=== PATIENT | female | born 1955 | race Caucasian/White ===

== ENCOUNTER 2022-07-13 10:59 | Outpatient (CLI) | payer OTHER, SELFPAY | END 2022-07-13 11:00 | disposition home or self-care (01) | PROVIDERS: PCP Family Medicine; Visit Provider Family Medicine | DX: I69.993 Ataxia following unspecified cerebrovascular disease (principal); H90.3 Sensorineural hearing loss, bilateral | CPT/HCPCS: 92557; 92567; 99199 ==

== ENCOUNTER 2022-09-23 14:36 | Inpatient (IN) | payer OTHER, SELFPAY ==
--- NOTE | ~2022-09-23 | XR_ITS ---
EXAM: XR hip RT 2V w AP pelvis DATE: 09/23/2022 15:27 HISTORY: Right hip pain s/p fall today . COMPARISON: None available. FINDINGS: MANAGER FLEET shunt tubing terminates in the right lower quadrant. Decreased mineralization. Angulated right intertrochanteric fracture. No lytic or blastic lesion. Degenerative changes in the lower lumb ar spine, pubic symphysis, and hips. No erosion or periosteal change. Pelvic phleboliths. Abdominal s utures. IMPRESSION: Angulated right intertrochanteric fracture. Reviewed, dictated and finalized at location K. FILER
--- NOTE | ~2022-09-23 | US_ITS ---
EXAMINATION: US venous doppler [facility] DATE: 09/24/2022 16:04 INDICATION: Bilateral lower extremity edema. TECHNIQUE: Grayscale images without and with compression and Doppler images of the bilateral lower ex tremity veins were obtained. COMPARISON: None FINDINGS: The right common femoral vein, profunda (deep) femoral vein, femoral vein, popliteal vein, peroneal v ein, posterior tibial veins, gastrocnemius vein, and greater saphenous vein are patent. The right per coy vein was difficult to completely visualize. The left common femoral vein, profunda femoral vein, femoral vein, popliteal vein, peroneal vein, pos terior tibial veins, gastrocnemius vein, and greater saphenous vein are patent. Left posterior tibial and peroneal veins were difficult to visualize. IMPRESSION: 1. Somewhat limited evaluation of the calf veins. 2. Within that constraint, patent bilateral lower extremity veins and no definite evidence of deep ve nous thrombosis. Reviewed, dictated and finalized at location K. UNITY RELATIONS REPRESENTATIVE IMPRESSION: 1. Somewhat limited evaluation of the calf veins. 2. Within that constraint, patent bilateral lower extremity veins and no defini te evidence of deep venous thrombosis.
--- NOTE | ~2022-09-23 | XR_ITS ---
EXAMINATION: XR surgery orthopedic DATE: 09/24/2022 09:19 INDICATION: Intertrochanteric fracture of proximal right femur. TECHNIQUE: 4 intraoperative fluoroscopic views of proximal right femur were obtained. I was not prese nt. Fluoroscopy exposure time was 108 seconds. COMPARISON: Right hip radiographs 09/23/2022 FINDINGS: There is an intertrochanteric fracture of proximal right femur in near-anatomic alignment s tatus post open reduction internal fixation with antegrade intramedullary nelson, distal interlocking sc rew, and 2 femoral head/neck screws. IMPRESSION: 1. Intertrochanteric fracture of proximal right femur status post open reduction internal fixation. Reviewed, dictated and finalized at location A. EL DRAINER IMPRESSION: 1. Intertrochanteric fracture of proximal right femur status post open reductio n internal fixation.
--- NOTE | ~2022-09-23 | XR_ITS ---
EXAMINATION: XR chest 1V Exam Date/Time: 09/23/2022 15:20 SAUSAGE COOKER HISTORY: Fall. Comparison: 11/11/2014. RESULT: Lines, tubes, and devices: The patient tubing traverses the right chest. Lungs and pleura: Right basilar scar/atelectasis. Cardiomediastinal silhouette: Stable. Other: No acute osseous or upper abdominal finding. IMPRESSION: Right basilar scar/atelectasis. Reviewed, dictated and finalized at location K. AGE COOKER
[2022-09-23 14:53] VITALS: BP 134/80; PULSE 87; RESP 12; TEMP 36.8; O2SAT 99
[2022-09-23 15:05] LABS: Basophils Absolute Auto 0.1 K/mm3 (0.0-0.1); Basophils Percent Auto 0.8 % (0.2-1.2); Eosinophils Percent Auto 0.3 % (0-4.4); Hematocrit 40.1 % (37.0-47.0); Hemoglobin 12.8 g/dL (12.0-15.0); Immature Granulocyte Absolute 0.21 K/mm3 (0.00-0.031); Immature Granulocyte Percent A 2.3 % (0-0.5); Lymphocytes Absolute Auto 3.58 K/mm3 (0.9-3.2); Lymphocytes Percent Auto 38.6 % (18.3-44.2); Mean Corpuscular HGB Conc 31.9 g/dl (32-36); Mean Corpuscular Hemoglobin 29.5 pg (26-34); Mean Corpuscular Volume 92.4 fl (80-100); Mean Platelet Volume 9.9 fl (7.4-10.4); Monocytes Absolute Auto 1.1 K/mm3 (0.1-0.6); Neutrophils Absolute Auto 4.3 K/mm3 (1.3-6.7); Platelet Count Result 169 k/mm3 (150-375); Red Blood Count 4.34 M/mm3 (4.2-5.4); Red Cell Distribution Width 14.9 % (11.5-14.5); White Blood Count 9.3 K/mm3 (4.5-10.0)
[2022-09-23 15:16] LABS: Alanine Aminotransferase 24 U/L (6-35); Albumin Level 3.3 g/dL (3.5-5.1); Alkaline Phosphatase 79 U/L (38-126); Anion Gap 6 mmol/L (8-16); Aspartate Amino Transferase 39 U/L (14-36); Bilirubin,Total 0.4 mg/dL (0.2-1.3); Blood Urea Nitrogen 23 mg/dL (7-17); Calcium 8.5 mg/dL (8.4-10.2); Carbon Dioxide 28 mmol/L (22-30); Chloride 104 mmol/L (98-107); Estimated CRCL calculation 50 ml/min; Estimated Glomerular Filt Rate > 60; Glucose 194 mg/dL (65-110); Potassium 4.7 mmol/L (3.4-5.0); Sodium 138 mmol/L (137-145)
[2022-09-23 15:51] LABS: Prothrombin Time 12.5 Seconds (11.1-14.7)
[2022-09-23 15:52] LABS: Partial Thromboplastin Time 28.6 SECONDS (22.3-36.8)
--- NOTE | 2022-09-23 15:52 | ED.FALL ---
HPI - Fall General Chief Complaint: Fall Stated Complaint: Ground level fall - right hip pain, deformed Time Seen by Provider: 09/23/22 14:50 History of Present Illness HPI Narrative: Patient is a 67-year-old female who presents ER status post fall. She was at her senior living when she had a fall going into her closet resulting in pain to her right hip. She has shortening and external rotation. Patient has dementia and is oriented x2 at baseline and cannot give a history. Related Data Allergies Allergy/AdvReac Type Severity Reaction Status Date / Time No Known Allergies Allergy Verified 09/23/22 14:58 Review of Systems Review of Systems: ROS unobtainable: Yes unobtainable due to mental status PMFSH Past Medical History Medical History (Updated 09/23/22 @ 16:56 by Michael Daley MD) COPD (chronic obstructive pulmonary disease) CVA (cerebral vascular accident) Hypertension Idiopathic aplastic anemia Normal pressure hydrocephalus Unspecified convulsions Surgical History Surgical History (Updated 09/23/22 @ 16:33 by Michael Daley MD) Surgical history unknown Social History Social History (Updated 05/02/22 @ 10:20 by Lindy Landin CMA) Smoking packs per day: 1 Smoking cigarettes per day: 20.0 Years smoked: 3 Smoking pack-years: 3.00 Smoking status: Former smoker Tobacco type: cigarettes Alcohol intake: never Substance use: never Substance use type: does not use Exam Narrative: GENERAL: Well-appearing, well-nourished, and in no acute distress. HEAD: Normocephalic, atraumatic. ENT: Mucous membranes moist. CHEST: Clear to auscultation. No respiratory distress. HEART: Regular rate and rhythm. Normal peripheral pulses. ABDOMEN: Soft, nontender, nondistended. EXTREMITIES: Shortening and external rotation of the right lower extremity. Tender at the hip. Neurovascular intact. None from the left lower extremity or upper extremities. SKIN: Warm, dry, no rash. NEURO: Alert and oriented x2. PSYCH: Normal mood and affect. Course Course Emergency Course: Excepted to the hospital service for further treatment. Dr. Henao with orthopedic surgery will consult. Patient aware of treatment plan. Vital Signs Vital signs: Vital Signs Temperature 98.2 F 09/23/22 14:53 Pulse Rate 87 09/23/22 14:53 Respiratory Rate 12 09/23/22 14:53 Blood Pressure 134/80 09/23/22 14:53 Pulse Oximetry 99 09/23/22 14:53 Oxygen Delivery Room Air 09/23/22 14:53 Temperature 98.2 F 09/23/22 14:53 Pulse Rate 83 09/23/22 16:48 Respiratory Rate 18 09/23/22 16:48 Blood Pressure 150/86 H 09/23/22 16:48 Pulse Oximetry 99 09/23/22 16:48 Oxygen Delivery Room Air 09/23/22 14:53 MDM - Fall Lab Data 09/23/22 15:00 09/23/22 15:00 Labs: Lab Results 09/23/22 09/23/22 09/23/22 Range/Units 15:00 15:00 15:00 WBC 9.3 (4.5-10.0) K/mm3 RBC 4.34 (4.2-5.4) M/mm3 Hgb 12.8 (12.0-15.0) g/dL Hct 40.1 (37.0-47.0) % MCV 92.4 (80-100) fl MCH 29.5 (26-34) pg MCHC 31.9 L (32-36) g/dl RDW 14.9 H (11.5-14.5) % Plt Count 169 (150-375) k/mm3 MPV 9.9 (7.4-10.4) fl Immature Gran % (Auto) 2.3 H (0-0.5) % Neut % (Auto) 46.0 (45.5-73.1) % Lymph % (Auto) 38.6 (18.3-44.2) % [place] % (Auto) 12.0 H (2.6-8.5) % Eos % (Auto) 0.3 (0-4.4) % Baso % (Auto) 0.8 (0.2-1.2) % Lymph # (Auto) 3.58 H (0.9-3.2) K/mm3 [place] # (Auto) 1.1 H (0.1-0.6) K/mm3 Eos # (Auto) 0.0 (0-0.3) K/mm3 Baso # (Auto) 0.1 (0.0-0.1) K/mm3 Abs Immat Gran (auto) 0.21 H (0.00-0.031) K/mm3 Absolute Neuts (auto) 4.3 (1.3-6.7) K/mm3 Absolute Nucleated RBC 0.0 (0.0-0.012) K/mm3 Nucleated RBC % 0.0 (0.0-0.2) % PT 12.5 (11.1-14.7) Seconds INR 1.0 APTT 28.6 (22.3-36.8) SECONDS Sodium 138 (137-145) mmol/L Potassium 4.7 (3.4-5.0) mmol/L Chloride 104 (98-
--- NOTE | 2022-09-23 16:19 | ECG_ITS ---
Measurements Intervals [place] Rate: 80 P: 51 [place]: 144 QRS: 42 QRSD: 92 T: 49 QT: 381 QTc: 441 Interpretive Statements SINUS RHYTHM NORMAL ECG NO PREVIOUS ECG AVAILABLE FOR COMPARISON Electronically Signed On 09-23-2022 17:32:52 ENVIRONMENTAL TECHNICAL OFFICER by Mansoor Blanchard D.O.
[2022-09-23 16:48] VITALS: BP 150/86; PULSE 83; RESP 18; O2SAT 99
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
[2022-09-23 17:37] LABS: Influenza A QL RT-PCR Negative (Negative); Influenza B QL RT-PCR Negative (Negative); SARS-CoV-2 RNA PCR Negative
--- NOTE | 2022-09-23 18:05 | ADMGEN ---
This patient, Anjelica Pena, was admitted to 2 Medical Room 251-01. Patient/family oriented to hospital policies and general routines including ID bracelet, bed and alarms, visiting hours, pain management, procedures, bathroom and other care routines, personal items, smoking policy, room service/diet, and visiting hours. Information on how to activate the Rapid Response Team has been discussed. Patient/Family are encouraged to report perceived risks to care and to ask questions if they do not understand what they are told or what they should do.
[2022-09-23 18:30] VITALS: BP 143/61; PULSE 85; RESP 20; TEMP 36.4; O2SAT 99
[2022-09-23 18:36] VITALS: BMI 27.5
[2022-09-23 18:38] VITALS: RESP 18; O2SAT 99
[2022-09-23 20:00] VITALS: BP 143/71; PULSE 99; RESP 18; TEMP 37.1; O2SAT 100
[2022-09-23] MEDS: HYDROcodone/acetaminophen (*CRX) 5-325 MG TABLET 1 TAB PO (21:14)
[2022-09-23] MEDS: ONDANSETRON INJ 4 MG/2 ML VIAL IV PUSH (21:15)
[2022-09-24] VITALS (20 sets, daily range): BP systolic 107–154; BP diastolic 63–90; PULSE 83–108; RESP 11–18; TEMP 36.3–36.6; O2SAT 91–100
[2022-09-24] MEDS: oxyCODONE HCL (*CRX) 5 MG TAB IR PO ×3 (00:12→05:42)
[2022-09-24 05:49] LABS: Hematocrit 37.6 % (37.0-47.0); Hemoglobin 11.8 g/dL (12.0-15.0); Mean Corpuscular HGB Conc 31.4 g/dl (32-36); Mean Corpuscular Hemoglobin 28.4 pg (26-34); Mean Corpuscular Volume 90.6 fl (80-100); Mean Platelet Volume 9.8 fl (7.4-10.4); Platelet Count Result 183 k/mm3 (150-375); Red Blood Count 4.15 M/mm3 (4.2-5.4); Red Cell Distribution Width 14.6 % (11.5-14.5); White Blood Count 13.2 K/mm3 (4.5-10.0)
[2022-09-24 05:55] LABS: Anion Gap 5 mmol/L (8-16); Blood Urea Nitrogen 24 mg/dL (7-17); Calcium 8.6 mg/dL (8.4-10.2); Carbon Dioxide 29 mmol/L (22-30); Chloride 103 mmol/L (98-107); Estimated CRCL calculation 53 ml/min; Estimated Glomerular Filt Rate > 60; Glucose 139 mg/dL (65-110); Magnesium 2.1 mg/dL (1.6-2.3); Potassium 4.6 mmol/L (3.4-5.0); Sodium 137 mmol/L (137-145)
[2022-09-24 05:58] LABS: Hemoglobin A1C 5.5 % (<5.7)
[2022-09-24 06:15] LABS: Vitamin D 25 Hydroxy 30.7 ng/mL
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
--- NOTE | 2022-09-24 07:31 | PC.NURSE ---
Brother of patient came to floor at 0615 to sign blood/surgical consent. Brother expressed ideas of paranoid schizophrenia concerns staff at snf facility and other odd statements. Brother talked to surgeon. Brief report given to OR nurse. Pt taken to preop with o2 via bed with staff , brother accompanied pt as well.IV Antibiotics to preop per pharmacy.
--- NOTE | 2022-09-24 07:38 | WPDANESEPPF ---
Anes - Initial Pre Proc Eval Procedure: Operation Date: 09/24/22 07:30 Proposed Procedures p Intertrochanteric Nail(Right) - Eder Henao MD Date/Time: 09/24/22 07:38 Surgeon: Kyara Lawson PA-C Pre Op Diagnosis: hip fracture Patient Data Age: 67 Gender: F Height: 1.55 m Weight: 66.1 kg Last Vital Signs Temp 36.5 C 09/24/22 05:09 Pulse 101 H 09/24/22 05:09 Resp 18 09/24/22 05:09 BP 154/76 H 09/24/22 05:09 Pulse Ox 98 09/24/22 05:09 O2 Del Method Room Air 09/23/22 18:38 Allergies Allergy/AdvReac Type Severity Reaction Status Date / Time No Known Allergies Allergy Verified 09/23/22 18:24 Home Medications Medication Instructions Recorded Confirmed Type acetaminophen 325 mg tablet 325 mg PO Q4H PRN Pain 09/23/22 09/23/22 History (Tylenol) artificial tears solution eye drops 1 drp ophthalmic (eye) BID PRN Eye 09/23/22 09/23/22 History Irritation bisacodyl 5 mg tablet,delayed 5 mg PO BID PRN Constipation 09/23/22 09/23/22 History release calcium carb-vit D3-minerals 600 1 tablet PO DAILY 09/23/22 09/23/22 History mg calcium-400 unit tablet cetirizine 10 mg tablet (Allergy 10 mg PO DAILY 09/23/22 09/23/22 History Relief (cetirizine)) citalopram 10 mg tablet 10 mg PO DAILY 09/23/22 09/23/22 History divalproex 500 mg tablet,delayed 2,000 mg PO 1900 09/23/22 09/23/22 History release fluticasone 100 mcg-salmeterol 50 1 inh inhalation BID 09/23/22 09/23/22 History mcg/dose blistr powdr for inhalation (Advair Diskus) fluticasone propionate 50 1 spray intranasal BID PRN Nasal 09/23/22 09/23/22 History mcg/actuation nasal Congestion spray,suspension furosemide 20 mg tablet 20 mg PO DAILY 09/23/22 09/23/22 History guaifenesin 600 mg tablet, 600 mg PO Q12H PRN Congestion 09/23/22 09/23/22 History extended release 12 hr (Mucinex) ipratropium 20 mcg-albuterol 100 1 puff inhalation QID 09/23/22 09/23/22 History mcg/actuation mist for inhalation (Combivent Respimat) loperamide 2 mg capsule 2 mg PO TID PRN Diarrhea 09/23/22 09/23/22 History montelukast 10 mg tablet 10 mg PO DAILY 09/23/22 09/23/22 History (Singulair) omeprazole 20 mg tablet,delayed 20 mg PO DAILY 09/23/22 09/23/22 History release polysaccharide iron complex 150 mg 150 mg PO 1700 09/23/22 09/23/22 History iron capsule (iFerex 150) propylene glycol 0.6 % eye drops 1 drp EACH EYE DAILY 09/23/22 09/23/22 History (Systane Complete) Laboratory Tests 09/23/22 09/23/22 09/23/22 15:00 15:00 15:00 WBC 9.3 K/mm3 K/mm3 (4.5-10.0) RBC 4.34 M/mm3 M/mm3 (4.2-5.4) Hgb 12.8 g/dL g/dL (12.0-15.0) Hct 40.1 % % (37.0-47.0) MCV 92.4 fl fl (80-100) MCH 29.5 pg pg (26-34) MCHC 31.9 g/dl L g/dl (32-36) RDW 14.9 % H % (11.5-14.5) Plt Count 169 k/mm3 k/mm3 (150-375) MPV 9.9 fl fl (7.4-10.4) Immature Gran % (Auto) 2.3 % H % (0-0.5) Neut % (Auto) 46.0 % % (45.5-73.1) Lymph % (Auto) 38.6 % % (18.3-44.2) [place] % (Auto) 12.0 % H % (2.6-8.5) Eos % (Auto) 0.3 % % (0-4.4) Baso % (Auto) 0.8 % % (0.2-1.2) Lymph # (Auto) 3.58 K/mm3 H K/mm3 (0.9-3.2) [place] # (Auto) 1.1 K/mm3 H K/mm3 (0.1-0.6) Eos # (Auto) 0.0 K/mm3 K/mm3 (0-0.3) Baso # (Auto) 0.1 K/mm3 K/mm3 (0.0-0.1) Abs Immat Gran (auto) 0.21 K/mm3 H K/mm3 (0.00-0.031) Absolute Neuts (auto) 4.3 K/mm3 K/mm3 (1.3-6.7) Absolute Nucleated RBC 0.0 K/mm3 K/mm3 (0.0-0.012) Nucleated RBC % 0.0 % % (0.0-0.2) PT 12.5 Seconds Seconds (11.1-14.7) INR 1.0 APTT 28.6 SECONDS SECONDS (22.3-36.8) Sodium 138 mmol/L mmol/L (137-145) Potassium 4.7 mmol/L mmol/L (3.4-5.0) Chloride 104 mmol/L mmol/L (98-107)
[2022-09-24] MEDS: ceFAZolin 2 GM/D5W 50 ML 2 GM/50 ML BAG IVPB (07:42)
[2022-09-24] MEDS: TRANEXAMIC ACID 1,000MG/ISO100 1,000 MG/100 ML BAG 200 MG IVPB (08:02)
[2022-09-24] MEDS: ceFAZolin SODIUM 1 GM VIAL (08:22)
[2022-09-24] MEDS: LACTATED RINGERS 1,000 ML 30 ML IV CONT (09:39)
--- NOTE | 2022-09-24 09:45 | P.OP_ITS ---
Procedure Note - Detailed Date of Procedure 09/24/22 Pre-op Diagnosis Three part right intertrochanteric hip fracture Post-op Diagnosis Same Procedure Performed Open reduction internal fixation 3 part right intertrochanteric hip fracture with Arthrex trochanteric nail device. Surgeon Eder Henao MD [employer] Experimental Mechanic [place] Anesthesia General Description of Procedure Patient was brought to the operating room and general anesthesia was administered. She received weight based vancomycin 2 g of Ancef 1 g of tranexamic acid preoperatively. The hip and lateral right thigh were scrubbed thoroughly with a chlorhexidine cloth. She was transferred to the fracture table the right foot secured with soft roll and [place] on the foot the left hip flexed abducted out of the way. Fluoro was brought in and there was varus angulation and external rotation deformity of the distal femur which was cor rected with the internal rotation longitudinal traction. I could not completely correct the varus deformity with traction until muscle relaxation was administered which we utilized and this provided us anatomic alignment. The right hip was prepped draped usual fashion. A 2 in longitudinal incision was made proximal to greater trochanter and a 1 in incision made in the fascia after placing the guide pin in the center of the tip of the greater trochanter and confirming position with fluoro. The proximal Reamer was used and then long guide nelson inserted down the canal. The canal obtained significant chatter with the 11 mm Reamer and therefore we chose the short 9 mm by 130 degree trochanteric nail which was inserted under manual pressure to the appropriate depth. Guide pin was inserted low in the femoral head on the AP view perfect center on the lateral view. An anti rotation guide pin was then placed which fit nicely. The lag screw track was drilled to about 7 mm from subchondral bone and the 95 mm lag screw was appropriate in length and seated with a lateral collar contacting the lateral cortex. The lag screw was locked to the nail and the activation pin removed and traction released. Anatomic alignment was maintained. The anti rotation screw was then placed without difficulty. The distal interlocking screw was placed in the static hole without difficulty. Final x-rays were obtained. The wound was irrigated with antibiotic solution. The fascia in the proximal 2 incisions was closed with 1. Vicryl the skin all the incision closed with 2-0 subcutaneous Vicryl and glue. EBL was 100 cc. There were no complications she was transferred postop recovery room good condition. Implants Arthrex short nail Estimated Blood Loss 100 Urine Output 200 Condition Stable Disposition PACU
--- NOTE | 2022-09-24 10:35 | SUR.PHASEI ---
PATIENT OXYGEN DROPPING T0 88-90% ON ROOM AIR WHEN SLEEPING, PLACED ON 2L NC
[2022-09-24] MEDS: SODIUM CHLORIDE 0.9% IV 1,000 ML 125 ML IV CONT (12:05)
--- NOTE | 2022-09-24 12:26 | PCPTNOTE ---
According to my reading of Dr. Henao' communications start physical therapy tomorrow working on transfers with 50% PWB
--- NOTE | 2022-09-24 13:01 | PCOTNOTE ---
Per Dr. Henao' communications start OT therapy tomorrow working on transfers with 50% PWB
[2022-09-24] MEDS: oxyCODONE HCL (*CRX) 2.5 MG TAB IR PO ×3 (13:03→21:40)
--- NOTE | 2022-09-24 15:40 | PM.IMPN ---
Progress Note: A&P Assessment and Plan (1) Intertrochanteric fracture of right hip: Code(s): S72.141A - Displaced intertrochanteric fracture of right femur, initial encounter for closed fracture Status: Acute Assessment and Plan: Presented with right hip pain after suffering a fall from her bed. Imaging revealed acute, angulated right intertrochanteric fracture. she has been seen in consultation by Orthopedic surgery and underwent ORIF this morning. She tolerated the procedure well. Her pain is well controlled. She will need postoperative PT/OT. Continue analgesics as needed. Continue with Ken catheter, plan for voiding trial in the next day or so. (2) Hyperglycemia: Code(s): R73.9 - Hyperglycemia, unspecified Status: Acute Assessment and Plan: Random blood sugar elevated at 194 on presentation. A1c is 5.5. There is no indication for further glucose monitoring at this time. (3) Seizure disorder: Code(s): G40.909 - Epilepsy, unspecified, not intractable, without status epilepticus Status: Chronic Assessment and Plan: no acute issues. Continue home Depakote (4) Chronic obstructive pulmonary disease: Code(s): J44.9 - Chronic obstructive pulmonary disease, unspecified Status: Chronic Assessment and Plan: not in acute exacerbation. Continue home Singulair and Advair. Albuterol as needed. Subjective Date/time seen: 09/24/22 15:40 Interval history: date of service: 09/24/2022 Anjelica Pena is a 67-year-old female with a history of traumatic brain injury, NPH, seizure disorder, CVA, hypertension, GERD, COPD who is seen in follow-up for right hip fracture. She underwent ORIF today and tolerated the procedure well. She states that her pain is currently 6/10. She denies postoperative nausea or vomiting. Denies shortness of breath, cough, or chest pain. No issues with her Ken catheter. States her last bowel movement was yesterday. Review of Systems Review of Systems: All systems reviewed & are unremarkable except as noted in HPI and below Exam Narrative: General: Well-nourished, chronically ill-appearing 67-year-old female, supine in bed , comfortable, NARD Neuro: awake, alert and oriented to self only (baseline), speech clear, no focal neuro deficits noted HEENMT: normocephalic, atraumatic, EOMI, sclerae anicteric, moist oral mucosa Respiratory: clear to auscultation bilaterally, nonlabored breathing Cardio: regular rate, regular rhythm with S1-S2 Abdomen: nondistended, normoactive bowel sounds, soft, nontender to palpation : Ken catheter patent draining straw-colored urine Extremities: right hip incision covered with dressing that is clean and dry, right hip nontender to palpation, bilateral lower extremities without edema, erythema, or tenderness to palpation, DP pulses 2+ bilaterally Skin: no rashes or lesions, warm and dry Psych: appropriate mood and affect, judgment and insight fair Objective Data Vital Signs Vital Signs: Vital Signs - 24 hr 09/23/22 16:48 09/23/22 18:38 09/23/22 18:30 Temperature 97.6 F Pulse Rate 83 85 Respiratory Rate 18 18 20 Blood Pressure 150/86 H 143/61 H Pulse Oximetry 99 99 99 Oxygen Delivery Room Air Oxygen Flow Rate 09/23/22 20:00 09/24/22 00:00 09/24/22 03:15 Temperature 98.7 F 97.8 F 97.6 F Pulse Rate 99 104 H 106 H Respiratory Rate 18 17 17 Blood Pressure 143/71 H 143/78 H 136/68 Pulse Oximetry 100 100 100 Oxygen Delivery Oxygen Flow Rate 09/24/22 05:09 09/24/22 09:39 09/24/22 09:50 Temperature 97.7 F 97.6 F Pulse Rate 101 H 103 H 96 Respiratory Rate 18 11 L 11 L Blood Pressure 154/76 H 137/77 142/78 H Pulse Oximetry 98 99 100 Oxygen Delivery Simple Face Mask Simple Face Mask Oxygen Flow Rate 6 6 09/24/22 09:58 09/24/22 10:05 09/24/22 10:20 Temperature Pulse Rate 102 H 92 Respiratory Rate 12 12 Blood Pressure 129/9
[2022-09-24] MEDS: POLYSACCHARIDE IRON COMPLEX 150 MG CAPSULE PO (18:02)
[2022-09-24] MEDS: DIVALPROEX SODIUM DR 250 MG TABEC 2000 MG PO (18:49)
[2022-09-24] MEDS: FLUTICASONE/SALMETEROL 45-21 MCG INHALER 1 PUFF 2 PUFF INHALATION (20:25)
[2022-09-25] VITALS (13 sets, daily range): BP systolic 108–139; BP diastolic 55–76; PULSE 68–116; RESP 16–18; TEMP 36.2–37.1; O2SAT 92–97
[2022-09-25] MEDS: oxyCODONE HCL (*CRX) 2.5 MG TAB IR PO ×7 (00:39→21:35)
[2022-09-25 05:20] LABS: Basophils Absolute Auto 0.1 K/mm3 (0.0-0.1); Basophils Percent Auto 0.7 % (0.2-1.2); Hematocrit 32.2 % (37.0-47.0); Hemoglobin 9.9 g/dL (12.0-15.0); Immature Granulocyte Percent A 2.2 % (0-0.5); Lymphocytes Absolute Auto 4.33 K/mm3 (0.9-3.2); Lymphocytes Percent Auto 31.9 % (18.3-44.2); Mean Corpuscular HGB Conc 30.7 g/dl (32-36); Mean Corpuscular Hemoglobin 28.2 pg (26-34); Mean Corpuscular Volume 91.7 fl (80-100); Mean Platelet Volume 9.4 fl (7.4-10.4); Monocytes Absolute Auto 2.5 K/mm3 (0.1-0.6); Monocytes Percent Auto 18.1 % (2.6-8.5); Neutrophils Absolute Auto 6.4 K/mm3 (1.3-6.7); Neutrophils Percent Auto 47.1 % (45.5-73.1); Nucleated Red Blood Cells Perc 0.1 % (0.0-0.2); Platelet Count Result 152 k/mm3 (150-375); Red Blood Count 3.51 M/mm3 (4.2-5.4); Red Cell Distribution Width 14.5 % (11.5-14.5); White Blood Count 13.6 K/mm3 (4.5-10.0)
[2022-09-25 05:27] LABS: Anion Gap 2 mmol/L (8-16); Blood Urea Nitrogen 12 mg/dL (7-17); Calcium 8.1 mg/dL (8.4-10.2); Carbon Dioxide 29 mmol/L (22-30); Chloride 101 mmol/L (98-107); Estimated CRCL calculation 60 ml/min; Estimated Glomerular Filt Rate > 60; Glucose 125 mg/dL (65-110); Potassium 3.9 mmol/L (3.4-5.0); Sodium 132 mmol/L (137-145)
[2022-09-25] MEDS: FLUTICASONE/SALMETEROL 45-21 MCG INHALER 1 PUFF 2 PUFF INHALATION ×2 (09:03→20:55)
[2022-09-25] MEDS: polyethylene glycoL 3350 17 GM POWD.PACK PO (09:21)
[2022-09-25] MEDS: LORATADINE 10 MG TABLET PO (09:21)
--- NOTE | 2022-09-25 10:17 | P.PNAN_ITS ---
Anes - Prog Note Post-Op Date/Time: 09/25/22 10:17 Cardiovascular status: normal Respiratory status: normal Airway patency: baseline Mental status: baseline Post-Op hydration status: normal Vital Signs: Last Vital Signs Temp 36.7 C 09/25/22 04:55 Pulse 104 H 09/25/22 04:55 Resp 18 09/25/22 04:55 BP 108/55 L 09/25/22 04:55 Pulse Ox 96 09/25/22 09:04 O2 Del Method Room Air 09/25/22 09:04 O2 Flow Rate 2 09/24/22 10:35 Pain Score (VAS): 10/13 I/O: Intake & Output 09/24/22 09/25/22 09/25/22 23:59 07:59 15:59 Intake Total 640 800 120 Output Total 550 1650 Balance 90 -850 120 Laboratory Tests 09/25/22 05:05 09/25/22 05:05 09/25/22 09/25/22 05:05 05:05 WBC 13.6 H RBC 3.51 L Hgb 9.9 L Hct 32.2 L MCV 91.7 MCH 28.2 MCHC 30.7 L RDW 14.5 Plt Count 152 MPV 9.4 Immature Gran % (Auto) 2.2 H Neut % (Auto) 47.1 Lymph % (Auto) 31.9 [place] % (Auto) 18.1 H Eos % (Auto) 0.0 Baso % (Auto) 0.7 Lymph # (Auto) 4.33 H [place] # (Auto) 2.5 H Eos # (Auto) 0.0 Baso # (Auto) 0.1 Abs Immat Gran (auto) 0.30 H Absolute Neuts (auto) 6.4 Absolute Nucleated RBC 0.0 Nucleated RBC % 0.1 Sodium 132 L Potassium 3.9 Chloride 101 Carbon Dioxide 29 Anion Gap 2 L BUN 12 D Creatinine 0.70 Estim Creat Clear Calc 60 Estimated GFR > 60 Glucose 125 H Calcium 8.1 L Post-procedural complaints: none Patient Feedback: Patient satisfied with anesthetic care.
[2022-09-25] MEDS: ARTIFICIAL TEARS OPHTH SOLN 15 ML BOTTLE 1 DROP EACH EYE (10:47)
[2022-09-25] MEDS: PANTOPRAZOLE 40 MG TABLET PO (10:47)
[2022-09-25] MEDS: MONTELUKAST SODIUM 10 MG TABLET PO (10:47)
[2022-09-25] MEDS: APIXABAN 2.5 MG TABLET PO ×2 (10:47→21:35)
[2022-09-25] MEDS: FUROSEMIDE 20 MG TABLET PO (10:47)
[2022-09-25] MEDS: CITALOPRAM HYDROBROMIDE 10 MG TABLET PO (10:47)
--- NOTE | 2022-09-25 12:03 | PM.PNORT ---
Subjective Subjective Date/Time Seen: 09/25/22 12:03 postop day 1 patient is alert. Afebrile vital signs are stable. Hemoglobin is 9.9. Dressings are intact and dry. Patient's vitamin-D was 30.7. Physical therapy will start to work with her today. Patient will need rehab facility and care coordination is start the process on this. We will supplement patient's vitamin D with calcium plus vitamin D supplements. Objective Data Vital Signs Vital Signs: Vital Signs - 24 hr 09/24/22 12:32 09/24/22 15:09 09/24/22 16:00 Temperature 36.3 C L 36.5 C Pulse Rate 83 99 96 Respiratory Rate 14 14 Blood Pressure 118/66 107/64 Pulse Oximetry 91 96 Oxygen Delivery 09/24/22 20:28 09/24/22 20:32 09/24/22 20:33 Temperature 36.4 C 36.4 C Pulse Rate 108 H 108 H Respiratory Rate 18 18 Blood Pressure 123/63 123/63 Pulse Oximetry 95 96 96 Oxygen Delivery Room Air 09/24/22 21:50 09/25/22 00:38 09/24/22 20:00 Temperature 36.7 C Pulse Rate 112 H 105 H Respiratory Rate 18 Blood Pressure 128/59 L Pulse Oximetry 97 Oxygen Delivery Room Air 09/25/22 00:00 09/25/22 04:00 09/25/22 04:55 Temperature 36.7 C Pulse Rate 112 H 106 H 104 H Respiratory Rate 18 Blood Pressure 108/55 L Pulse Oximetry 95 Oxygen Delivery 09/25/22 08:00 09/25/22 09:04 09/25/22 11:31 Temperature 37.0 C Pulse Rate 109 H Respiratory Rate 16 Blood Pressure 135/65 Pulse Oximetry 96 92 Oxygen Delivery Room Air Room Air Intake/Output Intake/Output: Intake & Output 09/22/22 09/23/22 09/24/22 09/25/22 23:59 23:59 23:59 23:59 Intake Total 1480 920 Output Total 1250 1650 Balance 230 -730 Meds/Results Medications: Active Medications Generic Name Dose Route Start Last Admin Trade Name Freq PRN Reason Stop Dose Admin Acetaminophen 1,000 mg 09/25/22 12:00 Acetaminophen 500 Mg Tablet PO Q6HR [facility] Apixaban 2.5 mg 09/25/22 09:00 09/25/22 10:47 Apixaban 2.5 Mg Tablet PO 2.5 mg Q12HR JAYNE Administration Artificial Tears 1 drop 09/24/22 10:47 Artificial Tears Ophth Soln 15 Ml Bottle EACH EYE BID PRN Eye Irritation Artificial Tears 1 drop 09/25/22 09:00 09/25/22 10:47 Artificial Tears Ophth Soln 15 Ml Bottle EACH EYE 10/25/22 08:59 1 drop DAILY JAYNE Administration Calcium Carbonate 500 mg 09/25/22 09:00 09/25/22 10:47 Calcium/Vitamin D 500 Mg Tablet PO 10/25/22 08:59 500 mg DAILY JAYNE Administration Citalopram Hydrobromide 10 mg 09/25/22 09:00 09/25/22 10:47 Citalopram Hydrobromide 10 Mg Tablet PO 10 mg DAILY JAYNE Administration Divalproex Sodium 2,000 mg 09/24/22 19:00 09/24/22 18:[address] 250 Mg Tabec PO 2,000 mg 1900 JAYNE Administration Fluticasone Propionate 1 spray 09/24/22 10:47 Fluticasone Propionate 0.05% Na Spr 16 Gm Btl (*Bkc) NASAL BID PRN Nasal Congestion Furosemide 20 mg 09/25/22 09:00 09/25/22 10:47 Furosemide 20 Mg Tablet PO 20 mg DAILY JAYNE Administration Guaifenesin 600 mg 09/24/22 10:47 Guaifenesin 12 Hr 600 Mg Tabcr PO Q12H PRN Congestion Loperamide HCl 2 mg 09/24/22 10:47 Loperamide Hcl 2 Mg Capsule PO TID PRN Diarrhea Loratadine 10 mg 09/25/22 09:00 09/25/22 09:21 Loratadine 10 Mg Tablet PO 10/25/22 08:59 10 mg DAILY JAYNE Administration Montelukast Sodium 10 mg 09/25/22 09:00 09/25/22 10:47 Montelukast Sodium 10 Mg Tablet PO 10 mg DAILY JAYNE Administration Morphine Sulfate 2 mg 09/24/22 10:47 Morphine Sulfate (*Crx) 2 Mg/Ml Inj IV PUSH Q1H PRN Pain Rated 7-10 IF NPO Naloxone HCl 0.1 mg 09/24/22 10:47 Naloxone Hcl 0.4 Mg/Ml Vial IV PUSH Q2M PRN Opiate Reversal Oxycodone HCl 2.5 mg 09/24/22 13:00 09/25/22 09:21 Oxycodone Hcl (*Crx) 2.5 Mg Tab Ir PO 2.5 mg Q4HR JAYNE Administration Oxycodone HCl 2.5 mg 09/24/22 10:47 Oxycodone Hcl (*Crx) 2.5 Mg Tab
[2022-09-25] MEDS: ACETAMINOPHEN 500 MG TABLET 1000 MG PO ×3 (12:41→23:19)
--- NOTE | 2022-09-25 16:31 | PM.IMPN ---
Progress Note: A&P Assessment and Plan (1) Intertrochanteric fracture of right hip: Code(s): S72.141A - Displaced intertrochanteric fracture of right femur, initial encounter for closed fracture Status: Acute Assessment and Plan: Presented with right hip pain after suffering a fall from her bed. Imaging revealed acute, angulated right intertrochanteric fracture. she has been seen in consultation by Orthopedic surgery and underwent ORIF on 09/24. She tolerated the procedure well. Her pain is well controlled. Continue PT/OT. Continue low-dose Eliquis for DVT prophylaxis per Orthopedic surgery recommendations. Continue analgesics as needed. Ken catheter removed today and patient voiding independently. (2) Hyperglycemia: Code(s): R73.9 - Hyperglycemia, unspecified Status: Acute Assessment and Plan: Random blood sugar elevated at 194 on presentation. A1c is 5.5. There is no indication for further glucose monitoring at this time. (3) Seizure disorder: Code(s): G40.909 - Epilepsy, unspecified, not intractable, without status epilepticus Status: Chronic Assessment and Plan: no acute issues. Continue home Depakote (4) Chronic obstructive pulmonary disease: Code(s): J44.9 - Chronic obstructive pulmonary disease, unspecified Status: Chronic Assessment and Plan: not in acute exacerbation. Continue home Singulair and Advair. Albuterol as needed. (5) Normocytic anemia: Code(s): D64.9 - Anemia, unspecified Status: Acute Assessment and Plan: Hemoglobin and hematocrit decline from baseline down to 9.9 today. Likely secondary to hip fracture and postoperative blood loss. No evidence of active bleeding. Continue to monitor H&H. Subjective Date/time seen: 09/25/22 16:31 Interval history: Date of service: 09/25/2022 Anjelica Pena is a 67-year-old female with a history of traumatic brain injury, NPH, seizure disorder, CVA, hypertension, GERD, COPD who is seen in follow-up for right hip fracture. She is doing fairly well today. She does complain of right leg pain. She states that rest she is comfortable. When she tries to get up her pain increased to 6/10. She was able to participate in therapy today and got up to the chair. She did well with this. She is tolerating her diet. She denies nausea or vomiting. Ken catheter was removed this morning she has been able to void. She denies shortness of breath, cough, or chest pain. Review of Systems Review of Systems: All systems reviewed & are unremarkable except as noted in HPI and below Exam Narrative: General: well-nourished, chronically ill-appearing 67-year-old female, supine in bed , comfortable Neuro: awake, alert and oriented to self only (baseline), speech clear, no focal neuro deficits noted HEENMT: normocephalic, atraumatic, EOMI, sclerae anicteric, moist oral mucosa Respiratory: clear to auscultation bilaterally, nonlabored breathing Cardio: regular rate, regular rhythm with S1-S2 Abdomen: nondistended, normoactive bowel sounds, soft, nontender to palpation Extremities: right hip incision covered with dressing that is clean and dry, right hip nontender to palpation, bilateral lower extremities without edema, erythema, or tenderness to palpation, DP pulses 2+ bilaterally Skin: no rashes or lesions, warm and dry Psych: appropriate mood and affect, judgment and insight fair Objective Data Vital Signs Vital Signs: Vital Signs - 24 hr 09/24/22 20:28 09/24/22 20:32 09/24/22 20:33 Temperature 97.6 F 97.6 F Pulse Rate 108 H 108 H Respiratory Rate 18 18 Blood Pressure 123/63 123/63 Pulse Oximetry 95 96 96 Oxygen Delivery Room Air 09/24/22 21:50 09/25/22 00:38 09/24/22 20:00 Temperature 98.0 F Pulse Rate 112 H 105 H Respiratory Rate 18 Blood Pressure 128/59 L Pulse Oximetry 97 Oxygen Delivery Room Air 09/25/22 00:00 09/04
[2022-09-25] MEDS: POLYSACCHARIDE IRON COMPLEX 150 MG CAPSULE PO (17:21)
[2022-09-25] MEDS: DIVALPROEX SODIUM DR 250 MG TABEC 2000 MG PO (18:37)
[2022-09-26] VITALS (11 sets, daily range): BP systolic 114–138; BP diastolic 52–92; PULSE 98–115; RESP 16–20; TEMP 36.1–36.8; O2SAT 93–99
[2022-09-26] MEDS: oxyCODONE HCL (*CRX) 2.5 MG TAB IR PO ×7 (00:43→20:46)
[2022-09-26] MEDS: ACETAMINOPHEN 500 MG TABLET 1000 MG PO ×3 (05:33→18:46)
[2022-09-26 05:38] LABS: Hematocrit 32.4 % (37.0-47.0); Hemoglobin 9.8 g/dL (12.0-15.0); Mean Corpuscular HGB Conc 30.2 g/dl (32-36); Mean Corpuscular Hemoglobin 27.8 pg (26-34); Mean Corpuscular Volume 91.8 fl (80-100); Mean Platelet Volume 9.8 fl (7.4-10.4); Platelet Count Result 164 k/mm3 (150-375); Red Blood Count 3.53 M/mm3 (4.2-5.4); Red Cell Distribution Width 14.8 % (11.5-14.5)
[2022-09-26 05:46] LABS: Anion Gap 3 mmol/L (8-16); Blood Urea Nitrogen 15 mg/dL (7-17); Calcium 8.3 mg/dL (8.4-10.2); Carbon Dioxide 36 mmol/L (22-30); Chloride 98 mmol/L (98-107); Estimated CRCL calculation 56 ml/min; Estimated Glomerular Filt Rate > 60; Glucose 122 mg/dL (65-110); Sodium 137 mmol/L (137-145)
--- NOTE | 2022-09-26 06:02 | PM.PNORT ---
Progress Note: A&P Assessment and Plan (1) Intertrochanteric fracture of right hip: Code(s): S72.141A - Displaced intertrochanteric fracture of right femur, initial encounter for closed fracture Status: Acute Assessment and Plan: Postoperative day 2. Hemoglobin stable at 9.8. It was 9.9 yesterday. This represents mild acute blood loss anemia. Her BMP looks good creatinine stable at 0.8. Her 25 hydroxy vitamin-D was 30. Wounds are dry with no blood on dressings. She is neurologically intact the right leg. She is alert and communicates appropriately. She states she has no pain right now has a little bit of pain when she moves. She feels the pain medication regimen is well tolerated. Discharge planning is underway. Subjective Subjective Date/Time Seen: 09/26/22 06:02 Objective Data Vital Signs Vital Signs: Vital Signs - 24 hr 09/25/22 08:00 09/25/22 09:04 09/25/22 11:31 Temperature 37.0 C Pulse Rate 109 H Respiratory Rate 16 Blood Pressure 135/65 Pulse Oximetry 96 92 Oxygen Delivery Room Air Room Air Fraction of Inspired Oxygen 09/25/22 08:00 09/25/22 12:00 09/25/22 16:20 Temperature Pulse Rate 106 H 109 H 116 H Respiratory Rate Blood Pressure Pulse Oximetry Oxygen Delivery Fraction of Inspired Oxygen 09/25/22 18:28 09/25/22 20:56 09/25/22 20:56 Temperature 36.2 C L Pulse Rate 68 113 H 113 H Respiratory Rate 18 16 16 Blood Pressure 138/76 Pulse Oximetry 97 94 Oxygen Delivery Room Air Fraction of Inspired Oxygen 09/25/22 22:33 09/25/22 21:25 09/25/22 20:00 Temperature 37.1 C Pulse Rate 113 H 108 H Respiratory Rate 18 Blood Pressure 139/68 Pulse Oximetry 95 Oxygen Delivery Room Air Fraction of Inspired Oxygen 09/26/22 00:00 09/26/22 01:00 09/26/22 04:00 Temperature 36.7 C Pulse Rate 104 H 112 H 108 H Respiratory Rate 18 Blood Pressure 138/92 H Pulse Oximetry 97 Oxygen Delivery Fraction of Inspired Oxygen Intake/Output Intake/Output: Intake & Output 09/23/22 09/24/22 09/25/22 09/26/22 23:59 23:59 23:59 23:59 Intake Total 1480 1280 Output Total 1250 1650 Balance 230 -370 Meds/Results Medications: Active Medications Generic Name Dose Route Start Last Admin Trade Name Cristopher PRN Reason Stop Dose Admin Acetaminophen 1,000 mg 09/25/22 12:00 09/26/22 05:33 Acetaminophen 500 Mg Tablet PO 1,000 mg Q6HR JAYNE Administration Apixaban 2.5 mg 09/25/22 09:00 09/25/22 21:35 Apixaban 2.5 Mg Tablet PO 2.5 mg Q12HR JAYNE Administration Artificial Tears 1 drop 09/24/22 10:47 Artificial Tears Ophth Soln 15 Ml Bottle EACH EYE BID PRN Eye Irritation Artificial Tears 1 drop 09/25/22 09:00 09/25/22 10:47 Artificial Tears Ophth Soln 15 Ml Bottle EACH EYE 10/25/22 08:59 1 drop DAILY JAYNE Administration Calcium Carbonate 500 mg 09/25/22 09:00 09/25/22 10:47 Calcium/Vitamin D 500 Mg Tablet PO 10/25/22 08:59 500 mg DAILY JAYNE Administration Citalopram Hydrobromide 10 mg 09/25/22 09:00 09/25/22 10:47 Citalopram Hydrobromide 10 Mg Tablet PO 10 mg DAILY JAYNE Administration Divalproex Sodium 2,000 mg 09/24/22 19:00 09/25/22 18:[address] 250 Mg Tabec PO 2,000 mg 1900 JAYNE Administration Fluticasone Propionate 1 spray 09/24/22 10:47 Fluticasone Propionate 0.05% Na Spr 16 Gm Btl (*Bkc) NASAL BID PRN Nasal Congestion Furosemide 20 mg 09/25/22 09:00 09/25/22 10:47 Furosemide 20 Mg Tablet PO 20 mg DAILY JAYNE Administration Guaifenesin 600 mg 09/24/22 10:47 Guaifenesin 12 Hr 600 Mg Tabcr PO Q12H PRN Congestion Loperamide HCl 2 mg 09/24/22 10:47 Loperamide Hcl 2 Mg Capsule PO TID PRN Diarrhea Loratadine 10 mg 09/25/22 09:00 09/25/22 09:21 Loratadine 10 Mg Tablet PO 10/25/22 08:59 10 mg DAILY JAYNE Administration Montelukast Sodium 10 mg
[2022-09-26 08:15] LABS: Glucose Point of Care 125 mg/dl (65-105)
[2022-09-26] MEDS: FLUTICASONE/SALMETEROL 45-21 MCG INHALER 1 PUFF 2 PUFF INHALATION ×2 (09:00→20:53)
[2022-09-26] MEDS: CITALOPRAM HYDROBROMIDE 10 MG TABLET PO (09:47)
[2022-09-26] MEDS: MONTELUKAST SODIUM 10 MG TABLET PO (09:47)
[2022-09-26] MEDS: polyethylene glycoL 3350 17 GM POWD.PACK PO (09:47)
[2022-09-26] MEDS: PANTOPRAZOLE 40 MG TABLET PO (09:47)
[2022-09-26] MEDS: FUROSEMIDE 20 MG TABLET PO (09:47)
[2022-09-26] MEDS: APIXABAN 2.5 MG TABLET PO ×2 (09:47→20:46)
[2022-09-26] MEDS: ARTIFICIAL TEARS OPHTH SOLN 15 ML BOTTLE 1 DROP EACH EYE (09:47)
[2022-09-26] MEDS: LORATADINE 10 MG TABLET PO (10:07)
[2022-09-26 12:02] LABS: Glucose Point of Care 114 mg/dl (65-105)
--- NOTE | 2022-09-26 16:16 | PM.IMPN ---
Progress Note: A&P Assessment and Plan (1) Intertrochanteric fracture of right hip: Code(s): S72.141A - Displaced intertrochanteric fracture of right femur, initial encounter for closed fracture Status: Acute Assessment and Plan: Presented with right hip pain after suffering a fall from her bed. Imaging revealed acute, angulated right intertrochanteric fracture. she has been seen in consultation by Orthopedic surgery and underwent ORIF on 09/24. She tolerated the procedure well. Her pain is well controlled. Continue PT/OT. Continue low-dose Eliquis for DVT prophylaxis per Orthopedic surgery recommendations. Continue analgesics as needed. Planning for SNF on discharge (2) Hyperglycemia: Code(s): R73.9 - Hyperglycemia, unspecified Status: Acute Assessment and Plan: Random blood sugar elevated at 194 on presentation. A1c is 5.5. There is no indication for further glucose monitoring at this time. (3) Seizure disorder: Code(s): G40.909 - Epilepsy, unspecified, not intractable, without status epilepticus Status: Chronic Assessment and Plan: no acute issues. Continue home Depakote (4) Chronic obstructive pulmonary disease: Code(s): J44.9 - Chronic obstructive pulmonary disease, unspecified Status: Chronic Assessment and Plan: not in acute exacerbation. Continue home Singulair and Advair. Albuterol as needed. (5) Normocytic anemia: Code(s): D64.9 - Anemia, unspecified Status: Acute Assessment and Plan: Hemoglobin and hematocrit with slight decline postoperatively, likely secondary to hip fracture and postoperative blood loss. No evidence of active bleeding and H&H remaining stable today. (6) Sinus tachycardia: Code(s): R00.0 - Tachycardia, unspecified Status: Acute Assessment and Plan: Patient noted to be mildly tachycardic ranging 105-110. May be due to pain. PE felt to be unlikely and venous Doppler was negative for DVT. Check orthostatics. Check TSH. Continue to monitor on telemetry Subjective Date/time seen: 09/26/22 16:16 Interval history: Date of service: 09/25/2022 Anjelica Pena is a 67-year-old female with a history of traumatic brain injury, NPH, seizure disorder, CVA, hypertension, GERD, COPD who is seen in follow-up for right hip fracture. She is doing well today. She states she has no pain. She denies shortness of breath, cough, chest pain, or palpitations. States she has been able to urinate without any difficulty. She is eating well. She has no additional concerns. Review of Systems Review of Systems: All systems reviewed & are unremarkable except as noted in HPI and below Exam Narrative: General: well-nourished, chronically ill-appearing 67-year-old female, supine in bed , comfortable Neuro: awake, alert and oriented to self only (baseline), speech clear, no focal neuro deficits noted HEENMT: normocephalic, atraumatic, EOMI, sclerae anicteric, moist oral mucosa Respiratory: clear to auscultation bilaterally, nonlabored breathing Cardio: regular rate, regular rhythm with S1-S2 Abdomen: nondistended, normoactive bowel sounds, soft, nontender to palpation Extremities: right hip incision covered with dressing that is clean and dry, right hip nontender to palpation, bilateral lower extremities without edema, erythema, or tenderness to palpation, DP pulses 2+ bilaterally Skin: no rashes or lesions, warm and dry Psych: appropriate mood and affect, judgment and insight fair Objective Data Vital Signs Vital Signs: Vital Signs - 24 hr 09/25/22 16:20 09/25/22 18:28 09/25/22 20:56 Temperature 97.1 F L Pulse Rate 116 H 68 113 H Respiratory Rate 18 16 Blood Pressure 138/76 Pulse Oximetry 97 94 Oxygen Delivery Room Air Fraction of Inspired Oxygen 21 09/25/22 20:56 09/25/22 22:33 09/25/22 21:25 Temperature 98.7 F Pulse Rate 113 H 113 H
[2022-09-26] MEDS: POLYSACCHARIDE IRON COMPLEX 150 MG CAPSULE PO (17:09)
[2022-09-26] MEDS: DIVALPROEX SODIUM DR 250 MG TABEC 2000 MG PO (18:46)
[2022-09-27] VITALS (11 sets, daily range): BP systolic 111–130; BP diastolic 62–81; PULSE 92–110; RESP 17–20; TEMP 36.4–37; O2SAT 93–96
[2022-09-27] MEDS: ACETAMINOPHEN 500 MG TABLET 1000 MG PO ×4 (00:52→18:21)
[2022-09-27] MEDS: oxyCODONE HCL (*CRX) 2.5 MG TAB IR PO ×6 (00:52→21:00)
[2022-09-27 05:38] LABS: Hematocrit 28.7 % (37.0-47.0); Mean Corpuscular HGB Conc 31.4 g/dl (32-36); Mean Corpuscular Hemoglobin 28.8 pg (26-34); Mean Corpuscular Volume 91.7 fl (80-100); Mean Platelet Volume 9.6 fl (7.4-10.4); Platelet Count Result 147 k/mm3 (150-375); Red Blood Count 3.13 M/mm3 (4.2-5.4); Red Cell Distribution Width 14.8 % (11.5-14.5); White Blood Count 8.5 K/mm3 (4.5-10.0)
[2022-09-27 05:49] LABS: Anion Gap 3 mmol/L (8-16); Blood Urea Nitrogen 22 mg/dL (7-17); Calcium 8.2 mg/dL (8.4-10.2); Carbon Dioxide 35 mmol/L (22-30); Chloride 100 mmol/L (98-107); Estimated CRCL calculation 55 ml/min; Estimated Glomerular Filt Rate > 60; Glucose 97 mg/dL (65-110); Magnesium 2.5 mg/dL (1.6-2.3); Potassium 3.8 mmol/L (3.4-5.0); Sodium 138 mmol/L (137-145)
[2022-09-27] MEDS: FLUTICASONE/SALMETEROL 45-21 MCG INHALER 1 PUFF 2 PUFF INHALATION ×2 (08:33→21:26)
[2022-09-27] MEDS: polyethylene glycoL 3350 17 GM POWD.PACK PO (08:44)
[2022-09-27] MEDS: MONTELUKAST SODIUM 10 MG TABLET PO (08:44)
[2022-09-27] MEDS: PANTOPRAZOLE 40 MG TABLET PO (08:44)
[2022-09-27] MEDS: ARTIFICIAL TEARS OPHTH SOLN 15 ML BOTTLE 1 DROP EACH EYE (08:44)
[2022-09-27] MEDS: CITALOPRAM HYDROBROMIDE 10 MG TABLET PO (08:44)
[2022-09-27] MEDS: APIXABAN 2.5 MG TABLET PO ×2 (08:44→21:00)
[2022-09-27] MEDS: FUROSEMIDE 20 MG TABLET PO (08:44)
--- NOTE | 2022-09-27 08:46 | PM.PNORT ---
Subjective Subjective Date/Time Seen: 09/27/22 08:46 Postop day 3. Patient remains afebrile vital signs are stable. Pain is well controlled. Dressings are dry and intact. Patient has been working well with therapy. Discharge planning is underway. Hemoglobin remained stable, is 9.0 today. Objective Data Vital Signs Vital Signs: Vital Signs - 24 hr 09/26/22 12:00 09/26/22 16:00 09/26/22 12:00 Temperature 36.8 C 36.7 C Pulse Rate 103 H 109 H 103 H Respiratory Rate 20 20 Blood Pressure 115/54 L 117/52 L Pulse Oximetry 97 99 Oxygen Delivery Fraction of Inspired Oxygen 09/26/22 16:00 09/26/22 19:41 09/26/22 20:54 Temperature 36.3 C L Pulse Rate 98 108 H 107 H Respiratory Rate 18 16 Blood Pressure 117/60 Pulse Oximetry 93 93 Oxygen Delivery Room Air Fraction of Inspired Oxygen 21 09/26/22 20:54 09/26/22 20:40 09/26/22 23:24 Temperature 36.4 C Pulse Rate 107 H 104 H Respiratory Rate 16 18 Blood Pressure 121/68 Pulse Oximetry 95 Oxygen Delivery Room Air Fraction of Inspired Oxygen 09/26/22 20:00 09/27/22 00:00 09/27/22 03:46 Temperature 37.0 C Pulse Rate 106 H 99 92 Respiratory Rate 18 Blood Pressure 126/81 Pulse Oximetry 96 Oxygen Delivery Fraction of Inspired Oxygen 09/27/22 04:00 Temperature Pulse Rate 93 Respiratory Rate Blood Pressure Pulse Oximetry Oxygen Delivery Fraction of Inspired Oxygen Intake/Output Intake/Output: Intake & Output 09/24/22 09/25/22 09/26/22 09/27/22 23:59 23:59 23:59 23:59 Intake Total 1480 1280 1454 100 Output Total 1250 1650 Balance 230 -370 1454 100 Meds/Results Medications: Active Medications Generic Name Dose Route Start Last Admin Trade Name Freq PRN Reason Stop Dose Admin Acetaminophen 1,000 mg 09/25/22 12:00 09/27/22 05:42 Acetaminophen 500 Mg Tablet PO 1,000 mg Q6HR JAYNE Administration Apixaban 2.5 mg 09/25/22 09:00 09/26/22 20:46 Apixaban 2.5 Mg Tablet PO 2.5 mg Q12HR JAYNE Administration Artificial Tears 1 drop 09/24/22 10:47 Artificial Tears Ophth Soln 15 Ml Bottle EACH EYE BID PRN Eye Irritation Artificial Tears 1 drop 09/25/22 09:00 09/26/22 09:47 Artificial Tears Ophth Soln 15 Ml Bottle EACH EYE 10/25/22 08:59 1 drop DAILY JAYNE Administration Calcium Carbonate 500 mg 09/25/22 09:00 09/26/22 09:47 Calcium/Vitamin D 500 Mg Tablet PO 10/25/22 08:59 500 mg DAILY JAYNE Administration Citalopram Hydrobromide 10 mg 09/25/22 09:00 09/26/22 09:47 Citalopram Hydrobromide 10 Mg Tablet PO 10 mg DAILY JAYNE Administration Divalproex Sodium 2,000 mg 09/24/22 19:00 09/26/22 18:[address] 250 Mg Tabec PO 2,000 mg 1900 JAYNE Administration Fluticasone Propionate 1 spray 09/24/22 10:47 Fluticasone Propionate 0.05% Na Spr 16 Gm Btl (*Bkc) NASAL BID PRN Nasal Congestion Furosemide 20 mg 09/25/22 09:00 09/26/22 09:47 Furosemide 20 Mg Tablet PO 20 mg DAILY JAYNE Administration Guaifenesin 600 mg 09/24/22 10:47 Guaifenesin 12 Hr 600 Mg Tabcr PO Q12H PRN Congestion Loperamide HCl 2 mg 09/24/22 10:47 Loperamide Hcl 2 Mg Capsule PO TID PRN Diarrhea Loratadine 10 mg 09/25/22 09:00 09/26/22 10:07 Loratadine 10 Mg Tablet PO 10/25/22 08:59 10 mg DAILY JAYNE Administration Montelukast Sodium 10 mg 09/25/22 09:00 09/26/22 09:47 Montelukast Sodium 10 Mg Tablet PO 10 mg DAILY JAYNE Administration Morphine Sulfate 2 mg 09/24/22 10:47 Morphine Sulfate (*Crx) 2 Mg/Ml Inj IV PUSH Q1H PRN Pain Rated 7-10 IF NPO Naloxone HCl 0.1 mg 09/24/22 10:47 Naloxone Hcl 0.4 Mg/Ml Vial IV PUSH Q2M PRN Opiate Reversal Oxycodone HCl 2.5 mg 09/24/22 13:00 09/27/22 05:42 Oxycodone Hcl (*Crx) 2.5 Mg Tab Ir PO 2.5 mg Q4HR JAYNE Administration Oxycodone HCl 2.5 mg 09/24/22 10:47 09/26/22 02:19 Oxycodone Hcl (
[2022-09-27] MEDS: LORATADINE 10 MG TABLET PO (08:49)
--- NOTE | 2022-09-27 09:15 | PM.IMPN ---
Progress Note: A&P Assessment and Plan (1) Intertrochanteric fracture of right hip: Code(s): S72.141A - Displaced intertrochanteric fracture of right femur, initial encounter for closed fracture Status: Acute Assessment and Plan: Presented with right hip pain after suffering a fall from her bed. Imaging revealed acute, angulated right intertrochanteric fracture. consultation by Orthopedic surgery ORIF on 09/24. tolerated the procedure well. pain is well controlled, with medications available Continue PT/OT. Continue low-dose Eliquis for DVT prophylaxis per Orthopedic surgery recommendations. Planning for SNF on discharge (2) Hyperglycemia: Code(s): R73.9 - Hyperglycemia, unspecified Status: Acute Assessment and Plan: Random blood sugar elevated at 194 on presentation. A1c is 5.5. resolved (3) Seizure disorder: Code(s): G40.909 - Epilepsy, unspecified, not intractable, without status epilepticus Status: Chronic Assessment and Plan: no acute issues. Continue home Depakote (4) Chronic obstructive pulmonary disease: Code(s): J44.9 - Chronic obstructive pulmonary disease, unspecified Status: Chronic Assessment and Plan: not in acute exacerbation. Continue home Singulair and Advair. Albuterol as needed. (5) Normocytic anemia: Code(s): D64.9 - Anemia, unspecified Status: Acute Assessment and Plan: Hemoglobin and hematocrit with slight decline postoperatively, likely secondary to hip fracture and postoperative blood loss. No evidence of active bleeding and H&H remaining stable at 9.0/28.7 (6) Sinus tachycardia: Code(s): R00.0 - Tachycardia, unspecified Status: Acute Assessment and Plan: Patient noted to be mildly tachycardic ranging 105-110. May be due to pain. PE felt to be unlikely venous Doppler was negative for DVT. Stable, most likely related to pain Time Spent With Patient Time with patient: Greater than 35 minutes Subjective Date/time seen: 09/27/22914 Interval history: 09/27/22914 patient is lying in bed. Patient states she does have some pain in her right hip. She denies any chest pain, shortness a breath, nausea, vomiting, diarrhea or constipation. She was concerned about her dressing however we looked at it was dry and intact. Currently patient is stable. Spoke to the patient about her mobility status and just seems to be unclear at this time. 09/26/2022 Anjelica Pena is a 67-year-old female with a history of traumatic brain injury, NPH, seizure disorder, CVA, hypertension, GERD, COPD who is seen in follow-up for right hip fracture. She is doing well today. She states she has no pain. She denies shortness of breath, cough, chest pain, or palpitations. States she has been able to urinate without any difficulty. She is eating well. She has no additional concerns. Review of Systems Review of Systems: All systems reviewed & are unremarkable except as noted in HPI and below Exam Narrative: General: well-nourished, chronically ill-appearing 67-year-old female, supine in bed , comfortable Neuro: awake, alert and oriented x 2, speech clear, no focal neuro deficits noted HEENMT: normocephalic, atraumatic, EOMI, sclerae anicteric, moist oral mucosa Respiratory: clear to auscultation bilaterally, nonlabored breathing Cardio: tachycardiac, regular rhythm with S1-S2 Abdomen: nondistended, normoactive bowel sounds, soft, nontender to palpation Extremities: right hip incision covered with dressing that is clean and dry, right hip nontender to palpation, bilateral lower extremities without edema, erythema, or tenderness to palpation, DP pulses 2+ bilaterally Skin: no rashes or lesions, warm and dry Psych: appropriate mood and affect, judgment and insight fair Objective Data Vital Signs Vital Signs: Vital Signs - 24 hr 09/26/22 16:00
[2022-09-27] MEDS: POLYSACCHARIDE IRON COMPLEX 150 MG CAPSULE PO (16:56)
[2022-09-27] MEDS: DIVALPROEX SODIUM DR 250 MG TABEC 2000 MG PO (18:20)
[2022-09-28] VITALS (17 sets, daily range): BP systolic 107–122; BP diastolic 49–69; PULSE 87–112; RESP 16–18; TEMP 36.3–36.7; O2SAT 93–100
[2022-09-28] MEDS: oxyCODONE HCL (*CRX) 2.5 MG TAB IR PO ×7 (00:22→21:47)
[2022-09-28] MEDS: ACETAMINOPHEN 500 MG TABLET 1000 MG PO ×4 (00:22→17:47)
--- NOTE | 2022-09-28 07:18 | PM.PNORT ---
Subjective Subjective Date/Time Seen: 09/28/22 07:18 Postop day 4 patient is alert. Afebrile vital signs are stable. Dressing is dry. She has been accepted to rehab facility is going to be discharged later today. Objective Data Vital Signs Vital Signs: Vital Signs - 24 hr 09/27/22 08:00 09/27/22 08:53 09/27/22 08:02 Temperature 36.5 C Pulse Rate 104 H 110 H Respiratory Rate 20 Blood Pressure 124/69 Pulse Oximetry 93 Oxygen Delivery Room Air 09/27/22 12:00 09/27/22 12:00 09/27/22 16:00 Temperature 36.4 C Pulse Rate 102 H 107 H 97 Respiratory Rate 20 Blood Pressure 111/65 Pulse Oximetry 94 Oxygen Delivery 09/27/22 16:00 09/27/22 19:34 09/27/22 21:30 Temperature 36.5 C 36.4 C Pulse Rate 94 100 Respiratory Rate 20 17 Blood Pressure 123/63 130/70 Pulse Oximetry 94 95 94 Oxygen Delivery Room Air 09/27/22 23:45 09/27/22 20:00 09/28/22 00:00 Temperature 36.4 C Pulse Rate 102 H 102 H 99 Respiratory Rate 18 Blood Pressure 125/62 Pulse Oximetry 93 Oxygen Delivery 09/28/22 04:00 09/28/22 04:00 Temperature 36.4 C Pulse Rate 98 89 Respiratory Rate 17 Blood Pressure 118/49 L Pulse Oximetry 93 Oxygen Delivery Intake/Output Intake/Output: Intake & Output 09/25/22 09/26/22 09/27/22 09/28/22 23:59 23:59 23:59 23:59 Intake Total 1280 1454 1170 240 Output Total 1650 100 Balance -370 1454 1170 140 Meds/Results Medications: Active Medications Generic Name Dose Route Start Last Admin Trade Name Freq PRN Reason Stop Dose Admin Acetaminophen 1,000 mg 09/25/22 12:00 09/28/22 05:40 Acetaminophen 500 Mg Tablet PO 1,000 mg Q6HR JAYNE Administration Apixaban 2.5 mg 09/25/22 09:00 09/27/22 21:00 Apixaban 2.5 Mg Tablet PO 2.5 mg Q12HR JAYNE Administration Artificial Tears 1 drop 09/24/22 10:47 Artificial Tears Ophth Soln 15 Ml Bottle EACH EYE BID PRN Eye Irritation Artificial Tears 1 drop 09/25/22 09:00 09/27/22 08:44 Artificial Tears Ophth Soln 15 Ml Bottle EACH EYE 10/25/22 08:59 1 drop DAILY JAYNE Administration Calcium Carbonate 500 mg 09/25/22 09:00 09/27/22 08:44 Calcium/Vitamin D 500 Mg Tablet PO 10/25/22 08:59 500 mg DAILY JAYNE Administration Citalopram Hydrobromide 10 mg 09/25/22 09:00 09/27/22 08:44 Citalopram Hydrobromide 10 Mg Tablet PO 10 mg DAILY JAYNE Administration Divalproex Sodium 2,000 mg 09/24/22 19:00 09/27/22 18:[address] 250 Mg Tabec PO 2,[address] [facility] Administration Fluticasone Propionate 1 spray 09/24/22 10:47 Fluticasone Propionate 0.05% Na Spr 16 Gm Btl (*Bkc) NASAL BID PRN Nasal Congestion Furosemide 20 mg 09/25/22 09:00 09/27/22 08:44 Furosemide 20 Mg Tablet PO [address] [facility] Administration Guaifenesin 600 mg 09/24/22 10:47 Guaifenesin 12 Hr 600 Mg Tabcr PO Q12H PRN Congestion Loperamide HCl 2 mg 09/24/22 10:47 Loperamide Hcl 2 Mg Capsule PO TID PRN Diarrhea Loratadine 10 mg 09/25/22 09:00 09/27/22 08:49 Loratadine 10 Mg Tablet PO 10/25/22 08:59 10 mg DAILY JAYNE Administration Montelukast Sodium 10 mg 09/25/22 09:00 09/27/22 08:44 Montelukast Sodium 10 Mg Tablet PO [address] [facility] Administration Morphine Sulfate 2 mg 09/24/22 10:47 Morphine Sulfate (*Crx) 2 Mg/Ml Inj IV PUSH Q1H PRN Pain Rated 7-10 IF NPO Naloxone HCl 0.1 mg 09/24/22 10:47 Naloxone Hcl 0.4 Mg/Ml Vial IV PUSH Q2M PRN Opiate Reversal Oxycodone HCl 2.5 mg 09/24/22 13:00 09/28/22 05:40 Oxycodone Hcl (*Crx) 2.5 Mg Tab Ir PO 2.5 mg Q4HR JAYNE Administration Oxycodone HCl 2.5 mg 09/24/22 10:47 09/26/22 02:19 Oxycodone Hcl (*Crx) 2.5 Mg Tab Ir PO 2.5 mg Q4H PRN Administration Pain Rated 7-10 Pantoprazole Sodium 40 mg 09/25/22 09:00 09/27/22 08:44 Pantoprazole 40 Mg Tablet PO 10/25/22 08:59 40 mg DAILY JAYNE Admin
--- NOTE | 2022-09-28 08:30 | PM.IMPN ---
Progress Note: A&P Assessment and Plan (1) Intertrochanteric fracture of right hip: Code(s): S72.141A - Displaced intertrochanteric fracture of right femur, initial encounter for closed fracture Status: Acute Assessment and Plan: Presented with right hip pain after suffering a fall from her bed. Imaging revealed acute, angulated right intertrochanteric fracture. consultation by Orthopedic surgery ORIF on 09/24. tolerated the procedure well. pain is controlled, with medications available Continue PT/OT. Continue low-dose Eliquis for DVT prophylaxis per Orthopedic surgery recommendations. Planning for SNF on discharge (2) Seizure disorder: Code(s): G40.909 - Epilepsy, unspecified, not intractable, without status epilepticus Status: Chronic Assessment and Plan: no acute issues. Continue home Depakote (3) Chronic obstructive pulmonary disease: Code(s): J44.9 - Chronic obstructive pulmonary disease, unspecified Status: Chronic Assessment and Plan: not in acute exacerbation. Continue home Singulair and Advair. Albuterol as needed. (4) Normocytic anemia: Code(s): D64.9 - Anemia, unspecified Status: Acute Assessment and Plan: Hemoglobin and hematocrit with slight decline postoperatively, likely secondary to hip fracture and postoperative blood loss. No evidence of active bleeding H&H remaining stable at 9.0/28.7 09/27/22 (5) Sinus tachycardia: Code(s): R00.0 - Tachycardia, unspecified Status: Acute Assessment and Plan: Patient noted to be mildly tachycardic ranging 105-110. May be due to pain. PE felt to be unlikely venous Doppler was negative for DVT. Stable, most likely related to pain HR elevated to the 130s while working with therapy Added metoprolol 12.5mg PO BID for now Time Spent With Patient Time: 48 minutes Time with patient: Greater than 35 minutes Subjective Date/time seen: 09/28/22829 Interval history: 09/28/22829 Patient is doing about the same today. She was able to stand. She is having some pain. Pain is 8/10 right at this time. She did have some tachycardia with activity. Her heart rate went to 130s. Started her on some metoprolol. Heart rate appears more stable after addition of metoprolol. She denies any chest pain, shortness of breath, nausea, vomiting, diarrhea or constipation. 09/27/22 0915 patient is lying in bed. Patient states she does have some pain in her right hip. She denies any chest pain, shortness a breath, nausea, vomiting, diarrhea or constipation. She was concerned about her dressing however we looked at it was dry and intact. Currently patient is stable. Spoke to the patient about her mobility status and just seems to be unclear at this time. 09/26/2022 Anjelica Pena is a 67-year-old female with a history of traumatic brain injury, NPH, seizure disorder, CVA, hypertension, GERD, COPD who is seen in follow-up for right hip fracture. She is doing well today. She states she has no pain. She denies shortness of breath, cough, chest pain, or palpitations. States she has been able to urinate without any difficulty. She is eating well. She has no additional concerns. Review of Systems Review of Systems: All systems reviewed & are unremarkable except as noted in HPI and below Exam Narrative: General: well-nourished, chronically ill-appearing 67-year-old female, supine in bed , comfortable Neuro: awake, alert and oriented x 2, speech clear, no focal neuro deficits noted HEENMT: normocephalic, atraumatic, EOMI, sclerae anicteric, moist oral mucosa Respiratory: clear to auscultation bilaterally, nonlabored breathing Cardio: tachycardiac, regular rhythm with S1-S2 Abdomen: nondistended, normoactive bowel sounds, soft, nontender to palpation Extremities: right hip incision covered with dressing
--- NOTE | 2022-09-28 08:30 | P.PNIM_ITS ---
Progress Note: A&P Assessment and Plan (1) Intertrochanteric fracture of right hip: Code(s): S72.141A - Displaced intertrochanteric fracture of right femur, initial encounter for closed fracture Status: Acute Assessment and Plan: * Presented with right hip pain after suffering a fall from her bed. * Imaging revealed acute, angulated right intertrochanteric fracture. * consultation by Orthopedic surgery * ORIF on 09/24. * tolerated the procedure well. * pain is controlled, with medications available * Continue PT/OT. * Continue low-dose Eliquis for DVT prophylaxis per Orthopedic surgery recommendations. * Planning for SNF on discharge (2) Seizure disorder: Code(s): G40.909 - Epilepsy, unspecified, not intractable, without status epilepticus Status: Chronic Assessment and Plan: * no acute issues. * Continue home Depakote (3) Chronic obstructive pulmonary disease: Code(s): J44.9 - Chronic obstructive pulmonary disease, unspecified Status: Chronic Assessment and Plan: * not in acute exacerbation. * Continue home Singulair and Advair. * Albuterol as needed. (4) Normocytic anemia: Code(s): D64.9 - Anemia, unspecified Status: Acute Assessment and Plan: * Hemoglobin and hematocrit with slight decline postoperatively, likely secondary to hip fracture and postoperative blood loss. * No evidence of active bleeding * H&H remaining stable at 9.0/28.7 09/27/22 (5) Sinus tachycardia: Code(s): R00.0 - Tachycardia, unspecified Status: Acute Assessment and Plan: * Patient noted to be mildly tachycardic ranging 105-110. * May be due to pain. * PE felt to be unlikely * venous Doppler was negative for DVT. * Stable, most likely related to pain * HR elevated to the 130s while working with therapy * Added metoprolol 12.5mg PO BID for now Time Spent With Patient Time: 48 minutes Time with patient: Greater than 35 minutes Subjective Date/time seen: 09/28/22829 Interval history: 09/28/22829 Patient is doing about the same today. She was able to stand. She is having some pain. Pain is 8/10 right at this time. She did have some tachycardia with activity. Her heart rate went to 130s. Started her on some metoprolol. Heart rate appears more stable after addition of metoprolol. She denies any chest pain, shortness of breath, nausea, vomiting, diarrhea or constipation. 09/27/22 0915 patient is lying in bed. Patient states she does have some pain in her right hip. She denies any chest pain, shortness a breath, nausea, vomiting, diarrhea or constipation. She was concerned about her dressing however we looked at it was dry and intact. Currently patient is stable. Spoke to the patient about her mobility status and just seems to be unclear at this time. 09/26/2022 Anjelica Pena is a 67-year-old female with a history of traumatic brain injury, NPH, seizure disorder, CVA, hypertension, GERD, COPD who is seen in follow-up for right hip fracture. She is doing well today. She states she has no pain. She denies shortness of breath, cough, chest pain, or palpitations. States she has been able to urinate without any difficulty. She is eating well. She has no additional concerns. Review of Systems Review of Systems: All systems reviewed & are unremarkable except as noted in HPI and below Exam Narrative: General: well-nourished, chr
[2022-09-28] MEDS: polyethylene glycoL 3350 17 GM POWD.PACK PO (09:12)
[2022-09-28] MEDS: LORATADINE 10 MG TABLET PO (09:12)
[2022-09-28] MEDS: PANTOPRAZOLE 40 MG TABLET PO (09:12)
[2022-09-28] MEDS: CITALOPRAM HYDROBROMIDE 10 MG TABLET PO (09:12)
[2022-09-28] MEDS: APIXABAN 2.5 MG TABLET PO ×2 (09:13→21:42)
[2022-09-28] MEDS: FUROSEMIDE 20 MG TABLET PO (09:13)
[2022-09-28] MEDS: MONTELUKAST SODIUM 10 MG TABLET PO (09:13)
[2022-09-28] MEDS: ARTIFICIAL TEARS OPHTH SOLN 15 ML BOTTLE 1 DROP EACH EYE (09:13)
[2022-09-28] MEDS: FLUTICASONE/SALMETEROL 45-21 MCG INHALER 1 PUFF 2 PUFF INHALATION ×2 (10:13→19:57)
[2022-09-28] MEDS: METOPROLOL TARTRATE 12.5 MG TABLET PO ×2 (11:00→21:42)
[2022-09-28] MEDS: POLYSACCHARIDE IRON COMPLEX 150 MG CAPSULE PO (16:30)
[2022-09-28] MEDS: DIVALPROEX SODIUM DR 250 MG TABEC 2000 MG PO (18:25)
[2022-09-29] VITALS (8 sets, daily range): BP systolic 112–115; BP diastolic 70; PULSE 80–115; RESP 17–18; TEMP 36.7–36.8; O2SAT 95–97
[2022-09-29] MEDS: ACETAMINOPHEN 500 MG TABLET 1000 MG PO ×3 (00:19→12:50)
[2022-09-29] MEDS: oxyCODONE HCL (*CRX) 2.5 MG TAB IR PO ×4 (00:20→12:50)
[2022-09-29 06:09] LABS: Basophils Absolute Auto 0.1 K/mm3 (0.0-0.1); Basophils Percent Auto 1.1 % (0.2-1.2); Eosinophils Absolute Auto 0.1 K/mm3 (0-0.3); Eosinophils Percent Auto 0.8 % (0-4.4); Hematocrit 28.8 % (37.0-47.0); Immature Granulocyte Absolute 0.39 K/mm3 (0.00-0.031); Immature Granulocyte Percent A 6.3 % (0-0.5); Lymphocytes Absolute Auto 1.61 K/mm3 (0.9-3.2); Mean Corpuscular HGB Conc 31.3 g/dl (32-36); Mean Corpuscular Hemoglobin 28.6 pg (26-34); Mean Corpuscular Volume 91.4 fl (80-100); Mean Platelet Volume 9.1 fl (7.4-10.4); Monocytes Percent Auto 16.8 % (2.6-8.5); Nucleated Red Blood Cells Perc 0.6 % (0.0-0.2); Platelet Count Result 203 k/mm3 (150-375); Red Blood Count 3.15 M/mm3 (4.2-5.4); Red Cell Distribution Width 15.1 % (11.5-14.5); White Blood Count 6.2 K/mm3 (4.5-10.0)
[2022-09-29 06:33] LABS: Alanine Aminotransferase 19 U/L (6-35); Albumin Level 2.7 g/dL (3.5-5.1); Alkaline Phosphatase 87 U/L (38-126); Anion Gap 3 mmol/L (8-16); Aspartate Amino Transferase 42 U/L (14-36); Bilirubin,Total 0.7 mg/dL (0.2-1.3); Blood Urea Nitrogen 22 mg/dL (7-17); Calcium 8.2 mg/dL (8.4-10.2); Carbon Dioxide 36 mmol/L (22-30); Chloride 97 mmol/L (98-107); Estimated CRCL calculation 54 ml/min; Estimated Glomerular Filt Rate > 60; Glucose 94 mg/dL (65-110); Magnesium 2.4 mg/dL (1.6-2.3); Potassium 3.9 mmol/L (3.4-5.0); Sodium 136 mmol/L (137-145)
--- NOTE | 2022-09-29 07:45 | P.DS_ITS ---
DS: Admitting Diagnosis Discharge Date 09/29/22 0745 Admitting Diagnosis Acute right hip fracture DS: Discharge Diagnosis Discharge Diagnosis (1) Intertrochanteric fracture of right hip: Code(s): S72.141A - Displaced intertrochanteric fracture of right femur, initial encounter for closed fracture Status: Acute Assessment and Plan: * Presented with right hip pain after suffering a fall from her bed. * Imaging revealed acute, angulated right intertrochanteric fracture. * consultation by Orthopedic surgery * ORIF on 09/24. * tolerated the procedure well. * pain is controlled, with medications available * Continue PT/OT. * Continue low-dose Eliquis for DVT prophylaxis per Orthopedic surgery recommendations. * Planning for SNF on discharge (2) Seizure disorder: Code(s): G40.909 - Epilepsy, unspecified, not intractable, without status epilepticus Status: Chronic Assessment and Plan: * no acute issues. * Continue home Depakote (3) Chronic obstructive pulmonary disease: Code(s): J44.9 - Chronic obstructive pulmonary disease, unspecified Status: Chronic Assessment and Plan: * not in acute exacerbation. * Continue home Singulair and Advair. * Albuterol as needed. (4) Normocytic anemia: Code(s): D64.9 - Anemia, unspecified Status: Acute Assessment and Plan: * Hemoglobin and hematocrit with slight decline postoperatively, likely secondary to hip fracture and postoperative blood loss. * No evidence of active bleeding * H&H remaining stable at 9.0/28.8 (5) Sinus tachycardia: Code(s): R00.0 - Tachycardia, unspecified Status: Acute Assessment and Plan: * Patient noted to be mildly tachycardic ranging 105-110. * May be due to pain. * PE felt to be unlikely * venous Doppler was negative for DVT. * Stable, most likely related to pain * HR more stable with addition of metoprolol * Added metoprolol 12.5mg PO BID for now DS: Summary Hospital Course Hospital Course: Patient is 67-year-old female with past medical history traumatic brain injury, seizure disorder, CVA, hypertension, GERD, COPD who presented from [place] at her fall. Upon arrival patient was noted to have a right intertrochanteric fracture. Orthopedics was consulted and patient was taken for surgical intervention on 09/24. Patient has tolerated procedure well. Pain medications have been added and pain seems to be controlled. Heart rate has been elevated and did get up to the 130-140s with activity. Metoprolol has been added for further control. Control has been met and heart rate has been under 100 bpm. Currently patient has no complaints including chest pain, shortness of breath, nausea, vomiting, diarrhea, constipation, weakness, or fatigue. Patient is stable at this time for rehab. Vital sign and labs remain stable. Patient is being discharged to [place]. Status at Discharge Functional status at discharge: uses cane/walker Overall status at discharge: patient is progressing back to baseline Time Spent with Patient Time attestation: Total time spent providing and/or coordinating discharge services: 72 minutes Time spent: Greater than 30 minutes Specific discharge activities: Diagnostic testing, chart review, developing a treatment plan, education, care coordination documentation, physical exam, result review Exam Narrative: General: well-nourished, chronically ill-appearing 67-year-old female, supine
--- NOTE | 2022-09-29 07:45 | PM.DS ---
DS: Admitting Diagnosis Discharge Date 09/29/22 0745 Admitting Diagnosis Acute right hip fracture DS: Discharge Diagnosis Discharge Diagnosis (1) Intertrochanteric fracture of right hip: Code(s): S72.141A - Displaced intertrochanteric fracture of right femur, initial encounter for closed fracture Status: Acute Assessment and Plan: Presented with right hip pain after suffering a fall from her bed. Imaging revealed acute, angulated right intertrochanteric fracture. consultation by Orthopedic surgery ORIF on 09/24. tolerated the procedure well. pain is controlled, with medications available Continue PT/OT. Continue low-dose Eliquis for DVT prophylaxis per Orthopedic surgery recommendations. Planning for SNF on discharge (2) Seizure disorder: Code(s): G40.909 - Epilepsy, unspecified, not intractable, without status epilepticus Status: Chronic Assessment and Plan: no acute issues. Continue home Depakote (3) Chronic obstructive pulmonary disease: Code(s): J44.9 - Chronic obstructive pulmonary disease, unspecified Status: Chronic Assessment and Plan: not in acute exacerbation. Continue home Singulair and Advair. Albuterol as needed. (4) Normocytic anemia: Code(s): D64.9 - Anemia, unspecified Status: Acute Assessment and Plan: Hemoglobin and hematocrit with slight decline postoperatively, likely secondary to hip fracture and postoperative blood loss. No evidence of active bleeding H&H remaining stable at 9.0/28.8 (5) Sinus tachycardia: Code(s): R00.0 - Tachycardia, unspecified Status: Acute Assessment and Plan: Patient noted to be mildly tachycardic ranging 105-110. May be due to pain. PE felt to be unlikely venous Doppler was negative for DVT. Stable, most likely related to pain HR more stable with addition of metoprolol Added metoprolol 12.5mg PO BID for now DS: Summary Hospital Course Hospital Course: Patient is 67-year-old female with past medical history traumatic brain injury, seizure disorder, CVA, hypertension, GERD, COPD who presented from [place] at her fall. Upon arrival patient was noted to have a right intertrochanteric fracture. Orthopedics was consulted and patient was taken for surgical intervention on 09/24. Patient has tolerated procedure well. Pain medications have been added and pain seems to be controlled. Heart rate has been elevated and did get up to the 130-140s with activity. Metoprolol has been added for further control. Control has been met and heart rate has been under 100 bpm. Currently patient has no complaints including chest pain, shortness of breath, nausea, vomiting, diarrhea, constipation, weakness, or fatigue. Patient is stable at this time for rehab. Vital sign and labs remain stable. Patient is being discharged to [facility]. Status at Discharge Functional status at discharge: uses cane/walker Overall status at discharge: patient is progressing back to baseline Time Spent with Patient Time attestation: Total time spent providing and/or coordinating discharge services: 72 minutes Time spent: Greater than 30 minutes Specific discharge activities: Diagnostic testing, chart review, developing a treatment plan, education, care coordination documentation, physical exam, result review Exam Narrative: General: well-nourished, chronically ill-appearing 67-year-old female, supine in bed , comfortable Neuro: awake, alert and oriented x 2, speech clear, no focal neuro deficits noted HEENMT: normocephalic, atraumatic, EOMI, sclerae anicteric, moist oral mucosa Respiratory: clear to auscultation bilaterally, nonlabored breathing Cardio: tachycardiac, regular rhythm with S1-S2 Abdomen: nondistended, normoactive bowel sounds, soft, nontender to palpation Extremities: right hip incision covered with dressing that
[2022-09-29] MEDS: FLUTICASONE/SALMETEROL 45-21 MCG INHALER 1 PUFF 2 PUFF INHALATION (08:12)
[2022-09-29] MEDS: polyethylene glycoL 3350 17 GM POWD.PACK PO (10:07)
[2022-09-29] MEDS: METOPROLOL TARTRATE 12.5 MG TABLET PO (10:07)
[2022-09-29] MEDS: APIXABAN 2.5 MG TABLET PO (10:08)
[2022-09-29] MEDS: MONTELUKAST SODIUM 10 MG TABLET PO (10:08)
[2022-09-29] MEDS: CITALOPRAM HYDROBROMIDE 10 MG TABLET PO (10:08)
[2022-09-29] MEDS: LORATADINE 10 MG TABLET PO (10:08)
[2022-09-29] MEDS: FUROSEMIDE 20 MG TABLET PO (10:08)
[2022-09-29] MEDS: PANTOPRAZOLE 40 MG TABLET PO (10:09)
[2022-09-29 12:13] LABS: EDCOVIDSCREEN Negative (Negative)
[2022-09-29] MEDS: ARTIFICIAL TEARS OPHTH SOLN 15 ML BOTTLE 1 DROP EACH EYE (12:52)
== END 2022-09-29 14:13 | DRG 481 ==
LOC: ANHED 16:55 → ANH2MED 17:27
PROVIDERS: Orthopaedic Surgery; Physician Assistant; Admitting Provider Family Medicine; Emergency Provider Emergency Medicine; PCP Family Medicine; Visit Provider Nurse Practitioner
PROC: 0QS636Z Reposition Right Upper Femur with Intramedullary Internal Fixation Device, Percutaneous Approach (ICD-10-PCS; CPT 27245; principal; 2022-09-24 07:30)
DX: S72.141A Displaced intertrochanteric fracture of right femur, initial encounter for closed fracture (principal); D62 Acute posthemorrhagic anemia; W19.XXXA Unspecified fall, initial encounter; Z20.822 Contact with and (suspected) exposure to COVID-19; J44.9 Chronic obstructive pulmonary disease, unspecified; K21.9 Gastro-esophageal reflux disease without esophagitis; G40.909 Epilepsy, unspecified, not intractable, without status epilepticus; R73.9 Hyperglycemia, unspecified; I10 Essential (primary) hypertension; R00.0 Tachycardia, unspecified; F03.90 Unspecified dementia, unspecified severity, without behavioral disturbance, psychotic disturbance, mood disturbance, and anxiety; Z87.820 Personal history of traumatic brain injury; Z86.73 Personal history of transient ischemic attack (TIA), and cerebral infarction without residual deficits; Z87.891 Personal history of nicotine dependence; Z93.1 Gastrostomy status
CPT/HCPCS: 36415; 51702; 71045; 73502; 80048; 80053; 80164; 82306; 82948; 83036; 83735; 84443; 85025; 85027; 85610; 85730; 86850; 86900; 86901; 87426; 87636; 93005; 93970; 94640; 97110; 97161; 97166; 97530; 97535; 99199; 99285; A9270; C1713; C9803; J0131; J0171; J0330; J0690; J1100; J1170; J2405; J2704; J2710; J2765; J3010; J3370; J7030; J7120

== ENCOUNTER 2023-03-27 13:44 | Outpatient (CLI) | payer MEDICARE, MEDICAID, SELFPAY ==
--- NOTE | ~2023-03-27 | CT_ITS ---
EXAMINATION: CT brain wo/w con DATE: 03/27/2023 14:20 INDICATION: Normal pressure hydrocephalus TECHNIQUE: Computed tomography (CT) of the head was performed without and subsequently with 100 CC Om nipaque 350 intravenous contrast. The mA was adjusted according to patient size. Iterative reconstruc tion technique was employed. Exam dose: 1210.67 mGy-cm total exam DLP. COMPARISON: 11/11/2014 CT sinuses FINDINGS: There is a right ventricular shunt catheter terminating in the right frontal horn. There is moderate bilateral lateral ventriculomegaly which appears relatively similar to that on 11/11/2014 CT sinus examination. Left frontal lobe encephalomalacia consistent with old infarct, hematoma or trauma. There is bilatera l diminished attenuation of the cerebral white matter, likely due to chronic small vessel ischemic ch anges. There are bilateral carotid siphon internal carotid artery calcifications. Chronic right basal ganglia lacunar infarct. No intracranial mass lesion or hemorrhage, midline shift or mass effect is evident. No subdural or epidural hematoma is noted. There is diffuse dural contrast enhancement, best demonstrated in the frontal and temporal regions as well as the tentorium and falx. Diffuse dural enhancement can be associated with underlying malignan cy (meningeal carcinomatosis). Other causes include cerebrospinal fluid leak or shunting with or with out symptoms of intracranial hypotension, dural sinus thrombosis, meningitis, neurosarcoidosis, Wegen er's. There is a rounded 7 mm soft tissue opacity in the posterior left ethmoid air cell region. The parana eron sinuses and mastoid air cells are otherwise unremarkable. Bilateral hyperostosis frontalis interna, not likely of any clinical significance. No skull fracture or bone destruction. IMPRESSION: Diffuse dural enhancement; differential diagnosis given above Right frontal ventricular shunt for history of normal pressure hydrocephalus Left frontal encephalomalacia consistent with old infarct, hematoma or trauma Cerebral atherosclerosis and chronic small vessel ischemic changes of the cerebral white matter Reviewed, dictated and finalized at [facility]. Reviewed, dictated and finalized at [facility]. IMPRESSION: Diffuse dural enhancement; differential diagnosis given above Right frontal ventricular shunt for history of normal pressure hydrocephalus Left frontal encephalomalacia consistent with old infarct, hematoma or trauma Cerebral atherosclerosis and chronic small vessel ischemic changes of the cereb ral white matter
[2023-03-27 14:13] LABS: Estimated Glomerular Filt Rate 50
== END 2023-03-27 13:45 | disposition home or self-care (01) ==
PROVIDERS: PCP Family Medicine
DX: G91.2 (Idiopathic) normal pressure hydrocephalus (principal); I67.2 Cerebral atherosclerosis
CPT/HCPCS: 70470; Q9967

== ENCOUNTER 2023-11-08 17:39 | Inpatient (IN) | payer MEDICARE, MEDICAID, SELFPAY ==
--- NOTE | ~2023-11-08 | CT_ITS ---
EXAMINATION: CT brain wo con DATE: 11/10/2023 12:53 INDICATION: Altered metal status. Seizure. TECHNIQUE: Computed tomography (CT) of the head was performed without intravenous contrast. The mA wa s adjusted according to patient size. Iterative reconstruction technique was employed. The dose-lengt h product was 605.33 mGy-cm. COMPARISON: Head CT 03/27/2023 FINDINGS: There is chronic encephalomalacia in left frontal lobe. There are scattered areas of low at tenuation in the cerebral white matter. The ventricles are normal in size. There is a right frontal v entriculostomy catheter with tip in frontal horn of right lateral ventricle. There are chronic hypode nse subdural hematomas overlying the frontoparietal regions with maximum thickness of 6 mm on the rig ht. There is an old infarct in the right basal ganglia. There is no intracranial hemorrhage, acute in farction, or abnormal intracranial mass lesion. There is ex vacuo dilatation of frontal horn of left lateral ventricle.. There is mild mucosal thickening in the paranasal sinuses. The mastoid air cells are normal. The orbits are normal. IMPRESSION: 1. Chronic encephalomalacia in left frontal lobe. Old lacunar infarct in the right basal ganglia. 2. Stable mild nonspecific cerebral white matter disease, which likely represents chronic small vesse l ischemic disease. 3. Stable chronic bilateral frontoparietal subdural hematomas with maximum thickness of 6 mm on the r ight. 4. Unchanged size of the ventricles. Shunt catheter in expected position. Reviewed, dictated and finalized at location [facility]. FARM TECHNICIAN IMPRESSION: 1. Chronic encephalomalacia in left frontal lobe. Old lacunar infarct in the ri ght basal ganglia. 2. Stable mild nonspecific cerebral white matter disease, which likely represen ts chronic small vessel ischemic disease. 3. Stable chronic bilateral frontoparietal subdural hematomas with maximum thic kness of 6 mm on the right. 4. Unchanged size of the ventricles. Shunt catheter in expected position.
--- NOTE | ~2023-11-08 | XR_ITS ---
EXAMINATION: XR chest 1V portable DATE: 11/08/2023 20:05 INDICATION: Sepsis. TECHNIQUE: A single frontal view of the chest was obtained. COMPARISON: Chest single view 09/23/2022 FINDINGS: There are airspace opacities in the lower lung zones. No pleural effusion or pneumothorax. The heart size is normal. A right-sided ventriculoperitoneal shunt is noted. IMPRESSION: 1. Airspace opacities in the lower lung zones, likely atelectasis. Reviewed, dictated and finalized at location [facility]. EY PULLER
--- NOTE | ~2023-11-08 | CT_ITS ---
EXAMINATION: CTA chest PE abdomen pel DATE: 11/08/2023 22:59 INDICATION: Sepsis. TECHNIQUE: Computed tomography angiography (CTA) of the chest was performed with 100 mL Omnipaque-350 intravenous contrast timed to evaluate the pulmonary arteries. Coronal maximum intensity projection 3D-reconstructions were created by the technologist. Computed tomography (CT) of the abdomen and pelv is was performed with intravenous contrast. Automated exposure control and iterative reconstruction t echnique were employed. The dose-length product was 1165.34 mGy-cm. COMPARISON: None. FINDINGS: CTA chest: The lungs demonstrate airspace opacities in the lower lobes and right middle lobe. No pleu ral effusion. The heart size is normal. No pericardial effusion. There are coronary artery calcificat ions. There is no pulmonary embolus. There is severe cervical spondylosis and mild thoracic spondylos is. CT abdomen and pelvis: The liver, gallbladder, spleen, pancreas, adrenal glands, and right kidney are normal. There is moderate atrophy of left kidney. There is calcified atherosclerosis of the aorta an d many of the other arteries. There is moderate stenosis of distal aorta and the common iliac arterie s. There is diverticulosis of the colon without evidence of diverticulitis. There are no dilated loop s of bowel. The appendix is not visualized. There is a right-sided ventriculoperitoneal shunt. There are no pathologically enlarged lymph nodes. There is no free intraperitoneal fluid. There is internal fixation of proximal right femur. There is mild lumbar spondylosis. IMPRESSION: 1. No pulmonary embolus. 2. Airspace opacities in the lower lobes and right middle lobe, consistent with atelectasis versus pn eumonia. 3. Moderate stenosis of distal aorta and the common iliac arteries. Reviewed, dictated and finalized at location [facility]. TENANCE AND ENGINEERING MANAGER IMPRESSION: 1. No pulmonary embolus. 2. Airspace opacities in the lower lobes and right middle lobe, consistent with atelectasis versus pneumonia. 3. Moderate stenosis of distal aorta and the common iliac arteries.
[2023-11-08 17:50] VITALS: BP 172/97; PULSE 142; RESP 30; TEMP 38.5; O2SAT 100
--- NOTE | 2023-11-08 17:58 | ECG_ITS ---
Measurements Intervals [place] Rate: 148 P: 26 RI: 137 QRS: 29 QRSD: 75 T: 0 QT: 224 QTc: 351 Interpretive Statements SINUS TACHYCARDIA ST-T WAVE ABNORMALITY IN DIFFUSE LEADS- CONSIDER ISCHEMIA BASELINE ARTIFACT- III ABNORMAL ECG COMPARED TO ECG 09/23/2022 16:28:19 [address]IA NOW PRESENT ST-T WAVE ABNORMALITY NOW PRESENT Electronically Signed On 11-08-2023 18:31:05 [employer] MEDIA SPECIALIST by Mansoor Blanchard D.O.
[2023-11-08 17:59] VITALS: O2SAT 100
[2023-11-08 18:02] VITALS: PULSE 145
[2023-11-08 18:14] LABS: Basophils Absolute Auto 0.1 K/mm3 (0.0-0.1); Basophils Percent Auto 0.4 % (0.2-1.2); Eosinophils Percent Auto 0.1 % (0-4.4); Hematocrit 42.1 % (37.0-47.0); Hemoglobin 13.2 g/dL (12.0-15.0); Immature Granulocyte Absolute 0.16 K/mm3 (0.00-0.031); Lymphocytes Absolute Auto 1.65 K/mm3 (0.9-3.2); Lymphocytes Percent Auto 10.8 % (18.3-44.2); Mean Corpuscular HGB Conc 31.4 g/dl (32-36); Mean Corpuscular Hemoglobin 28.1 pg (26-34); Mean Corpuscular Volume 89.8 fl (80-100); Mean Platelet Volume 9.4 fl (7.4-10.4); Monocytes Absolute Auto 0.8 K/mm3 (0.1-0.6); Monocytes Percent Auto 5.4 % (2.6-8.5); Neutrophils Absolute Auto 12.6 K/mm3 (1.3-6.7); Neutrophils Percent Auto 82.3 % (45.5-73.1); Platelet Count Result 334 k/mm3 (150-375); Red Blood Count 4.69 M/mm3 (4.2-5.4); White Blood Count 15.3 K/mm3 (4.5-10.0)
[2023-11-08 18:32] LABS: Alanine Aminotransferase 20 U/L (6-35); Albumin Level 4.4 g/dL (3.5-5.1); Alkaline Phosphatase 163 U/L (38-126); Anion Gap 9 mmol/L (8-16); Aspartate Amino Transferase 29 U/L (14-36); Bilirubin,Total 0.4 mg/dL (0.2-1.3); Blood Urea Nitrogen 19 mg/dL (7-17); Calcium 9.6 mg/dL (8.4-10.2); Carbon Dioxide 20 mmol/L (22-30); Chloride 107 mmol/L (98-107); Estimated Glomerular Filt Rate > 60; Glucose 145 mg/dL (65-110); Potassium 3.6 mmol/L (3.4-5.0); Sodium 136 mmol/L (137-145)
[2023-11-08 18:43] LABS: INR 0.9; Partial Thromboplastin Time 25.3 SECONDS (22.3-36.8)
[2023-11-08 18:49] LABS: Influenza A QL RT-PCR Negative (Negative); Influenza B QL RT-PCR Negative (Negative); RSV RNA, RT-PCR Negative (Negative); SARS-CoV-2 RNA PCR Negative (Negative)
[2023-11-08 18:57] VITALS: BP 178/77; PULSE 139; RESP 19; O2SAT 92
--- NOTE | 2023-11-08 20:03 | ED.GENADULT ---
HPI - General Adult General Chief complaint: Seizure Stated complaint: POSSIBLE SEIZURE Time Seen by Provider: 11/08/23 19:16 History of Present Illness HPI narrative: Patient is a 68-year-old female who presents to the emergency department this evening due to of breakthrough seizure. Seizure was on, however, EMS was called due to a postictal state. Patient is normally a and O times 2-3 and she was by staff at [place] to be a and O times 1-2. Upon arrival to our emergency department, patient is A&O x3, she is answering all my questions appropriately. Patient states that she is wheelchair bound and lives in [place] with her mother. She has grown denying any symptoms including mild nausea and states that she had 1 episode of vomiting. Patient does have a history of seizure disorder and used to be on topical but recently got her seizure medication switch to a different medication which she is unsure of. Patient is currently denying any headaches, dizziness, blurry vision, focal weakness, numbness or tingling, chest pain or shortness of breath. There are no other modifying, alleviating, or precipitating factors at this time. Related Data Home Medications Medication Instructions Recorded Confirmed acetaminophen 325 mg tablet 325 mg PO Q4H PRN Pain 09/23/22 09/23/22 (Tylenol) artificial tears solution eye drops 1 drp ophthalmic (eye) BID PRN Eye 09/23/22 09/23/22 Irritation bisacodyl 5 mg tablet,delayed 5 mg PO BID PRN Constipation 09/23/22 09/23/22 release calcium carb-vit D3-minerals 600 1 tablet PO DAILY 09/23/22 09/23/22 mg calcium-400 unit tablet cetirizine 10 mg tablet (Allergy 10 mg PO DAILY 09/23/22 09/23/22 Relief (cetirizine)) citalopram 10 mg tablet 10 mg PO DAILY 09/23/22 09/23/22 divalproex 500 mg tablet,delayed 2,000 mg PO 1900 09/23/22 09/23/22 release fluticasone 100 mcg-salmeterol 50 1 inh inhalation BID 09/23/22 09/23/22 mcg/dose blistr powdr for inhalation (Advair Diskus) fluticasone propionate 50 1 spray intranasal BID PRN Nasal 09/23/22 09/23/22 mcg/actuation nasal Congestion spray,suspension furosemide 20 mg tablet 20 mg PO DAILY 09/23/22 09/23/22 guaifenesin 600 mg tablet, 600 mg PO Q12H PRN Congestion 09/23/22 09/23/22 extended release 12 hr (Mucinex) ipratropium 20 mcg-albuterol 100 1 puff inhalation QID 09/23/22 09/23/22 mcg/actuation mist for inhalation (Combivent Respimat) loperamide 2 mg capsule 2 mg PO TID PRN Diarrhea 09/23/22 09/23/22 montelukast 10 mg tablet 10 mg PO DAILY 09/23/22 09/23/22 (Singulair) omeprazole 20 mg tablet,delayed 20 mg PO DAILY 09/23/22 09/23/22 release polysaccharide iron complex 150 mg 150 mg PO 1700 09/23/22 09/23/22 iron capsule (iFerex 150) propylene glycol 0.6 % eye drops 1 drp EACH EYE DAILY 09/23/22 09/23/22 (Systane Complete) Allergies Allergy/AdvReac Type Severity Reaction Status Date / Time No Known Allergies Allergy Verified 11/08/23 18:02 Review of Systems Review of Systems: All systems are reviewed and are negative unless stated otherwise in the HPI. PMFSH Past Medical History Medical History Cerebrovascular accident Chronic obstructive pulmonary disease Gastroesophageal reflux disease Hypertension Idiopathic aplastic anemia Normal pressure hydrocephalus Seizure disorder Traumatic brain injury Age 9. Surgical History Surgical History History of exploratory laparotomy History of gastrostomy tube placement History of tracheostomy as a child Family History Family History Mother Scarring of lung COPD (chronic obstructive pulmonary disease) Hypertension Father Chronic back pain Sibling Ruptured appendix Other Unknown family medical history Social History Social History (Reviewed 11/09/23 @ 01:41 by [place]
[2023-11-08] MEDS: ACETAMINOPHEN 325 MG TABLET 650 MG PO (20:30)
[2023-11-08] MEDS: SODIUM CHLORIDE 0.9% IV 1,000 ML 150 ML IV CONT (20:30)
[2023-11-08] MEDS: SODIUM CHLORIDE 0.9% IV 1,000 ML 999 ML IV CONT (20:30)
[2023-11-08 20:49] LABS: Lactic Acid Reflex 1.6 mmol/L (0.7-2.0)
[2023-11-08 20:54] LABS: Appearance Urine Clear (Clear); Bilirubin Urine Negative (Negative); Blood Urine Negative (Negative); Color Urine Yellow (Yellow); Glucose Urine UA Negative (Negative); Ketones Urine Negative (Negative); Leukocyte Esterase Ur Negative LEU/UL (Negative); Nitrate Urine Negative (Negative); Protein Urine Negative (Negative); Specific Grav Ur 1.016 (1.001-1.035); Urobilinogen Urine 0.2 mg/dL (<2.0)
[2023-11-08 20:59] VITALS: BP 160/58; PULSE 122; RESP 15; O2SAT 100
[2023-11-08 21:09] LABS: Add Urine Microscopic? NO
[2023-11-08 23:05] VITALS: BP 176/80; PULSE 127; RESP 15; TEMP 38.2; O2SAT 95
[2023-11-09] VITALS (7 sets, daily range): BP systolic 130–145; BP diastolic 58–80; PULSE 81–116; RESP 14–18; TEMP 36.5–37.5; O2SAT 97–100; BMI 23.3
[2023-11-09] MEDS: AZITHROMYCIN 500 MG/NS 250 ML 500 MG/250 ML BAG 250 MG IVPB ×2 (00:33→23:08)
--- NOTE | 2023-11-09 00:46 | PM.IMHP ---
H&P: HPI History of Present Illness Date/Time: 11/09/23 00:46 Chief Complaint: Altered mental status Narrative: This is a 68-year-old female with past medical history significant for seizure disorder, COPD/asthma [facility]. EMS was called due to altered mental status it was believed the patient might have had a seizure due to alteration of consciousness according to EMS patient post ictal. At the time of my visit patient is unable to give any history she is oriented only to time and place. Preliminary workup was significant for CT angiogram was negative for pulmonary embolism showed pulmonary opacities. Patient is been admitted for further evaluation management and treatment. EXAMINATION: XR chest 1V portable DATE: 11/08/2023 20:05 INDICATION: Sepsis. TECHNIQUE: A single frontal view of the chest was obtained. COMPARISON: Chest single view 09/23/2022 FINDINGS: There are airspace opacities in the lower lung zones. No pleural effusion or pneumothorax. The heart size is normal. A right-sided ventriculoperitoneal shunt is noted. IMPRESSION: 1. Airspace opacities in the lower lung zones, likely atelectasis. EXAMINATION: CTA chest PE abdomen pel DATE: 11/08/2023 22:59 INDICATION: Sepsis. TECHNIQUE: Computed tomography angiography (CTA) of the chest was performed with 100 mL Omnipaque-350 intravenous contrast timed to evaluate the pulmonary arteries. Coronal maximum intensity projection 3D-reconstructions were created by the technologist. Computed tomography (CT) of the abdomen and pelvis was performed with intravenous contrast. Automated exposure control and iterative reconstruction technique were employed. The dose-length product was 1165.34 mGy-cm. COMPARISON: None. FINDINGS: CTA chest: The lungs demonstrate airspace opacities in the lower lobes and right middle lobe. No pleural effusion. The heart size is normal. No pericardial effusion. There are coronary artery calcifications. There is no pulmonary embolus. There is severe cervical spondylosis and mild thoracic spondylosis. CT abdomen and pelvis: The liver, gallbladder, spleen, pancreas, adrenal glands, and right kidney are normal. There is moderate atrophy of left kidney. There is calcified atherosclerosis of the aorta and many of the other arteries. There is moderate stenosis of distal aorta and the common iliac arteries. There is diverticulosis of the colon without evidence of diverticulitis. There are no dilated loops of bowel. The appendix is not visualized. There is a right-sided ventriculoperitoneal shunt. There are no pathologically enlarged lymph nodes. There is no free intraperitoneal fluid. There is internal fixation of proximal right femur. There is mild lumbar spondylosis. IMPRESSION: 1. No pulmonary embolus. 2. Airspace opacities in the lower lobes and right middle lobe, consistent with atelectasis versus pneumonia. 3. Moderate stenosis of distal aorta and the common iliac arteries. Review of Systems Review of Systems: ROS unobtainable: Yes unobtainable due to mental status (Obtundation/lethargy) [facility] Past Medical History Medical History Cerebrovascular accident Chronic obstructive pulmonary disease Gastroesophageal reflux disease Hypertension Idiopathic aplastic anemia Normal pressure hydrocephalus Seizure disorder Traumatic brain injury Age 9. Surgical History Surgical History History of exploratory laparotomy History of gastrostomy tube placement History of tracheostomy as a child Family History Family History Mother Scarring of lung COPD (chronic obstructive pulmonary disease) Hypertension Father Chronic back pain Sibling Ruptured appendix Other Unknown family medical history Social History Social History (Reviewed 11/09/23 @ 01
--- NOTE | 2023-11-09 01:43 | ADMGEN ---
This patient, Anjelica Pena, was admitted to 2 Medical Room 240-01. Patient/family oriented to hospital policies and general routines including ID bracelet, bed and alarms, visiting hours, pain management, procedures, bathroom and other care routines, personal items, smoking policy, room service/diet, and visiting hours. Information on how to activate the Rapid Response Team has been discussed. Patient/Family are encouraged to report perceived risks to care and to ask questions if they do not understand what they are told or what they should do.
[2023-11-09] MEDS: SODIUM CHLORIDE 0.9% IV 1,000 ML 999 ML IV CONT (01:50)
--- NOTE | 2023-11-09 06:38 | PM.IMPN ---
Progress Note: A&P Assessment and Plan (1) Pneumonia: Code(s): J18.9 - Pneumonia, unspecified organism Status: Acute Assessment and Plan: Admit to regular medical floor Patient started on Rocephin and Zithromax Await cultures 11/08 blood cultures pending admits to cough, nonproductive continue IV antibiotics (2) Seizure disorder: Code(s): G40.909 - Epilepsy, unspecified, not intractable, without status epilepticus Status: Chronic Assessment and Plan: Continue home meds 11/08 no seizure activity reported overnight continue Topamax, Mysoline (3) AMS (altered mental status): Code(s): R41.82 - Altered mental status, unspecified Status: Acute Assessment and Plan: Likely secondary to acute illness Unclear if patient had seizure 11/08 patient alert oriented x3 patient cannot expressive she had a seizure but she knows hours she has a seizure history WBC elevated 19.8 today (4) Normal pressure hydrocephalus: Code(s): G91.2 - (Idiopathic) normal pressure hydrocephalus Status: Acute Assessment and Plan: Patient states that she is wheelchair-bound (5) Gastroesophageal reflux disease: Code(s): K21.9 - Gastro-esophageal reflux disease without esophagitis Status: Acute Assessment and Plan: PPI 11/08 denies symptoms Protonix continued (6) Chronic obstructive pulmonary disease: Code(s): J44.9 - Chronic obstructive pulmonary disease, unspecified Status: Chronic Assessment and Plan: Continue Respimat Time Spent With Patient Time with patient: 15 - 25 minutes Subjective Date/time seen: 11/09/23 06:38 Interval history: patient examined at bedside in interval assessment from [place] for concerns of breakthrough seizure. At baseline is alert oriented x3 now. notes that she is wheelchair-bound, and requires assistance with ADLs. in ED patient met sepsis criteria is given 2 L IV fluid and 650 mg of Tylenol for fever 101.3 and elevated heart rate, leukocytosis at 15.3. chest x-ray ED noted potential pneumonia, CTA noted to be negative for PE, but shows bilateral opacities concerning pneumonia. patient was started on IV Rocephin and azithromycin. today she admits to having cough but states it is nonproductive. no further seizure activity noted since admission. seizure precautions in place. labs today note an increase in WBC to 19.8, hemoglobin 10.5, blood cultures pending. continue IV antibiotics Review of Systems Review of Systems: All systems reviewed & are unremarkable except as noted in HPI and below Exam Narrative: General: Alert, oriented, awake, in no acute distress. HEENT: PERRL, no rhinorrhea, no post nasal drip, oropharynx clear. Neck: Trachea midline, no JVD, no lymphadenopathy. Cardiovascular: RRR, no murmurs, rubs or gallops, no peripheral edema. Respiratory: Clear to auscultation bilaterally, no tachypnea, no wheezing, no rhonchi, no rubs, no respiratory distress. able to speak full sentences Abdomen: Soft, nontender, nondistended, no rebound, no guarding, no peritoneal signs. Musculoskeletal: No joint swelling or deformity, normal muscle tone. Skin: No rashes or petechia, no signs of infection. Psychiatric: Alert and oriented, normal behavior and judgment for situation. Neurological: Alert and oriented to person, place, and time. Follows all commands. No focal deficits, speech is clear and fluent. Objective Data Vital Signs Vital Signs: Vital Signs - 24 hr 11/08/23 17:50 11/08/23 17:59 11/08/23 18:02 Temperature 101.3 F H Pulse Rate 142 H 145 H Respiratory Rate 30 H Blood Pressure 172/97 H Pulse Oximetry 100 100 Oxygen Delivery Room Air Room Air 11/08/23 18:57 11/08/23 20:59 11/08/23 23:05 Temperature 100.8 F H Pulse Rate 139 H 122 H 127 H Respiratory Rate 19 15 15 Blood Pressure 178/77 H 160/58 H 176/80 H Pulse
[2023-11-09 07:08] LABS: Hematocrit 34.1 % (37.0-47.0); Hemoglobin 10.5 g/dL (12.0-15.0); Mean Corpuscular HGB Conc 30.8 g/dl (32-36); Mean Corpuscular Hemoglobin 28.2 pg (26-34); Mean Corpuscular Volume 91.4 fl (80-100); Mean Platelet Volume 9.7 fl (7.4-10.4); Platelet Count Result 233 k/mm3 (150-375); Red Blood Count 3.73 M/mm3 (4.2-5.4); Red Cell Distribution Width 14.3 % (11.5-14.5); White Blood Count 19.8 K/mm3 (4.5-10.0)
[2023-11-09 07:20] LABS: Lactic Acid Reflex 0.9 mmol/L (0.7-2.0)
[2023-11-09 07:31] LABS: Alanine Aminotransferase 14 U/L (6-35); Albumin Level 2.9 g/dL (3.5-5.1); Alkaline Phosphatase 115 U/L (38-126); Anion Gap 5 mmol/L (8-16); Aspartate Amino Transferase 20 U/L (14-36); Bilirubin,Total 0.4 mg/dL (0.2-1.3); Blood Urea Nitrogen 13 mg/dL (7-17); Calcium 8.3 mg/dL (8.4-10.2); Carbon Dioxide 22 mmol/L (22-30); Chloride 111 mmol/L (98-107); Estimated CRCL calculation 54 ml/min; Estimated Glomerular Filt Rate > 60; Glucose 103 mg/dL (65-110); Magnesium 1.9 mg/dL (1.6-2.3); Potassium 3.5 mmol/L (3.4-5.0); Sodium 138 mmol/L (137-145)
[2023-11-09] MEDS: POLYSACCHARIDE IRON COMPLEX 150 MG CAPSULE PO ×2 (08:47→16:53)
[2023-11-09] MEDS: ACETAMINOPHEN 325 MG TABLET 650 MG PO ×2 (08:48→16:52)
[2023-11-09] MEDS: ASCORBIC ACID 500 MG TABLET PO (08:48)
[2023-11-09] MEDS: LORATADINE 10 MG TABLET PO (08:49)
[2023-11-09] MEDS: METOPROLOL TARTRATE 12.5 MG TABLET PO ×2 (08:49→20:39)
[2023-11-09] MEDS: CITALOPRAM HYDROBROMIDE 10 MG TABLET PO (08:49)
[2023-11-09] MEDS: CALCIUM/VITAMIN D 500 MG/5 MCG (200 I.U.) TABLET PO (08:49)
[2023-11-09] MEDS: MONTELUKAST SODIUM 10 MG TABLET PO (08:50)
[2023-11-09] MEDS: TOPIRAMATE 100 MG TABLET PO ×2 (08:50→20:39)
[2023-11-09] MEDS: FLUTICASONE PROPIONATE 0.05% NA SPR 16 GM BTL (*BKC) 1 SPRAY NASAL ×2 (08:50→16:53)
[2023-11-09] MEDS: PANTOPRAZOLE 40 MG TABLET PO (08:50)
[2023-11-09] MEDS: cefTRIAXone 2 GM/NS 100 ML 2 GM/100 ML BAG IVPB (11:20)
[2023-11-09] MEDS: PRIMIDONE 50 MG TABLET PO (20:39)
[2023-11-10 04:06] VITALS: BP 164/72; PULSE 97; RESP 16; TEMP 36.6; O2SAT 97
[2023-11-10 05:26] LABS: Hematocrit 35.2 % (37.0-47.0); Mean Corpuscular HGB Conc 31.3 g/dl (32-36); Mean Corpuscular Hemoglobin 28.4 pg (26-34); Mean Corpuscular Volume 90.7 fl (80-100); Mean Platelet Volume 9.9 fl (7.4-10.4); Platelet Count Result 224 k/mm3 (150-375); Red Blood Count 3.88 M/mm3 (4.2-5.4); Red Cell Distribution Width 14.2 % (11.5-14.5); White Blood Count 12.3 K/mm3 (4.5-10.0)
[2023-11-10 05:45] LABS: Alanine Aminotransferase 14 U/L (6-35); Albumin Level 3.4 g/dL (3.5-5.1); Alkaline Phosphatase 124 U/L (38-126); Anion Gap 7 mmol/L (8-16); Aspartate Amino Transferase 21 U/L (14-36); Bilirubin,Total 0.4 mg/dL (0.2-1.3); Blood Urea Nitrogen 9 mg/dL (7-17); Calcium 9.1 mg/dL (8.4-10.2); Carbon Dioxide 22 mmol/L (22-30); Chloride 109 mmol/L (98-107); Estimated CRCL calculation 54 ml/min; Estimated Glomerular Filt Rate > 60; Glucose 110 mg/dL (65-110); Potassium 3.3 mmol/L (3.4-5.0); Sodium 138 mmol/L (137-145)
[2023-11-10 06:02] LABS: Procalcitonin 19.8 ng/mL
--- NOTE | 2023-11-10 08:47 | PM.IMPN ---
Progress Note: A&P Assessment and Plan (1) Pneumonia: Code(s): J18.9 - Pneumonia, unspecified organism Status: Acute Assessment and Plan: Admit to regular medical floor Patient started on Rocephin and Zithromax Await cultures 11/08 blood cultures pending admits to cough, nonproductive continue IV antibiotics 11/09 on room air, no respiratory distress noted- dry cough heard WBC 12.3, procalcitonin 19.8 continue IV antibiotics blood cultures pending (2) Seizure disorder: Code(s): G40.909 - Epilepsy, unspecified, not intractable, without status epilepticus Status: Chronic Assessment and Plan: Continue home meds 11/08 no seizure activity reported overnight continue Topamax, Mysoline 11/09 no noted seizure activity reported overnight neurology consulted and recommendation of care appreciated- will see today continue home seizure medications-Topamax, Mysoline of note history use of DIVALPROEX SODIUM 500 MG, prescription and has not been refilled since August of 2023- this may be the potential medication changes that patient stated in ED (3) AMS (altered mental status): Code(s): R41.82 - Altered mental status, unspecified Status: Acute Assessment and Plan: Likely secondary to acute illness Unclear if patient had seizure 11/08 patient alert oriented x3 patient cannot expressive she had a seizure but she knows hours she has a seizure history WBC elevated 19.8 today 11/09 patient alert and oriented x3, she can tell me her name, tell me that she is in the hospital, she tells me that I am a provider, and can tell me that she lives in [facility] with her mother. however unable to give history of seizure presentation, date of last seizure or other pertinent medical or medication information. (4) Normal pressure hydrocephalus: Code(s): G91.2 - (Idiopathic) normal pressure hydrocephalus Status: Acute Assessment and Plan: Patient states that she is wheelchair-bound 11/09 CT head completed and per radiologic impression notes: Chronic encephalomalacia in left frontal lobe. Old lacunar infarct in the right basal ganglia. Stable mild nonspecific cerebral white matter disease, which likely represents chronic small vessel ischemic disease. Stable chronic bilateral frontoparietal subdural hematomas with maximum thickness of 6 mm on the right. Unchanged size of the ventricles. Shunt catheter in expected position. (5) Gastroesophageal reflux disease: Code(s): K21.9 - Gastro-esophageal reflux disease without esophagitis Status: Acute Assessment and Plan: PPI 11/08 denies symptoms Protonix continued 11/09 patient denies symptoms (6) Chronic obstructive pulmonary disease: Code(s): J44.9 - Chronic obstructive pulmonary disease, unspecified Status: Chronic Assessment and Plan: Continue Respimat 11/09 patient on room air, no respiratory distress noted at time of assessment, patient denies symptoms dry cough seen on exam Time Spent With Patient Time with patient: 15 - 25 minutes Subjective Date/time seen: 11/10/23 08:47 Interval history: patient examined at bedside in interval assessment, she is on room air and in no acute distress. she is a poor historian however she is alert oriented x3. when asked about her seizure history she is unaware. CT head was ordered, and should be completed today. she continues to have dry cough but does not complain of any shortness of breath. no elevated temperatures or heart rates overnight neurology was consulted and hospitalist Service appreciate recommendations care labs today note WBC 12.3, hemoglobin 11, procalcitonin 19.8 CT head completed and per radiologic impression notes: Chronic encephalomalacia in left frontal lobe. Old lacunar infarct in the right basal ganglia. Stable mild nonspecific cerebral white matter disease, which likely r
[2023-11-10] MEDS: POLYSACCHARIDE IRON COMPLEX 150 MG CAPSULE PO ×2 (09:06→17:22)
[2023-11-10] MEDS: ASCORBIC ACID 500 MG TABLET PO (09:07)
[2023-11-10] MEDS: ACETAMINOPHEN 325 MG TABLET 650 MG PO ×2 (09:07→17:22)
[2023-11-10] MEDS: CITALOPRAM HYDROBROMIDE 10 MG TABLET PO (09:07)
[2023-11-10] MEDS: CALCIUM/VITAMIN D 500 MG/5 MCG (200 I.U.) TABLET PO (09:07)
[2023-11-10 09:08] VITALS: PULSE 96
[2023-11-10] MEDS: METOPROLOL TARTRATE 12.5 MG TABLET PO ×2 (09:08→20:59)
[2023-11-10] MEDS: TOPIRAMATE 100 MG TABLET PO ×2 (09:08→21:01)
[2023-11-10] MEDS: LORATADINE 10 MG TABLET PO (09:08)
[2023-11-10] MEDS: FLUTICASONE PROPIONATE 0.05% NA SPR 16 GM BTL (*BKC) 1 SPRAY NASAL ×2 (09:08→17:22)
[2023-11-10] MEDS: MONTELUKAST SODIUM 10 MG TABLET PO (09:08)
[2023-11-10] MEDS: PANTOPRAZOLE 40 MG TABLET PO (09:09)
--- NOTE | 2023-11-10 10:51 | WPDNEURCNPN ---
Assessment and Plan Assessment and plan (1) AMS (altered mental status): Code(s): R41.82 - Altered mental status, unspecified Status: Acute (2) Pneumonia: Code(s): J18.9 - Pneumonia, unspecified organism Status: Acute (3) Sepsis: Code(s): A41.9 - Sepsis, unspecified organism Status: Acute (4) Normal pressure hydrocephalus: Code(s): G91.2 - (Idiopathic) normal pressure hydrocephalus Status: Acute (5) Pneumonia: Code(s): J18.9 - Pneumonia, unspecified organism Status: Acute Plan Anjelica Pena is a 68 year old female with a history of prior TBI, NPH, COPD, and epilepsy presenting due to breakthrough seizure. Could be provoked by underlying pneumonia. CT head showed diffuse dural enhancement which could be related to underlying shunt, although we do not have prior neuroimaging to compare. Radiology report listed differential for these findings as 'underlying malignancy, CSF leak/shunting with or without symptoms of intracranial hypotension, dural sinus thrombosis, meningitis, neurosarcoidosis, Jaya's. ' - Recommend MRI brain with and without contrast as well as MRV brain for further evaluation of above conditions. If unable to perform due to shunt, repeat CT head and obtain CTA brain (with review of venous phase) - If persistent concerns regarding mental status -- would consult Neurosurgery to see if we can tap patient's shunt for CSF analysis, as well as assess shunt function - Continue anti-seizure medications at same dose. Please confirm patient's regimen. Consult date: 11/10/23 Reason for consult: Breakthrough seizure HPI: Anjelica Pena is a 68 year old female with a history of prior TBI, NPH, COPD, and epilepsy presenting due to breakthrough seizure. [facility] is a [facility], lives with her mother. Patient developed altered mental status so there was concern that patient may have had a seizure. EMS was called and patient appeared to be post-ictal on arrival. She was taken to [place] ED where she was febrile to 101 and did have leukocytosis of 15. CXR concerning for pneumonia. She was started on antibiotics and subsequently admitted. Her anti-seizure medications appear to be Topamax 100mg BID and primidone 50mg qhs. Depakote is in her home medications but it is not clear if she is taking it. CT head showed diffuse dural contrast enhancement, R frontal ventricular shunt, and L frontal encephalomalacia - dural enhancement -- which could be related to underlying malignancy, CSF leak/shunting with or without symptoms of intracranial hypotension, dural sinus thrombosis, meningitis, neurosarcoidosis, Jaya's. Patient reports feeling much better today. She is not able to give much history of about her seizures. She does not know when her last seizure was or who are Neurologist/Neurosurgeon are. She denies any headaches. Review of Systems Review of Systems: All systems reviewed & are unremarkable except as noted in HPI and below PMFSH Past Medical History Medical History Cerebrovascular accident Chronic obstructive pulmonary disease Gastroesophageal reflux disease Hypertension Idiopathic aplastic anemia Normal pressure hydrocephalus Seizure disorder Traumatic brain injury Age 9. Surgical History Surgical History History of exploratory laparotomy History of gastrostomy tube placement History of tracheostomy as a child Family History Family History Mother Scarring of lung COPD (chronic obstructive pulmonary disease) Hypertension Father Chronic back pain Sibling Ruptured appendix Other Unknown family medical history Social History Social History Social History: Healthcare power of trademark attorney: Jada Pena, mother. Code status
[2023-11-10] MEDS: cefTRIAXone 2 GM/NS 100 ML 2 GM/100 ML BAG IVPB (11:38)
[2023-11-10 14:00] VITALS: BP 153/61; PULSE 77; RESP 20; TEMP 36.8; O2SAT 97
[2023-11-10 19:25] VITALS: BP 166/74; PULSE 86; RESP 18; TEMP 36.9; O2SAT 98
[2023-11-10 19:33] VITALS: PULSE 86; RESP 18; O2SAT 98
[2023-11-10] MEDS: PRIMIDONE 50 MG TABLET PO (21:01)
[2023-11-10] MEDS: POTASSIUM CHLORIDE 20 MEQ ER TABLET PO (21:48)
[2023-11-10] MEDS: AZITHROMYCIN 500 MG/NS 250 ML 500 MG/250 ML BAG 250 MG IVPB (23:04)
[2023-11-11 05:27] LABS: Hematocrit 36.9 % (37.0-47.0); Hemoglobin 11.4 g/dL (12.0-15.0); Mean Corpuscular HGB Conc 30.9 g/dl (32-36); Mean Corpuscular Hemoglobin 27.7 pg (26-34); Mean Corpuscular Volume 89.6 fl (80-100); Mean Platelet Volume 9.9 fl (7.4-10.4); Platelet Count Result 229 k/mm3 (150-375); Red Blood Count 4.12 M/mm3 (4.2-5.4); Red Cell Distribution Width 13.9 % (11.5-14.5); White Blood Count 10.2 K/mm3 (4.5-10.0)
[2023-11-11 05:44] LABS: Alanine Aminotransferase 13 U/L (6-35); Albumin Level 3.6 g/dL (3.5-5.1); Alkaline Phosphatase 164 U/L (38-126); Anion Gap 9 mmol/L (8-16); Aspartate Amino Transferase 20 U/L (14-36); Bilirubin,Total 0.4 mg/dL (0.2-1.3); Blood Urea Nitrogen 7 mg/dL (7-17); Calcium 9.2 mg/dL (8.4-10.2); Carbon Dioxide 20 mmol/L (22-30); Chloride 109 mmol/L (98-107); Estimated CRCL calculation 54 ml/min; Estimated Glomerular Filt Rate > 60; Glucose 109 mg/dL (65-110); Potassium 3.4 mmol/L (3.4-5.0); Sodium 138 mmol/L (137-145)
[2023-11-11 06:00] VITALS: BP 149/74; PULSE 92; RESP 18; TEMP 37; O2SAT 99
[2023-11-11 06:03] LABS: Procalcitonin 11.1 ng/mL
--- NOTE | 2023-11-11 08:43 | P.PNIM_ITS ---
Progress Note: A&P Assessment and Plan (1) Pneumonia: Code(s): J18.9 - Pneumonia, unspecified organism Status: Acute Assessment and Plan: Admit to regular medical floor Patient started on Rocephin and Zithromax Await cultures 11/08 * blood cultures pending * admits to cough, nonproductive * continue IV antibiotics 11/09 * on room air, no respiratory distress noted- dry cough heard * WBC 12.3, procalcitonin 19.8 * continue IV antibiotics * blood cultures pending 11/10 * observed on room air, no respiratory distress noted- dry cough heard * WBC 10.2, hemoglobin 11.4, potassium 3.4, procalcitonin 11.1 * blood cultures pending * patient is doing well he will convert IV antibiotics to p.o. and ensure she tolerates (2) Seizure disorder: Code(s): G40.909 - Epilepsy, unspecified, not intractable, without status epilepticus Status: Chronic Assessment and Plan: Continue home meds 11/08 * no seizure activity reported overnight * continue Topamax, Mysoline 11/09 * no noted seizure activity reported overnight * neurology consulted and recommendation of care appreciated- will see today * continue home seizure medications-Topamax, Mysoline * of note history use of DIVALPROEX SODIUM 500 MG, prescription and has not been refilled since August of 2023- this may be the potential medication changes that patient stated in ED 11/10 * no seizure activity reported * discussed with the patient's mother and family friend Aura who takes care of both there depiction of events that brought patient to the hospital. both individuals denied that patient had a seizure. they described her incident as chilled-like, as if she was really cold. they expressed that they have taken care of this individual for many years and are aware of what her seizure activity looks like. they refused any further workup of seizure activity. they expressed that they follow Dr. Ty for Neurology. Confirmed only change patient has recently experienced is her medication of Topamax from divalproex. * discuss this conversation with Neurology, who stated if family believes that patient is at baseline and did not have a seizure there will be no further workup (3) AMS (altered mental status): Code(s): R41.82 - Altered mental status, unspecified Status: Acute Assessment and Plan: Likely secondary to acute illness Unclear if patient had seizure 11/08 * patient alert oriented x3 * patient cannot expressive she had a seizure but she knows hours she has a seizure history * WBC elevated 19.8 today 11/09 * patient alert and oriented x3, she can tell me her name, tell me that she is in the hospital, she tells me that I am a provider, and can tell me that she lives in [facility] with her mother. however unable to give history of seizure presentation, date of last seizure or other pertinent medical or medication information. 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 patient is at her baseline mentation * alert and oriented able to answer questions of self appropriately * labs today note WBC 10.2, hemoglobin 11.4, sodium 138, potassium 3.4. BP 149/74, HR 92, temp 98.6?, O2 99% on room air (4) Normal pressure hydrocephalus: Code(s): G91.2 - (Idiopathic) normal pressure hydrocephalus Status: Acute Assessment and Plan: Patient states that she is wheelchair-bound 11/09 * CT head completed and per radiologic impression notes: Chronic encephalomalacia in left frontal lobe.
--- NOTE | 2023-11-11 08:43 | PM.IMPN ---
Progress Note: A&P Assessment and Plan (1) Pneumonia: Code(s): J18.9 - Pneumonia, unspecified organism Status: Acute Assessment and Plan: Admit to regular medical floor Patient started on Rocephin and Zithromax Await cultures 11/08 blood cultures pending admits to cough, nonproductive continue IV antibiotics 11/09 on room air, no respiratory distress noted- dry cough heard WBC 12.3, procalcitonin 19.8 continue IV antibiotics blood cultures pending 11/10 observed on room air, no respiratory distress noted- dry cough heard WBC 10.2, hemoglobin 11.4, potassium 3.4, procalcitonin 11.1 blood cultures pending patient is doing well he will convert IV antibiotics to p.o. and ensure she tolerates (2) Seizure disorder: Code(s): G40.909 - Epilepsy, unspecified, not intractable, without status epilepticus Status: Chronic Assessment and Plan: Continue home meds 11/08 no seizure activity reported overnight continue Topamax, Mysoline 11/09 no noted seizure activity reported overnight neurology consulted and recommendation of care appreciated- will see today continue home seizure medications-Topamax, Mysoline of note history use of DIVALPROEX SODIUM 500 MG, prescription and has not been refilled since August of 2023- this may be the potential medication changes that patient stated in ED 11/10 no seizure activity reported discussed with the patient's mother and family friend Aura who takes care of both there depiction of events that brought patient to the hospital. both individuals denied that patient had a seizure. they described her incident as chilled-like, as if she was really cold. they expressed that they have taken care of this individual for many years and are aware of what her seizure activity looks like. they refused any further workup of seizure activity. they expressed that they follow Dr. Ty for Neurology. Confirmed only change patient has recently experienced is her medication of Topamax from divalproex. discuss this conversation with Neurology, who stated if family believes that patient is at baseline and did not have a seizure there will be no further workup (3) AMS (altered mental status): Code(s): R41.82 - Altered mental status, unspecified Status: Acute Assessment and Plan: Likely secondary to acute illness Unclear if patient had seizure 11/08 patient alert oriented x3 patient cannot expressive she had a seizure but she knows hours she has a seizure history WBC elevated 19.8 today 11/09 patient alert and oriented x3, she can tell me her name, tell me that she is in the hospital, she tells me that I am a provider, and can tell me that she lives in [facility] with her mother. however unable to give history of seizure presentation, date of last seizure or other pertinent medical or medication information. 11/10 confirm patient's orientation status with her mother and header boss. patient is at her baseline mentation alert and oriented able to answer questions of self appropriately labs today note WBC 10.2, hemoglobin 11.4, sodium 138, potassium 3.4. BP 149/74, HR 92, temp 98.6?, O2 99% on room air (4) Normal pressure hydrocephalus: Code(s): G91.2 - (Idiopathic) normal pressure hydrocephalus Status: Acute Assessment and Plan: Patient states that she is wheelchair-bound 11/09 CT head completed and per radiologic impression notes: Chronic encephalomalacia in left frontal lobe. Old lacunar infarct in the right basal ganglia. Stable mild nonspecific cerebral white matter disease, which likely represents chronic small vessel ischemic disease. Stable chronic bilateral frontoparietal subdural hematomas with maximum thickness of 6 mm on the right. Unchanged size of the ventricles. Shunt catheter in expected position. 11/10 CT performed on 11/09- compared to head CT from 03/27- no acute change
[2023-11-11] MEDS: POLYSACCHARIDE IRON COMPLEX 150 MG CAPSULE PO ×2 (08:50→17:22)
[2023-11-11] MEDS: CALCIUM/VITAMIN D 500 MG/5 MCG (200 I.U.) TABLET PO (08:51)
[2023-11-11] MEDS: ACETAMINOPHEN 325 MG TABLET 650 MG PO ×2 (08:51→17:22)
[2023-11-11] MEDS: POTASSIUM CHLORIDE 20 MEQ ER TABLET PO (08:51)
[2023-11-11] MEDS: ASCORBIC ACID 500 MG TABLET PO (08:51)
[2023-11-11 08:52] VITALS: PULSE 107
[2023-11-11] MEDS: CITALOPRAM HYDROBROMIDE 10 MG TABLET PO (08:52)
[2023-11-11] MEDS: METOPROLOL TARTRATE 12.5 MG TABLET PO ×2 (08:52→20:28)
[2023-11-11] MEDS: FLUTICASONE PROPIONATE 0.05% NA SPR 16 GM BTL (*BKC) 1 SPRAY NASAL ×2 (08:52→17:23)
[2023-11-11] MEDS: LORATADINE 10 MG TABLET PO (08:52)
[2023-11-11] MEDS: TOPIRAMATE 100 MG TABLET PO ×2 (08:53→20:27)
[2023-11-11] MEDS: MONTELUKAST SODIUM 10 MG TABLET PO (08:53)
[2023-11-11] MEDS: PANTOPRAZOLE 40 MG TABLET PO (08:53)
[2023-11-11] MEDS: cefTRIAXone 2 GM/NS 100 ML 2 GM/100 ML BAG IVPB (11:44)
[2023-11-11 14:00] VITALS: BP 165/86; PULSE 81; RESP 20; TEMP 36.7; O2SAT 98
[2023-11-11 19:56] VITALS: PULSE 81; RESP 20; O2SAT 98
[2023-11-11 20:28] VITALS: PULSE 87
[2023-11-11] MEDS: PRIMIDONE 50 MG TABLET PO (20:28)
[2023-11-11 20:41] VITALS: BP 156/83; PULSE 90; RESP 18; TEMP 36.2; O2SAT 97
[2023-11-12 05:23] LABS: Hematocrit 40.3 % (37.0-47.0); Hemoglobin 12.3 g/dL (12.0-15.0); Mean Corpuscular HGB Conc 30.5 g/dl (32-36); Mean Corpuscular Hemoglobin 27.8 pg (26-34); Platelet Count Result 277 k/mm3 (150-375); Red Blood Count 4.43 M/mm3 (4.2-5.4); Red Cell Distribution Width 13.7 % (11.5-14.5); White Blood Count 10.1 K/mm3 (4.5-10.0)
[2023-11-12 05:46] LABS: Alanine Aminotransferase 13 U/L (6-35); Albumin Level 3.7 g/dL (3.5-5.1); Alkaline Phosphatase 127 U/L (38-126); Anion Gap 7 mmol/L (8-16); Aspartate Amino Transferase 19 U/L (14-36); Bilirubin,Total 0.3 mg/dL (0.2-1.3); Blood Urea Nitrogen 9 mg/dL (7-17); Calcium 9.3 mg/dL (8.4-10.2); Carbon Dioxide 23 mmol/L (22-30); Chloride 108 mmol/L (98-107); Estimated CRCL calculation 48 ml/min; Estimated Glomerular Filt Rate > 60; Glucose 109 mg/dL (65-110); Magnesium 2.2 mg/dL (1.6-2.3); Potassium 3.4 mmol/L (3.4-5.0); Sodium 138 mmol/L (137-145)
[2023-11-12 06:00] VITALS: BP 151/64; PULSE 99; RESP 18; TEMP 37.1; O2SAT 98
[2023-11-12 08:05] LABS: Procalcitonin 5.7 ng/mL
[2023-11-12] MEDS: ACETAMINOPHEN 325 MG TABLET 650 MG PO (08:38)
[2023-11-12] MEDS: POLYSACCHARIDE IRON COMPLEX 150 MG CAPSULE PO (08:38)
[2023-11-12 08:39] VITALS: PULSE 88
[2023-11-12] MEDS: PANTOPRAZOLE 40 MG TABLET PO (08:39)
[2023-11-12] MEDS: LORATADINE 10 MG TABLET PO (08:39)
[2023-11-12] MEDS: AMOXICILLIN/CLAVULANATE K 875-125 MG TAB 1 TABLET PO (08:39)
[2023-11-12] MEDS: METOPROLOL TARTRATE 12.5 MG TABLET PO (08:39)
[2023-11-12] MEDS: TOPIRAMATE 100 MG TABLET PO (08:39)
[2023-11-12] MEDS: AZITHROMYCIN 250 MG TABLET PO (08:39)
[2023-11-12] MEDS: CITALOPRAM HYDROBROMIDE 10 MG TABLET PO (08:39)
[2023-11-12] MEDS: ASCORBIC ACID 500 MG TABLET PO (08:39)
[2023-11-12 08:40] VITALS: PULSE 88; RESP 18; O2SAT 96
[2023-11-12] MEDS: FLUTICASONE PROPIONATE 0.05% NA SPR 16 GM BTL (*BKC) 1 SPRAY NASAL (08:40)
[2023-11-12] MEDS: CALCIUM/VITAMIN D 500 MG/5 MCG (200 I.U.) TABLET PO (08:40)
[2023-11-12] MEDS: MONTELUKAST SODIUM 10 MG TABLET PO (08:40)
[2023-11-12 08:45] VITALS: O2SAT 96
--- NOTE | 2023-11-12 09:09 | P.CDI_ITS ---
CDI Query Clarification Request Documentation in the medical record indicates that this patient has been diagnosed as having the symptoms of ALTERED MENTAL STATUS. Additional findings also documented in the medical record * Pneumonia * Patient started on Rocephin 2 GM Q 24hrs. * Patient started on Azithromycin 500mg Q 24hrs. (3) AMS (altered mental status): ?Code(s): R41.82 - Altered mental status, unspecified ?Status:?Acute ?Assessment and Plan: Likely secondary to acute illness Unclear if patient had seizure Based on your medical judgement , can you further clarify in the progress notes, if known, if these findings associated with altered mental status are due to a definite or suspected underlying neurologic cause such as: * Metabolic Encephalopathy * Toxic Encephalopathy * Altered Mental Status without encephalopathy * Other condition (please specify) * None of the above/Not applicable <Lindy Clement RN - Last Filed: 11/12/23 09:16> Clarified Diagnosis Clarified Diagnosis: AMS suggested due to pneumonia infection presentation. However, family has confirmed that patient has not exhibited any AMS as she is at her baseline mentation. AMS was ruled out. <Hallie Lopez APRN - Last Filed: 11/12/23 10:36>
--- NOTE | 2023-11-12 10:45 | P.DS_ITS ---
DS: Admitting Diagnosis Discharge Date 11/12/23 Admitting Diagnosis Pneumonia DS: Discharge Diagnosis Discharge Diagnosis (1) Pneumonia: Code(s): J18.9 - Pneumonia, unspecified organism Status: Acute Assessment and Plan: Admit to regular medical floor Patient started on Rocephin and Zithromax Await cultures 11/08 * blood cultures pending * admits to cough, nonproductive * continue IV antibiotics 11/09 * on room air, no respiratory distress noted- dry cough heard * WBC 12.3, procalcitonin 19.8 * continue IV antibiotics * blood cultures pending 11/10 * observed on room air, no respiratory distress noted- dry cough heard * WBC 10.2, hemoglobin 11.4, potassium 3.4, procalcitonin 11.1 * blood cultures pending * patient is doing well he will convert IV antibiotics to p.o. and ensure she tolerates 11/11 * Observed on room air, No respiratory distress noted- small cough heard * WBC 10.1, hemoglobin 12.3, potassium 3.4, procalcitonin 5.7 * Patient tolerating Po antibiotics well. * Will discharge today (2) Seizure disorder: Code(s): G40.909 - Epilepsy, unspecified, not intractable, without status epilepticus Status: Chronic Assessment and Plan: Continue home meds 11/08 * no seizure activity reported overnight * continue Topamax, Mysoline 11/09 * no noted seizure activity reported overnight * neurology consulted and recommendation of care appreciated- will see today * continue home seizure medications-Topamax, Mysoline * of note history use of DIVALPROEX SODIUM 500 MG, prescription and has not been refilled since August of 2023- this may be the potential medication changes that patient stated in ED 11/10 * no seizure activity reported * discussed with the patient's mother and family friend Aura who takes care of both there depiction of events that brought patient to the hospital. both individuals denied that patient had a seizure. they described her incident as chilled-like, as if she was really cold. they expressed that they have taken care of this individual for many years and are aware of what her seizure activity looks like. they refused any further workup of seizure activity. they expressed that they follow Dr. Ty for Neurology. Confirmed only change patient has recently experienced is her medication of Topamax from divalproex. * discuss this conversation with Neurology, who stated if family believes that patient is at baseline and did not have a seizure there will be no further workup (3) AMS (altered mental status): Code(s): R41.82 - Altered mental status, unspecified Status: Acute Assessment and Plan: Likely secondary to acute illness Unclear if patient had seizure 11/08 * patient alert oriented x3 * patient cannot expressive she had a seizure but she knows hours she has a seizure history * WBC elevated 19.8 today 11/09 * patient alert and oriented x3, she can tell me her name, tell me that she is in the hospital, she tells me that I am a provider, and can tell me that she lives in [facility] with her mother. however unable to give history of seizure presentation, date of last seizure or other pertinent medical or medication information. 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 patient is at her baseline mentation * alert and oriented able to answer questions of self appropriately * labs today note WBC 10.2, hemoglobin 11.4, sodium 138, potassium 3.4. BP 149/74, HR 92, temp 98.6?, O2 99% on room air
--- NOTE | 2023-11-12 10:45 | PM.DS ---
DS: Admitting Diagnosis Discharge Date 11/12/23 Admitting Diagnosis Pneumonia DS: Discharge Diagnosis Discharge Diagnosis (1) Pneumonia: Code(s): J18.9 - Pneumonia, unspecified organism Status: Acute Assessment and Plan: Admit to regular medical floor Patient started on Rocephin and Zithromax Await cultures 11/08 blood cultures pending admits to cough, nonproductive continue IV antibiotics 11/09 on room air, no respiratory distress noted- dry cough heard WBC 12.3, procalcitonin 19.8 continue IV antibiotics blood cultures pending 11/10 observed on room air, no respiratory distress noted- dry cough heard WBC 10.2, hemoglobin 11.4, potassium 3.4, procalcitonin 11.1 blood cultures pending patient is doing well he will convert IV antibiotics to p.o. and ensure she tolerates 11/11 Observed on room air, No respiratory distress noted- small cough heard WBC 10.1, hemoglobin 12.3, potassium 3.4, procalcitonin 5.7 Patient tolerating Po antibiotics well. Will discharge today (2) Seizure disorder: Code(s): G40.909 - Epilepsy, unspecified, not intractable, without status epilepticus Status: Chronic Assessment and Plan: Continue home meds 11/08 no seizure activity reported overnight continue Topamax, Mysoline 11/09 no noted seizure activity reported overnight neurology consulted and recommendation of care appreciated- will see today continue home seizure medications-Topamax, Mysoline of note history use of DIVALPROEX SODIUM 500 MG, prescription and has not been refilled since August of 2023- this may be the potential medication changes that patient stated in ED 11/10 no seizure activity reported discussed with the patient's mother and family friend Aura who takes care of both there depiction of events that brought patient to the hospital. both individuals denied that patient had a seizure. they described her incident as chilled-like, as if she was really cold. they expressed that they have taken care of this individual for many years and are aware of what her seizure activity looks like. they refused any further workup of seizure activity. they expressed that they follow Dr. Ty for Neurology. Confirmed only change patient has recently experienced is her medication of Topamax from divalproex. discuss this conversation with Neurology, who stated if family believes that patient is at baseline and did not have a seizure there will be no further workup (3) AMS (altered mental status): Code(s): R41.82 - Altered mental status, unspecified Status: Acute Assessment and Plan: Likely secondary to acute illness Unclear if patient had seizure 11/08 patient alert oriented x3 patient cannot expressive she had a seizure but she knows hours she has a seizure history WBC elevated 19.8 today 11/09 patient alert and oriented x3, she can tell me her name, tell me that she is in the hospital, she tells me that I am a provider, and can tell me that she lives in [facility] with her mother. however unable to give history of seizure presentation, date of last seizure or other pertinent medical or medication information. 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 patient is at her baseline mentation alert and oriented able to answer questions of self appropriately labs today note WBC 10.2, hemoglobin 11.4, sodium 138, potassium 3.4. BP 149/74, HR 92, temp 98.6?, O2 99% on room air 11/11 Altered mental status suggestively related to pneumonia diagnosis. However, Confirmed with patient's mother and pet care assistant that patient mental status has not been altered from her baseline (4) Normal pressure hydrocephalus: Code(s): G91.2 - (Idiopathic) normal pressure hydrocephalus Status: Acute Assessment and Plan: Patient states that she is wheelchair-bound 11/09 CT head completed and per
--- NOTE | 2023-11-15 09:12 | PC.NURSE ---
Blood cx are negative.
== END 2023-11-12 13:55 | DRG 871 ==
LOC: ANHED 19:29 → ANH2MED 11-09 01:07
PROVIDERS: Nurse Practitioner Family; Physician Assistant; Admitting Provider Internal Medicine; Emergency Provider Emergency Medicine; PCP Family Medicine; Visit Provider Internal Medicine
DX: A41.9 Sepsis, unspecified organism (principal); D61.3 Idiopathic aplastic anemia; J18.9 Pneumonia, unspecified organism; G91.2 (Idiopathic) normal pressure hydrocephalus; J44.0 Chronic obstructive pulmonary disease with (acute) lower respiratory infection; G40.909 Epilepsy, unspecified, not intractable, without status epilepticus; K21.9 Gastro-esophageal reflux disease without esophagitis; I10 Essential (primary) hypertension; Z99.3 Dependence on wheelchair; Z87.820 Personal history of traumatic brain injury; Z87.891 Personal history of nicotine dependence; Z86.73 Personal history of transient ischemic attack (TIA), and cerebral infarction without residual deficits
CPT/HCPCS: 36415; 70450; 71045; 71275; 74177; 80053; 81003; 83605; 83735; 84145; 85025; 85027; 85610; 85730; 87040; 87637; 93005; 96361; 96365; 96367; 97161; 99285; A9270; J0456; J0696; J7030; Q9967

== ENCOUNTER 2024-02-19 00:10 | Day surgery (SDC) | payer MEDICARE, MEDICAID, SELFPAY ==
[2024-02-19 08:38] VITALS: BP 137/85; PULSE 83; RESP 18; TEMP 36.6; O2SAT 98; BMI 27.7
[2024-02-19] MEDS: LACTATED RINGERS 1,000 ML 150 ML IV CONT (09:00)
--- NOTE | 2024-02-19 09:23 | WPDANESEPPF ---
Anes - Initial Pre Proc Eval Procedure: Operation Date: 02/19/24 10:00 Proposed Procedures p Screening Colonoscopy - Shane Young MD Date/Time: 02/19/24 09:23 Surgeon: Shane Young MD Pre Op Diagnosis: Neoplasm screening Patient Data Age: 68 Gender: F Height: 1.52 m Weight: 64.5 kg Last Vital Signs Temp 36.6 C 02/19/24 08:38 Pulse 83 02/19/24 08:38 Resp 18 02/19/24 08:38 BP 137/85 02/19/24 08:38 Pulse Ox 98 02/19/24 08:38 O2 Del Method Room Air 02/19/24 08:38 Allergies Allergy/AdvReac Type Severity Reaction Status Date / Time No Known Allergies Allergy Verified 02/19/24 08:39 Home Medications Medication Instructions Recorded Confirmed Type bisacodyl 5 mg tablet,delayed 5 mg PO BID PRN Constipation 09/23/22 02/19/24 History release calcium carb-vit D3-minerals 600 1 tablet PO DAILY 09/23/22 02/19/24 History mg calcium-400 unit tablet cetirizine 10 mg tablet (Allergy 10 mg PO DAILY 09/23/22 02/19/24 History Relief (cetirizine)) citalopram 10 mg tablet 10 mg PO DAILY 09/23/22 02/19/24 History fluticasone propionate 50 1 spray intranasal BID PRN Nasal 09/23/22 02/19/24 History mcg/actuation nasal Congestion spray,suspension furosemide 20 mg tablet 20 mg PO DAILY 09/23/22 02/19/24 History guaifenesin 600 mg tablet, 600 mg PO Q12H PRN Congestion 09/23/22 02/19/24 History extended release 12 hr (Mucinex) ipratropium 20 mcg-albuterol 100 1 puff inhalation QID 09/23/22 02/19/24 History mcg/actuation mist for inhalation (Combivent Respimat) montelukast 10 mg tablet 10 mg PO DAILY 09/23/22 02/19/24 History (Singulair) omeprazole 20 mg tablet,delayed 20 mg PO DAILY 09/23/22 02/19/24 History release propylene glycol 0.6 % eye drops 1 drp EACH EYE DAILY 09/23/22 02/19/24 History (Systane Complete) metoprolol tartrate 25 mg tablet 12.5 mg PO BID #30 tabs 09/29/22 02/19/24 Rx Chloraseptic 1 vignesh PO Q2H PRN Sore Throat 11/09/23 02/19/24 History acetaminophen 325 mg tablet 650 mg PO BID 11/09/23 02/19/24 History ascorbic acid (vitamin C) 500 mg PO DAILY 11/09/23 02/19/24 History benzonatate 200 mg PO Q8H PRN Cough 11/09/23 02/19/24 History ergocalciferol (vitamin D2) 1,250 mcg PO WEEKLY 11/09/23 02/19/24 History oxycodone 5 mg tablet 2.5 mg PO Q4H PRN Pain (Scale 11/09/23 02/19/24 History Score 7-10) polyethylene glycol 3350 17 gram 17 g PO QAM PRN Constipation 11/09/23 02/19/24 History oral powder packet (Miralax) primidone 50 mg tablet 50 mg PO DAILY 11/09/23 02/19/24 History topiramate 100 mg tablet 100 mg PO BID 11/09/23 02/19/24 History acetaminophen 325 mg tablet 650 mg PO DAILY PRN PAIN, FEVER 02/11/24 02/19/24 History carboxymethylcellulose sodium 1 % 1 drp EACH EYE BID PRN Dry Eyes 02/11/24 02/19/24 History eye drops (Artificial Tears (carboxymethylcellulose)) fluticasone 100 mcg-salmeterol 50 1 inh inhalation BID 02/11/24 02/19/24 History mcg/dose blistr powdr for inhalation propylene glycol 0.6 % eye drops 1 drp EACH EYE DAILY PRN Dry Eyes 02/11/24 02/19/24 History (Systane Complete) Patient hx anesthesia problems: none Family hx anesthesia problems: none Results Review: All pre-operative results and documents have been reviewed as part of the pre-operative evaluation. [facility] Past Medical History Medical History Cerebrovascular accident Chronic obstructive pulmonary disease Gastroesophageal reflux disease Hypertension Idiopathic aplastic anemia Normal pressure hydrocephalus Seizure disorder Traumatic brain injury Age 9. Surgical History Surgical History History of exploratory laparotomy History of gastrostomy tube placement History of tracheostomy as a child Family History Family History Mother Scarring of lung C
--- NOTE | 2024-02-19 09:40 | PM.HPGS ---
History of Present Illness History of Present Illness Consent: Risks, benefits, and alternatives have been discussed and questions answered. Patient agrees to proceed with procedure. Chief complaint: Neoplasm screening Narrative: Anjelica Pena is a 68 year old female here for screening colonoscopy Review of Systems Review of Systems: All systems reviewed & are unremarkable except as noted in HPI and below PMFSH Past Medical History Medical History (Updated 02/19/24 @ 09:42 by Shane Young MD) Cerebrovascular accident Chronic obstructive pulmonary disease Colon cancer screening Gastroesophageal reflux disease Hypertension Idiopathic aplastic anemia Normal pressure hydrocephalus Seizure disorder Traumatic brain injury Age 9. Surgical History Surgical History History of exploratory laparotomy History of gastrostomy tube placement History of tracheostomy as a child Family History Family History Mother Scarring of lung COPD (chronic obstructive pulmonary disease) Hypertension Father Chronic back pain Sibling Ruptured appendix Other Unknown family medical history Social History Social History Social History: Healthcare power of attorney lawyer: Jada Pena, mother. Code status: Full code. Smoking packs per day: 1 Smoking cigarettes per day: 20.0 Years smoked: 3 Smoking pack-years: 3.00 Smoking status: Former smoker Tobacco type: cigarettes Alcohol intake: never Substance use: never Substance use type: does not use Do You Feel Safe in your Home?: Yes Lack of Transportation: No Lack of Food: Never True Current Housing: I Have Housing Concerned About Future Housing: No Difficulty Paying Gas/Electric Bills: No Difficulty Paying for Meds: No Currently Unemployed: No Education: High School Diploma/GED Difficulty w/ Childcare or Family Care: No Living arrangements: assisted living Spiritual care concerns: No Meds Home Medications and Allergies Home Medications Medication Instructions Recorded Confirmed Type bisacodyl 5 mg tablet,delayed 5 mg PO BID PRN Constipation 09/23/22 02/19/24 History release calcium carb-vit D3-minerals 600 1 tablet PO DAILY 09/23/22 02/19/24 History mg calcium-400 unit tablet cetirizine 10 mg tablet (Allergy 10 mg PO DAILY 09/23/22 02/19/24 History Relief (cetirizine)) citalopram 10 mg tablet 10 mg PO DAILY 09/23/22 02/19/24 History fluticasone propionate 50 1 spray intranasal BID PRN Nasal 09/23/22 02/19/24 History mcg/actuation nasal Congestion spray,suspension furosemide 20 mg tablet 20 mg PO DAILY 09/23/22 02/19/24 History guaifenesin 600 mg tablet, 600 mg PO Q12H PRN Congestion 09/23/22 02/19/24 History extended release 12 hr (Mucinex) ipratropium 20 mcg-albuterol 100 1 puff inhalation QID 09/23/22 02/19/24 History mcg/actuation mist for inhalation (Combivent Respimat) montelukast 10 mg tablet 10 mg PO DAILY 09/23/22 02/19/24 History (Singulair) omeprazole 20 mg tablet,delayed 20 mg PO DAILY 09/23/22 02/19/24 History release propylene glycol 0.6 % eye drops 1 drp EACH EYE DAILY 09/23/22 02/19/24 History (Systane Complete) metoprolol tartrate 25 mg tablet 12.5 mg PO BID #30 tabs 09/29/22 02/19/24 Rx Chloraseptic 1 vignesh PO Q2H PRN Sore Throat 11/09/23 02/19/24 History acetaminophen 325 mg tablet 650 mg PO BID 11/09/23 02/19/24 History ascorbic acid (vitamin C) 500 mg PO DAILY 11/09/23 02/19/24 History benzonatate 200 mg PO Q8H PRN Cough 11/09/23 02/19/24 History ergocalciferol (vitamin D2) 1,250 mcg PO WEEKLY 11/09/23 02/19/24 History oxycodone 5 mg tablet 2.5 mg PO Q4H PRN Pain (Scale 11/09/23 02/19/24 History Score 7-10) polyethylene glycol 3350 17 gram 17 g PO QAM PRN Constipation 11/09/23 02/19/24 Histor
[2024-02-19 10:50] VITALS: BP 150/72; PULSE 74; RESP 16; O2SAT 100
[2024-02-19 11:00] VITALS: BP 166/68; PULSE 71; RESP 18; O2SAT 99
[2024-02-19 11:10] VITALS: BP 171/74; PULSE 74; RESP 18; O2SAT 99
== END 2024-02-19 11:42 ==
PROVIDERS: PCP Family Medicine; Visit Provider Internal Medicine Gastroenterology
PROC: 0DJD8ZZ Inspection of Lower Intestinal Tract, Via Natural or Artificial Opening Endoscopic (ICD-10-PCS; CPT 45378; principal; 2024-02-19 10:00)
DX: Z12.11 Encounter for screening for malignant neoplasm of colon (principal); D12.0 Benign neoplasm of cecum; D12.2 Benign neoplasm of ascending colon; D12.3 Benign neoplasm of transverse colon; D12.4 Benign neoplasm of descending colon; D12.5 Benign neoplasm of sigmoid colon; K57.30 Diverticulosis of large intestine without perforation or abscess without bleeding; K64.8 Other hemorrhoids; K64.4 Residual hemorrhoidal skin tags; J44.9 Chronic obstructive pulmonary disease, unspecified; I10 Essential (primary) hypertension; D61.3 Idiopathic aplastic anemia; K21.9 Gastro-esophageal reflux disease without esophagitis; G40.909 Epilepsy, unspecified, not intractable, without status epilepticus; G91.2 (Idiopathic) normal pressure hydrocephalus; Z87.820 Personal history of traumatic brain injury; Z87.891 Personal history of nicotine dependence; Z79.51 Long term (current) use of inhaled steroids
CPT/HCPCS: 45385; 45381; 88305; J2704; J7120

== ENCOUNTER 2024-05-07 13:50 | Outpatient (CLI) | payer MEDICARE, MEDICAID, SELFPAY ==
--- NOTE | ~2024-05-07 | DEXA_ITS ---
Bone Density Report Name: ALENA HARDEN Age: 68 Sex: Female Ethnicity: White Date of : 1955 Indication: postmenopausal; screening for osteoporosis; height loss; seizure disorder; Referring Provider: ZENY FRANCO Study: Bone densitometry was performed. Exam Date: May 07, 2024 Accession number: [id number] Bone Density: Region BMD T-score Z-score Classification AP Spine(L1-L4) 0.977 -0.6 1.2 Normal Femoral Neck (Left) 0.682 -1.5 0.1 Osteopenia Total Hip (Left) 0.771 -1.4 -0.1 Osteopenia World Health Organization criteria for BMD impression classify patients as: Normal (T-score at or above -1.0), Osteopenia (T-score between -1.0 and -2.5), or Osteoporosis (T-score at or below -2.5). 10-year Fracture Risk(1): Major Osteoporotic Fracture 9.2% Hip Fracture 1.1% Reported Risk Factors: [place] (), Neck BMD=0.682, BMI=28.7 (1) FRAX(R) Version 3.08. Fracture probability calculated for an untreated patient. Fracture probability may be lower if the patient has received treatment. Clinical Information Provided by Patient: Has used the following medications: Calcium Has the following medical conditions: Any Seizure Disorders Patient maximum height was 62 Menopause Age: 52 Drinks caffeinated beverages Onset of menses at age 15 Number of children 0 Impression: The patient has low bone mass, based on the Left Femoral Neck T-score. The patient has an estimated ten-year risk of hip fracture of 1.1% and an estimated ten-year risk of major fracture of 9.2%, based on the WHO FRAX algorithm. Discussion: BONE DENSITY IS LOW AT ONE OR MORE SKELETAL SITES. This patient's lowest T-score is low at one or more skeletal sites. It meets the World Health Organization's (WHO) criteria for ?low bone mass? (T-score between -1.0 and -2.5). The patient's 10-year risk of fracture as calculated by FRAX is less than the threshold where pharmacological therapy is recommended by the National Osteoporosis Foundation (NOF). However, all treatment decisions require clinical judgment and consideration of individual patient factors, including patient preferences, comorbidities, previous drug use, risk factors not captured in the FRAX model (e.g., frailty, falls, vitamin D deficiency, increased bone turnover, interval significant decline in bone density) and possible under or overestimation of fracture risk by FRAX. The patient should follow a healthful lifestyle (good nutrition with adequate calcium and vitamin D, and appropriate weight-bearing exercise). Follow-Up: Consider repeating this study in 2 to 3 years to reassess this patient's status, or sooner if there is some new clinical indication. Reported by: MARK on 05/07/2024 2:34:00 PM. Reviewed, dictated and finalized at location A.
--- NOTE | ~2024-05-07 | MM_ITS ---
EXAMINATION: MM screening gabriela BI w daphney HISTORY: Screening TECHNIQUE: Craniocaudal and mediolateral oblique 3-D tomosynthesis images were obtained and synthetic 2-D images were generated. CAD analysis was submitted and interpreted. COMPARISON: Comparison to multiple prior studies sequentially, with oldest reviewed study dated 12/30. BREAST PARENCHYMAL COMPOSITION: Not dense: There are scattered areas of fibroglandular density. FINDINGS: There is no evidence of suspicious mass, calcification, or architectural distortion to sugg est malignancy in either breast. There has been no suspicious interval change. IMPRESSION: 1. No mammographic evidence of malignancy. 2. Recommend routine screening mammography in one year. BI-RADS Category 1: Negative Reviewed, dictated and finalized at location B.
== END 2024-05-07 13:51 | disposition home or self-care (01) ==
LOC: ANHIMG 13:52
PROVIDERS: PCP Family Medicine; Visit Provider Family Medicine
DX: Z12.31 Encounter for screening mammogram for malignant neoplasm of breast (principal); M85.852 Other specified disorders of bone density and structure, left thigh
CPT/HCPCS: 77063; 77067; 77080

== ENCOUNTER 2024-05-20 02:00 | Inpatient (IN) | payer MEDICARE, MEDICAID, SELFPAY ==
[2024-05-20] VITALS (31 sets, daily range): BP systolic 114–208; BP diastolic 41–111; PULSE 102–127; RESP 14–28; TEMP 36.4–36.9; O2SAT 88–100
--- NOTE | 2024-05-20 | ECHO_ITS ---
Patient Info Name: Anjelica Pena Age: 68 years : 1955 Gender: Female Ht: 50 in Wt: 143 lbs BSA: 1.56 m2 HR: 123 bpm BP: 181 / 95 mmHg Heart Rhythm: Tachycardia, Sinus Rhythm Technical Quality: Fair Exam Date: 05/20/2024 2:36 PM Exam Location: Echo Lab Patient Status: Inpatient Admit Date: 05/20/2024 Staff Ordering Physician: Sommer Mg MD [employer] Instructor: Gris German RDCS Attending Provider: Sommer Mg MD Exam Type: CA echo doppler color flow Study Info Indications - pericardial, pleural effusion, pulm edema Complete two-dimensional, color flow and Doppler transthoracic echocardiogram is performed. Summary 1. Left ventricular chamber dimension is normal. 2. Left ventricular systolic function is moderately reduced, estimated at 35-40%. 3. There is mildly increased left ventricular wall thickness. 4. Right ventricular systolic function is normal. 5. Left atrial chamber dimension is severely enlarged. 6. There is moderate mitral valve regurgitation. 7. There is mild tricuspid valve regurgitation. 8. Left pleural effusion noted. 9. There is small pericardial effusion posteriorly. The effusion is moderate in size anteriorly near the right atrium. There is right atrial free wall invagination consistent with increased intrapericardial pressure. 10. Normal inferior vena cava with >50% collapse upon inspiration consistent with normal right atrial pressure, 3 mmHg. Left Ventricle Left ventricular chamber dimension is normal. Left ventricular systolic function is moderately reduced, estimated at 35-40%. There is mildly increased left ventricular wall thickness. The left ventricular diastolic function is abnormal. Right Ventricle Right ventricular chamber dimension is normal. Right ventricular systolic function is normal. Left Atria Left atrial chamber dimension is severely enlarged. Right Atria Right atrial chamber dimension is normal. Atrial Septum Intact interatrial septum visualized by color flow imaging. Aortic Valve The aortic valve is not well visualized. There is no aortic valve stenosis. There is no aortic valve regurgitation. There is mild aortic valve calcification. Pulmonic Valve The pulmonic valve is not well visualized. Mitral Valve The mitral valve has thickened leaflets. There is moderate mitral valve regurgitation. Tricuspid Valve There is mild tricuspid valve regurgitation. Pericardium/Pleural Left pleural effusion noted. There is small pericardial effusion posteriorly. The effusion is moderate in size anteriorly near the right atrium. There is right atrial free wall invagination consistent with increased intrapericardial pressure. Inferior Vena Cava Normal inferior vena cava with >50% collapse upon inspiration consistent with normal right atrial pressure, 3 mmHg. Aorta The aortic root size at the sinus of Valsalva is normal. Left Ventricular Outflow Tract Name Value Normal LVOT 2D LVOT Diameter 2.0 cm LVOT Doppler LVOT Peak Gradient 5 mmHg LVOT Mean Gradient 2 mmHg LVOT VTI 14 cm LVOT VTI/AV VTI Ratio 0.6 LVOT Nito
--- NOTE | ~2024-05-20 | CT_ITS ---
Clinical Indication: Shortness of breath CT Scan of the Chest with Contrast: Technique: Contiguous sections were acquired throughout the chest after intravenous administration of 100 cc of Omnipaque 350. Dose reduction technique was used on this scan by utilizing automated expos ure control and iterative reconstruction technique. The dose-length product (DLP) was 208.27 mGy-cm. COMPARISON: 11/08/2023 Findings: Mildly enlarged lymph nodes are noted in the subcarinal region, precarinal region, right hilum. There is no filling defect in the pulmonary arterial tree to suggest pulmonary embolus. There is no eviden ce of aortic dissection or aneurysm. Small to moderate pericardial effusion present. Moderate bilateral pleural effusions are present. There is extensive groundglass consolidation throughout the lungs. There is mild bibasilar atelectati c change. Images through the upper abdomen reveal no abnormalities. Impression: No evidence of pulmonary embolus, aortic dissection, or aortic aneurysm. Moderate bilateral pleural effusions. Small to moderate pericardial effusion. Extensive groundglass consolidation throughout the lungs, most compatible with severe pulmonary edema versus possibly atypical infection. Correlate clinically. Reviewed, dictated and finalized at [facility]. Impression: No evidence of pulmonary embolus, aortic dissection, or aortic aneurysm. Moderate bilateral pleural effusions. Small to moderate pericardial effusion. Extensive groundglass consolidation throughout the lungs, most compatible with severe pulmonary edema versus possibly atypical infection. Correlate clinically .
--- NOTE | ~2024-05-20 | XR_ITS ---
Portable chest x-ray Comparison: 11/08/2023 Clinical History: Shortness of breath Findings: [employer] shunt present. There is extensive groundglass pulmonary disease throughout the left kiki g, and more mildly in the right lung. There is focal confluent consolidation at the left lung base. P robable minimal left pleural effusion. Cardiomediastinal silhouette is stable. Bones and soft tissue s are unremarkable. Impression: Extensive groundglass pulmonary disease, left worse than right, with more confluent focal left basila r airspace disease. Correlate for pulmonary edema versus infection. Minimal left pleural effusion. Reviewed, dictated and finalized at location . Impression: Extensive groundglass pulmonary disease, left worse than right, with more confl uent focal left basilar airspace disease. Correlate for pulmonary edema versus infection. Minimal left pleural effusion.
--- NOTE | 2024-05-20 02:07 | ECG_ITS ---
Test Date: 2024-05-20 02:26:47 Measurements Intervals [place] Rate: 126 P: 50 ND: 144 QRS: 58 QRSD: 84 T: 218 QT: 317 QTc: 459 Interpretive Statements SINUS TACHYCARDIA ST-T WAVE ABNORMALITY IN INF/LAT LEADS- CONSIDER ISCHEMIA BASELINE ARTIFACT- II, III, AVR, AVL, AVF ABNORMAL ECG No previous ECG available for comparison Electronically Signed On 05-20-2024 05:48:55 CDT by Mansoor Blanchard D.O.
[2024-05-20 02:24] LABS: Alveolar/Arterial O2 Gradient 585.2 mmHg; Device NON-REBREATHER MASK; Fractional Inspired Oxygen 100 %; HCO3 ABG 23.5 mEq/l (22.0-26.0); Modified Allen's Test Pass; Oxygen Content ABG 19.2 %vol (16.0-22.0); Oxygen Saturation ABG 96.8 % (95.0-100.0); Oxyhemoglobin 95.4 % THb (90.0-100.0); PCO2 ABG 38.8 mmHg (35.0-45.0); PO2 FiO2 Ratio Arterial Blood 0.89 %; Site Drawn LEFT RADIAL; Total Hemoglobin 14.3 g/dL (12.0-18.0)
[2024-05-20 02:28] LABS: Basophils Absolute Auto 0.1 K/mm3 (0.0-0.1); Basophils Percent Auto 0.5 % (0.2-1.2); Eosinophils Percent Auto 0.2 % (0-4.4); Hematocrit 44.9 % (37.0-47.0); Hemoglobin 14.3 g/dL (12.0-15.0); Immature Granulocyte Absolute 0.17 K/mm3 (0.00-0.031); Immature Granulocyte Percent A 1.7 % (0-0.5); Lymphocytes Absolute Auto 1.32 K/mm3 (0.9-3.2); Mean Corpuscular HGB Conc 31.8 g/dl (32-36); Mean Corpuscular Hemoglobin 27.1 pg (26-34); Mean Corpuscular Volume 85.2 fl (80-100); Mean Platelet Volume 9.6 fl (7.4-10.4); Monocytes Absolute Auto 0.5 K/mm3 (0.1-0.6); Monocytes Percent Auto 4.6 % (2.6-8.5); Neutrophils Absolute Auto 8.1 K/mm3 (1.3-6.7); Platelet Count Result 291 k/mm3 (150-375); Red Blood Count 5.27 M/mm3 (4.2-5.4); Red Cell Distribution Width 15.6 % (11.5-14.5); White Blood Count 10.1 K/mm3 (4.5-10.0)
[2024-05-20] MEDS: IPRATROPIUM 0.5 MG/ALBUTEROL SULFATE 2.5 MG AMPUL.NEB 3 ML INHALATION ×4 (02:30→19:58)
[2024-05-20 02:40] LABS: Partial Thromboplastin Time 29.9 Seconds (22.3-36.8)
[2024-05-20 02:41] LABS: Lactic Acid Reflex 2.5 mmol/L (0.7-2.0)
[2024-05-20] MEDS: hydrALAZINE HCL 20 MG/ML VIAL 10 MG IV PUSH (02:48)
[2024-05-20 02:50] LABS: Alanine Aminotransferase 18 U/L (6-35); Albumin Level 4.2 g/dL (3.5-5.1); Alkaline Phosphatase 163 U/L (38-126); Anion Gap 13 mmol/L (4-12); Aspartate Amino Transferase 26 U/L (14-36); Bilirubin,Total 0.5 mg/dL (0.2-1.3); Blood Urea Nitrogen 13 mg/dL (7-17); Calcium 8.8 mg/dL (8.4-10.2); Carbon Dioxide 24 mmol/L (22-30); Chloride 98 mmol/L (98-107); Estimated Glomerular Filt Rate > 60; Glucose 232 mg/dL (65-110); Potassium 2.6 mmol/L (3.4-5.0); Sodium 135 mmol/L (137-145)
[2024-05-20 03:04] LABS: Add Urine Microscopic? YES; Appearance Urine Clear (Clear); Bacteria Urine None Seen /hpf; Bilirubin Urine Negative (Negative); Blood Urine Negative (Negative); Color Urine Yellow (Yellow); Glucose Urine UA Negative (Negative); Ketones Urine Negative (Negative); Leukocyte Esterase Ur Negative LEU/UL (Negative); Need Manual Microscopic Reviewed; Nitrate Urine Negative (Negative); Protein Urine 3+ mg/dL (Negative); RBC Urine 0-2 /hpf (0-2); Specific Grav Ur 1.013 (1.001-1.035); Squamous Epithelial Cell Urine None Seen /hpf (Few); Urobilinogen Urine 0.2 mg/dL (<2.0); WBC Urine 0-5 /hpf (0-3)
[2024-05-20 03:05] LABS: NT Pro B Type Natriuretic Pept 4680 pg/mL (19.9-100); Troponin I 0.082 ng/mL (0.000-0.034)
[2024-05-20] MEDS: KCL 20 MEQ/SW 100 ML 100 ML 50 MEQ IVPB (03:15)
[2024-05-20 03:28] LABS: Influenza A QL RT-PCR Negative (Negative); Influenza B QL RT-PCR Negative (Negative); RSV RNA, RT-PCR Negative (Negative); SARS-CoV-2 RNA PCR Negative (Negative)
[2024-05-20 03:35] LABS: Procalcitonin 0.2 ng/mL
--- NOTE | 2024-05-20 05:08 | ECG_ITS ---
Test Date: 2024-05-20 05:03:40 Measurements Intervals [place] Rate: 119 P: 45 OR: 132 QRS: 49 QRSD: 82 T: 169 QT: 339 QTc: 478 Interpretive Statements SINUS TACHYCARDIA LEFT ATRIAL ENLARGEMENT ST-T WAVE ABNORMALITY IN INF/LAT LEADS- CONSIDER ISCHEMIA BASELINE ARTIFACT- II, III, AVF ABNORMAL ECG Compared to ECG 05/20/2024 02:26:47 NO SIGNIFICANT CHANGE Electronically Signed On 05-20-2024 05:51:44 CDT by Mansoor Blanchard D.O.
--- NOTE | 2024-05-20 05:17 | ED.GENADULT ---
HPI - General Adult General Chief complaint: Shortness of Breath/Dyspnea Stated complaint: SOB 50% RA, 61% ON 15LNRB Time Seen by Provider: 05/20/24 02:04 History of Present Illness HPI narrative: Patient is a 68-year-old female who presents emergency department with chief complaint of shortness of breath. Patient is resident of emergency in [facility] and EMS was called out for shortness of breath and low oxygen saturations patient has prior history of COPD and history of a traumatic brain injury and is normally alert orient times 1-2 the patient was requiring significant amount of oxygen including high-flow oxygen upon arrival. Related Data Home Medications Medication Instructions Recorded Confirmed bisacodyl 5 mg tablet,delayed 5 mg PO BID PRN Constipation 09/23/22 02/19/24 release calcium carb-vit D3-minerals 600 1 tablet PO DAILY 09/23/22 02/19/24 mg calcium-400 unit tablet cetirizine 10 mg tablet (Allergy 10 mg PO DAILY 09/23/22 02/19/24 Relief (cetirizine)) citalopram 10 mg tablet 10 mg PO DAILY 09/23/22 02/19/24 fluticasone propionate 50 1 spray intranasal BID PRN Nasal 09/23/22 02/19/24 mcg/actuation nasal Congestion spray,suspension furosemide 20 mg tablet 20 mg PO DAILY 09/23/22 02/19/24 guaifenesin 600 mg tablet, 600 mg PO Q12H PRN Congestion 09/23/22 02/19/24 extended release 12 hr (Mucinex) ipratropium 20 mcg-albuterol 100 1 puff inhalation QID 09/23/22 02/19/24 mcg/actuation mist for inhalation (Combivent Respimat) montelukast 10 mg tablet 10 mg PO DAILY 09/23/22 02/19/24 (Singulair) omeprazole 20 mg tablet,delayed 20 mg PO DAILY 09/23/22 02/19/24 release propylene glycol 0.6 % eye drops 1 drp EACH EYE DAILY 09/23/22 02/19/24 (Systane Complete) Chloraseptic 1 vignesh PO Q2H PRN Sore Throat 11/09/23 02/19/24 acetaminophen 325 mg tablet 650 mg PO BID 11/09/23 02/19/24 ascorbic acid (vitamin C) 500 mg PO DAILY 11/09/23 02/19/24 benzonatate 200 mg PO Q8H PRN Cough 11/09/23 02/19/24 ergocalciferol (vitamin D2) 1,250 mcg PO WEEKLY 11/09/23 02/19/24 oxycodone 5 mg tablet 2.5 mg PO Q4H PRN Pain (Scale 11/09/23 02/19/24 Score 7-10) polyethylene glycol 3350 17 gram 17 g PO QAM PRN Constipation 11/09/23 02/19/24 oral powder packet (Miralax) primidone 50 mg tablet 50 mg PO DAILY 11/09/23 02/19/24 topiramate 100 mg tablet 100 mg PO BID 11/09/23 02/19/24 acetaminophen 325 mg tablet 650 mg PO DAILY PRN PAIN, FEVER 02/11/24 02/19/24 carboxymethylcellulose sodium 1 % 1 drp EACH EYE BID PRN Dry Eyes 02/11/24 02/19/24 eye drops (Artificial Tears (carboxymethylcellulose)) fluticasone 100 mcg-salmeterol 50 1 inh inhalation BID 02/11/24 02/19/24 mcg/dose blistr powdr for inhalation propylene glycol 0.6 % eye drops 1 drp EACH EYE DAILY PRN Dry Eyes 02/11/24 02/19/24 (Systane Complete) Allergies Allergy/AdvReac Type Severity Reaction Status Date / Time No Known Allergies Allergy Verified 02/19/24 08:39 Review of Systems Review of Systems: A 10 system review of systems was completed on the patient and is negative except for what is stated in the HPI. Nursing and ancillary documentation was reviewed. [facility] Past Medical History Medical History Cerebrovascular accident Chronic obstructive pulmonary disease Colon cancer screening Gastroesophageal reflux disease Hypertension Idiopathic aplastic anemia Normal pressure hydrocephalus Seizure disorder Traumatic brain injury Age 9. Surgical History Surgical History History of exploratory laparotomy History of gastrostomy tube placement History of tracheostomy as a child Family History Family History Mother Scarring of lung COPD (chronic obstructive pulmonary disease) Hypertension Father Chronic back pain Sibling Ruptured appendix Other
[2024-05-20 05:26] LABS: Reflex Lactic Acid Yes or No Add Lactic
[2024-05-20 05:31] LABS: Troponin I 0.161 ng/mL (0.000-0.034)
[2024-05-20] MEDS: ASPIRIN 81 MG CHEWABLE TABLET 324 MG PO (06:04)
[2024-05-20] MEDS: METOPROLOL TARTRATE INJ 5 MG/5 ML VIAL IV PUSH (06:04)
[2024-05-20 06:21] LABS: Lactic Acid 1.3 mmol/L (0.7-2.0)
[2024-05-20] MEDS: methylPREDNISolone SOD SUCC 125 MG VIAL IV PUSH (07:05)
--- NOTE | 2024-05-20 07:22 | PM.IMHP ---
H&P: HPI History of Present Illness Date/Time: 05/20/24 07:22 Chief Complaint: Shortness of breath/Dyspnea Narrative: This is a 68 year old female with a significant past medical history of CVA, COPD, GERD, HTN, idiopathic aplastic anemia, seizure, traumatic brain injury, normal pressure hydrocephalus, G-tube dependent, former smoker who presents to the hospital for evaluation of shortness of breath/dyspnea. Patient reports the following history of presenting illness. Patient states that her symptoms of cough and shortness of breath started about 1 week ago. Patient is not a good historian and was not able to provide anymore details. She denies any fever, chills, diarrhea, abdominal pain, chest pain. Patient endorses shortness of breath, non-productive cough, nausea, vomiting x1. She denies any sick contacts recently. Work up in the hospital includes a chest x-ray that revealed extensive ground glass pulmonary disease, left worse than right, with more confluent focal left basilar airspace disease, minimal left pleural effusion. Chest CTA was negative for PE, aortic dissection, or aortic aneurysm, moderate bilateral pleural effusions, small to moderate pericardial effusion, extensive ground glass consolidation throughout the lungs, most compatible with severe pulmonary edema versus possibly atypical infection. Initial labs show a WBC of 10.1, Na+ 135, potassium 2.6, anion gap 13, lactic acid 2.5>1.3, alk phos 163, Troponin I 0.082>0.161, proBNP 4680. UA was obtained and shown 3+ urine protein. Respiratory panel was obtained and negative for Influenza A and B, RSV, and COVID. Blood cultures were obtained and pending. EKG shown sinus tachycardia with a rate of 126, QTc 459. Patient was given Duoneb treatment, 20 meq KCL, Metoprolol, Ceftriaxone, and Methylprednisolone 125mg IVP in the ER. Review of Systems Review of Systems: All systems reviewed & are unremarkable except as noted in HPI and below Constitutional: Constitutional: Reports as per HPI and Reports no additional constitutional complaints Eyes: Eyes: Reports as per HPI and Reports no additional eye complaints ENT: Reports system reviewed and no additional complaints, except as documented and Reports as per HPI Cardiovascular: Cardiovascular: Reports as per HPI and Reports no additional cardiovascular complaints Respiratory: Respiratory: Reports as per HPI and Reports no additional respiratory complaints Gastrointestinal: Gastrointestinal: Reports as per HPI and Reports no additional gastrointestinal complaints Genitourinary: Genitourinary: Reports no additional female genitourinary complaints and Reports as per HPI Musculoskeletal: Musculoskeletal: Reports no additional musculoskeletal complaints and Reports as per HPI Integumentary/Breasts: Skin/Breast: Reports system reviewed and no additional complaints, except as docu and Reports as per HPI Neurologic: Reports system reviewed and no additional complaints, except as documented and Reports as per HPI Psychiatric: Psychiatric: Reports no additional psychiatric complaints and Reports as per HPI [facility] Past Medical History Medical History Cerebrovascular accident Chronic obstructive pulmonary disease Colon cancer screening Gastroesophageal reflux disease Hypertension Idiopathic aplastic anemia Normal pressure hydrocephalus Seizure disorder Traumatic brain injury Age 9. Surgical History Surgical History History of exploratory laparotomy History of gastrostomy tube placement History of tracheostomy as a child Family History Family History Mother Scarring of lung COPD (chronic obstructive pulmonary disease) Hypertension Father Chronic back pain Sibling Ruptured appendix Other Unknown family medical history Social History Social History (Reviewed
[2024-05-20] MEDS: AZITHROMYCIN 500 MG/NS 250 ML 500 MG/250 ML BAG 250 MG IVPB (07:32)
--- NOTE | 2024-05-20 08:01 | ECG_ITS ---
Test Date: 2024-05-20 08:06:00 Measurements Intervals [place] Rate: 110 P: 42 DE: 143 QRS: 41 QRSD: 82 T: 136 QT: 356 QTc: 482 Interpretive Statements SINUS TACHYCARDIA LEFT ATRIAL ENLARGEMENT DELAYED PRECORDIAL R/S TRANSITION ST DEVIATION AND MODERATE T-WAVE ABNORMALITY, CONSIDER LAT/HIGH LAT ISCHEMIA ABNORMAL ECG Compared to ECG 05/20/2024 05:03:40 No significant changes Electronically Signed On 05-20-2024 09:20:03 CDT by Mansoor Blanchard D.O.
[2024-05-20] MEDS: POTASSIUM CHLORIDE INJ 40 MEQ in SODIUM CHLORIDE 0.9% IV 500 ML 130 MEQ IVPB (08:19)
[2024-05-20 08:46] LABS: Troponin I 0.184 ng/mL (0.000-0.034)
[2024-05-20] MEDS: ENOXAPARIN 40 MG/0.4 ML SYRINGE SUB-Q (10:00)
[2024-05-20] MEDS: FUROSEMIDE INJ 40 MG/4 ML VIAL IV PUSH ×2 (10:00→20:59)
[2024-05-20] MEDS: VANCOMYCIN 1,750 MG/NS 500 ML 1,750 MG/500 ML BAG 250 MG IVPB (10:00)
--- NOTE | 2024-05-20 11:38 | ADMGEN ---
This patient, Anjelica Pena, was admitted to IMU Room 206-01 at 0838. Patient/family oriented to hospital policies and general routines including ID bracelet, bed and alarms, visiting hours, pain management, procedures, bathroom and other care routines, personal items, smoking policy, room service/diet, and visiting hours. Information on how to activate the Rapid Response Team has been discussed. Patient/Family are encouraged to report perceived risks to care and to ask questions if they do not understand what they are told or what they should do.
--- NOTE | 2024-05-20 13:25 | PM.CNCAR ---
Assessment and Plan Assessment and plan (1) Acute hypoxemic respiratory failure: Code(s): J96.01 - Acute respiratory failure with hypoxia Status: Acute Assessment and Plan: Appears to be in acute CHF, possibly flash pulmonary edema from hypertensive urgency. Continue IV Lasix. On antibiotics for possible pneumonia as well. Wean off oxygen as tolerated. (2) Sepsis: Code(s): A41.9 - Sepsis, unspecified organism Status: Acute Assessment and Plan: Management as per primary team. (3) Acute CHF: Code(s): I50.9 - Heart failure, unspecified Status: Acute Assessment and Plan: Appears to be in acute CHF. Continue IV Lasix. Please monitor strict I/Os. (4) Elevated troponin: Code(s): R79.89 - Other specified abnormal findings of blood chemistry Status: Acute Assessment and Plan: Possibly demand ischemia from acute hypoxic respiratory failure, CHF, hypertensive urgency. No chest pain, although difficult, to get history from the patient. Echocardiogram ordered and pending. (5) Hypertensive urgency: Code(s): I16.0 - Hypertensive urgency Status: Acute Assessment and Plan: Blood pressure as high as 208/103mmHg on presentation. Improved, however, blood pressures still elevated. Will start Losartan 25mg once daily. Echocardiogram ordered and pending. (6) Pneumonia: Code(s): J18.9 - Pneumonia, unspecified organism Status: Acute Assessment and Plan: On antibiotics as per primary team. History of Present Illness History of Present Illness Consult date/time: 05/20/24 13:25 Requesting physician: Simran Roberto APRN Consult reason: congestive heart failure Reason For Visit: Pneumonia/CHF/Elevated Troponins Narrative: This is a 68 year old female with history of traumatic brain injury, CVA, COPD, GERD, hypertension, idiopathic aplastic anemia, seizure disorder, normal pressure hydrocephalus who presented to the hospital due to shortness of breath. Willard only provides limited history, therefore, additional history obtained from the patient's mother. Mother states Anjelica had acute onset sudden shortness of breath. Anjelica denies any chest pain. She was hypertensive on arrival with blood pressure as high as 208/103mmHg. Potassium low at 2.6. Troponins are 0.082, 0.161, 0.184. NT pro BNP of 4680. CTA Chest: No evidence of pulmonary embolus, aortic dissection, or aortic aneurysm. Moderate bilateral pleural effusions. Small to moderate pericardial effusion. Extensive groundglass consolidation throughout the lungs, most compatible with severe pulmonary edema versus possibly atypical infection. Correlate clinically. CXR: Extensive groundglass pulmonary disease, left worse than right, with more confluent focal left basilar airspace disease. Correlate for pulmonary edema versus infection. Minimal left pleural effusion. EKGs with sinus tachycardia, nonspecific STTW abnormality Review of Systems Review of Systems: All systems reviewed & are unremarkable except as noted in HPI and below (HPI) [facility] Past Medical History Medical History Cerebrovascular accident Chronic obstructive pulmonary disease Colon cancer screening Gastroesophageal reflux disease Hypertension Idiopathic aplastic anemia Normal pressure hydrocephalus Seizure disorder Traumatic brain injury Age 9. Surgical History Surgical History History of exploratory laparotomy History of gastrostomy tube placement History of tracheostomy as a child Family History Family History Mother Scarring of lung COPD (chronic obstructive pulmonary disease) Hypertension Father Chronic back pain Sibling Ruptured appendix Other Unknown family medical history Social History Social History (Reviewed 05/20/24 @ 13:30 by Coretta
[2024-05-20] MEDS: methylPREDNISolone SOD SUCC 125 MG VIAL 60 MG IV PUSH ×2 (14:04→21:00)
[2024-05-20] MEDS: LOSARTAN POTASSIUM 25 MG TABLET PO (14:05)
[2024-05-20 17:24] LABS: MRSA (PCR) NOT DETECTED (NOT DETECTE)
[2024-05-20] MEDS: SPIRONOLACTONE 25 MG TABLET PO (17:57)
[2024-05-21] VITALS (28 sets, daily range): BP systolic 127–164; BP diastolic 44–74; PULSE 91–130; RESP 18–24; TEMP 36.3–36.9; O2SAT 94–100
[2024-05-21] MEDS: IPRATROPIUM 0.5 MG/ALBUTEROL SULFATE 2.5 MG AMPUL.NEB 3 ML INHALATION ×4 (01:40→20:05)
[2024-05-21 05:35] LABS: Basophils Percent Auto 0.2 % (0.2-1.2); Hematocrit 35.6 % (37.0-47.0); Hemoglobin 11.6 g/dL (12.0-15.0); Immature Granulocyte Absolute 0.18 K/mm3 (0.00-0.031); Immature Granulocyte Percent A 1.5 % (0-0.5); Lymphocytes Absolute Auto 1.25 K/mm3 (0.9-3.2); Lymphocytes Percent Auto 10.6 % (18.3-44.2); Mean Corpuscular HGB Conc 32.6 g/dl (32-36); Mean Corpuscular Hemoglobin 27.4 pg (26-34); Mean Corpuscular Volume 84.2 fl (80-100); Mean Platelet Volume 9.8 fl (7.4-10.4); Monocytes Absolute Auto 0.5 K/mm3 (0.1-0.6); Monocytes Percent Auto 4.5 % (2.6-8.5); Neutrophils Absolute Auto 9.8 K/mm3 (1.3-6.7); Neutrophils Percent Auto 83.2 % (45.5-73.1); Platelet Count Result 316 k/mm3 (150-375); Red Blood Count 4.23 M/mm3 (4.2-5.4); Red Cell Distribution Width 15.8 % (11.5-14.5); White Blood Count 11.8 K/mm3 (4.5-10.0)
[2024-05-21 05:44] LABS: Alanine Aminotransferase 16 U/L (6-35); Albumin Level 3.8 g/dL (3.5-5.1); Alkaline Phosphatase 130 U/L (38-126); Anion Gap 11 mmol/L (4-12); Aspartate Amino Transferase 30 U/L (14-36); Bilirubin,Total 0.4 mg/dL (0.2-1.3); Blood Urea Nitrogen 15 mg/dL (7-17); Calcium 8.9 mg/dL (8.4-10.2); Carbon Dioxide 23 mmol/L (22-30); Chloride 98 mmol/L (98-107); Estimated Glomerular Filt Rate > 60; Glucose 138 mg/dL (65-110); Potassium 2.9 mmol/L (3.4-5.0); Sodium 132 mmol/L (137-145)
[2024-05-21] MEDS: methylPREDNISolone SOD SUCC 125 MG VIAL 60 MG IV PUSH ×3 (06:02→23:00)
--- NOTE | 2024-05-21 08:26 | P.PNIM_ITS ---
Progress Note: A&P Assessment and Plan (1) Sepsis: Code(s): A41.9 - Sepsis, unspecified organism Status: Acute Assessment and Plan: 05/20/24: * Meeting sepsis criteria with HR of 117, RR of 25, Lactic acid 2.5>1.3, known source of infection-pneumonia, elevated troponin, respiratory failure * Blood cultures obtained and are pending * Chest x-ray suggestive of pneumonia * Chest CTA suggestive of pneumonia versus severe pulmonary edema * Continue Rocephin, Vancomycin, and Azithromycin * WBC 10.1 05/21/24: * continue Rocephin and Azithromycin * DC'd Vancomycin due to negative MRSA * WBC11.8 * Blood cultures showing no growth to date on preliminary read (2) Acute hypoxemic respiratory failure: Code(s): J96.01 - Acute respiratory failure with hypoxia Status: Acute Assessment and Plan: 05/20/24: * Likely secondary to community acquired pneumonia * Arrived with oxygen saturation of 88% on room air, placed on 10L Non- rebreather mask and then transitioned to high flow nasal cannula at 12L in the ER. * Wean O2 to keep oxygen saturation greater than 92% * Continue Duoneb breathing treatments * Patient received 125mg loading dose of Solu-Medrol in the ER, Continue Solu- Medrol at 60 mg IVP q8h * Continue Rocephin, Vancomycin, and Azithromycin * Check MRSA, if positive will stop Vancomycin * Mycoplasma, urine strep, and urine legionella ordered * Respiratory panel was negative for Influenza A and B, RSV, COVID 05/21/24: * Currently on 3L NC * Continue to wean O2 for saturation greater than 92% * Continue diuresis * MRSA negative * Vancomycin discontinued * Mycoplasma, urine strep, urine legionella pending * Continue Rocephin and Azithromycin * Echo showing LV systolic function moderately reduced with an estimated EF of 35-40%, moderate mitral valve regurgitation, left pleural effusion, small pericardial effusion posteriorly and moderate in size anteriorly, the right atrial free wall invagination consistent with increased intrapericardial pressure. (3) Pneumonia: Code(s): J18.9 - Pneumonia, unspecified organism Status: Acute Assessment and Plan: see above plan of care (4) Acute CHF: Code(s): I50.9 - Heart failure, unspecified Status: Acute Assessment and Plan: 05/21/24: * New onset, consider flash pulmonary edema in setting of hypertensive urgency * Echo revealed LV systolic function moderately reduced with an estimated EF of 35-40%, moderate mitral valve regurgitation, left pleural effusion, small pericardial effusion posteriorly and moderate in size anteriorly, the right atrial free wall invagination consistent with increased intrapericardial pressure. * Cardiology following * Patient placed on Entresto, spironolactone, will continue with IV Lasix 40 mg IV push Q 12 hour * Will start Jardiance considering eGFR >60 and last A1C 5.5 (5) Elevated troponin: Code(s): R79.89 - Other specified abnormal findings of blood chemistry Status: Acute Assessment and Plan: 05/20/24: * Demand ischemia versus NSTEMI versus new onset CHF * Troponin 0.082>0.161 * Cardiology consulted * Echo ordered for today * continuous cardiac monitoring ordered 05/21/24: * Cardiology following * Echo results as noted above in problem #4 (6) Hypertensive urgency: Code(s): I16.0 - Hypertensive urgency Status: Acute Assessment and Plan: 05/21/24: * Blood pressures still ranging high despite restarting home medication * Patient was started on Entresto, spiron
--- NOTE | 2024-05-21 08:26 | PM.IMPN ---
Progress Note: A&P Assessment and Plan (1) Sepsis: Code(s): A41.9 - Sepsis, unspecified organism Status: Acute Assessment and Plan: 05/20/24: Meeting sepsis criteria with HR of 117, RR of 25, Lactic acid 2.5>1.3, known source of infection-pneumonia, elevated troponin, respiratory failure Blood cultures obtained and are pending Chest x-ray suggestive of pneumonia Chest CTA suggestive of pneumonia versus severe pulmonary edema Continue Rocephin, Vancomycin, and Azithromycin WBC 10.1 05/21/24: continue Rocephin and Azithromycin DC'd Vancomycin due to negative MRSA WBC11.8 Blood cultures showing no growth to date on preliminary read (2) Acute hypoxemic respiratory failure: Code(s): J96.01 - Acute respiratory failure with hypoxia Status: Acute Assessment and Plan: 05/20/24: Likely secondary to community acquired pneumonia Arrived with oxygen saturation of 88% on room air, placed on 10L Non-rebreather mask and then transitioned to high flow nasal cannula at 12L in the ER. Wean O2 to keep oxygen saturation greater than 92% Continue Duoneb breathing treatments Patient received 125mg loading dose of Solu-Medrol in the ER, Continue Solu-Medrol at 60 mg IVP q8h Continue Rocephin, Vancomycin, and Azithromycin Check MRSA, if positive will stop Vancomycin Mycoplasma, urine strep, and urine legionella ordered Respiratory panel was negative for Influenza A and B, RSV, COVID 05/21/24: Currently on 3L NC Continue to wean O2 for saturation greater than 92% Continue diuresis MRSA negative Vancomycin discontinued Mycoplasma, urine strep, urine legionella pending Continue Rocephin and Azithromycin Echo showing LV systolic function moderately reduced with an estimated EF of 35-40%, moderate mitral valve regurgitation, left pleural effusion, small pericardial effusion posteriorly and moderate in size anteriorly, the right atrial free wall invagination consistent with increased intrapericardial pressure. (3) Pneumonia: Code(s): J18.9 - Pneumonia, unspecified organism Status: Acute Assessment and Plan: see above plan of care (4) Acute CHF: Code(s): I50.9 - Heart failure, unspecified Status: Acute Assessment and Plan: 05/21/24: New onset, consider flash pulmonary edema in setting of hypertensive urgency Echo revealed LV systolic function moderately reduced with an estimated EF of 35-40%, moderate mitral valve regurgitation, left pleural effusion, small pericardial effusion posteriorly and moderate in size anteriorly, the right atrial free wall invagination consistent with increased intrapericardial pressure. Cardiology following Patient placed on Entresto, spironolactone, will continue with IV Lasix 40 mg IV push Q 12 hour Will start Jardiance considering eGFR >60 and last A1C 5.5 (5) Elevated troponin: Code(s): R79.89 - Other specified abnormal findings of blood chemistry Status: Acute Assessment and Plan: 05/20/24: Demand ischemia versus NSTEMI versus new onset CHF Troponin 0.082>0.161 Cardiology consulted Echo ordered for today continuous cardiac monitoring ordered 05/21/24: Cardiology following Echo results as noted above in problem #4 (6) Hypertensive urgency: Code(s): I16.0 - Hypertensive urgency Status: Acute Assessment and Plan: 05/21/24: Blood pressures still ranging high despite restarting home medication Patient was started on Entresto, spironolactone, Cardiology following, will wait for their recommendation (7) Hypertension: Code(s): I10 - Essential (primary) hypertension Status: Chronic Assessment and Plan: 05/20/24: blood pressure ranging 157/97-188/104 Continue Metoprolol 05/21/24: Patient started on Entresto per cardiology (8) Hypokalemia: Code(s): E87.6 - Hypokalemia Status: Acute Assessment and Plan: 05/20/24: potassium 2.6
[2024-05-21] MEDS: POTASSIUM CHLORIDE 20 MEQ ER TABLET 40 MEQ PO ×2 (08:39→11:12)
[2024-05-21] MEDS: AZITHROMYCIN 500 MG/NS 250 ML 500 MG/250 ML BAG 250 MG IVPB (08:39)
[2024-05-21] MEDS: SPIRONOLACTONE 25 MG TABLET PO (08:40)
[2024-05-21] MEDS: FUROSEMIDE INJ 40 MG/4 ML VIAL IV PUSH ×2 (08:40→20:53)
[2024-05-21] MEDS: ENOXAPARIN 40 MG/0.4 ML SYRINGE SUB-Q (08:40)
[2024-05-21] MEDS: SACUBITRIL/VALSARTAN 24-26 MG TABLET 1 TAB PO ×2 (08:41→20:55)
[2024-05-21] MEDS: TOPIRAMATE 100 MG TABLET PO ×2 (11:11→17:12)
[2024-05-21] MEDS: CITALOPRAM HYDROBROMIDE 10 MG TABLET PO (11:11)
[2024-05-21] MEDS: PRIMIDONE 50 MG TABLET PO (11:12)
[2024-05-21] MEDS: METOPROLOL TARTRATE 12.5 MG TABLET PO ×2 (11:13→20:55)
[2024-05-21] MEDS: EMPAGLIFLOZIN 10 MG TABLET PO (11:13)
--- NOTE | 2024-05-21 12:27 | PM.PNCARD ---
Progress Note: A&P Assessment and Plan (1) Acute heart failure with reduced ejection fraction (HFrEF, <= 40%): Code(s): I50.21 - Acute systolic (congestive) heart failure Status: Acute Assessment and Plan: Echocardiogram shows LVEF of 35-40%. Continue IV diuresis with Lasix 40mg BID. Spironolactone started 05/20. Continue Entresto started 05/21. Continue, will uptitrate as tolerated. Jardiance started 05/21. Will switch Metoprolol tartrate to Metoprolol succinate. (2) Acute hypoxemic respiratory failure: Code(s): J96.01 - Acute respiratory failure with hypoxia Status: Acute Assessment and Plan: Due to acute CHF, possibly flash pulmonary edema from hypertensive urgency. Continue IV Lasix. On antibiotics for possible pneumonia as well. Wean off oxygen as tolerated. (3) Sepsis: Code(s): A41.9 - Sepsis, unspecified organism Status: Acute Assessment and Plan: Management as per primary team. (4) Elevated troponin: Code(s): R79.89 - Other specified abnormal findings of blood chemistry Status: Acute Assessment and Plan: Possibly demand ischemia from acute hypoxic respiratory failure, CHF, hypertensive urgency. No chest pain, although difficult, to get history from the patient. (5) Hypertensive urgency: Code(s): I16.0 - Hypertensive urgency Status: Acute Assessment and Plan: Blood pressure as high as 208/103mmHg on presentation. Improved. Continue Entresto, Spironolactone, Metoprolol. (6) Pneumonia: Code(s): J18.9 - Pneumonia, unspecified organism Status: Acute Assessment and Plan: On antibiotics as per primary team. Subjective Date/time seen: 05/21/24 12:27 Interval history: Reason for visit: Acute heart failure, hypertensive urgency HPI: This is a 68 year old female with history of traumatic brain injury, CVA, COPD, GERD, hypertension, idiopathic aplastic anemia, seizure disorder, normal pressure hydrocephalus who presented to the hospital due to shortness of breath. Willard only provides limited history, therefore, additional history obtained from the patient's mother. Mother states Anjelica had acute onset sudden shortness of breath. Anjelica denies any chest pain. She was hypertensive on arrival with blood pressure as high as 208/103mmHg. Potassium low at 2.6. Troponins are 0.082, 0.161, 0.184. NT pro BNP of 4680. CTA Chest: No evidence of pulmonary embolus, aortic dissection, or aortic aneurysm. Moderate bilateral pleural effusions. Small to moderate pericardial effusion. Extensive groundglass consolidation throughout the lungs, most compatible with severe pulmonary edema versus possibly atypical infection. Correlate clinically. CXR: Extensive groundglass pulmonary disease, left worse than right, with more confluent focal left basilar airspace disease. Correlate for pulmonary edema versus infection. Minimal left pleural effusion. EKGs with sinus tachycardia, nonspecific STTW abnormality Date of service 05/21: Patient reports urinating quite a bit, not sure if I/Os recorded are completely accurate. Patient states she is feeling better, still requiring oxygen. Review of Systems Review of Systems: All systems reviewed & are unremarkable except as noted in HPI and below (HPI) Exam Const: General: comfortable and no acute distress HENMT: Mouth: Yes moist mucous membranes Eyes: General: appearance normal, both eyes and all related structures Sclera: sclerae normal Resp: Effort & Inspection: normal respiratory effort Other: On supplemental oxygen Cardio: Rate: regular rate Rhythm: regular rhythm Skin: General skin exam: normal color Neuro: Speech: normal speech Psych: Mental Status: mental status grossly normal Affect: normal affect Objective Data Vital Signs Vital Signs: Vital Signs - 24 hr 05/20/24 13:27 05/20/24 13:27 05/20/24 13:33 Temperature Pulse Rate 109 H 111 H Respiratory Ra
--- NOTE | 2024-05-21 16:28 | PC.NURSE ---
On 05/21/24, the student, Luisa Mccormick [facility] , provided care and completed [facility] documentation on this patient. I have reviewed the student's documentation and agree with the findings.
[2024-05-21] MEDS: FLUTICASONE/SALMETEROL 45-21 MCG INHALER 1 PUFF 2 PUFF INHALATION (20:05)
[2024-05-21] MEDS: MONTELUKAST SODIUM 10 MG TABLET PO (20:55)
[2024-05-22] VITALS (19 sets, daily range): BP systolic 119–154; BP diastolic 48–86; PULSE 68–109; RESP 16–22; TEMP 36.3–36.7; O2SAT 91–98
[2024-05-22] MEDS: IPRATROPIUM 0.5 MG/ALBUTEROL SULFATE 2.5 MG AMPUL.NEB 3 ML INHALATION ×4 (02:12→21:08)
[2024-05-22 05:28] LABS: Basophils Percent Auto 0.2 % (0.2-1.2); Hematocrit 36.4 % (37.0-47.0); Hemoglobin 11.6 g/dL (12.0-15.0); Immature Granulocyte Absolute 0.28 K/mm3 (0.00-0.031); Immature Granulocyte Percent A 2.1 % (0-0.5); Lymphocytes Absolute Auto 0.66 K/mm3 (0.9-3.2); Mean Corpuscular HGB Conc 31.9 g/dl (32-36); Mean Corpuscular Hemoglobin 27.2 pg (26-34); Mean Corpuscular Volume 85.2 fl (80-100); Mean Platelet Volume 10.1 fl (7.4-10.4); Monocytes Absolute Auto 0.4 K/mm3 (0.1-0.6); Neutrophils Absolute Auto 11.7 K/mm3 (1.3-6.7); Neutrophils Percent Auto 89.7 % (45.5-73.1); Platelet Count Result 322 k/mm3 (150-375); Red Blood Count 4.27 M/mm3 (4.2-5.4); White Blood Count 13.1 K/mm3 (4.5-10.0)
[2024-05-22 05:45] LABS: Alanine Aminotransferase 21 U/L (6-35); Albumin Level 3.8 g/dL (3.5-5.1); Alkaline Phosphatase 119 U/L (38-126); Anion Gap 11 mmol/L (4-12); Aspartate Amino Transferase 37 U/L (14-36); Bilirubin,Total 0.4 mg/dL (0.2-1.3); Blood Urea Nitrogen 22 mg/dL (7-17); Carbon Dioxide 24 mmol/L (22-30); Chloride 99 mmol/L (98-107); Estimated Glomerular Filt Rate > 60; Glucose 146 mg/dL (65-110); Magnesium 2.2 mg/dL (1.6-2.3); Potassium 3.5 mmol/L (3.4-5.0); Sodium 134 mmol/L (137-145)
[2024-05-22] MEDS: methylPREDNISolone SOD SUCC 125 MG VIAL 60 MG IV PUSH ×3 (06:36→20:57)
[2024-05-22] MEDS: FLUTICASONE/SALMETEROL 45-21 MCG INHALER 1 PUFF 2 PUFF INHALATION ×2 (07:09→21:09)
[2024-05-22] MEDS: CITALOPRAM HYDROBROMIDE 10 MG TABLET PO (09:23)
[2024-05-22] MEDS: PRIMIDONE 50 MG TABLET PO (09:23)
[2024-05-22] MEDS: EMPAGLIFLOZIN 10 MG TABLET PO (09:23)
[2024-05-22] MEDS: TOPIRAMATE 100 MG TABLET PO ×2 (09:23→17:43)
[2024-05-22] MEDS: SACUBITRIL/VALSARTAN 24-26 MG TABLET 1 TAB PO ×2 (09:23→20:57)
[2024-05-22] MEDS: SPIRONOLACTONE 25 MG TABLET PO (09:23)
--- NOTE | 2024-05-22 09:23 | P.PNIM_ITS ---
Progress Note: A&P Assessment and Plan (1) Sepsis: Code(s): A41.9 - Sepsis, unspecified organism Status: Acute Assessment and Plan: 05/20/24: * Meeting sepsis criteria with HR of 117, RR of 25, Lactic acid 2.5>1.3, known source of infection-pneumonia, elevated troponin, respiratory failure * Blood cultures obtained and are pending * Chest x-ray suggestive of pneumonia * Chest CTA suggestive of pneumonia versus severe pulmonary edema * Continue Rocephin, Vancomycin, and Azithromycin * WBC 10.1 05/21/24: * continue Rocephin and Azithromycin * DC'd Vancomycin due to negative MRSA * WBC11.8 * Blood cultures showing no growth to date on preliminary read 05/22/24: * Continue Rocephin and azithromycin * White blood cell count 13.1 * Blood culture showing no growth to date on preliminary read (2) Acute hypoxemic respiratory failure: Code(s): J96.01 - Acute respiratory failure with hypoxia Status: Acute Assessment and Plan: 05/20/24: * Likely secondary to community acquired pneumonia * Arrived with oxygen saturation of 88% on room air, placed on 10L Non- rebreather mask and then transitioned to high flow nasal cannula at 12L in the ER. * Wean O2 to keep oxygen saturation greater than 92% * Continue Duoneb breathing treatments * Patient received 125mg loading dose of Solu-Medrol in the ER, Continue Solu- Medrol at 60 mg IVP q8h * Continue Rocephin, Vancomycin, and Azithromycin * Check MRSA, if positive will stop Vancomycin * Mycoplasma, urine strep, and urine legionella ordered * Respiratory panel was negative for Influenza A and B, RSV, COVID 05/21/24: * Currently on 3L NC * Continue to wean O2 for saturation greater than 92% * Continue diuresis * MRSA negative * Vancomycin discontinued * Mycoplasma, urine strep, urine legionella pending * Continue Rocephin and Azithromycin * Echo showing LV systolic function moderately reduced with an estimated EF of 35-40%, moderate mitral valve regurgitation, left pleural effusion, small pericardial effusion posteriorly and moderate in size anteriorly, the right atrial free wall invagination consistent with increased intrapericardial pressure. 05/22/24: * Currently on room air * Continue Rocephin and azithromycin (3) Pneumonia: Code(s): J18.9 - Pneumonia, unspecified organism Status: Acute Assessment and Plan: see above plan of care (4) Acute CHF: Code(s): I50.9 - Heart failure, unspecified Status: Acute Assessment and Plan: 05/21/24: * New onset, consider flash pulmonary edema in setting of hypertensive urgency * Echo revealed LV systolic function moderately reduced with an estimated EF of 35-40%, moderate mitral valve regurgitation, left pleural effusion, small pericardial effusion posteriorly and moderate in size anteriorly, the right atrial free wall invagination consistent with increased intrapericardial pressure. * Cardiology following * Patient placed on Entresto, spironolactone, will continue with IV Lasix 40 mg IV push Q 12 hour * Will start Jardiance considering eGFR >60 and last A1C 5.5 05/22/24: * No change to current treatment plan (5) Elevated troponin: Code(s): R79.89 - Other specified abnormal findings of blood chemistry Status: Acute Assessment and Plan: 05/20/24: * Demand ischemia versus NSTEMI versus new onset CHF * Troponin 0.082>0.161 * Cardiology consulted * Echo ordered for today * continuous cardiac monitoring ordered 05/21/24: * Cardiology following * Echo result
--- NOTE | 2024-05-22 09:23 | PM.IMPN ---
Progress Note: A&P Assessment and Plan (1) Sepsis: Code(s): A41.9 - Sepsis, unspecified organism Status: Acute Assessment and Plan: 05/20/24: Meeting sepsis criteria with HR of 117, RR of 25, Lactic acid 2.5>1.3, known source of infection-pneumonia, elevated troponin, respiratory failure Blood cultures obtained and are pending Chest x-ray suggestive of pneumonia Chest CTA suggestive of pneumonia versus severe pulmonary edema Continue Rocephin, Vancomycin, and Azithromycin WBC 10.1 05/21/24: continue Rocephin and Azithromycin DC'd Vancomycin due to negative MRSA WBC11.8 Blood cultures showing no growth to date on preliminary read 05/22/24: Continue Rocephin and azithromycin White blood cell count 13.1 Blood culture showing no growth to date on preliminary read (2) Acute hypoxemic respiratory failure: Code(s): J96.01 - Acute respiratory failure with hypoxia Status: Acute Assessment and Plan: 05/20/24: Likely secondary to community acquired pneumonia Arrived with oxygen saturation of 88% on room air, placed on 10L Non-rebreather mask and then transitioned to high flow nasal cannula at 12L in the ER. Wean O2 to keep oxygen saturation greater than 92% Continue Duoneb breathing treatments Patient received 125mg loading dose of Solu-Medrol in the ER, Continue Solu-Medrol at 60 mg IVP q8h Continue Rocephin, Vancomycin, and Azithromycin Check MRSA, if positive will stop Vancomycin Mycoplasma, urine strep, and urine legionella ordered Respiratory panel was negative for Influenza A and B, RSV, COVID 05/21/24: Currently on 3L NC Continue to wean O2 for saturation greater than 92% Continue diuresis MRSA negative Vancomycin discontinued Mycoplasma, urine strep, urine legionella pending Continue Rocephin and Azithromycin Echo showing LV systolic function moderately reduced with an estimated EF of 35-40%, moderate mitral valve regurgitation, left pleural effusion, small pericardial effusion posteriorly and moderate in size anteriorly, the right atrial free wall invagination consistent with increased intrapericardial pressure. 05/22/24: Currently on room air Continue Rocephin and azithromycin (3) Pneumonia: Code(s): J18.9 - Pneumonia, unspecified organism Status: Acute Assessment and Plan: see above plan of care (4) Acute CHF: Code(s): I50.9 - Heart failure, unspecified Status: Acute Assessment and Plan: 05/21/24: New onset, consider flash pulmonary edema in setting of hypertensive urgency Echo revealed LV systolic function moderately reduced with an estimated EF of 35-40%, moderate mitral valve regurgitation, left pleural effusion, small pericardial effusion posteriorly and moderate in size anteriorly, the right atrial free wall invagination consistent with increased intrapericardial pressure. Cardiology following Patient placed on Entresto, spironolactone, will continue with IV Lasix 40 mg IV push Q 12 hour Will start Jardiance considering eGFR >60 and last A1C 5.5 05/22/24: No change to current treatment plan (5) Elevated troponin: Code(s): R79.89 - Other specified abnormal findings of blood chemistry Status: Acute Assessment and Plan: 05/20/24: Demand ischemia versus NSTEMI versus new onset CHF Troponin 0.082>0.161 Cardiology consulted Echo ordered for today continuous cardiac monitoring ordered 05/21/24: Cardiology following Echo results as noted above in problem #4 05/22/24: No change to current treatment plan (6) Hypertensive urgency: Code(s): I16.0 - Hypertensive urgency Status: Acute Assessment and Plan: 05/21/24: Blood pressures still ranging high despite restarting home medication Patient was started on Entresto, spironolactone Cardiology following, will wait for their recommendation 05/22/24: Blood pressure ranging 126/62 to 154/64 Continue with mariusz
[2024-05-22] MEDS: METOPROLOL SUCCINATE EXT REL 50 MG TABCR PO (09:24)
[2024-05-22] MEDS: FUROSEMIDE INJ 40 MG/4 ML VIAL IV PUSH (09:25)
[2024-05-22] MEDS: ENOXAPARIN 40 MG/0.4 ML SYRINGE SUB-Q (09:31)
[2024-05-22] MEDS: AZITHROMYCIN 500 MG/NS 250 ML 500 MG/250 ML BAG 250 MG IVPB (09:31)
--- NOTE | 2024-05-22 14:26 | PM.PNCARD ---
Progress Note: A&P Assessment and Plan (1) Acute heart failure with reduced ejection fraction (HFrEF, <= 40%): Code(s): I50.21 - Acute systolic (congestive) heart failure Status: Acute Assessment and Plan: Echocardiogram shows LVEF of 35-40%. Can shift to p.o. furosemide today Spironolactone started 05/20. Continue Entresto started 05/21. Continue, will uptitrate as tolerated. Jardiance started 05/21. Continue Metoprolol succinate. (2) Acute hypoxemic respiratory failure: Code(s): J96.01 - Acute respiratory failure with hypoxia Status: Acute Assessment and Plan: Due to acute CHF, possibly flash pulmonary edema from hypertensive urgency. Shift to p.o. lasix. On antibiotics for possible pneumonia as well. Oxygen has been weaned off (3) Sepsis: Code(s): A41.9 - Sepsis, unspecified organism Status: Acute Assessment and Plan: Management as per primary team. (4) Elevated troponin: Code(s): R79.89 - Other specified abnormal findings of blood chemistry Status: Acute Assessment and Plan: Possibly demand ischemia from acute hypoxic respiratory failure, CHF, hypertensive urgency. No chest pain, although difficult, to get history from the patient. (5) Hypertensive urgency: Code(s): I16.0 - Hypertensive urgency Status: Acute Assessment and Plan: Blood pressure as high as 208/103mmHg on presentation. Improved. Continue Entresto, Spironolactone, Metoprolol. (6) Pneumonia: Code(s): J18.9 - Pneumonia, unspecified organism Status: Acute Assessment and Plan: On antibiotics as per primary team. Subjective Date/time seen: 05/22/24 14:26 Interval history: Reason for visit: Acute heart failure, hypertensive urgency HPI: This is a 68 year old female with history of traumatic brain injury, CVA, COPD, GERD, hypertension, idiopathic aplastic anemia, seizure disorder, normal pressure hydrocephalus who presented to the hospital due to shortness of breath. Willard only provides limited history, therefore, additional history obtained from the patient's mother. Mother states Anjelica had acute onset sudden shortness of breath. Anjelica denies any chest pain. She was hypertensive on arrival with blood pressure as high as 208/103mmHg. Potassium low at 2.6. Troponins are 0.082, 0.161, 0.184. NT pro BNP of 4680. CTA Chest: No evidence of pulmonary embolus, aortic dissection, or aortic aneurysm. Moderate bilateral pleural effusions. Small to moderate pericardial effusion. Extensive groundglass consolidation throughout the lungs, most compatible with severe pulmonary edema versus possibly atypical infection. Correlate clinically. CXR: Extensive groundglass pulmonary disease, left worse than right, with more confluent focal left basilar airspace disease. Correlate for pulmonary edema versus infection. Minimal left pleural effusion. EKGs with sinus tachycardia, nonspecific STTW abnormality Date of service 05/21: Patient reports urinating quite a bit, not sure if I/Os recorded are completely accurate. Patient states she is feeling better, still requiring oxygen. Date of service 05/22/2024: She is feeling better today. No shortness of breath on room ait. Review of Systems Review of Systems: All systems reviewed & are unremarkable except as noted in HPI and below (HPI) Exam Const: General: comfortable and no acute distress HENMT: Mouth: Yes moist mucous membranes Eyes: General: appearance normal, both eyes and all related structures Sclera: sclerae normal Resp: Effort & Inspection: normal respiratory effort Auscultation: diminished lung sounds Cardio: Rate: regular rate and tachycardic Rhythm: regular rhythm Heart sounds: no murmurs Skin: General skin exam: normal color Neuro: Speech: normal speech Psych: Mental Status: mental status grossly normal Affect: normal affect Objective Data Vital Signs Vital Signs: Vital Signs - 24 hr
[2024-05-22] MEDS: FUROSEMIDE 40 MG TABLET PO (17:43)
[2024-05-22] MEDS: MONTELUKAST SODIUM 10 MG TABLET PO (20:57)
[2024-05-23] VITALS (10 sets, daily range): BP systolic 132–150; BP diastolic 72–81; PULSE 87–121; RESP 16–20; TEMP 36.4–36.6; O2SAT 94–97
[2024-05-23] MEDS: methylPREDNISolone SOD SUCC 125 MG VIAL 60 MG IV PUSH (05:12)
[2024-05-23 05:56] LABS: Basophils Percent Auto 0.2 % (0.2-1.2); Hemoglobin 12.2 g/dL (12.0-15.0); Immature Granulocyte Absolute 0.15 K/mm3 (0.00-0.031); Immature Granulocyte Percent A 1.5 % (0-0.5); Lymphocytes Absolute Auto 1.12 K/mm3 (0.9-3.2); Lymphocytes Percent Auto 11.3 % (18.3-44.2); Mean Corpuscular HGB Conc 32.1 g/dl (32-36); Mean Corpuscular Hemoglobin 27.5 pg (26-34); Mean Corpuscular Volume 85.6 fl (80-100); Mean Platelet Volume 9.6 fl (7.4-10.4); Monocytes Absolute Auto 0.3 K/mm3 (0.1-0.6); Monocytes Percent Auto 3.4 % (2.6-8.5); Neutrophils Absolute Auto 8.3 K/mm3 (1.3-6.7); Neutrophils Percent Auto 83.6 % (45.5-73.1); Platelet Count Result 327 k/mm3 (150-375); Red Blood Count 4.44 M/mm3 (4.2-5.4); White Blood Count 9.9 K/mm3 (4.5-10.0)
[2024-05-23 06:09] LABS: Alanine Aminotransferase 26 U/L (6-35); Albumin Level 3.7 g/dL (3.5-5.1); Alkaline Phosphatase 118 U/L (38-126); Anion Gap 8 mmol/L (4-12); Aspartate Amino Transferase 34 U/L (14-36); Bilirubin,Total 0.5 mg/dL (0.2-1.3); Blood Urea Nitrogen 21 mg/dL (7-17); Calcium 8.8 mg/dL (8.4-10.2); Carbon Dioxide 25 mmol/L (22-30); Chloride 99 mmol/L (98-107); Estimated Glomerular Filt Rate > 60; Glucose 132 mg/dL (65-110); Magnesium 2.3 mg/dL (1.6-2.3); Potassium 3.8 mmol/L (3.4-5.0); Sodium 132 mmol/L (137-145)
[2024-05-23] MEDS: IPRATROPIUM 0.5 MG/ALBUTEROL SULFATE 2.5 MG AMPUL.NEB 3 ML INHALATION (08:44)
[2024-05-23] MEDS: FLUTICASONE/SALMETEROL 45-21 MCG INHALER 1 PUFF 2 PUFF INHALATION (08:45)
[2024-05-23] MEDS: SPIRONOLACTONE 25 MG TABLET PO (09:52)
[2024-05-23] MEDS: PRIMIDONE 50 MG TABLET PO (09:52)
[2024-05-23] MEDS: CITALOPRAM HYDROBROMIDE 10 MG TABLET PO (09:52)
[2024-05-23] MEDS: METOPROLOL SUCCINATE EXT REL 50 MG TABCR PO (09:52)
[2024-05-23] MEDS: EMPAGLIFLOZIN 10 MG TABLET PO (09:52)
[2024-05-23] MEDS: FUROSEMIDE 40 MG TABLET PO ×2 (09:52→16:07)
[2024-05-23] MEDS: TOPIRAMATE 100 MG TABLET PO ×2 (09:52→16:07)
[2024-05-23] MEDS: SACUBITRIL/VALSARTAN 24-26 MG TABLET 1 TAB PO (09:52)
[2024-05-23] MEDS: ENOXAPARIN 40 MG/0.4 ML SYRINGE SUB-Q (09:56)
--- NOTE | 2024-05-23 13:05 | PM.DS ---
DS: Admitting Diagnosis Discharge Date 05/23/24 Admitting Diagnosis Sepsis Acute hypoxic respiratory failure Pneumonia Elevated troponin Hypokalemia Altered mental status Seizure disorder Hypertension DS: Discharge Diagnosis Discharge Diagnosis (1) Sepsis: Code(s): A41.9 - Sepsis, unspecified organism Status: Acute (2) Acute hypoxemic respiratory failure: Code(s): J96.01 - Acute respiratory failure with hypoxia Status: Acute (3) Pneumonia: Code(s): J18.9 - Pneumonia, unspecified organism Status: Acute (4) Acute CHF: Code(s): I50.9 - Heart failure, unspecified Status: Acute (5) Elevated troponin: Code(s): R79.89 - Other specified abnormal findings of blood chemistry Status: Acute (6) Hypertensive urgency: Code(s): I16.0 - Hypertensive urgency Status: Acute (7) Hypertension: Code(s): I10 - Essential (primary) hypertension Status: Chronic (8) Hypokalemia: Code(s): E87.6 - Hypokalemia Status: Acute (9) AMS (altered mental status): Code(s): R41.82 - Altered mental status, unspecified Status: Acute (10) Seizure disorder: Code(s): G40.909 - Epilepsy, unspecified, not intractable, without status epilepticus Status: Chronic DS: Summary Hospital Course Reason for hospitalization: Sepsis Acute hypoxic respiratory failure Pneumonia Elevated troponin Hypokalemia Altered mental status Seizure disorder Hypertension Hospital Course: This is a 68 year old female with a significant past medical history of CVA, COPD, GERD, HTN, idiopathic aplastic anemia, seizure, traumatic brain injury, normal pressure hydrocephalus, former smoker who presents to the hospital for evaluation of shortness of breath/dyspnea. Patient reports the following history of presenting illness. Patient states that her symptoms of cough and shortness of breath started about 1 week ago. Patient is not a good historian and was not able to provide anymore details. She denies any fever, chills, diarrhea, abdominal pain, chest pain. Patient endorses shortness of breath, non-productive cough, nausea, vomiting x1. She denies any sick contacts recently. Work up in the hospital includes a chest x-ray that revealed extensive ground glass pulmonary disease, left worse than right, with more confluent focal left basilar airspace disease, minimal left pleural effusion. Chest CTA was negative for PE, aortic dissection, or aortic aneurysm, moderate bilateral pleural effusions, small to moderate pericardial effusion, extensive ground glass consolidation throughout the lungs, most compatible with severe pulmonary edema versus possibly atypical infection. Initial labs show a WBC of 10.1, Na+ 135, potassium 2.6, anion gap 13, lactic acid 2.5>1.3, alk phos 163, Troponin I 0.082>0.161, proBNP 4680. UA was obtained and shown 3+ urine protein. Respiratory panel was obtained and negative for Influenza A and B, RSV, and COVID. Blood cultures were obtained and pending. EKG shown sinus tachycardia with a rate of 126, QTc 459. Patient was given Duoneb treatment, 20 meq KCL, Metoprolol, Ceftriaxone, and Methylprednisolone 125mg IVP in the ER. Patient was seen by Cardiology. Echo was obtained which shown left ventricular systolic function moderately reduced with an estimated EF of 35-40%, normal RV systolic function, moderate mitral valve regurgitation, small pericardial effusion posteriorly, moderate size pericardial effusion anteriorly. Patient was started on Jardiance, Entresto, spironolactone, Lasix 40 mg b.i.d., metoprolol 50 mg extended release daily. She is currently back on room air. She was seen and treated for pneumonia and is currently on azithromycin and Augmentin which she will need to finish her full course of and follow-up with her primary care physician in 1 week. She needs to follow up with Cardiology in 2 weeks. She is stable for discharge at this time. Marilyn
--- NOTE | 2024-05-23 15:53 | PCRCNOTE ---
Window of time for administration has passed. See next scheduled administration.
[2024-05-24 21:14] LABS: Pneumococcal Antigen Urine NOT DETECTED
[2024-05-25 01:43] LABS: Legionella pneumophila Ag Ur NOT DETECTED
== END 2024-05-23 16:29 | DRG 871 ==
LOC: ANHED 06:54 → ANHIMU 07:57 → ANH3MED 05-22 18:16
PROVIDERS: Admitting Provider General Practice; Emergency Provider Emergency Medicine; PCP Family Medicine; Visit Provider Nurse Practitioner Acute Care
DX: A41.9 Sepsis, unspecified organism (principal); J18.9 Pneumonia, unspecified organism; D61.3 Idiopathic aplastic anemia; J96.01 Acute respiratory failure with hypoxia; J44.0 Chronic obstructive pulmonary disease with (acute) lower respiratory infection; I24.89 Other forms of acute ischemic heart disease; I11.0 Hypertensive heart disease with heart failure; I50.9 Heart failure, unspecified; Z20.822 Contact with and (suspected) exposure to COVID-19; E87.6 Hypokalemia; G40.909 Epilepsy, unspecified, not intractable, without status epilepticus; I16.0 Hypertensive urgency; K21.9 Gastro-esophageal reflux disease without esophagitis; Z87.820 Personal history of traumatic brain injury; Z87.891 Personal history of nicotine dependence; Z86.73 Personal history of transient ischemic attack (TIA), and cerebral infarction without residual deficits; Z93.1 Gastrostomy status
CPT/HCPCS: 36415; 36600; 71045; 71275; 80053; 81001; 82805; 82810; 83605; 83735; 83880; 84145; 84484; 85025; 85610; 85730; 87040; 87449; 87637; 87641; 87899; 93005; 93306; 94640; 96365; 96366; 96367; 96375; 97161; 97165; 99285; A9270; G0378; J0360; J0456; J0696; J1650; J1940; J2919; J3370; J3480; J7040; Q9967

== ENCOUNTER 2024-07-18 08:23 | Outpatient (CLI) | payer MEDICARE, MEDICAID, SELFPAY ==
--- NOTE | ~2024-07-18 | NM_ITS ---
EXAMINATION: NM [place] stress w perfusion DATE: 07/18/2024 11:48 INDICATION: Heart disease. Heart failure. TECHNIQUE: Rest images were obtained following intravenous administration of 10 mCi Tc99m tetrofosmin (Myoview). The patient was infused intravenously with Lexiscan (regadenoson). Then, 30.3 mCi Tc99m t etrofosmin (Myoview) was administered intravenously, and stress images were obtained. Data was recons tructed into short axis and horizontal and vertical long axis SPECT images. Gated SPECT images were a lso obtained. COMPARISON: Chest CT 05/20/2024 FINDINGS: There is no definite reversible or fixed perfusion abnormality to suggest ischemia or infar ction. There is no segmental wall motion abnormality. Left ventricular ejection fraction measures 5 9%. IMPRESSION: 1. No definite ischemia or infarct. 2. Normal left ventricular ejection fraction measuring 59%. Reviewed, dictated and finalized at location A. [employer]IC [employer] TESTER
--- NOTE | 2024-07-18 08:34 | EST_ITS ---
Patient Info Name: Anjelica Pena Age: 69 years : 1955 Gender: Female Ht: 62 in Wt: 135 lbs BSA: 1.65 m2 HR: 67 bpm BP: 131 / 72 mmHg Exam Date: 07/18/2024 9:56 AM Exam Location: [facility] Patient Status: Outpatient Admit Date: 07/18/2024 Staff Ordering Physician: Mansoor Blanchard DO Attending Provider: Mansoor Blanchard DO Exercise Technologist: Gris German RDCS Exercise Physician: Mansoor Blanchard DO Exam Type: CA stress [place] w NM Study Info A regadenoson stress test was performed. Summary 1. 1. Abnormal lexiscan stress test for ischemic ST changes by ECG criteria. 2. 2. Stable hemodynamics throughout the test. 3. 3. Nuclear scan to follow and will be reported separately. Please correlate with it. 4. 4. Patient informed of the above results. Protocol: Lexiscan Stress ECG Details Stage: REST Duration (min): 1 min : 30 sec HR (bpm): 68 SBP (mmHg): 131 DBP (mmHg): 72 Stage: REST Duration (min): 17 min : 12 sec HR (bpm): 66 SBP (mmHg): 131 DBP (mmHg): 72 Stage: STAGE 1 Duration (min): 0 min : 59 sec HR (bpm): 82 SBP (mmHg): 132 DBP (mmHg): 69 Stage: RECOVERY Duration (min): 1 min : 0 sec HR (bpm): 96 SBP (mmHg): 132 DBP (mmHg): 69 Stage: RECOVERY Duration (min): 2 min : 0 sec HR (bpm): 94 SBP (mmHg): 132 DBP (mmHg): 69 Stage: RECOVERY Duration (min): 3 min : 0 sec HR (bpm): 93 SBP (mmHg): 116 DBP (mmHg): 68 Stage: RECOVERY Duration (min): 3 min : 5 sec HR (bpm): 93 SBP (mmHg): 116 DBP (mmHg): 68 Rest HR: 66 bpm Peak HR: 97 bpm Rest Sys BP: 131 mmHg Peak Sys BP: 132 mmHg Max Pred HR: 153 bpm % Max Pred HR: 63 % Target HR: 130 bpm Max RPP: 12,804 bpm*mmHg Termination Reason: Completed protocol Cardiac Symptoms: None Total Time: 1 min : 0 sec Rest Green BP: 72 mmHg Peak Green BP: 69 mmHg Total Dose: 0.4 mg Resting ECG Sinus rhythm, borderline ST-T wave abnormality in ant/inf leads. Stress ECG 1-[address] depression in inferior leads and V5-V6. Arrhythmias None. Report Signatures
== END 2024-07-18 08:24 | disposition home or self-care (01) ==
PROVIDERS: PCP Family Medicine; Visit Provider Internal Medicine Cardiovascular Disease
DX: I51.9 Heart disease, unspecified (principal); I50.9 Heart failure, unspecified
CPT/HCPCS: 78452; 93017; A9502; J2785

== ENCOUNTER 2024-08-21 00:41 | Day surgery (SDC) | payer MEDICARE, MEDICAID, SELFPAY ==
[2024-08-13 08:46] VITALS: BMI 25.0
[2024-08-21 06:14] VITALS: BP 131/70; PULSE 99; RESP 16; TEMP 35.8; O2SAT 100; BMI 24.3
[2024-08-21] MEDS: LACTATED RINGERS 1,000 ML 150 ML IV CONT (06:46)
--- NOTE | 2024-08-21 07:20 | WPDANESEPPF ---
Anes - Initial Pre Proc Eval Procedure: Operation Date: 08/21/24 07:30 Proposed Procedures p Colonoscopy - Elton Lazaro MD Date/Time: 08/21/24 07:20 Surgeon: Elton Lazaro MD Pre Op Diagnosis: history of colonic polyps Patient Data Age: 69 Gender: F Height: 1.57 m Weight: 60.5 kg Last Vital Signs Temp 35.8 C L 08/21/24 06:14 Pulse 99 08/21/24 06:14 Resp 16 08/21/24 06:14 BP 131/70 08/21/24 06:14 Pulse Ox 100 08/21/24 06:14 O2 Del Method Room Air 08/21/24 06:14 Allergies Allergy/AdvReac Type Severity Reaction Status Date / Time No Known Allergies Allergy Verified 08/21/24 06:26 Home Medications ?Medication ?Instructions ?Recorded ?Confirmed ?Type bisacodyl 5 mg tablet,delayed 5 mg PO BID PRN Constipation 09/23/22 08/21/24 History release calcium 600 mg (as carbonate)-vit 1 tablet PO DAILY 09/23/22 08/21/24 History D3 10 mcg (400 unit)-minerals tablet cetirizine 10 mg tablet (Allergy 10 mg PO DAILY 09/23/22 08/21/24 History Relief (cetirizine)) citalopram 10 mg tablet 10 mg PO DAILY 09/23/22 08/21/24 History fluticasone propionate 50 1 spray intranasal BID PRN Nasal 09/23/22 08/21/24 History mcg/actuation nasal Congestion spray,suspension guaifenesin 600 mg tablet, 600 mg PO Q12H PRN Congestion 09/23/22 08/21/24 History extended release 12 hr (Mucinex) ipratropium 20 mcg-albuterol 100 1 puff inhalation QID 09/23/22 08/21/24 History mcg/actuation mist for inhalation (Combivent Respimat) montelukast 10 mg tablet 10 mg PO DAILY 09/23/22 08/21/24 History (Singulair) omeprazole 20 mg tablet,delayed 20 mg PO DAILY 09/23/22 08/21/24 History release propylene glycol 0.6 % eye drops 1 drp EACH EYE DAILY 09/23/22 08/21/24 History (Systane Complete) Chloraseptic 1 vignesh PO Q2H PRN Sore Throat 11/09/23 08/21/24 History acetaminophen 325 mg tablet 650 mg PO BID 11/09/23 08/21/24 History ascorbic acid (vitamin C) 500 mg PO DAILY 11/09/23 08/21/24 History benzonatate 200 mg PO Q8H PRN Cough 11/09/23 08/21/24 History ergocalciferol (vitamin D2) 1,250 mcg PO WEEKLY 11/09/23 08/21/24 History oxycodone 5 mg tablet 2.5 mg PO Q4H PRN Pain (Scale 11/09/23 08/21/24 History Score 7-10) polyethylene glycol 3350 17 gram 17 g PO QAM PRN Constipation 11/09/23 08/21/24 History oral powder packet (Miralax) primidone 50 mg tablet 50 mg PO DAILY 11/09/23 08/21/24 History topiramate 100 mg tablet 100 mg PO BID 11/09/23 08/21/24 History carboxymethylcellulose sodium 1 % 1 drp EACH EYE BID PRN Dry Eyes 02/11/24 08/21/24 History eye drops (Artificial Tears (carboxymethylcellulose)) fluticasone 100 mcg-salmeterol 50 1 inh inhalation BID 02/11/24 08/21/24 History mcg/dose blistr powdr for inhalation empagliflozin 10 mg tablet 10 mg PO DAILY #30 tabs 05/23/24 08/21/24 Rx (Jardiance) metoprolol succinate 50 mg 50 mg PO QAM #30 tabs 05/23/24 08/21/24 Rx tablet,extended release 24 hr sacubitril 24 mg-valsartan 26 mg 1 tablet PO Q12HR #60 tabs 05/23/24 08/21/24 Rx tablet (Entresto) spironolactone 25 mg tablet 25 mg PO QAM #30 tabs 05/23/24 08/21/24 Rx furosemide 40 mg tablet 40 mg PO DAILY #30 tabs 06/13/24 08/21/24 Rx ferrous sulfate 325 mg (65 mg 325 mg PO DAILY 08/13/24 08/21/24 History iron) tablet Patient hx anesthesia problems: none Family hx anesthesia problems: none Results Review: All pre-operative results and documents have been reviewed as part of the pre-operative evaluation. [facility] Past Medical History Medical History Colon cancer screening Seizure disorder Gastroesophageal reflux disease Chronic obstructive pulmonary disease Cerebrovascular accident Traumatic brain injury Age 9. Hypertension Idiopathic aplastic anemia Normal pressure hydrocephalus Surgical History Surgical History History of gastrostomy tube placement History of exploratory laparotomy History of tracheostomy as a child Family History Family History Mother Scarring of lung COPD (chronic obstructive pulmonary disease) Hypertension Father Chronic back pain Sibling Ruptured appendix Other Unknown family medical history Social History Social History Social History: Healthcare power of dough catcher: Jada Pena, mother. Code status: Full code. Smoking packs per day: 1 Smoking cigarettes per day: 20.0 Years smoked: 3 Smoking pack-years: 3.00 Smoking status: Former smoker Tobacco type: cigarettes Alcohol intake: unknown Substance use: unknown Substance use type: does not use Do You Feel Safe in your Home?: Yes Lack of Transportation: No Lack of Food: Never True Current Housing: I Do Not Have Housing Concerned About Future Housing: No Difficulty Paying Gas/Electric Bills: No Difficulty Paying for Meds: No Currently Unemployed: No Education: Decline to Answer Difficulty w/ Childcare or Family Care: No Living arrangements: assisted living Spiritual care concerns: No Anes - Eval Final PreProcedure Day of Procedure 08/21/24 07:20 Patient weight: normal Heart: regular rate and rhythm Lungs: clear to auscultation Airway: Mallampati scale class II Neurological: alert and oriented Last oral intake: >/= 8 hours ASA classification: III Emergent: no Anesthetic plan: proceed Anesthesia type and monitoring: general GIVS and standard monitoring Results Review: All pre-operative results and documents have been reviewed as part of the pre-operative evaluation. Informed Consent: The patient's anesthetic plan and its attendant risks and benefits were discussed with the patient/family/POA. Questions were solicited and answers provided to the satisfaction of the patient/family/POA.
--- NOTE | 2024-08-21 07:32 | PM.IMHP ---
H&P: HPI History of Present Illness Date/Time: 08/21/24 07:32 Chief Complaint: history of colon polyps. Narrative: Pt with a significant past medical history of CVA, COPD, GERD, HTN, idiopathic aplastic anemia, seizure, traumatic brain injury, normal pressure hydrocephalus, former smoker discharged in May for an episode of shortness of breath, probably a combination of pneumonia and CHF. In addition, she has a history of colonic polyps and is here for surveillance colonoscopy. Review of Systems Review of Systems: All systems reviewed & are unremarkable except as noted in HPI and below PMFSH Past Medical History Medical History Colon cancer screening Seizure disorder Gastroesophageal reflux disease Chronic obstructive pulmonary disease Cerebrovascular accident Traumatic brain injury Age 9. Hypertension Idiopathic aplastic anemia Normal pressure hydrocephalus Surgical History Surgical History History of gastrostomy tube placement History of exploratory laparotomy History of tracheostomy as a child Family History Family History Mother Scarring of lung COPD (chronic obstructive pulmonary disease) Hypertension Father Chronic back pain Sibling Ruptured appendix Other Unknown family medical history Social History Social History Social History: Healthcare power of civil rights attorney: Jada Pena, mother. Code status: Full code. Smoking packs per day: 1 Smoking cigarettes per day: 20.0 Years smoked: 3 Smoking pack-years: 3.00 Smoking status: Former smoker Tobacco type: cigarettes Alcohol intake: unknown Substance use: unknown Substance use type: does not use Do You Feel Safe in your Home?: Yes Lack of Transportation: No Lack of Food: Never True Current Housing: I Do Not Have Housing Concerned About Future Housing: No Difficulty Paying Gas/Electric Bills: No Difficulty Paying for Meds: No Currently Unemployed: No Education: Decline to Answer Difficulty w/ Childcare or Family Care: No Living arrangements: assisted living Spiritual care concerns: No Meds Home Medications and Allergies Home Medications ?Medication ?Instructions ?Recorded ?Confirmed ?Type bisacodyl 5 mg tablet,delayed 5 mg PO BID PRN Constipation 09/23/22 08/21/24 History release calcium 600 mg (as carbonate)-vit 1 tablet PO DAILY 09/23/22 08/21/24 History D3 10 mcg (400 unit)-minerals tablet cetirizine 10 mg tablet (Allergy 10 mg PO DAILY 09/23/22 08/21/24 History Relief (cetirizine)) citalopram 10 mg tablet 10 mg PO DAILY 09/23/22 08/21/24 History fluticasone propionate 50 1 spray intranasal BID PRN Nasal 09/23/22 08/21/24 History mcg/actuation nasal Congestion spray,suspension guaifenesin 600 mg tablet, 600 mg PO Q12H PRN Congestion 09/23/22 08/21/24 History extended release 12 hr (Mucinex) ipratropium 20 mcg-albuterol 100 1 puff inhalation QID 09/23/22 08/21/24 History mcg/actuation mist for inhalation (Combivent Respimat) montelukast 10 mg tablet 10 mg PO DAILY 09/23/22 08/21/24 History (Singulair) omeprazole 20 mg tablet,delayed 20 mg PO DAILY 09/23/22 08/21/24 History release propylene glycol 0.6 % eye drops 1 drp EACH EYE DAILY 09/23/22 08/21/24 History (Systane Complete) Chloraseptic 1 vignesh PO Q2H PRN Sore Throat 11/09/23 08/21/24 History acetaminophen 325 mg tablet 650 mg PO BID 11/09/23 08/21/24 History ascorbic acid (vitamin C) 500 mg PO DAILY 11/09/23 08/21/24 History benzonatate 200 mg PO Q8H PRN Cough 11/09/23 08/21/24 History ergocalciferol (vitamin D2) 1,250 mcg PO WEEKLY 11/09/23 08/21/24 History oxycodone 5 mg tablet 2.5 mg PO Q4H PRN Pain (Scale 11/09/23 08/21/24 History Score 7-10) polyethylene glycol 3350 17 gram 17 g PO QAM PRN Constipation 11/09/23 08/21/24 History oral powder packet (Miralax) primidone 50 mg tablet 50 mg PO DAILY 11/09/23 08/21/24 History topiramate 100 mg tablet 100 mg PO BID 11/09/23 08/21/24 History carboxymethylcellulose sodium 1 % 1 drp EACH EYE BID PRN Dry Eyes 02/11/24 08/21/24 History eye drops (Artificial Tears (carboxymethylcellulose)) fluticasone 100 mcg-salmeterol 50 1 inh inhalation BID 02/11/24 08/21/24 History mcg/dose blistr powdr for inhalation empagliflozin 10 mg tablet 10 mg PO DAILY #30 tabs 05/23/24 08/21/24 Rx (Jardiance) metoprolol succinate 50 mg 50 mg PO QAM #30 tabs 05/23/24 08/21/24 Rx tablet,extended release 24 hr sacubitril 24 mg-valsartan 26 mg 1 tablet PO Q12HR #60 tabs 05/23/24 08/21/24 Rx tablet (Entresto) spironolactone 25 mg tablet 25 mg PO QAM #30 tabs 05/23/24 08/21/24 Rx furosemide 40 mg tablet 40 mg PO DAILY #30 tabs 06/13/24 08/21/24 Rx ferrous sulfate 325 mg (65 mg 325 mg PO DAILY 08/13/24 08/21/24 History iron) tablet Allergies Allergy/AdvReac Type Severity Reaction Status Date / Time No Known Allergies Allergy Verified 08/21/24 06:26 Vital Signs Vital Signs - 24 hr 08/21/24 06:14 Temperature 96.5 F L Pulse Rate 99 Respiratory Rate 16 Blood Pressure 131/70 Pulse Oximetry 100 Oxygen Delivery Room Air Exam Const: General: cooperative and healthy appearing Resp: Effort & Inspection: normal respiratory effort and able to speak in complete sentences Auscultation: clear to auscultation bilaterally Cardio: Rate: regular rate Rhythm: regular rhythm GI: Inspection: normal to inspection GI Palp: No No hepatosplenomegaly present Auscultation: normal bowel sounds Rectal Exam: deferred Skin: General skin exam: normal color Psych: Appearance: grossly normal Mental Status: mental status grossly normal Assessment and Plan Assessment and plan (1) Colon cancer screening: Code(s): Z12.11 - Encounter for screening for malignant neoplasm of colon Status: Acute Assessment and Plan: The patient is deemed a good candidate for the procedure. Consent signed. Will proceed.
[2024-08-21 08:00] VITALS: BP 128/62; PULSE 99; RESP 14; O2SAT 100
[2024-08-21 08:10] VITALS: BP 126/63; PULSE 68; RESP 14; O2SAT 100
[2024-08-21 08:20] VITALS: BP 138/76; PULSE 70; RESP 16; O2SAT 100
== END 2024-08-21 08:45 | disposition home or self-care (01) ==
PROVIDERS: PCP Family Medicine; Visit Provider Internal Medicine Gastroenterology
PROC: 0DJD8ZZ Inspection of Lower Intestinal Tract, Via Natural or Artificial Opening Endoscopic (ICD-10-PCS; CPT 45378; principal; 2024-08-21 07:30)
DX: Z12.11 Encounter for screening for malignant neoplasm of colon (principal); D12.3 Benign neoplasm of transverse colon; D12.4 Benign neoplasm of descending colon; D12.5 Benign neoplasm of sigmoid colon; K57.30 Diverticulosis of large intestine without perforation or abscess without bleeding; I10 Essential (primary) hypertension; J44.9 Chronic obstructive pulmonary disease, unspecified; K21.9 Gastro-esophageal reflux disease without esophagitis; G91.2 (Idiopathic) normal pressure hydrocephalus; G40.909 Epilepsy, unspecified, not intractable, without status epilepticus; Z86.73 Personal history of transient ischemic attack (TIA), and cerebral infarction without residual deficits; Z87.891 Personal history of nicotine dependence; Z79.84 Long term (current) use of oral hypoglycemic drugs
CPT/HCPCS: 45385; 88305; J2003; J2704; J7120

== ENCOUNTER 2024-08-29 10:33 | Inpatient (IN) | payer MEDICARE, MEDICAID, SELFPAY ==
[2024-08-29] VITALS (29 sets, daily range): BP systolic 63–129; BP diastolic 45–79; PULSE 65–133; RESP 14–26; TEMP 36.4–38.6; O2SAT 92–100; BMI 22.4; BMI 24.3
--- NOTE | ~2024-08-29 | CT_ITS ---
EXAMINATION: CT abdomen pelvis wo con DATE: 08/29/2024 15:05 INDICATION: Diarrhea TECHNIQUE: Computed tomography (CT) of the abdomen and pelvis was performed without intravenous contr ast. Automated exposure control and iterative reconstruction technique were employed. The dose-length product was 397.28 mGy-cm. COMPARISON: 11/08/2023 and 05/20/2024 FINDINGS: Discoid atelectasis at the lingula, right middle and right lower lobes. There is mucous plugging in s ome of the right lower lobar bronchi. 1.2 cm groundglass nodule at the anterolateral superior segment of the left lower lobe. This region was obscured on the more recent CT by pulmonary edema versus pne umonia although there appears to extend a similar groundglass nodule this location on the earlier CT from 11/08/2023. Heart size is normal. No pericardial or pleural effusion. Liver, gallbladder, spleen, pancreas, bilateral adrenal glands and right kidney are normal. Moderate left renal atrophy. There is calcified atherosclerosis of the aorta and many of the other arteries. There is potentially hemodyna mically significant stenosis at the distal aorta as well as at the origins of the superior mesenteric , bilateral renal and bilateral common iliac arteries. There is fluid throughout nondilated colon and small bowel consistent with nonspecific diarrhea. No obstruction or abnormal bowel wall thickening. Likely ventriculoperitoneal shunt extending caudally along the anterior right lower thoracic and uppe r abdominal wall and extending into the peritoneal space with distal tip in the pelvis. Normal decomp ressed bladder. 1 cm uterine fibroid. Bilateral adnexa are unremarkable. No free intraperitoneal gas or fluid. No pathologically enlarged abdominal or pelvic lymphadenopathy. Mild lumbar spondylosis. IMPRESSION: 1. Fluid throughout the nondilated large and small bowel study with nonspecific diarrhea. Correlate c linically for enteritis. 2. Moderate left renal atrophy which could be related to ischemia given the prominent atherosclerotic calcifications, aorta and its major branch vessels as detailed above. 3. Indeterminate 1.2 cm groundglass nodule at the anterolateral segment of the left lower lobe withou t significant interval change since 11/08/2023. Recommend additional one-year follow-up noncontrast [facility] CT. Reviewed, dictated and finalized at location B. ATCH CLERK IMPRESSION: 1. Fluid throughout the nondilated large and small bowel study with nonspecific diarrhea. Correlate clinically for enteritis. 2. Moderate left renal atrophy which could be related to ischemia given the pro minent atherosclerotic calcifications, aorta and its major branch vessels as de tailed above. 3. Indeterminate 1.2 cm groundglass nodule at the anterolateral segment of the left lower lobe without significant interval change since 11/08/2023. Recommend a dditional one-year follow-up noncontrast chest CT.
--- NOTE | ~2024-08-29 | CT_ITS ---
EXAMINATION: CT brain wo con DATE: 08/29/2024 10:51 INDICATION: Seizure. TECHNIQUE: Computed tomography (CT) of the head was performed without intravenous contrast. The mA wa s adjusted according to patient size. Iterative reconstruction technique was employed. The dose-lengt h product was 605.33 mGy-cm. COMPARISON: Head CT 11/10/2023 FINDINGS: There is chronic encephalomalacia in the left frontal lobe. There are old infarcts in the b ilateral basal ganglia. There are scattered areas of low attenuation in the cerebral white matter. Th ere are chronic bilateral hypodense frontoparietal subdural hematomas with maximum thickness of 5 mm. There is no acute infarction or abnormal intracranial mass lesion. There is mild ex vacuo dilatation of left lateral ventricle. There is a right-sided shunt catheter with tip in frontal horn of right l ateral ventricle. The paranasal sinuses are clear. The mastoid air cells are normal. The orbits are n ormal. IMPRESSION: 1. Chronic encephalomalacia in the left frontal lobe. Old infarcts in the bilateral basal ganglia. 2. Stable mild nonspecific cerebral white matter disease, which likely represents chronic small vesse l ischemic disease. 3. Chronic bilateral frontoparietal subdural hematomas with maximum thickness of 5 mm. 4. Unchanged size of the ventricles with shunt catheter in expected position. Reviewed, dictated and finalized at location A. SPRING REPAIRER IMPRESSION: 1. Chronic encephalomalacia in the left frontal lobe. Old infarcts in the bilat eral basal ganglia. 2. Stable mild nonspecific cerebral white matter disease, which likely represen ts chronic small vessel ischemic disease. 3. Chronic bilateral frontoparietal subdural hematomas with maximum thickness o f 5 mm. 4. Unchanged size of the ventricles with shunt catheter in expected position.
--- NOTE | 2024-08-29 10:36 | ECG_ITS ---
Test Date: 2024-08-29 11:01:57 Measurements Intervals [place] Rate: 66 P: 11 WA: 145 QRS: 19 QRSD: 89 T: 72 QT: 451 QTc: 473 Interpretive Statements SINUS RHYTHM POSSIBLE LEFT ATRIAL ENLARGEMENT [-0.1mV P-WAVE IN V1/V2] ST AND T-WAVE ABNORMALITY CONSIDER LATERAL ISCHEMIA ABNORMAL ECG Electronically Signed On 08-29-2024 17:24:18 CUTTER OPERATOR HELPER by Kavon Cook M.D.
[2024-08-29] MEDS: LORazepam INJ (*CRX) 2 MG/ML VIAL 1 MG IV PUSH (11:20)
--- NOTE | 2024-08-29 11:22 | ED_ITS ---
HPI - General Adult General Chief complaint: Seizure Stated complaint: altered/seizure activity Time Seen by Provider: 08/29/24 10:34 History of Present Illness HPI narrative: 69-year-old female with history history of prior TBI, NPH, COPD, and epilepsy presenting due to breakthrough seizure. Patient states she has had diarrhea for the last few days. Patient states when she was doing her physical therapy that she became very pale and they thought she was having a seizure. Patient was transferred to the emergency department by EMS. When patient got up to the bedside commode patient's blood pressure dropped again and she became unresponsive. When patient was laid down in the bed she became more alert. Patient does have a recent echo showing Left ventricular systolic function is moderately reduced, estimated at 35-40% Patient's neurologist is Dr Sebastian Celeste at [facility] [employer] Home Medications ?Medication ?Instructions ?Recorded ?Confirmed ?Last Taken ?Type calcium 600 mg (as carbonate)-vit 1 tablet PO DAILY 09/23/22 08/29/24 08/20/24 History D3 10 mcg (400 unit)-minerals tablet cetirizine 10 mg tablet (Allergy 10 mg PO DAILY 09/23/22 08/29/24 08/20/24 History Relief (cetirizine)) citalopram 10 mg tablet 10 mg PO DAILY 09/23/22 08/29/24 08/20/24 History ipratropium 20 mcg-albuterol 100 1 puff inhalation QID 09/23/22 08/29/24 08/20/24 History mcg/actuation mist for inhalation (Combivent Respimat) montelukast 10 mg tablet 10 mg PO DAILY 09/23/22 08/29/24 08/20/24 History (Singulair) omeprazole 20 mg tablet,delayed 20 mg PO DAILY 09/23/22 08/29/24 08/20/24 History release propylene glycol 0.6 % eye drops 1 drp EACH EYE DAILY 09/23/22 08/29/24 08/20/24 History (Systane Complete) acetaminophen 325 mg tablet 650 mg PO BID PRN pain 11/09/23 08/29/24 08/20/24 History ascorbic acid (vitamin C) 500 mg PO DAILY 11/09/23 08/29/24 08/20/24 History ergocalciferol (vitamin D2) 1,250 mcg PO WEEKLY 11/09/23 08/29/24 08/20/24 History primidone 50 mg tablet 50 mg PO DAILY 11/09/23 08/29/24 08/20/24 History topiramate 100 mg tablet 100 mg PO BID 11/09/23 08/29/24 08/20/24 History carboxymethylcellulose sodium 1 % 1 drp EACH EYE BID PRN Dry Eyes 02/11/24 08/29/24 08/20/24 History eye drops (Artificial Tears (carboxymethylcellulose)) fluticasone 100 mcg-salmeterol 50 1 inh inhalation BID 02/11/24 08/29/24 08/20/24 History mcg/dose blistr powdr for inhalation albuterol sulfate 90 mcg/actuation 2 puff inhalation Q6H PRN 08/29/24 08/29/24 Unknown History aerosol inhaler (Ventolin HFA) shortness of breath or wheezing ipratropium 20 mcg-albuterol 100 1 puff inhalation QID 08/29/24 08/29/24 Unknown History mcg/actuation mist for inhalation (Combivent Respimat) polysaccharide iron complex 150 mg 300 mg PO DAILY 08/29/24 08/29/24 Unknown History iron capsule (iFerex 150) Allergies Allergy/AdvReac Type Severity Reaction Status Date / Time No Known Allergies Allergy Verified 08/29/24 17:36 Review of Systems 2 Review of Systems: All systems reviewed & are unremarkable except as noted in HPI and below PMFSH Past Medical History Medical History (Updated 08/30/24 @ 11:02 by Lyndon Hummel MD) Combined systolic and diastolic congestive heart failure Echocardiogram May 2024 demonstrated EF of 30-5 to 40%, mildly increased left ventricular wall thickness, normal right ventricular systolic function, severe left atrial enlargement, moderate mitral valve regurgitation, mild tricuspid regurgitation, abnormal diastolic function, moderate pericardial effusion with invagination of the right atrial free wall consistent with increased intrapericardial pressure Colon cancer screening Seizure disorder Gastroesophageal reflux disease Chronic obstructive pulmonary disease Cerebrovascular accident Traumatic brain injury Age 9. Hypertension Idiopathic aplastic anemia Normal pressure hydrocephalus Surgical History Surgical History History of gastrostomy tube placement History of exploratory laparotomy History of tracheostomy as a child Family History Family History Mother Scarring of lung COPD (chronic obstructive pulmonary disease) Hypertension Father Chronic back pain Sibling Ruptured appendix Social History Social History (Updated 08/29/24 @ 19:53 by Rupal Dickerson DO) Social History: Patient reports that she used to smoke about a pack of cigarettes per day but quit many years ago. She used to occasionally drink a moderate amount of alcohol but has not done so in many years. She is residing at [facility]. Healthcare power of regulatory attorney: Jada Pena, mother. Code status: Full code. Smoking packs per day: 1 Smoking cigarettes per day: 20.0 Years smoked: 25 Smoking pack-years: 25.00 Smoking status: Former smoker Tobacco type: cigarettes Second hand tobacco smoke exposure: Yes Alcohol intake: never Substance use: never Substance use type: does not use Do You Feel Safe in your Home?: Yes Lack of Transportation: No Lack of Food: Never True Current Housing: I Have Housing Concerned About Future Housing: No Difficulty Paying Gas/Electric Bills: No Difficulty Paying for Meds: No Currently Unemployed: No Education: High School Diploma/GED Difficulty w/ Childcare or Family Care: No Living arrangements: assisted living Spiritual care concerns: No Exam 2 Narrative: APPEARANCE: Well appearing, no pain, no distress, well-nourished. HEAD: normocephalic, atraumatic. EYES: PERRLA/EOMI, conjunctivae clear. NOSE: Normal no drainage EARS:TMS clear with good light reflex. THROAT: Pharynx clear, no exudate. NECK: Supple. No adenopathy, no masses. RESPIRATORY: Airway patent, respirations nonlabored. Clear to auscultation bilaterally, no rales, rhonchi, wheezing. CARDIOVASCULAR: Regular rate and rhythm without murmurs rubs or gallops. ABDOMINAL: Soft, nontender, nondistended, normal bowel sounds MUSCULOSKELETAL: Moves all extremities. Strength/ROM intact, No edema, No calf tenderness. NEURO: Alert. With no focal deficit SKIN: Warm, dry. Normal Color Course Vital Signs Vital signs: Vital Signs Temperature 97.5 F L 08/29/24 10:34 Pulse Rate 74 08/29/24 10:34 Respiratory Rate 20 08/29/24 10:34 Blood Pressure 86/60 L 08/29/24 10:34 Pulse Oximetry 95 08/29/24 10:34 Oxygen Delivery Room Air 08/29/24 10:34 Temperature 98.9 F 08/30/24 08:00 Pulse Rate 92 08/30/24 10:00 Respiratory Rate 20 08/30/24 08:00 Blood Pressure 159/71 H 08/30/24 08:00 Pulse Oximetry 96 08/30/24 08:00 Oxygen Delivery Room Air 08/30/24 08:00 Medical Decision Making MDM Narrative Medical decision making narrative: 69-year-old female presenting to the emergency department for evaluation for seizure or seizure-like activity. Patient is afebrile but does have a leukocytosis of 14.3 with a hemoglobin of 14.8. Patient's INR is 1.0. Patient does have an ILA with a creatinine of 1.5 with a baseline closer 1.0. Patient does have a poor ejection fraction in the 30s to 40s but patient was treated with 1 L of IV fluids and this did help her blood pressure. While in the emergency department patient was transitioned to the bedside commode and had a vasovagal episode versus seizure. Patient was negative for influenza RSV and COVID. With the recent diarrhea C diff was also ordered and is pending Head CT was negative for acute intracranial abnormality. Patient prefers not to be transferred to [facility] Case discussed with hospitalist and they were comfortable with the plan to keep the patient here. Patient was stable at time of admission to the floor. Differential Diagnosis Differential Diagnosis: CVA, TIA, seizure, vasovagal, C diff, diarrhea, gastroenteritis, influenza, RSV, COVID Vital Signs Vital Signs: Vital Signs Temperature 97.5 F L 08/29/24 10:34 Pulse Rate 74 08/29/24 10:34 Respiratory Rate 20 08/29/24 10:34 Blood Pressure 86/60 L 08/29/24 10:34 Pulse Oximetry 95 08/29/24 10:34 Oxygen Delivery Room Air 08/29/24 10:34 Temperature 98.9 F 08/30/24 08:00 Pulse Rate 92 08/30/24 10:00 Respiratory Rate 20 08/30/24 08:00 Blood Pressure 159/71 H 08/30/24 08:00 Pulse Oximetry 96 08/30/24 08:00 Oxygen Delivery Room Air 08/30/24 08:00 Lab Data Lab results reviewed: Yes I reviewed the patient's lab results. 08/30/24 04:09 08/30/24 04:09 Labs: Lab Results 08/29/24 08/29/24 08/29/24 Range/Units 11:20 11:22 11:46 WBC 14.3 H (4.5-10.0) K/mm3 RBC 5.29 (4.2-5.4) M/mm3 Hgb 14.8 (12.0-15.0) g/dL Hct 47.6 H (37.0-47.0) % MCV 90.0 (80-100) fl MCH 28.0 (26-34) pg MCHC 31.1 L (32-36) g/dl RDW 15.2 H (11.5-14.5) % Plt Count 334 (150-375) k/mm3 MPV 9.5 (7.4-10.4) fl Immature Gran % (Auto) 1.5 H (0-0.5) % Neut % (Auto) 86.7 H (45.5-73.1) % Lymph % (Auto) 5.8 L (18.3-44.2) % [place] % (Auto) 5.4 (2.6-8.5) % Eos % (Auto) 0.1 (0-4.4) % Baso % (Auto) 0.5 (0.2-1.2) % Lymph # (Auto) 0.83 L (0.9-3.2) K/mm3 [place] # (Auto) 0.8 H (0.1-0.6) K/mm3 Eos # (Auto) 0.0 (0-0.3) K/mm3 Baso # (Auto) 0.1 (0.0-0.1) K/mm3 Abs Immat Gran (auto) 0.21 H (0.00-0.031) K/mm3 Absolute Neuts (auto) 12.4 H (1.3-6.7) K/mm3 Absolute Nucleated RBC 0.000 (0.0-0.012) K/mm3 Nucleated RBC % 0.0 (0.0-0.2) % PT 13.3 (11.1-14.7) Seconds INR 1.0 APTT 29.2 (22.3-36.8) Seconds Sodium 139 (137-145) mmol/L Potassium 3.9 (3.4-5.0) mmol/L Chloride 112 H (98-107) mmol/L Carbon Dioxide 14 L (22-30) mmol/L Anion Gap 13 H (4-12) mmol/L BUN 26 H (7-17) mg/dL Creatinine 1.50 H (0.7-1.0) mg/dL Estim Creat Clear Calc 30 ml/min Estimated GFR 35 L (59 - ) Glucose 130 H (65-110) mg/dL Calcium 10.1 (8.4-10.2) mg/dL Total Bilirubin 0.5 (0.2-1.3) mg/dL AST 22 (14-36) U/L ALT 19 (6-35) U/L Alkaline Phosphatase 123 (38-126) U/L Total Protein 9.0 H (6.3-8.2) g/dL Albumin 4.8 (3.5-5.1) g/dL Urine Color (Yellow) Urine Appearance (Clear) Urine pH (5.0-9.0) Ur Specific [place] (1.001-1.035) Urine Protein (Negative) mg/dL Urine Glucose (UA) (Negative) mg/dL Urine Ketones (Negative) mg/dL Ur Blood (Man) (Negative) Urine Nitrate (Negative) Urine Bilirubin (Negative) Urine Urobilinogen (<2.0) mg/dL Leukocyte Esterase Rfl (Negative) MAUREEN/UL Urine RBC (0-2) /hpf Urine WBC (0-3) /hpf Ur Transition Epith Cell (None) /hpf Ur Renal Epithelial Cell (None) /hpf Calcium Oxalate Crystal (None) /hpf Urine Bacteria (None) /hpf Hyaline Casts (None) /lpf Primidone Pending Topiramate Pending Phenobarb (Primidon Met Pending C. difficile (PCR) (NEGATIVE) Influenza A (RT-PCR) Negative (Negative) Influenza B (RT-PCR) Negative (Negative) RSV (RT-PCR) Negative (Negative) SARS-CoV-2 RNA (RT-PCR) Negative (Negative) 08/29/24 08/29/24 08/30/24 Range/Units 13:29 13:30 04:09 WBC 6.6 (4.5-10.0) K/mm3 RBC 4.63 (4.2-5.4) M/mm3 Hgb 12.8 (12.0-15.0) g/dL Hct 40.9 (37.0-47.0) % MCV 88.3 (80-100) fl MCH 27.6 (26-34) pg MCHC 31.3 L (32-36) g/dl RDW 15.4 H (11.5-14.5) % Plt Count 201 (150-375) k/mm3 MPV 9.9 (7.4-10.4) fl Immature Gran % (Auto) 1.8 H (0-0.5) % Neut % (Auto) 82.1 H (45.5-73.1) % Lymph % (Auto) 8.8 L (18.3-44.2) % [place] % (Auto) 7.0 (2.6-8.5) % Eos % (Auto) 0.0 (0-4.4) % Baso % (Auto) 0.3 (0.2-1.2) % Lymph # (Auto) 0.58 L (0.9-3.2) K/mm3 [place] # (Auto) 0.5 (0.1-0.6) K/mm3 Eos # (Auto) 0.0 (0-0.3) K/mm3 Baso # (Auto) 0.0 (0.0-0.1) K/mm3 Abs Immat Gran (auto) 0.12 H (0.00-0.031) K/mm3 Absolute Neuts (auto) 5.4 (1.3-6.7) K/mm3 Absolute Nucleated RBC 0.000 (0.0-0.012) K/mm3 Nucleated RBC % 0.0 (0.0-0.2) % PT (11.1-14.7) Seconds INR APTT (22.3-36.8) Seconds Sodium 137 (137-145) mmol/L Potassium 3.5 (3.4-5.0) mmol/L Chloride 115 H (98-107) mmol/L Carbon Dioxide 14 L (22-30) mmol/L Anion Gap 8 (4-12) mmol/L BUN 25 H (7-17) mg/dL Creatinine 1.20 H (0.7-1.0) mg/dL Estim Creat Clear Calc 37 ml/min Estimated GFR 45 L (59 - ) Glucose 106 (65-110) mg/dL Calcium 8.6 (8.4-10.2) mg/dL Total Bilirubin 0.4 (0.2-1.3) mg/dL AST 19 (14-36) U/L ALT 14 (6-35) U/L Alkaline Phosphatase 116 (38-126) U/L Total Protein 6.0 L (6.3-8.2) g/dL Albumin 3.7 (3.5-5.1) g/dL Urine Color Yellow (Yellow) Urine Appearance Sl cloudy (Clear) Urine pH 5.0 (5.0-9.0) Ur Specific [place] >= 1.030 (1.001-1.035) Urine Protein 3+ H (Negative) mg/dL Urine Glucose (UA) 1+ H (Negative) mg/dL Urine Ketones 1+ H (Negative) mg/dL Ur Blood (Man) Trace-lysed H (Negative) Urine Nitrate Negative (Negative) Urine Bilirubin 2+ H (Negative) Urine Urobilinogen 0.2 (<2.0) mg/dL Leukocyte Esterase Rfl Negative (Negative) MAUREEN/UL Urine RBC None seen (0-2) /hpf Urine WBC 0-3 (0-3) /hpf Ur Transition Epith Cell Few H (None) /hpf Ur Renal Epithelial Cell Few H (None) /hpf Calcium Oxalate Crystal Present H (None) /hpf Urine Bacteria 1+ H (None) /hpf Hyaline Casts 0-2 (None) /lpf Primidone Topiramate Phenobarb (Primidon Met C. difficile (PCR) Negative (NEGATIVE) Influenza A (RT-PCR) (Negative) Influenza B (RT-PCR) (Negative) RSV (RT-PCR) (Negative) SARS-CoV-2 RNA (RT-PCR) (Negative) Imaging Data Radiologist's impression: Impressions Head CT 08/29/24 11:00 IMPRESSION: 1. Chronic encephalomalacia in the left frontal lobe. Old infarcts in the bilateral basal ganglia. 2. Stable mild nonspecific cerebral white matter disease, which likely represents chronic small vessel ischemic disease. 3. Chronic bilateral frontoparietal subdural hematomas with maximum thickness of 5 mm. 4. Unchanged size of the ventricles with shunt catheter in expected position. Abdomen/Pelvis CT 08/29/24 15:23 IMPRESSION: 1. Fluid throughout the nondilated large and small bowel study with nonspecific diarrhea. Correlate clinically for enteritis. 2. Moderate left renal atrophy which could be related to ischemia given the prominent atherosclerotic calcifications, aorta and its major branch vessels as detailed above. 3. Indeterminate 1.2 cm groundglass nodule at the anterolateral segment of the left lower lobe without significant interval change since 11/08/2023. Recommend additional one-year follow-up noncontrast chest CT. Discharge Plan Discharge Clinical Impression: Breakthrough seizure, Orthostatic hypotension Diarrhea Qualifiers: Diarrhea type: presumed infectious Qualified Code(s): R19.7 - Diarrhea, unspecified Patient Disposition: Still a Patient Condition: Serious
[2024-08-29 11:42] LABS: Alanine Aminotransferase 19 U/L (6-35); Albumin Level 4.8 g/dL (3.5-5.1); Alkaline Phosphatase 123 U/L (38-126); Anion Gap 13 mmol/L (4-12); Aspartate Amino Transferase 22 U/L (14-36); Bilirubin,Total 0.5 mg/dL (0.2-1.3); Blood Urea Nitrogen 26 mg/dL (7-17); Calcium 10.1 mg/dL (8.4-10.2); Carbon Dioxide 14 mmol/L (22-30); Chloride 112 mmol/L (98-107); Estimated CRCL calculation 30 ml/min; Estimated Glomerular Filt Rate 35; Glucose 130 mg/dL (65-110); Potassium 3.9 mmol/L (3.4-5.0); Sodium 139 mmol/L (137-145)
[2024-08-29 11:56] LABS: Basophils Absolute Auto 0.1 K/mm3 (0.0-0.1); Basophils Percent Auto 0.5 % (0.2-1.2); Eosinophils Percent Auto 0.1 % (0-4.4); Hematocrit 47.6 % (37.0-47.0); Hemoglobin 14.8 g/dL (12.0-15.0); Immature Granulocyte Absolute 0.21 K/mm3 (0.00-0.031); Immature Granulocyte Percent A 1.5 % (0-0.5); Lymphocytes Absolute Auto 0.83 K/mm3 (0.9-3.2); Lymphocytes Percent Auto 5.8 % (18.3-44.2); Mean Corpuscular HGB Conc 31.1 g/dl (32-36); Mean Platelet Volume 9.5 fl (7.4-10.4); Monocytes Absolute Auto 0.8 K/mm3 (0.1-0.6); Monocytes Percent Auto 5.4 % (2.6-8.5); Neutrophils Absolute Auto 12.4 K/mm3 (1.3-6.7); Neutrophils Percent Auto 86.7 % (45.5-73.1); Platelet Count Result 334 k/mm3 (150-375); Red Blood Count 5.29 M/mm3 (4.2-5.4); Red Cell Distribution Width 15.2 % (11.5-14.5); White Blood Count 14.3 K/mm3 (4.5-10.0)
[2024-08-29 12:03] LABS: Influenza A QL RT-PCR Negative (Negative); Influenza B QL RT-PCR Negative (Negative); RSV RNA, RT-PCR Negative (Negative); SARS-CoV-2 RNA PCR Negative (Negative)
[2024-08-29 12:10] LABS: Prothrombin Time 13.3 Seconds (11.1-14.7)
[2024-08-29 12:11] LABS: Partial Thromboplastin Time 29.2 Seconds (22.3-36.8)
--- NOTE | 2024-08-29 12:11 | PC.NURSE ---
1120: Pt assisted up to BSC large amount of liquid stool, experienced seizure activity, x4 extremities with tremors, loss of consciousness, dusky skin color. Pt responding to sternal stimuli. Lifted to stretcher Dr. Hummel at bedside orders received.
--- NOTE | 2024-08-29 12:14 | PC.NURSE ---
While attempting to straight cath pt, pt incontinent of large amount of liquid stool. Pt hypotensive, Dr. Hummel informed
[2024-08-29] MEDS: SODIUM CHLORIDE 0.9% IV 1,000 ML 999 ML IV CONT (12:20)
--- NOTE | 2024-08-29 12:22 | PC.NURSE ---
B/P manually checked 55/40. Dr. Hummel informed & IV bolus started
--- NOTE | 2024-08-29 13:32 | PC.NURSE ---
Pt incontinent of moderate amount of liquid stool. Specimen collected for C-diff
[2024-08-29 13:49] LABS: Appearance Urine Sl Cloudy (Clear); Color Urine Yellow (Yellow)
[2024-08-29 13:51] LABS: Bilirubin Urine 2+ (Negative); Blood Urine Trace-Lysed (Negative); Glucose Urine UA 1+ mg/dL (Negative); Ketones Urine 1+ mg/dL (Negative); Nitrate Urine Negative (Negative); Protein Urine 3+ mg/dL (Negative); Specific Grav Ur >= 1.030 (1.001-1.035); Urobilinogen Urine 0.2 mg/dL (<2.0)
[2024-08-29 13:52] LABS: Add Urine Microscopic? YES; Leukocyte Esterase Ur Negative LEU/UL (Negative)
[2024-08-29 14:18] LABS: Bacteria Urine 1+ /hpf; Calcium Oxalate Crystals Urine Present /hpf
[2024-08-29 14:22] LABS: Toxigenic C. Diff NEGATIVE (NEGATIVE)
[2024-08-29 14:22] LABS: Renal Epithelial Cells Urine Few /hpf; Transitional Epi Cells Urine Few /hpf
[2024-08-29 14:23] LABS: Hyaline Casts Urine 0-2 /lpf; RBC Urine None seen /hpf (0-2); WBC Urine 0-3 /hpf (0-3)
--- NOTE | 2024-08-29 14:46 | PC.NURSE ---
Debora nurse from [facility] called for pt update. Update given RN states will call Debora when decision of dispo decided
[2024-08-29] MEDS: SODIUM CHLORIDE 0.9% IV 1,000 ML 75 ML IV CONT (15:10)
--- NOTE | 2024-08-29 15:19 | PC.NURSE ---
No seizure noted since last seizure. Pt A/O x4 family at bedside. Agreeable to POC
--- NOTE | 2024-08-29 15:42 | PC.NURSE ---
[facility] nurse called inform of pt admission to hospital. Brother aware.
--- NOTE | 2024-08-29 15:45 | ADMGEN ---
This patient, Anjelica Pena, was admitted to IMU Room 204-01. Patient/family oriented to hospital policies and general routines including ID bracelet, bed and alarms, visiting hours, pain management, procedures, bathroom and other care routines, personal items, smoking policy, room service/diet, and visiting hours. Information on how to activate the Rapid Response Team has been discussed. Patient/Family are encouraged to report perceived risks to care and to ask questions if they do not understand what they are told or what they should do.
[2024-08-29] MEDS: LOPERAMIDE HCL 2 MG CAPSULE 4 MG PO (17:41)
--- NOTE | 2024-08-29 19:26 | PM.IMHP ---
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 The patient had been participating in physical therapy when she became pale cool and diaphoretic and had some twitching. [facility] staff was concerned that she may be having a breakthrough seizure. The patient had been having multiple diarrheal stools for the last several days. On arrival to the ER patient was hypotensive with systolic blood pressures in the mid 80s. Her blood pressures improved with a fluid bolus but when she got up to the bedside commode to have a bowel movement her blood pressures dropped into the 70s and 80s again. She became diaphoretic and unresponsive. When she was laid flat her blood pressures improved and she returned to her baseline level of awareness. The patient had not had any missed doses of her primidone or topiramate. She denied having any fevers or chills. However shortly after my evaluation the patient did spike a fever up to 100.2?. She also developed acute tachycardia with heart rate in the 130s. The patient reports that she just has not felt good. She denies any chest pain, shortness breast or cough. The patient does have poor short-term memory and initially could not tell me how many days she was having diarrhea. She actually told me that she has been having diarrhea up to 2 weeks. Although custodial records and ER records state the patient had been having 3-4 days. The patient denied having any associated abdominal pain. Her C diff testing in the ER was negative. She did have some mild leukocytosis. She received 1 L fluid bolus in the ER and was placed on maintenance fluids at 75 mL an hour because patient has known systolic heart failure. She has chronic intermittent urinary incontinence. She reports that she sometimes has some dysuria but cannot give me specifics or if it is increased from baseline or if it is currently ongoing. It does not appear that she has been on any recent antibiotic therapy. Review of Systems Review of Systems: 12 systems were reviewed with pertinent positives and negatives per HPI. Except as documented in the HPI, all other systems were reviewed and are negative. However limited due to the patient's history of traumatic brain injury, memory loss and CVA. [facility] Past Medical History Medical History (Updated 08/29/24 @ 20:34 by Rupal Dickerson DO) Combined systolic and diastolic congestive heart failure Echocardiogram May 2024 demonstrated EF of 30-5 to 40%, mildly increased left ventricular wall thickness, normal right ventricular systolic function, severe left atrial enlargement, moderate mitral valve regurgitation, mild tricuspid regurgitation, abnormal diastolic function, moderate pericardial effusion with invagination of the right atrial free wall consistent with increased intrapericardial pressure Colon cancer screening Seizure disorder Gastroesophageal reflux disease Chronic obstructive pulmonary disease Cerebrovascular accident Traumatic brain injury Age 9. Hypertension Idiopathic aplastic anemia Normal pressure hydrocephalus Surgical History Surgical History History of gastrostomy tube placement History of exploratory laparotomy History of tracheostomy as a child Family History Family History Mother Scarring of lung COPD (chronic obstructive pulmonary disease) Hypertension Father Chronic back pain Sibling Ruptured appendix Social History Social History (Updated 08/29/24 @ 19:53 by Rupal Dickerson DO) Social History: Patient reports that she used to smoke about a pack of cigarettes per day but quit many years ago. She used to occasionally drink a moderate amount of alcohol but has not done so in many years. She is [place] [facility] [place]. Healthcare power of patent prosecution attorney: Jada Pena, mother. Code status: Full code. Smoking packs per day: 1 Smoking cigarettes per day: 20.0 Years smoked: 25 Smoking pack-years: 25.00 Smoking status: Former smoker Tobacco type: cigarettes Second hand tobacco smoke exposure: Yes Alcohol intake: never Substance use: never Substance use type: does not use Do You Feel Safe in your Home?: Yes Lack of Transportation: No Lack of Food: Never True Current Housing: I Have Housing Concerned About Future Housing: No Difficulty Paying Gas/Electric Bills: No Difficulty Paying for Meds: No Currently Unemployed: No Education: High School Diploma/GED Difficulty w/ Childcare or Family Care: No Living arrangements: assisted living Spiritual care concerns: No Meds Home Medications and Allergies Home Medications ?Medication ?Instructions ?Recorded ?Confirmed ?Type calcium 600 mg (as carbonate)-vit 1 tablet PO DAILY 09/23/22 08/29/24 History D3 10 mcg (400 unit)-minerals tablet cetirizine 10 mg tablet (Allergy 10 mg PO DAILY 09/23/22 08/29/24 History Relief (cetirizine)) citalopram 10 mg tablet 10 mg PO DAILY 09/23/22 08/29/24 History ipratropium 20 mcg-albuterol 100 1 puff inhalation QID 09/23/22 08/29/24 History mcg/actuation mist for inhalation (Combivent Respimat) montelukast 10 mg tablet 10 mg PO DAILY 09/23/22 08/29/24 History (Singulair) omeprazole 20 mg tablet,delayed 20 mg PO DAILY 09/23/22 08/29/24 History release propylene glycol 0.6 % eye drops 1 drp EACH EYE DAILY 09/23/22 08/29/24 History (Systane Complete) acetaminophen 325 mg tablet 650 mg PO BID PRN pain 11/09/23 08/29/24 History ascorbic acid (vitamin C) 500 mg PO DAILY 11/09/23 08/29/24 History ergocalciferol (vitamin D2) 1,250 mcg PO WEEKLY 11/09/23 08/29/24 History primidone 50 mg tablet 50 mg PO DAILY 11/09/23 08/29/24 History topiramate 100 mg tablet 100 mg PO BID 11/09/23 08/29/24 History carboxymethylcellulose sodium 1 % 1 drp EACH EYE BID PRN Dry Eyes 02/11/24 08/29/24 History eye drops (Artificial Tears (carboxymethylcellulose)) fluticasone 100 mcg-salmeterol 50 1 inh inhalation BID 02/11/24 08/29/24 History mcg/dose blistr powdr for inhalation empagliflozin 10 mg tablet 10 mg PO DAILY #30 tabs 05/23/24 08/29/24 Rx (Jardiance) metoprolol succinate 50 mg 50 mg PO QAM #30 tabs 05/23/24 08/29/24 Rx tablet,extended release 24 hr sacubitril 24 mg-valsartan 26 mg 1 tablet PO Q12HR #60 tabs 05/23/24 08/29/24 Rx tablet (Entresto) spironolactone 25 mg tablet 25 mg PO QAM #30 tabs 05/23/24 08/29/24 Rx furosemide 40 mg tablet 40 mg PO DAILY #30 tabs 06/13/24 08/29/24 Rx albuterol sulfate 90 mcg/actuation 2 puff inhalation Q6H PRN 08/29/24 08/29/24 History aerosol inhaler (Ventolin HFA) shortness of breath or wheezing ipratropium 20 mcg-albuterol 100 1 puff inhalation QID 08/29/24 08/29/24 History mcg/actuation mist for inhalation (Combivent Respimat) polysaccharide iron complex 150 mg 300 mg PO DAILY 08/29/24 08/29/24 History iron capsule (iFerex 150) Allergies Allergy/AdvReac Type Severity Reaction Status Date / Time No Known Allergies Allergy Verified 08/29/24 17:36 Vital Signs Vital Signs - 24 hr 08/29/24 10:34 08/29/24 10:36 08/29/24 10:36 Temperature 97.5 F L Pulse Rate 74 72 Respiratory Rate 20 Blood Pressure 86/60 L Pulse Oximetry 95 96 Oxygen Delivery Room Air Room Air 08/29/24 10:42 08/29/24 10:44 08/29/24 10:56 Temperature 97.8 F Pulse Rate 75 69 Respiratory Rate 18 20 Blood Pressure 84/58 L 72/52 L Pulse Oximetry 95 95 95 Oxygen Delivery Room Air 08/29/24 11:00 08/29/24 11:01 08/29/24 11:16 Temperature Pulse Rate 69 67 Respiratory Rate 20 15 Blood Pressure 66/45 L Pulse Oximetry 94 92 100 Oxygen Delivery 08/29/24 11:19 08/29/24 11:20 08/29/24 11:30 Temperature Pulse Rate 76 71 Respiratory Rate 14 19 Blood Pressure 100/55 L Pulse Oximetry 94 93 Oxygen Delivery Room Air 08/29/24 11:31 08/29/24 11:55 08/29/24 12:22 Temperature Pulse Rate 73 70 69 Respiratory Rate 21 H 19 20 Blood Pressure 68/48 L 66/49 L 63/48 L Pulse Oximetry 94 100 100 Oxygen Delivery 08/29/24 12:54 08/29/24 13:30 08/29/24 14:00 Temperature 97.8 F Pulse Rate 65 78 82 Respiratory Rate 18 16 16 Blood Pressure 84/56 L 102/71 91/60 L Pulse Oximetry 100 100 99 Oxygen Delivery 08/29/24 14:33 08/29/24 15:34 08/29/24 16:00 Temperature 97.6 F Pulse Rate 81 94 93 Respiratory Rate 16 20 Blood Pressure 99/56 L 114/75 Pulse Oximetry 100 98 Oxygen Delivery 08/29/24 16:00 08/29/24 16:15 08/29/24 18:00 Temperature 98.4 F Pulse Rate 96 130 H Respiratory Rate 18 Blood Pressure 122/61 Pulse Oximetry 100 100 Oxygen Delivery Room Air 08/29/24 18:45 Temperature 100.2 F H Pulse Rate Respiratory Rate Blood Pressure Pulse Oximetry Oxygen Delivery Exam Narrative: Weight 61 kg BMI 22.4 Const: Other: Chronically ill-appearing, no acute distress, height weight proportionate HENMT: Other: Patient has chronic facial asymmetry with drooping of the left eye and left nasal labial fold, mucous membranes are tacky, no oral pharyngeal erythema, upper and lower dentures in place Eyes: Other: Pupils are equal and reactive, patient has chronic droop of the left lower eyelid Neck: Other: Prior tracheostomy scar, otherwise trachea is midline, no obvious lymphadenopathy or tenderness to palpation Resp: Other: Clear to auscultation bilaterally, no increased work of breathing Cardio: Other: Regular rate, regular rhythm, 2+ bilateral radial pedal pulses GI: Other: Hyperactive bowel sounds, soft, nontender, nondistended : Other: Incontinent of urine Skin: Other: Warm to touch, non jaundice, mild mottling to bilateral lower extremities up to mid calf Neuro: Other: Patient is alert oriented person, place and what brought her to the hospital, her speech is clear but slow, she has chronic left facial droop, she has normal gross motor function but mild fine motor delays Extrem: Other: No clubbing, cyanosis or edema, moves all extremities equally, 5/5 linen attendant strength bilaterally Psych: Other: Pleasant and cooperative, calm H&P: Results Labs Labs: Laboratory Tests 08/29/24 11:46 08/29/24 11:20 08/29/24 08/29/24 08/29/24 11:20 11:22 11:46 WBC 14.3 H RBC 5.29 Hgb 14.8 Hct 47.6 H MCV 90.0 MCH 28.0 MCHC 31.1 L RDW 15.2 H Plt Count 334 MPV 9.5 Immature Gran % (Auto) 1.5 H Neut % (Auto) 86.7 H Lymph % (Auto) 5.8 L [place] % (Auto) 5.4 Eos % (Auto) 0.1 Baso % (Auto) 0.5 Lymph # (Auto) 0.83 L [place] # (Auto) 0.8 H Eos # (Auto) 0.0 Baso # (Auto) 0.1 Abs Immat Gran (auto) 0.21 H Absolute Neuts (auto) 12.4 H Absolute Nucleated RBC 0.000 Nucleated RBC % 0.0 PT 13.3 INR 1.0 APTT 29.2 Sodium 139 Potassium 3.9 Chloride 112 H Carbon Dioxide 14 L Anion Gap 13 H BUN 26 H Creatinine 1.50 H Estim Creat Clear Calc 30 Estimated GFR 35 L Glucose 130 H Calcium 10.1 Total Bilirubin 0.5 AST 22 ALT 19 Alkaline Phosphatase 123 Total Protein 9.0 H Albumin 4.8 Urine Color Urine Appearance Urine pH Ur Specific [place] Urine Protein Urine Glucose (UA) Urine Ketones Ur Blood (Man) Urine Nitrate Urine Bilirubin Urine Urobilinogen Leukocyte Esterase Rfl Urine RBC Urine WBC Ur Transition Epith Cell Ur Renal Epithelial Cell Calcium Oxalate Crystal Urine Bacteria Hyaline Casts Primidone Pending Topiramate Pending Phenobarb (Primidon Met Pending C. difficile (PCR) Influenza A (RT-PCR) Negative Influenza B (RT-PCR) Negative RSV (RT-PCR) Negative SARS-CoV-2 RNA (RT-PCR) Negative 08/29/24 08/29/24 13:29 13:30 WBC RBC Hgb Hct MCV MCH MCHC RDW Plt Count MPV Immature Gran % (Auto) Neut % (Auto) Lymph % (Auto) [place] % (Auto) Eos % (Auto) Baso % (Auto) Lymph # (Auto) [place] # (Auto) Eos # (Auto) Baso # (Auto) Abs Immat Gran (auto) Absolute Neuts (auto) Absolute Nucleated RBC Nucleated RBC % PT INR APTT Sodium Potassium Chloride Carbon Dioxide Anion Gap BUN Creatinine Estim Creat Clear Calc Estimated GFR Glucose Calcium Total Bilirubin AST ALT Alkaline Phosphatase Total Protein Albumin Urine Color Yellow Urine Appearance Sl cloudy Urine pH 5.0 Ur Specific [place] >= 1.030 Urine Protein 3+ H Urine Glucose (UA) 1+ H Urine Ketones 1+ H Ur Blood (Man) Trace-lysed H Urine Nitrate Negative Urine Bilirubin 2+ H Urine Urobilinogen 0.2 Leukocyte Esterase Rfl Negative Urine RBC None seen Urine WBC 0-3 Ur Transition Epith Cell Few H Ur Renal Epithelial Cell Few H Calcium Oxalate Crystal Present H Urine Bacteria 1+ H Hyaline Casts 0-2 Primidone Topiramate Phenobarb (Primidon Met C. difficile (PCR) Negative Influenza A (RT-PCR) Influenza B (RT-PCR) RSV (RT-PCR) SARS-CoV-2 RNA (RT-PCR) Impressions Head CT 08/29/24 11:00 IMPRESSION: 1. Chronic encephalomalacia in the left frontal lobe. Old infarcts in the bilateral basal ganglia. 2. Stable mild nonspecific cerebral white matter disease, which likely represents chronic small vessel ischemic disease. 3. Chronic bilateral frontoparietal subdural hematomas with maximum thickness of 5 mm. 4. Unchanged size of the ventricles with shunt catheter in expected position. Abdomen/Pelvis CT 08/29/24 15:23 IMPRESSION: 1. Fluid throughout the nondilated large and small bowel study with nonspecific diarrhea. Correlate clinically for enteritis. 2. Moderate left renal atrophy which could be related to ischemia given the prominent atherosclerotic calcifications, aorta and its major branch vessels as detailed above. 3. Indeterminate 1.2 cm groundglass nodule at the anterolateral segment of the left lower lobe without significant interval change since 11/08/2023. Recommend additional one-year follow-up noncontrast chest CT. EKG: Measurements Intervals [place] Rate: 66 P: 11 WV: 145 QRS: 19 QRSD: 89 T: 72 QT: 451 QTc: 473 Interpretive Statements SINUS RHYTHM POSSIBLE LEFT ATRIAL ENLARGEMENT [-0.1mV P-WAVE IN V1/V2] ST AND T-WAVE ABNORMALITY CONSIDER LATERAL ISCHEMIA ABNORMAL ECG Assessment and Plan Assessment and plan (1) Diarrhea: Qualifiers: Diarrhea type: presumed infectious Qualified Code(s): R19.7 - Diarrhea, unspecified Code(s): R19.7 - Diarrhea, unspecified Status: Acute (2) Sepsis: Qualifiers: Sepsis type: sepsis due to unspecified organism Sepsis acute organ dysfunction status: with acute organ dysfunction Severe sepsis acute organ dysfunction type: acute renal failure Acute renal failure type: unspecified Severe sepsis shock status: without septic shock Qualified Code(s): A41.9 - Sepsis, unspecified organism; R65.20 - Severe sepsis without septic shock; N17.9 - Acute kidney failure, unspecified Code(s): A41.9 - Sepsis, unspecified organism Status: Acute (3) Vasovagal syncope: Code(s): R55 - Syncope and collapse Status: Acute (4) Hypotension due to hypovolemia: Code(s): E86.1 - Hypovolemia Status: Acute (5) Acute kidney injury: Code(s): N17.9 - Acute kidney failure, unspecified Status: Acute (6) Chronic obstructive pulmonary disease: Qualifiers: COPD type: unspecified COPD Qualified Code(s): J44.9 - Chronic obstructive pulmonary disease, unspecified Code(s): J44.9 - Chronic obstructive pulmonary disease, unspecified Status: Chronic Plan Patient has sepsis due to presumed acute infectious diarrhea. However will still need to obtain blood cultures prior to antibiotic administration. Will start patient on Rocephin and Flagyl. The patient received 1 L fluid bolus however given her history of combined systolic and diastolic heart failure and the resolution of the patient's hypotension with only 1 L fluid bolus would like to avoid given the patient additional fluid boluses at this time. Will continue patient on maintenance IV fluids and monitor strict I&O's and daily weights. Will order stool cultures. Will repeat CBC in a.m. Patient has acute kidney injury due to combination of hypovolemia, sepsis and nephrotoxic medications. Will hold the patient's home antihypertensives, diuretics and will repeat electrolyte panel in a.m.. Patient did not have a breakthrough seizure instead she had syncope due to hypotension. Hypotension was likely due to a combination of hypovolemia and vasovagal in nature. Will hold antihypertensives and monitor. Will check orthostatic vital signs in a.m. Will place patient on p.r.n. Xopenex and Atrovent nebulizers. Will resume the patient's home primidone and Topamax. Patient has been admitted as observation status. Quality VTE Prophylaxis VTE prophylaxis: pharmacologic ordered (Heparin 5000 units subQ q.12 hours)
[2024-08-29] MEDS: ACETAMINOPHEN 325 MG TABLET 650 MG PO (19:31)
[2024-08-29] MEDS: FLUTICASONE/SALMETEROL 45-21 MCG INHALER 1 PUFF 2 PUFF INHALATION (20:50)
[2024-08-29] MEDS: TOPIRAMATE 100 MG TABLET PO (20:57)
[2024-08-29] MEDS: HEPARIN SODIUM 5,000 UNITS/ML VIAL 5000 UNITS SUB-Q (22:32)
[2024-08-29] MEDS: metroNIDAZOLE 500 MG/ISO 100ML 500 MG/100 ML BAG 100 MG IVPB (22:33)
[2024-08-30] VITALS (15 sets, daily range): BP systolic 128–164; BP diastolic 55–94; PULSE 75–117; RESP 12–24; TEMP 36.5–38.2; O2SAT 92–99
[2024-08-30 04:55] LABS: Basophils Percent Auto 0.3 % (0.2-1.2); Hematocrit 40.9 % (37.0-47.0); Hemoglobin 12.8 g/dL (12.0-15.0); Immature Granulocyte Absolute 0.12 K/mm3 (0.00-0.031); Immature Granulocyte Percent A 1.8 % (0-0.5); Lymphocytes Absolute Auto 0.58 K/mm3 (0.9-3.2); Lymphocytes Percent Auto 8.8 % (18.3-44.2); Mean Corpuscular HGB Conc 31.3 g/dl (32-36); Mean Corpuscular Hemoglobin 27.6 pg (26-34); Mean Corpuscular Volume 88.3 fl (80-100); Mean Platelet Volume 9.9 fl (7.4-10.4); Monocytes Absolute Auto 0.5 K/mm3 (0.1-0.6); Neutrophils Absolute Auto 5.4 K/mm3 (1.3-6.7); Neutrophils Percent Auto 82.1 % (45.5-73.1); Platelet Count Result 201 k/mm3 (150-375); Red Blood Count 4.63 M/mm3 (4.2-5.4); Red Cell Distribution Width 15.4 % (11.5-14.5); White Blood Count 6.6 K/mm3 (4.5-10.0)
[2024-08-30 05:06] LABS: Alanine Aminotransferase 14 U/L (6-35); Albumin Level 3.7 g/dL (3.5-5.1); Alkaline Phosphatase 116 U/L (38-126); Anion Gap 8 mmol/L (4-12); Aspartate Amino Transferase 19 U/L (14-36); Bilirubin,Total 0.4 mg/dL (0.2-1.3); Blood Urea Nitrogen 25 mg/dL (7-17); Calcium 8.6 mg/dL (8.4-10.2); Carbon Dioxide 14 mmol/L (22-30); Chloride 115 mmol/L (98-107); Estimated CRCL calculation 37 ml/min; Estimated Glomerular Filt Rate 45; Glucose 106 mg/dL (65-110); Potassium 3.5 mmol/L (3.4-5.0); Sodium 137 mmol/L (137-145)
[2024-08-30] MEDS: SODIUM CHLORIDE 0.9% IV 1,000 ML 75 ML IV CONT (05:26)
[2024-08-30] MEDS: metroNIDAZOLE 500 MG/ISO 100ML 500 MG/100 ML BAG 100 MG IVPB ×3 (05:26→21:19)
[2024-08-30] MEDS: FLUTICASONE/SALMETEROL 45-21 MCG INHALER 1 PUFF 2 PUFF INHALATION ×2 (07:53→20:03)
--- NOTE | 2024-08-30 08:40 | PM.IMPN ---
Progress Note: A&P Assessment and Plan (1) Diarrhea: Qualifiers: Diarrhea type: presumed infectious Qualified Code(s): R19.7 - Diarrhea, unspecified Code(s): R19.7 - Diarrhea, unspecified Status: Acute (2) Sepsis: Qualifiers: Acute renal failure type: unspecified Sepsis acute organ dysfunction status: with acute organ dysfunction Sepsis type: sepsis due to unspecified organism Severe sepsis acute organ dysfunction type: acute renal failure Severe sepsis shock status: without septic shock Qualified Code(s): A41.9 - Sepsis, unspecified organism; R65.20 - Severe sepsis without septic shock; N17.9 - Acute kidney failure, unspecified Code(s): A41.9 - Sepsis, unspecified organism Status: Acute (3) Vasovagal syncope: Code(s): R55 - Syncope and collapse Status: Acute (4) Hypotension due to hypovolemia: Code(s): E86.1 - Hypovolemia Status: Acute (5) Acute kidney injury: Code(s): N17.9 - Acute kidney failure, unspecified Status: Acute (6) Chronic obstructive pulmonary disease: Qualifiers: COPD type: unspecified COPD Qualified Code(s): J44.9 - Chronic obstructive pulmonary disease, unspecified Code(s): J44.9 - Chronic obstructive pulmonary disease, unspecified Status: Chronic Plan this is a 69-year-old female who presents to the ER with diarrhea for the past few days. While she was doing physical therapy in the nursing facility where she resides she became very pale and thought she was having possible seizure like activity with some twitching. She was then transferred to the ED via EMS for further evaluation. arrival to the ED blood pressure was low in mid 80s. Improved with fluid bolus however when she got up to go to the bedside commode to have a bowel movement her blood pressure dropped in 70s to 80s and became diaphoretic and unresponsive. When she was laid flat her blood pressure improved and returned to her baseline level of awareness. Patient did not have any history of fever but did spike a fever in the ER to 100.2 was tachycardic. No chest pain shortness of breath or cough. No abdominal pain. C diff test was performed in the ER and was negative. Laboratory evaluation showed mild leukocytosis. Hemoglobin normal creatinine was 1.5 electrolytes were unremarkable. Influenza are SARS COVID and RSV swab was negative. Urinalysis was negative for UTI. CT head showed chronic encephalomalacia in the left frontal lobe old infarct in the bilateral basal ganglia. Stable mild nonspecific cerebral white matter disease which likely represents chronic small vessel ischemic disease. Chronic bilateral frontoparietal subdural hematomas with maximum thickness of 5 mm. Unchanged size of the ventricles with shock catheter in expected position. Abdominal pelvis CT performed showed fluid throughout the nondilated large and small bowel study with nonspecific diarrhea. Correlate for enteritis. moderate left renal atrophy which could be related to ischemia given the prominent atherosclerotic calcifications, aorta and its branch vessels. Indeterminate 1.2 cm ground-glass nodule at the anterolateral segment of the left lower lobe without significant interval change since November 08, 2023. Recommend additional 1 year follow-up noncontrast chest CT. Patient diagnosis sepsis likely due to acute infectious diarrhea. Patient started on IV Rocephin and Flagyl. Continue IV fluids. History of combined systolic and diastolic heart failure cautious IV fluid use. EF 35-40% 05/27. Usually on metoprolol Entresto Jardiance spironolactone and Lasix. ILA mild Mild metabolic acidosis add oral bicarb. Possible breakthrough seizure on likely. Twitching likely related to syncope due to hypotension. 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 Denies any dizziness Or shortness of breath or chest pain. Review of Systems Review of Systems: All systems reviewed & are unremarkable except as noted in HPI and below Exam Narrative: GENERAL: The patient is well developed, not in acute distress HEENT: Nonicteric sclerae, PERRLA, EOMI. Oropharynx clear. Moist mucous membranes. Conjunctivae appear well perfused. CHEST: Chest wall is nontender. HEART: Regular rate and rhythm without murmur, rubs, or gallops LUNGS: Clear to auscultation bilaterally. no respiratory distress ABDOMEN: Soft, positive bowel sounds, non-tender, no organomegaly. SKIN: No rash, no excessive bruising, petechiae, or purpura. NEUROLOGIC: Cranial nerves II-XII intact, alert and oriented x 3, no gross motor deficits EXTREMITIES: no edema, cyanosis or clubbing Objective Data Vital Signs Vital Signs: Vital Signs - 24 hr 08/29/24 10:34 08/29/24 10:36 08/29/24 10:36 Temperature 97.5 F L Pulse Rate 74 72 Respiratory Rate 20 Blood Pressure 86/60 L Pulse Oximetry 95 96 Oxygen Delivery Room Air Room Air 08/29/24 10:42 08/29/24 10:44 08/29/24 10:56 Temperature 97.8 F Pulse Rate 75 69 Respiratory Rate 18 20 Blood Pressure 84/58 L 72/52 L Pulse Oximetry 95 95 95 Oxygen Delivery Room Air 08/29/24 11:00 08/29/24 11:01 08/29/24 11:16 Temperature Pulse Rate 69 67 Respiratory Rate 20 15 Blood Pressure 66/45 L Pulse Oximetry 94 92 100 Oxygen Delivery 08/29/24 11:19 08/29/24 11:20 08/29/24 11:30 Temperature Pulse Rate 76 71 Respiratory Rate 14 19 Blood Pressure 100/55 L Pulse Oximetry 94 93 Oxygen Delivery Room Air 08/29/24 11:31 08/29/24 11:55 08/29/24 12:22 Temperature Pulse Rate 73 70 69 Respiratory Rate 21 H 19 20 Blood Pressure 68/48 L 66/49 L 63/48 L Pulse Oximetry 94 100 100 Oxygen Delivery 08/29/24 12:54 08/29/24 13:30 08/29/24 14:00 Temperature 97.8 F Pulse Rate 65 78 82 Respiratory Rate 18 16 16 Blood Pressure 84/56 L 102/71 91/60 L Pulse Oximetry 100 100 99 Oxygen Delivery 08/29/24 14:33 08/29/24 15:34 08/29/24 16:00 Temperature 97.6 F Pulse Rate 81 94 93 Respiratory Rate 16 20 Blood Pressure 99/56 L 114/75 Pulse Oximetry 100 98 Oxygen Delivery 08/29/24 16:00 08/29/24 16:15 08/29/24 18:00 Temperature 98.4 F Pulse Rate 96 130 H Respiratory Rate 18 Blood Pressure 122/61 Pulse Oximetry 100 100 Oxygen Delivery Room Air 08/29/24 18:45 08/29/24 19:31 08/29/24 19:54 Temperature 100.2 F H 100.2 F H 101.5 F H Pulse Rate 126 H Respiratory Rate 26 H Blood Pressure 129/79 Pulse Oximetry 100 Oxygen Delivery 08/29/24 20:00 08/29/24 20:00 08/29/24 20:51 Temperature Pulse Rate 124 H 133 H Respiratory Rate 20 Blood Pressure Pulse Oximetry Oxygen Delivery Room Air 08/29/24 20:54 08/29/24 22:00 08/30/24 00:00 Temperature 100.5 F H 100.3 F H Pulse Rate 116 H 110 H Respiratory Rate 24 H Blood Pressure 141/65 H Pulse Oximetry 92 Oxygen Delivery 08/30/24 00:00 08/30/24 00:00 08/30/24 02:00 Temperature Pulse Rate 106 H 111 H Respiratory Rate Blood Pressure Pulse Oximetry Oxygen Delivery Room Air 08/30/24 04:00 08/30/24 04:00 08/30/24 04:00 Temperature 100.7 F H Pulse Rate 117 H 116 H Respiratory Rate 20 Blood Pressure 164/94 H Pulse Oximetry 98 Oxygen Delivery Room Air 08/30/24 05:50 08/30/24 07:53 08/30/24 08:00 Temperature 98.9 F Pulse Rate 108 H 104 H Respiratory Rate 20 Blood Pressure 159/71 H Pulse Oximetry 97 96 Oxygen Delivery Room Air Intake/Output Intake/Output: Intake & Output 08/27/24 08/28/24 08/29/24 08/30/24 23:59 23:59 23:59 23:59 Intake Total 1660 1700 Output Total 500 Balance 1660 1200 Meds/Results Medications: Active Medications Generic Name Dose Route Start Last Admin Trade Name Freq PRN Reason Stop Dose Admin Acetaminophen 650 mg 08/29/24 18:53 08/29/24 19:31 Acetaminophen 325 Mg Tablet PO 650 mg Q6H PRN Administration Mild Pain (1-3) or Fever Artificial Tears 1 drop 08/30/24 09:00 Artificial Tears Ophth Soln 15 Ml Bottle EACH EYE DAILY JAYNE Artificial Tears 1 drop 08/29/24 19:50 Artificial Tears Ophth Soln 15 Ml Bottle EACH EYE BID PRN Dry Eyes Calcium Carbonate 500 mg 08/30/24 09:00 Calcium/Vitamin D 500 Mg/5 Mcg (200 I.U.) Tablet PO QAM JAYNE Citalopram Hydrobromide 10 mg 08/30/24 09:00 Citalopram Hydrobromide 10 Mg Tablet PO DAILY JAYNE Heparin Sodium (Porcine) 5,000 units 08/29/24 21:00 08/29/24 22:32 Heparin Sodium 5,000 Units/Ml Vial SUB-Q 5,000 units Q12HR JAYNE Administration Sodium Chloride 1,000 mls @ 75 mls/hr 08/29/24 15:00 08/30/24 05:26 Normal Saline Iv IV CONT 75 mls/hr .[id number] JAYNE Administration Ceftriaxone Sodium 1 gm in 50 mls @ 100 mls/hr 08/29/24 20:00 08/29/24 20:54 Rocephin 1 Gm/Ns 50 Ml IVPB 100 mls/hr Q24H JAYNE Administration Metronidazole 500 mg in 100 mls @ 100 mls/hr 08/29/24 21:00 08/30/24 07:13 Flagyl 500 Mg/Iso Soln 100 Ml IVPB Infused Q8HR JAYNE Infusion Ipratropium [place] 0.5 mg 08/29/24 20:36 Ipratropium Br 0.02% Inh Soln 0.5 Mg/2.5 Ml Vial INHALATION Q6HRT PRN Shortness Of Breath Levalbuterol HCl 0.63 mg 08/29/24 20:36 Levalbuterol Neb 1.25 Mg/3 Ml INHALATION Q6HRT PRN Shortness of breath, wheezing Loperamide HCl 2 mg 08/29/24 16:48 Loperamide Hcl 2 Mg Capsule PO PRN PRN Diarrhea Loratadine 10 mg 08/30/24 09:00 Loratadine 10 Mg Tablet PO QAM [facility] Montelukast Sodium 10 mg 08/30/24 09:00 Montelukast Sodium 10 Mg Tablet PO DAILY [facility] Ondansetron HCl 4 mg 08/29/24 14:56 Ondansetron Inj 4 Mg/2 Ml Vial IV PUSH Q4H PRN Nausea Pantoprazole Sodium 40 mg 08/30/24 09:00 Pantoprazole 40 Mg Tablet PO QAM [facility] Polysaccharide Iron Complex 300 mg 08/30/24 09:00 Polysaccharide Iron Complex 150 Mg Capsule PO DAILY [facility] Primidone 50 mg 08/30/24 09:00 Primidone 50 Mg Tablet PO DAILY [facility] Fluticasone/Salmeterol 2 puff 08/29/24 20:00 08/30/24 07:53 Fluticasone/Salmeterol 45-21 Mcg Inhaler 1 Puff INHALATION 2 puff Q12HRT JAYNE Administration Topiramate 100 mg 08/29/24 20:00 08/29/24 20:57 Topiramate 100 Mg Tablet PO 100 mg BID JAYNE Administration Radiology Results: ITS Impressions Head CT 08/29/24 11:00 IMPRESSION: 1. Chronic encephalomalacia in the left frontal lobe. Old infarcts in the bilateral basal ganglia. 2. Stable mild nonspecific cerebral white matter disease, which likely represents chronic small vessel ischemic disease. 3. Chronic bilateral frontoparietal subdural hematomas with maximum thickness of 5 mm. 4. Unchanged size of the ventricles with shunt catheter in expected position. Abdomen/Pelvis CT 08/29/24 15:23 IMPRESSION: 1. Fluid throughout the nondilated large and small bowel study with nonspecific diarrhea. Correlate clinically for enteritis. 2. Moderate left renal atrophy which could be related to ischemia given the prominent atherosclerotic calcifications, aorta and its major branch vessels as detailed above. 3. Indeterminate 1.2 cm groundglass nodule at the anterolateral segment of the left lower lobe without significant interval change since 11/08/2023. Recommend additional one-year follow-up noncontrast chest CT. Labs Labs: Laboratory Results - last 24 hr 08/29/24 08/29/24 08/29/24 11:20 11:22 11:46 WBC 14.3 H RBC 5.29 Hgb 14.8 Hct 47.6 H MCV 90.0 MCH 28.0 MCHC 31.1 L RDW 15.2 H Plt Count 334 MPV 9.5 Immature Gran % (Auto) 1.5 H Neut % (Auto) 86.7 H Lymph % (Auto) 5.8 L [place] % (Auto) 5.4 Eos % (Auto) 0.1 Baso % (Auto) 0.5 Lymph # (Auto) 0.83 L [place] # (Auto) 0.8 H Eos # (Auto) 0.0 Baso # (Auto) 0.1 Abs Immat Gran (auto) 0.21 H Absolute Neuts (auto) 12.4 H Absolute Nucleated RBC 0.000 Nucleated RBC % 0.0 PT 13.3 INR 1.0 APTT 29.2 Sodium 139 Potassium 3.9 Chloride 112 H Carbon Dioxide 14 L Anion Gap 13 H BUN 26 H Creatinine 1.50 H Estim Creat Clear Calc 30 Estimated GFR 35 L Glucose 130 H Calcium 10.1 Total Bilirubin 0.5 AST 22 ALT 19 Alkaline Phosphatase 123 Total Protein 9.0 H Albumin 4.8 Urine Color Urine Appearance Urine pH Ur Specific [place] Urine Protein Urine Glucose (UA) Urine Ketones Ur Blood (Man) Urine Nitrate Urine Bilirubin Urine Urobilinogen Leukocyte Esterase Rfl Urine RBC Urine WBC Ur Transition Epith Cell Ur Renal Epithelial Cell Calcium Oxalate Crystal Urine Bacteria Hyaline Casts C. difficile (PCR) Influenza A (RT-PCR) Negative Influenza B (RT-PCR) Negative RSV (RT-PCR) Negative SARS-CoV-2 RNA (RT-PCR) Negative 08/29/24 08/29/24 08/30/24 13:29 13:30 04:09 WBC 6.6 RBC 4.63 Hgb 12.8 Hct 40.9 MCV 88.3 MCH 27.6 MCHC 31.3 L RDW 15.4 H Plt Count 201 MPV 9.9 Immature Gran % (Auto) 1.8 H Neut % (Auto) 82.1 H Lymph % (Auto) 8.8 L [place] % (Auto) 7.0 Eos % (Auto) 0.0 Baso % (Auto) 0.3 Lymph # (Auto) 0.58 L [place] # (Auto) 0.5 Eos # (Auto) 0.0 Baso # (Auto) 0.0 Abs Immat Gran (auto) 0.12 H Absolute Neuts (auto) 5.4 Absolute Nucleated RBC 0.000 Nucleated RBC % 0.0 PT INR APTT Sodium 137 Potassium 3.5 Chloride 115 H Carbon Dioxide 14 L Anion Gap 8 BUN 25 H Creatinine 1.20 H Estim Creat Clear Calc 37 Estimated GFR 45 L Glucose 106 Calcium 8.6 Total Bilirubin 0.4 AST 19 ALT 14 Alkaline Phosphatase 116 Total Protein 6.0 L Albumin 3.7 Urine Color Yellow Urine Appearance Sl cloudy Urine pH 5.0 Ur Specific [place] >= 1.030 Urine Protein 3+ H Urine Glucose (UA) 1+ H Urine Ketones 1+ H Ur Blood (Man) Trace-lysed H Urine Nitrate Negative Urine Bilirubin 2+ H Urine Urobilinogen 0.2 Leukocyte Esterase Rfl Negative Urine RBC None seen Urine WBC 0-3 Ur Transition Epith Cell Few H Ur Renal Epithelial Cell Few H Calcium Oxalate Crystal Present H Urine Bacteria 1+ H Hyaline Casts 0-2 C. difficile (PCR) Negative Influenza A (RT-PCR) Influenza B (RT-PCR) RSV (RT-PCR) SARS-CoV-2 RNA (RT-PCR)
[2024-08-30] MEDS: POLYSACCHARIDE IRON COMPLEX 150 MG CAPSULE 300 MG PO (08:59)
[2024-08-30] MEDS: MONTELUKAST SODIUM 10 MG TABLET PO (08:59)
[2024-08-30] MEDS: LORATADINE 10 MG TABLET PO (08:59)
[2024-08-30] MEDS: ACETAMINOPHEN 325 MG TABLET 650 MG PO ×2 (08:59→17:30)
[2024-08-30] MEDS: LOPERAMIDE HCL 2 MG CAPSULE PO (08:59)
[2024-08-30] MEDS: PRIMIDONE 50 MG TABLET PO (09:00)
[2024-08-30] MEDS: CALCIUM/VITAMIN D 500 MG/5 MCG (200 I.U.) TABLET PO (09:00)
[2024-08-30] MEDS: HEPARIN SODIUM 5,000 UNITS/ML VIAL 5000 UNITS SUB-Q ×2 (09:00→20:37)
[2024-08-30] MEDS: PANTOPRAZOLE 40 MG TABLET PO (09:00)
[2024-08-30] MEDS: TOPIRAMATE 100 MG TABLET PO ×2 (09:00→17:31)
[2024-08-30] MEDS: CITALOPRAM HYDROBROMIDE 10 MG TABLET PO (09:00)
[2024-08-30] MEDS: ARTIFICIAL TEARS OPHTH SOLN 15 ML BOTTLE 1 DROP EACH EYE (09:01)
[2024-08-30] MEDS: METOPROLOL SUCCINATE EXT REL 50 MG TABCR PO (09:02)
[2024-08-30] MEDS: SODIUM BICARBONATE TAB 650 MG TABLET PO (17:32)
[2024-08-31] VITALS (14 sets, daily range): BP systolic 125–164; BP diastolic 59–71; PULSE 70–103; RESP 16–22; TEMP 36.7–37.1; O2SAT 96–99
[2024-08-31 05:10] LABS: Basophils Percent Auto 0.5 % (0.2-1.2); Eosinophils Percent Auto 0.5 % (0-4.4); Hematocrit 36.8 % (37.0-47.0); Hemoglobin 11.6 g/dL (12.0-15.0); Immature Granulocyte Absolute 0.07 K/mm3 (0.00-0.031); Immature Granulocyte Percent A 1.8 % (0-0.5); Lymphocytes Absolute Auto 1.15 K/mm3 (0.9-3.2); Lymphocytes Percent Auto 30.1 % (18.3-44.2); Mean Corpuscular HGB Conc 31.5 g/dl (32-36); Mean Corpuscular Volume 88.7 fl (80-100); Mean Platelet Volume 9.9 fl (7.4-10.4); Monocytes Absolute Auto 0.5 K/mm3 (0.1-0.6); Monocytes Percent Auto 13.9 % (2.6-8.5); Neutrophils Percent Auto 53.2 % (45.5-73.1); Platelet Count Result 161 k/mm3 (150-375); Red Blood Count 4.15 M/mm3 (4.2-5.4); Red Cell Distribution Width 15.8 % (11.5-14.5); White Blood Count 3.8 K/mm3 (4.5-10.0)
[2024-08-31 05:16] LABS: Alanine Aminotransferase 13 U/L (6-35); Albumin Level 3.1 g/dL (3.5-5.1); Alkaline Phosphatase 93 U/L (38-126); Anion Gap 5 mmol/L (4-12); Aspartate Amino Transferase 20 U/L (14-36); Bilirubin,Total 0.3 mg/dL (0.2-1.3); Blood Urea Nitrogen 16 mg/dL (7-17); Calcium 8.6 mg/dL (8.4-10.2); Carbon Dioxide 18 mmol/L (22-30); Chloride 116 mmol/L (98-107); Estimated CRCL calculation 48 ml/min; Estimated Glomerular Filt Rate > 60; Glucose 88 mg/dL (65-110); Magnesium 2.1 mg/dL (1.6-2.3); Potassium 3.4 mmol/L (3.4-5.0); Sodium 139 mmol/L (137-145)
[2024-08-31] MEDS: metroNIDAZOLE 500 MG/ISO 100ML 500 MG/100 ML BAG 100 MG IVPB ×3 (05:22→22:40)
[2024-08-31] MEDS: FLUTICASONE/SALMETEROL 45-21 MCG INHALER 1 PUFF 2 PUFF INHALATION ×2 (07:49→21:11)
[2024-08-31] MEDS: CALCIUM/VITAMIN D 500 MG/5 MCG (200 I.U.) TABLET PO (08:45)
[2024-08-31] MEDS: MONTELUKAST SODIUM 10 MG TABLET PO (08:45)
[2024-08-31] MEDS: METOPROLOL SUCCINATE EXT REL 50 MG TABCR PO (08:45)
[2024-08-31] MEDS: CITALOPRAM HYDROBROMIDE 10 MG TABLET PO (08:45)
[2024-08-31] MEDS: LOPERAMIDE HCL 2 MG CAPSULE PO (08:45)
[2024-08-31] MEDS: PRIMIDONE 50 MG TABLET PO (08:45)
[2024-08-31] MEDS: SODIUM BICARBONATE TAB 650 MG TABLET PO ×2 (08:45→18:05)
[2024-08-31] MEDS: TOPIRAMATE 100 MG TABLET PO ×2 (08:45→18:05)
[2024-08-31] MEDS: POLYSACCHARIDE IRON COMPLEX 150 MG CAPSULE 300 MG PO (08:45)
[2024-08-31] MEDS: PANTOPRAZOLE 40 MG TABLET PO (08:45)
[2024-08-31] MEDS: ARTIFICIAL TEARS OPHTH SOLN 15 ML BOTTLE 1 DROP EACH EYE (08:46)
[2024-08-31] MEDS: HEPARIN SODIUM 5,000 UNITS/ML VIAL 5000 UNITS SUB-Q ×2 (08:46→21:57)
[2024-08-31] MEDS: LORATADINE 10 MG TABLET PO (08:46)
--- NOTE | 2024-08-31 10:43 | PM.IMPN ---
Progress Note: A&P Assessment and Plan (1) Diarrhea: Qualifiers: Diarrhea type: presumed infectious Qualified Code(s): R19.7 - Diarrhea, unspecified Code(s): R19.7 - Diarrhea, unspecified Status: Acute (2) Sepsis: Qualifiers: Sepsis type: sepsis due to unspecified organism Sepsis acute organ dysfunction status: with acute organ dysfunction Severe sepsis acute organ dysfunction type: acute renal failure Acute renal failure type: unspecified Severe sepsis shock status: without septic shock Qualified Code(s): A41.9 - Sepsis, unspecified organism; R65.20 - Severe sepsis without septic shock; N17.9 - Acute kidney failure, unspecified Code(s): A41.9 - Sepsis, unspecified organism Status: Acute (3) Vasovagal syncope: Code(s): R55 - Syncope and collapse Status: Acute (4) Hypotension due to hypovolemia: Code(s): E86.1 - Hypovolemia Status: Acute (5) Acute kidney injury: Code(s): N17.9 - Acute kidney failure, unspecified Status: Acute (6) Chronic obstructive pulmonary disease: Qualifiers: COPD type: unspecified COPD Qualified Code(s): J44.9 - Chronic obstructive pulmonary disease, unspecified Code(s): J44.9 - Chronic obstructive pulmonary disease, unspecified Status: Chronic Plan this is a 69-year-old female who presents to the ER with diarrhea for the past few days. While she was doing physical therapy in the nursing facility where she resides she became very pale and thought she was having possible seizure like activity with some twitching. She was then transferred to the ED via EMS for further evaluation. arrival to the ED blood pressure was low in mid 80s. Improved with fluid bolus however when she got up to go to the bedside commode to have a bowel movement her blood pressure dropped in 70s to 80s and became diaphoretic and unresponsive. When she was laid flat her blood pressure improved and returned to her baseline level of awareness. Patient did not have any history of fever but did spike a fever in the ER to 100.2 was tachycardic. No chest pain shortness of breath or cough. No abdominal pain. C diff test was performed in the ER and was negative. Laboratory evaluation showed mild leukocytosis. Hemoglobin normal creatinine was 1.5 electrolytes were unremarkable. Influenza are SARS COVID and RSV swab was negative. Urinalysis was negative for UTI. CT head showed chronic encephalomalacia in the left frontal lobe old infarct in the bilateral basal ganglia. Stable mild nonspecific cerebral white matter disease which likely represents chronic small vessel ischemic disease. Chronic bilateral frontoparietal subdural hematomas with maximum thickness of 5 mm. Unchanged size of the ventricles with shock catheter in expected position. Abdominal pelvis CT performed showed fluid throughout the nondilated large and small bowel study with nonspecific diarrhea. Correlate for enteritis. moderate left renal atrophy which could be related to ischemia given the prominent atherosclerotic calcifications, aorta and its branch vessels. Indeterminate 1.2 cm ground-glass nodule at the anterolateral segment of the left lower lobe without significant interval change since November 08, 2023. Recommend additional 1 year follow-up noncontrast chest CT. Patient diagnosis sepsis likely due to acute infectious diarrhea. Patient started on IV Rocephin and Flagyl. Treated with IV fluids has been discontinued now. History of combined systolic and diastolic heart failure cautious IV fluid use. EF 35-40% 05/27. Usually on metoprolol Entresto Jardiance spironolactone and Lasix. ILA mild Which has resolved. Mild metabolic acidosis add oral bicarb. Improved Possible breakthrough seizure on likely. Twitching likely related to syncope due to hypotension. 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 PT OT to see Subjective Date/time seen: 08/31/24 10:43 Interval history: No overnight events. Loose stools 3-4 times daily persist. No nausea vomiting. Tolerating diet. No shortness of breath or chest pain. Review of Systems Review of Systems: All systems reviewed & are unremarkable except as noted in HPI and below Exam Narrative: GENERAL: The patient is well developed, not in acute distress HEENT: Nonicteric sclerae, PERRLA, EOMI. Oropharynx clear. Moist mucous membranes. Conjunctivae appear well perfused. CHEST: Chest wall is nontender. HEART: Regular rate and rhythm without murmur, rubs, or gallops LUNGS: Clear to auscultation bilaterally. no respiratory distress ABDOMEN: Soft, positive bowel sounds, non-tender, no organomegaly. SKIN: No rash, no excessive bruising, petechiae, or purpura. NEUROLOGIC: Cranial nerves II-XII intact, alert and oriented x 3, no gross motor deficits EXTREMITIES: no edema, cyanosis or clubbing Objective Data Vital Signs Vital Signs: Vital Signs - 24 hr 08/30/24 11:40 08/30/24 11:54 08/30/24 12:00 Temperature 97.7 F Pulse Rate 84 79 Respiratory Rate 20 Blood Pressure 146/60 H Pulse Oximetry 98 Oxygen Delivery Room Air Fraction of Inspired Oxygen 08/30/24 14:00 08/30/24 16:00 08/30/24 16:00 Temperature 97.8 F Pulse Rate 82 82 Respiratory Rate 12 Blood Pressure 133/59 L Pulse Oximetry 99 Oxygen Delivery Room Air Fraction of Inspired Oxygen 08/30/24 16:00 08/30/24 18:00 08/30/24 20:00 Temperature 98.8 F Pulse Rate 79 91 92 Respiratory Rate 18 Blood Pressure 159/60 H Pulse Oximetry 98 Oxygen Delivery Fraction of Inspired Oxygen 08/30/24 20:00 08/30/24 20:30 08/30/24 22:00 Temperature Pulse Rate 92 85 Respiratory Rate Blood Pressure Pulse Oximetry Oxygen Delivery Room Air Fraction of Inspired Oxygen 08/30/24 23:52 08/31/24 00:00 08/31/24 00:00 Temperature 98.8 F Pulse Rate 75 70 Respiratory Rate 16 Blood Pressure 128/55 L Pulse Oximetry 99 Oxygen Delivery Room Air Fraction of Inspired Oxygen 08/31/24 02:00 08/31/24 04:00 08/31/24 04:00 Temperature 98.7 F Pulse Rate 77 88 Respiratory Rate 16 Blood Pressure 145/60 H Pulse Oximetry 99 Oxygen Delivery Room Air Fraction of Inspired Oxygen 08/31/24 04:00 08/31/24 06:00 08/31/24 07:49 Temperature Pulse Rate 84 86 103 H Respiratory Rate 20 Blood Pressure Pulse Oximetry Oxygen Delivery Fraction of Inspired Oxygen 08/31/24 07:49 08/31/24 08:00 08/31/24 08:00 Temperature 98.1 F Pulse Rate 92 Respiratory Rate 16 Blood Pressure 140/66 Pulse Oximetry 96 98 Oxygen Delivery Room Air Room Air Fraction of Inspired Oxygen 21 08/31/24 08:45 Temperature Pulse Rate 89 Respiratory Rate Blood Pressure Pulse Oximetry Oxygen Delivery Fraction of Inspired Oxygen Intake/Output Intake/Output: Intake & Output 08/28/24 08/29/24 08/30/24 08/31/24 23:59 23:59 23:59 23:59 Intake Total 1660 3511.3 550 Output Total 700 200 Balance 1660 2811.3 350 Meds/Results Medications: Active Medications Generic Name Dose Route Start Last Admin Trade Name Freq PRN Reason Stop Dose Admin Acetaminophen 650 mg 08/29/24 18:53 08/30/24 17:30 Acetaminophen 325 Mg Tablet PO 650 mg Q6H PRN Administration Mild Pain (1-3) or Fever Artificial Tears 1 drop 08/30/24 09:00 08/31/24 08:46 Artificial Tears Ophth Soln 15 Ml Bottle EACH EYE 1 drop DAILY JAYNE Administration Artificial Tears 1 drop 08/29/24 19:50 Artificial Tears Ophth Soln 15 Ml Bottle EACH EYE BID PRN Dry Eyes Calcium Carbonate 500 mg 08/30/24 09:00 08/31/24 08:45 Calcium/Vitamin D 500 Mg/5 Mcg (200 I.U.) Tablet PO 500 mg QAM JAYNE Administration Citalopram Hydrobromide 10 mg 08/30/24 09:00 08/31/24 08:45 Citalopram Hydrobromide 10 Mg Tablet PO 10 mg DAILY JAYNE Administration Heparin Sodium (Porcine) 5,000 units 08/29/24 21:00 08/31/24 08:46 Heparin Sodium 5,000 Units/Ml Vial SUB-Q 5,000 units Q12HR JAYNE Administration Ceftriaxone Sodium 1 gm in 50 mls @ 100 mls/hr 08/29/24 20:00 08/30/24 20:36 Rocephin 1 Gm/Ns 50 Ml IVPB 100 mls/hr Q24H JAYNE Administration Metronidazole 500 mg in 100 mls @ 100 mls/hr 08/29/24 21:00 08/31/24 05:22 Flagyl 500 Mg/Iso Soln 100 Ml IVPB 100 mls/hr Q8HR JAYNE Administration Ipratropium [place] 0.5 mg 08/29/24 20:36 Ipratropium Br 0.02% Inh Soln 0.5 Mg/2.5 Ml Vial INHALATION Q6HRT PRN Shortness Of Breath Levalbuterol HCl 0.63 mg 08/29/24 20:36 Levalbuterol Neb 1.25 Mg/3 Ml INHALATION Q6HRT PRN Shortness of breath, wheezing Loperamide HCl 2 mg 08/29/24 16:48 08/31/24 08:45 Loperamide Hcl 2 Mg Capsule PO 2 mg PRN PRN Administration Diarrhea Loratadine 10 mg 08/30/24 09:00 08/31/24 08:46 Loratadine 10 Mg Tablet PO 10 mg QAM JAYNE Administration Metoprolol Succinate 50 mg 08/30/24 09:00 08/31/24 08:45 Metoprolol Succinate Ext Rel 50 Mg Tabcr PO 50 mg QAM JAYNE Administration Montelukast Sodium 10 mg 08/30/24 09:00 08/31/24 08:45 Montelukast Sodium 10 Mg Tablet PO 10 mg DAILY JAYNE Administration Ondansetron HCl 4 mg 08/29/24 14:56 Ondansetron Inj 4 Mg/2 Ml Vial IV PUSH Q4H PRN Nausea Pantoprazole Sodium 40 mg 08/30/24 09:00 08/31/24 08:45 Pantoprazole 40 Mg Tablet PO 40 mg QAM JAYNE Administration Polysaccharide Iron Complex 300 mg 08/30/24 09:00 08/31/24 08:45 Polysaccharide Iron Complex 150 Mg Capsule PO 300 mg DAILY JAYNE Administration Primidone 50 mg 08/30/24 09:00 08/31/24 08:45 Primidone 50 Mg Tablet PO 50 mg DAILY JAYNE Administration Fluticasone/Salmeterol 2 puff 08/29/24 20:00 08/31/24 07:49 Fluticasone/Salmeterol 45-21 Mcg Inhaler 1 Puff INHALATION 2 puff Q12HRT JAYNE Administration Sodium Bicarbonate 650 mg 08/30/24 17:00 08/31/24 08:45 Sodium Bicarbonate Tab 650 Mg Tablet PO 650 mg BID JAYNE Administration Topiramate 100 mg 08/29/24 20:00 08/31/24 08:45 Topiramate 100 Mg Tablet PO 100 mg BID JAYNE Administration Radiology Results: ITS Impressions Head CT 08/29/24 11:00 IMPRESSION: 1. Chronic encephalomalacia in the left frontal lobe. Old infarcts in the bilateral basal ganglia. 2. Stable mild nonspecific cerebral white matter disease, which likely represents chronic small vessel ischemic disease. 3. Chronic bilateral frontoparietal subdural hematomas with maximum thickness of 5 mm. 4. Unchanged size of the ventricles with shunt catheter in expected position. Abdomen/Pelvis CT 08/29/24 15:23 IMPRESSION: 1. Fluid throughout the nondilated large and small bowel study with nonspecific diarrhea. Correlate clinically for enteritis. 2. Moderate left renal atrophy which could be related to ischemia given the prominent atherosclerotic calcifications, aorta and its major branch vessels as detailed above. 3. Indeterminate 1.2 cm groundglass nodule at the anterolateral segment of the left lower lobe without significant interval change since 11/08/2023. Recommend additional one-year follow-up noncontrast chest CT. Labs Labs: Laboratory Results - last 24 hr 08/31/24 04:18 WBC 3.8 L RBC 4.15 L Hgb 11.6 L Hct 36.8 L MCV 88.7 MCH 28.0 MCHC 31.5 L RDW 15.8 H Plt Count 161 MPV 9.9 Immature Gran % (Auto) 1.8 H Neut % (Auto) 53.2 Lymph % (Auto) 30.1 [place] % (Auto) 13.9 H Eos % (Auto) 0.5 Baso % (Auto) 0.5 Lymph # (Auto) 1.15 [place] # (Auto) 0.5 Eos # (Auto) 0.0 Baso # (Auto) 0.0 Abs Immat Gran (auto) 0.07 H Absolute Neuts (auto) 2.0 Absolute Nucleated RBC 0.000 Nucleated RBC % 0.0 Sodium 139 Potassium 3.4 Chloride 116 H Carbon Dioxide 18 L Anion Gap 5 BUN 16 Creatinine 0.90 Estim Creat Clear Calc 48 Estimated GFR > 60 Glucose 88 Calcium 8.6 Magnesium 2.1 Total Bilirubin 0.3 AST 20 ALT 13 Alkaline Phosphatase 93 Total Protein 6.0 L Albumin 3.1 L
--- NOTE | 2024-08-31 11:46 | PCOTNOTE ---
OT evaluation not completed 1146 due to Bed rest orders still in place.
[2024-08-31] MEDS: EMPAGLIFLOZIN 10 MG TABLET PO (12:44)
[2024-08-31] MEDS: ASCORBIC ACID 500 MG TABLET PO (12:44)
--- NOTE | 2024-08-31 19:54 | PC.NURSE ---
[place] [facility] [facility] @ 3521.
[2024-09-01] MEDS: metroNIDAZOLE 500 MG/ISO 100ML 500 MG/100 ML BAG 100 MG IVPB ×2 (05:47→14:06)
[2024-09-01 06:00] VITALS: BP 160/69; PULSE 80; RESP 16; TEMP 36.4; O2SAT 99
[2024-09-01 06:47] LABS: Basophils Percent Auto 0.5 % (0.2-1.2); Eosinophils Percent Auto 0.5 % (0-4.4); Hematocrit 35.2 % (37.0-47.0); Hemoglobin 11.2 g/dL (12.0-15.0); Immature Granulocyte Absolute 0.04 K/mm3 (0.00-0.031); Immature Granulocyte Percent A 0.9 % (0-0.5); Lymphocytes Absolute Auto 1.28 K/mm3 (0.9-3.2); Lymphocytes Percent Auto 30.3 % (18.3-44.2); Mean Corpuscular HGB Conc 31.8 g/dl (32-36); Mean Corpuscular Hemoglobin 27.7 pg (26-34); Mean Corpuscular Volume 86.9 fl (80-100); Mean Platelet Volume 9.7 fl (7.4-10.4); Monocytes Absolute Auto 0.5 K/mm3 (0.1-0.6); Monocytes Percent Auto 11.6 % (2.6-8.5); Neutrophils Absolute Auto 2.4 K/mm3 (1.3-6.7); Neutrophils Percent Auto 56.2 % (45.5-73.1); Platelet Count Result 167 k/mm3 (150-375); Red Blood Count 4.05 M/mm3 (4.2-5.4); Red Cell Distribution Width 15.6 % (11.5-14.5); White Blood Count 4.2 K/mm3 (4.5-10.0)
[2024-09-01 07:04] LABS: Alanine Aminotransferase 11 U/L (6-35); Albumin Level 3.1 g/dL (3.5-5.1); Alkaline Phosphatase 87 U/L (38-126); Anion Gap 5 mmol/L (4-12); Aspartate Amino Transferase 17 U/L (14-36); Bilirubin,Total 0.3 mg/dL (0.2-1.3); Blood Urea Nitrogen 13 mg/dL (7-17); Calcium 8.6 mg/dL (8.4-10.2); Carbon Dioxide 19 mmol/L (22-30); Chloride 114 mmol/L (98-107); Estimated CRCL calculation 53 ml/min; Estimated Glomerular Filt Rate > 60; Glucose 88 mg/dL (65-110); Magnesium 2.1 mg/dL (1.6-2.3); Potassium 3.3 mmol/L (3.4-5.0); Sodium 138 mmol/L (137-145)
[2024-09-01 07:32] LABS: Primidone <2.5
[2024-09-01 07:58] VITALS: PULSE 86; RESP 20; O2SAT 99
[2024-09-01] MEDS: FLUTICASONE/SALMETEROL 45-21 MCG INHALER 1 PUFF 2 PUFF INHALATION ×2 (07:58→20:19)
[2024-09-01] MEDS: SODIUM BICARBONATE TAB 650 MG TABLET PO ×2 (09:50→16:51)
[2024-09-01] MEDS: POTASSIUM CHLORIDE 20 MEQ ER TABLET 40 MEQ PO (09:50)
[2024-09-01] MEDS: CITALOPRAM HYDROBROMIDE 10 MG TABLET PO (09:50)
[2024-09-01] MEDS: ASCORBIC ACID 500 MG TABLET PO (09:50)
[2024-09-01 09:51] VITALS: PULSE 86
[2024-09-01] MEDS: PRIMIDONE 50 MG TABLET PO (09:51)
[2024-09-01] MEDS: EMPAGLIFLOZIN 10 MG TABLET PO (09:51)
[2024-09-01] MEDS: PANTOPRAZOLE 40 MG TABLET PO (09:51)
[2024-09-01] MEDS: METOPROLOL SUCCINATE EXT REL 50 MG TABCR PO (09:51)
[2024-09-01] MEDS: MONTELUKAST SODIUM 10 MG TABLET PO (09:51)
[2024-09-01] MEDS: CALCIUM/VITAMIN D 500 MG/5 MCG (200 I.U.) TABLET PO (09:51)
[2024-09-01] MEDS: LORATADINE 10 MG TABLET PO (09:51)
[2024-09-01] MEDS: HEPARIN SODIUM 5,000 UNITS/ML VIAL 5000 UNITS SUB-Q ×2 (09:52→20:37)
[2024-09-01] MEDS: POLYSACCHARIDE IRON COMPLEX 150 MG CAPSULE 300 MG PO (09:52)
[2024-09-01] MEDS: ARTIFICIAL TEARS OPHTH SOLN 15 ML BOTTLE 1 DROP EACH EYE (09:54)
[2024-09-01] MEDS: TOPIRAMATE 100 MG TABLET PO ×2 (09:55→16:51)
--- NOTE | 2024-09-01 12:59 | P.PNIM_ITS ---
Progress Note: A&P Assessment and Plan (1) Diarrhea: Qualifiers: Diarrhea type: presumed infectious Qualified Code(s): R19.7 - Diarrhea, unspecified Code(s): R19.7 - Diarrhea, unspecified Status: Acute (2) Sepsis: Qualifiers: Sepsis type: sepsis due to unspecified organism Sepsis acute organ dysfunction status: with acute organ dysfunction Severe sepsis acute organ dysfunction type: acute renal failure Acute renal failure type: unspecified Severe sepsis shock status: without septic shock Qualified Code(s): A41.9 - Sepsis, unspecified organism; R65.20 - Severe sepsis without septic shock; N17.9 - Acute kidney failure, unspecified Code(s): A41.9 - Sepsis, unspecified organism Status: Acute (3) Vasovagal syncope: Code(s): R55 - Syncope and collapse Status: Acute (4) Hypotension due to hypovolemia: Code(s): E86.1 - Hypovolemia Status: Acute (5) Acute kidney injury: Code(s): N17.9 - Acute kidney failure, unspecified Status: Acute (6) Chronic obstructive pulmonary disease: Qualifiers: COPD type: unspecified COPD Qualified Code(s): J44.9 - Chronic obstructive pulmonary disease, unspecified Code(s): J44.9 - Chronic obstructive pulmonary disease, unspecified Status: Chronic Plan this is a 69-year-old female who presents to the ER with diarrhea for the past few days. While she was doing physical therapy in the nursing facility where she resides she became very pale and thought she was having possible seizure like activity with some twitching. She was then transferred to the ED via EMS for further evaluation. arrival to the ED blood pressure was low in mid 80s. Improved with fluid bolus however when she got up to go to the bedside commode to have a bowel movement her blood pressure dropped in 70s to 80s and became diaphoretic and unresponsive. When she was laid flat her blood pressure improved and returned to her baseline level of awareness. Patient did not have any history of fever but did spike a fever in the ER to 100.2 was tachycardic. No chest pain shortness of breath or cough. No abdominal pain. C diff test was performed in the ER and was negative. Laboratory evaluation showed mild leukocytosis. Hemoglobin normal creatinine was 1.5 electrolytes were unremarkable. Influenza are SARS COVID and RSV swab was negative. Urinalysis was negative for UTI. CT head showed chronic encephalomalacia in the left frontal lobe old infarct in the bilateral basal ganglia. Stable mild nonspecific cerebral white matter disease which likely represents chronic small vessel ischemic disease. Chronic bilateral frontoparietal subdural hematomas with maximum thickness of 5 mm. Unchanged size of the ventricles with shock catheter in expected position. Abdominal pelvis CT performed showed fluid throughout the nondilated large and small bowel study with nonspecific diarrhea. Correlate for enteritis. moderate left renal atrophy which could be related to ischemia given the prominent atherosclerotic calcifications, aorta and its branch vessels. Indeterminate 1.2 cm ground-glass nodule at the anterolateral segment of the left lower lobe without significant interval change since November 08, 2023. Recommend additional 1 year follow-up noncontrast chest CT. Patient diagnosis sepsis likely due to acute infectious diarrhea. Patient started on IV Rocephin and Flagyl. Treated with IV fluids has been discontinued now. Stool studies remains negative. On Imodium p.r.n. History of combined systolic and diastolic heart failure cautious IV fluid use. EF 35-40% 05/27. Usually on metoprolol Entresto Jardiance spironolactone and Lasix. ILA mild Which has resolved. Mild metabolic acidosis add oral bicarb. Improved Possible breakthrough seizure on likely. Twitching likely related to syncope due to hypotension. 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 PT OT to see Subjective Date/time seen: 09/01/24 12:59 Interval history: Reports she still has some loose stool. No nausea vomiting tolerating diet. No chest pain or shortness of breath remains afebrile Review of Systems Review of Systems: All systems reviewed & are unremarkable except as noted in HPI and below Exam Narrative: GENERAL: The patient is well developed, not in acute distress HEENT: Nonicteric sclerae, PERRLA, EOMI. Oropharynx clear. Moist mucous membranes. Conjunctivae appear well perfused. CHEST: Chest wall is nontender. HEART: Regular rate and rhythm without murmur, rubs, or gallops LUNGS: Clear to auscultation bilaterally. no respiratory distress ABDOMEN: Soft, positive bowel sounds, non-tender, no organomegaly. SKIN: No rash, no excessive bruising, petechiae, or purpura. NEUROLOGIC: Cranial nerves II-XII intact, alert and oriented x 3, no gross motor deficits EXTREMITIES: no edema, cyanosis or clubbing Objective Data Vital Signs Vital Signs: Vital Signs - 24 hr 08/31/24 15:51 08/31/24 20:00 08/31/24 21:11 Temperature 98.3 F Pulse Rate 80 83 83 Respiratory Rate 18 20 20 Blood Pressure 151/59 H Pulse Oximetry 99 99 Oxygen Delivery Room Air Fraction of Inspired Oxygen 21 08/31/24 22:36 09/01/24 06:00 09/01/24 07:58 Temperature 98.2 F 97.5 F L Pulse Rate 84 80 Respiratory Rate 18 16 Blood Pressure 164/71 H 160/69 H Pulse Oximetry 96 99 99 Oxygen Delivery Room Air Fraction of Inspired Oxygen 21 09/01/24 07:58 09/01/24 08:31 09/01/24 09:51 Temperature Pulse Rate 86 86 Respiratory Rate 20 Blood Pressure Pulse Oximetry Oxygen Delivery Room Air Fraction of Inspired Oxygen 09/01/24 10:15 Temperature Pulse Rate Respiratory Rate Blood Pressure Pulse Oximetry Oxygen Delivery Room Air Fraction of Inspired Oxygen Intake/Output Intake/Output: Intake & Output 08/29/24 08/30/24 08/31/24 09/01/24 23:59 23:59 23:59 23:59 Intake Total 1660 3511.3 1610 968 Output Total 700 200 Balance 1660 2811.3 1410 968 Meds/Results Medications: Active Medications Generic Name Dose Route Start Last Admin Trade Name Freq PRN Reason Stop Dose Admin Acetaminophen 650 mg 08/29/24 18:53 08/30/24 17:30 Acetaminophen 325 Mg Tablet PO 650 mg Q6H PRN Administration Mild Pain (1-3) or Fever Albuterol 2 puff 08/31/24 10:47 Albuterol Sulfate (*Sp) Aerosol 1 Puff INHALATION Q6H PRN shortness of breath or wheezing Artificial Tears 1 drop 08/30/24 09:00 09/01/24 09:54 Artificial Tears Ophth Soln 15 Ml Bottle EACH EYE 1 drop DAILY JAYNE Administration Artificial Tears 1 drop 08/29/24 19:50 Artificial Tears Ophth Soln 15 Ml Bottle EACH EYE BID PRN Dry Eyes Ascorbic Acid 500 mg 08/31/24 09:00 09/01/24 09:50 Ascorbic Acid 500 Mg Tablet PO 500 mg QAM JAYNE Administration Calcium Carbonate 500 mg 08/30/24 09:00 09/01/24 09:51 Calcium/Vitamin D 500 Mg/5 Mcg (200 I.U.) Tablet PO 500 mg QAM JAYNE Administration Citalopram Hydrobromide 10 mg 08/30/24 09:00 09/01/24 09:50 Citalopram Hydrobromide 10 Mg Tablet PO 10 mg DAILY JAYNE Administration Empagliflozin 10 mg 08/31/24 09:00 09/01/24 09:51 Empagliflozin 10 Mg Tablet PO 10 mg DAILY JAYNE Administration Ergocalciferol 50,000 units 09/03/24 09:00 Ergocalciferol 50,000 Units Capsule PO We@0900 [facility] Heparin Sodium (Porcine) 5,000 units 08/29/24 21:00 09/01/24 09:52 Heparin Sodium 5,000 Units/Ml Vial SUB-Q 5,000 units Q12HR JAYNE Administration Ceftriaxone Sodium 1 gm in 50 mls @ 100 mls/hr 08/29/24 20:00 08/31/24 22:26 Rocephin 1 Gm/Ns 50 Ml IVPB Infused Q24H JAYNE Infusion Metronidazole 500 mg in 100 mls @ 100 mls/hr 08/29/24 21:00 09/01/24 06:47 Flagyl 500 Mg/Iso Soln 100 Ml IVPB Infused Q8HR JAYNE Infusion Ipratropium [place] 0.5 mg 08/29/24 20:36 Ipratropium Br 0.02% Inh Soln 0.5 Mg/2.5 Ml Vial INHALATION Q6HRT PRN Shortness Of Breath Levalbuterol HCl 0.63 mg 08/29/24 20:36 Levalbuterol Neb 1.25 Mg/3 Ml INHALATION Q6HRT PRN Shortness of breath, wheezing Loperamide HCl 2 mg 08/29/24 16:48 08/31/24 08:45 Loperamide Hcl 2 Mg Capsule PO 2 mg PRN PRN Administration Diarrhea Loratadine 10 mg 08/30/24 09:00 09/01/24 09:51 Loratadine 10 Mg Tablet PO 10 mg QAM JAYNE Administration Metoprolol Succinate 50 mg 08/30/24 09:00 09/01/24 09:51 Metoprolol Succinate Ext Rel 50 Mg Tabcr PO 50 mg QAM JAYNE Administration Montelukast Sodium 10 mg 08/30/24 09:00 09/01/24 09:51 Montelukast Sodium 10 Mg Tablet PO 10 mg DAILY JAYNE Administration Ondansetron HCl 4 mg 08/29/24 14:56 Ondansetron Inj 4 Mg/2 Ml Vial IV PUSH Q4H PRN Nausea Pantoprazole Sodium 40 mg 08/30/24 09:00 09/01/24 09:51 Pantoprazole 40 Mg Tablet PO 40 mg QAM JAYNE Administration Polysaccharide Iron Complex 300 mg 08/30/24 09:00 09/01/24 09:52 Polysaccharide Iron Complex 150 Mg Capsule PO 300 mg DAILY JAYNE Administration Primidone 50 mg 08/30/24 09:00 09/01/24 09:51 Primidone 50 Mg Tablet PO 50 mg DAILY JAYNE Administration Fluticasone/Salmeterol 2 puff 08/29/24 20:00 09/01/24 07:58 Fluticasone/Salmeterol 45-21 Mcg Inhaler 1 Puff INHALATION 2 puff Q12HRT JAYNE Administration Sodium Bicarbonate 650 mg 08/30/24 17:00 09/01/24 09:50 Sodium Bicarbonate Tab 650 Mg Tablet PO 650 mg BID JAYNE Administration Topiramate 100 mg 08/29/24 20:00 09/01/24 09:55 Topiramate 100 Mg Tablet PO 100 mg BID JAYNE Administration Radiology Results: ITS Impressions Head CT 08/29/24 11:00 IMPRESSION: 1. Chronic encephalomalacia in the left frontal lobe. Old infarcts in the bilateral basal ganglia. 2. Stable mild nonspecific cerebral white matter disease, which likely represents chronic small vessel ischemic disease. 3. Chronic bilateral frontoparietal subdural hematomas with maximum thickness of 5 mm. 4. Unchanged size of the ventricles with shunt catheter in expected position. Abdomen/Pelvis CT 08/29/24 15:23 IMPRESSION: 1. Fluid throughout the nondilated large and small bowel study with nonspecific diarrhea. Correlate clinically for enteritis. 2. Moderate left renal atrophy which could be related to ischemia given the prominent atherosclerotic calcifications, aorta and its major branch vessels as detailed above. 3. Indeterminate 1.2 cm groundglass nodule at the anterolateral segment of the left lower lobe without significant interval change since 11/08/2023. Recommend additional one-year follow-up noncontrast chest CT. Labs Labs: Laboratory Results - last 24 hr 08/29/24 09/01/24 11:46 06:25 WBC 4.2 L RBC 4.05 L Hgb 11.2 L Hct 35.2 L MCV 86.9 MCH 27.7 MCHC 31.8 L RDW 15.6 H Plt Count 167 MPV 9.7 Immature Gran % (Auto) 0.9 H Neut % (Auto) 56.2 Lymph % (Auto) 30.3 [place] % (Auto) 11.6 H Eos % (Auto) 0.5 Baso % (Auto) 0.5 Lymph # (Auto) 1.28 [place] # (Auto) 0.5 Eos # (Auto) 0.0 Baso # (Auto) 0.0 Abs Immat Gran (auto) 0.04 H Absolute Neuts (auto) 2.4 Absolute Nucleated RBC 0.000 Nucleated RBC % 0.0 Sodium 138 Potassium 3.3 L Chloride 114 H Carbon Dioxide 19 L Anion Gap 5 BUN 13 Creatinine 0.80 Estim Creat Clear Calc 53 Estimated GFR > 60 Glucose 88 Calcium 8.6 Magnesium 2.1 Total Bilirubin 0.3 AST 17 ALT 11 Alkaline Phosphatase 87 Total Protein 6.0 L Albumin 3.1 L Primidone <2.5 Phenobarb (Primidon Met <5.0
[2024-09-01 14:00] VITALS: BP 143/67; PULSE 72; RESP 18; TEMP 36.2; O2SAT 99
[2024-09-01] MEDS: LOPERAMIDE HCL 2 MG CAPSULE PO (16:55)
--- NOTE | 2024-09-01 19:19 | PC.NURSE ---
On 09/01/24, the WIRE HARNESS ASSEMBLER, [ Nini Cox LPN], provided care and completed [facility] documentation on this patient. I have reviewed the WIRE HARNESS ASSEMBLER's documentation and agree with the findings.
--- NOTE | 2024-09-01 19:50 | PC.NURSE ---
On 09/01/24, the [employer] EXCHANGE ADMINISTRATOR, [ Nini Cox], provided care and completed [facility] documentation on this patient. I have reviewed the [employer] EXCHANGE ADMINISTRATOR's documentation and agree with the findings.
[2024-09-01 20:19] VITALS: O2SAT 95
[2024-09-01 20:35] VITALS: BP 148/65; PULSE 78; RESP 18; TEMP 37.1; O2SAT 97
[2024-09-01] MEDS: CEFDINIR 300 MG CAPSULE PO (20:37)
[2024-09-01] MEDS: metroNIDAZOLE 500 MG TABLET PO (20:37)
[2024-09-02 04:43] VITALS: BP 156/74; PULSE 67; RESP 18; TEMP 36.9; O2SAT 99
[2024-09-02] MEDS: metroNIDAZOLE 500 MG TABLET PO (05:03)
[2024-09-02] MEDS: FLUTICASONE/SALMETEROL 45-21 MCG INHALER 1 PUFF 2 PUFF INHALATION (08:49)
[2024-09-02 08:52] VITALS: PULSE 82; RESP 20; O2SAT 97
[2024-09-02] MEDS: ARTIFICIAL TEARS OPHTH SOLN 15 ML BOTTLE 1 DROP EACH EYE (08:53)
[2024-09-02] MEDS: HEPARIN SODIUM 5,000 UNITS/ML VIAL 5000 UNITS SUB-Q (08:54)
[2024-09-02 08:57] VITALS: PULSE 77
[2024-09-02] MEDS: METOPROLOL SUCCINATE EXT REL 50 MG TABCR PO (08:57)
[2024-09-02] MEDS: CALCIUM/VITAMIN D 500 MG/5 MCG (200 I.U.) TABLET PO (08:57)
[2024-09-02] MEDS: CITALOPRAM HYDROBROMIDE 10 MG TABLET PO (08:57)
[2024-09-02] MEDS: PRIMIDONE 50 MG TABLET PO (08:57)
[2024-09-02] MEDS: MONTELUKAST SODIUM 10 MG TABLET PO (08:58)
[2024-09-02] MEDS: TOPIRAMATE 100 MG TABLET PO (08:58)
[2024-09-02] MEDS: LORATADINE 10 MG TABLET PO (08:58)
[2024-09-02] MEDS: PANTOPRAZOLE 40 MG TABLET PO (08:58)
[2024-09-02] MEDS: CEFDINIR 300 MG CAPSULE PO (08:58)
[2024-09-02] MEDS: ASCORBIC ACID 500 MG TABLET PO (08:58)
[2024-09-02] MEDS: EMPAGLIFLOZIN 10 MG TABLET PO (08:58)
[2024-09-02] MEDS: SODIUM BICARBONATE TAB 650 MG TABLET PO (08:58)
[2024-09-02] MEDS: POLYSACCHARIDE IRON COMPLEX 150 MG CAPSULE 300 MG PO (08:58)
[2024-09-02 09:05] LABS: Basophils Percent Auto 0.7 % (0.2-1.2); Eosinophils Percent Auto 0.5 % (0-4.4); Hematocrit 37.4 % (37.0-47.0); Hemoglobin 11.8 g/dL (12.0-15.0); Immature Granulocyte Absolute 0.06 K/mm3 (0.00-0.031); Lymphocytes Absolute Auto 1.55 K/mm3 (0.9-3.2); Lymphocytes Percent Auto 26.6 % (18.3-44.2); Mean Corpuscular HGB Conc 31.6 g/dl (32-36); Mean Corpuscular Hemoglobin 27.4 pg (26-34); Mean Corpuscular Volume 86.8 fl (80-100); Mean Platelet Volume 9.6 fl (7.4-10.4); Monocytes Absolute Auto 0.5 K/mm3 (0.1-0.6); Monocytes Percent Auto 9.1 % (2.6-8.5); Neutrophils Absolute Auto 3.6 K/mm3 (1.3-6.7); Neutrophils Percent Auto 62.1 % (45.5-73.1); Platelet Count Result 203 k/mm3 (150-375); Red Blood Count 4.31 M/mm3 (4.2-5.4); Red Cell Distribution Width 15.4 % (11.5-14.5); White Blood Count 5.8 K/mm3 (4.5-10.0)
[2024-09-02 09:19] LABS: Alanine Aminotransferase 17 U/L (6-35); Albumin Level 3.5 g/dL (3.5-5.1); Alkaline Phosphatase 99 U/L (38-126); Anion Gap 4 mmol/L (4-12); Aspartate Amino Transferase 23 U/L (14-36); Bilirubin,Total 0.4 mg/dL (0.2-1.3); Blood Urea Nitrogen 12 mg/dL (7-17); Carbon Dioxide 20 mmol/L (22-30); Chloride 112 mmol/L (98-107); Estimated CRCL calculation 53 ml/min; Estimated Glomerular Filt Rate > 60; Glucose 95 mg/dL (65-110); Magnesium 2.2 mg/dL (1.6-2.3); Sodium 136 mmol/L (137-145)
--- NOTE | 2024-09-02 12:36 | PM.DS ---
DS: Admitting Diagnosis Discharge Date 09/02/2024 Admitting Diagnosis Sepsis syncope DS: Discharge Diagnosis Discharge Diagnosis (1) Diarrhea: Qualifiers: Diarrhea type: presumed infectious Qualified Code(s): R19.7 - Diarrhea, unspecified Code(s): R19.7 - Diarrhea, unspecified Status: Acute (2) Sepsis: Qualifiers: Sepsis type: sepsis due to unspecified organism Sepsis acute organ dysfunction status: with acute organ dysfunction Severe sepsis acute organ dysfunction type: acute renal failure Acute renal failure type: unspecified Severe sepsis shock status: without septic shock Qualified Code(s): A41.9 - Sepsis, unspecified organism; R65.20 - Severe sepsis without septic shock; N17.9 - Acute kidney failure, unspecified Code(s): A41.9 - Sepsis, unspecified organism Status: Acute (3) Vasovagal syncope: Code(s): R55 - Syncope and collapse Status: Acute (4) Hypotension due to hypovolemia: Code(s): E86.1 - Hypovolemia Status: Acute (5) Acute kidney injury: Code(s): N17.9 - Acute kidney failure, unspecified Status: Acute (6) Chronic obstructive pulmonary disease: Qualifiers: COPD type: unspecified COPD Qualified Code(s): J44.9 - Chronic obstructive pulmonary disease, unspecified Code(s): J44.9 - Chronic obstructive pulmonary disease, unspecified Status: Chronic DS: Summary Hospital Course Hospital Course: This is a 69-year-old female who presents to the ER with diarrhea for the past few days. While she was doing physical therapy in the nursing facility where she resides she became very pale and thought she was having possible seizure like activity with some twitching. She was then transferred to the ED via EMS for further evaluation. arrival to the ED blood pressure was low in mid 80s. Improved with fluid bolus however when she got up to go to the bedside commode to have a bowel movement her blood pressure dropped in 70s to 80s and became diaphoretic and unresponsive. When she was laid flat her blood pressure improved and returned to her baseline level of awareness. Patient did not have any history of fever but did spike a fever in the ER to 100.2 was tachycardic. No chest pain shortness of breath or cough. No abdominal pain. C diff test was performed in the ER and was negative. Laboratory evaluation showed mild leukocytosis. Hemoglobin normal creatinine was 1.5 electrolytes were unremarkable. Influenza are SARS COVID and RSV swab was negative. Urinalysis was negative for UTI. CT head showed chronic encephalomalacia in the left frontal lobe old infarct in the bilateral basal ganglia. Stable mild nonspecific cerebral white matter disease which likely represents chronic small vessel ischemic disease. Chronic bilateral frontoparietal subdural hematomas with maximum thickness of 5 mm. Unchanged size of the ventricles with shock catheter in expected position. Abdominal pelvis CT performed showed fluid throughout the nondilated large and small bowel study with nonspecific diarrhea. Correlate for enteritis. moderate left renal atrophy which could be related to ischemia given the prominent atherosclerotic calcifications, aorta and its branch vessels. Indeterminate 1.2 cm ground-glass nodule at the anterolateral segment of the left lower lobe without significant interval change since November 08, 2023. Recommend additional 1 year follow-up noncontrast chest CT. Patient diagnosis sepsis likely due to acute infectious diarrhea. Patient started on IV Rocephin and Flagyl. Treated with IV fluids has been discontinued now. Stool studies remains negative. On Imodium p.r.n. she recently had a colonoscopy performed which showed colon polyps. She will follow-up with GI if diarrhea persist History of combined systolic and diastolic heart failure cautious IV fluid use. EF 35-40% 05/27. Usually on metoprolol Entresto Jardiance spironolactone and Lasix. ILA mild Which has resolved. Mild metabolic acidosis add oral bicarb. Improved on oral bicarb Possible breakthrough seizure on likely. Twitching likely related to syncope due to hypotension. 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 PT OT to see and did well Time Spent with Patient Time attestation: Total time spent providing and/or coordinating discharge services: 40 minutes Exam Narrative: GENERAL: The patient is well developed, not in acute distress HEENT: Nonicteric sclerae, PERRLA, EOMI. Oropharynx clear. Moist mucous membranes. Conjunctivae appear well perfused. CHEST: Chest wall is nontender. HEART: Regular rate and rhythm without murmur, rubs, or gallops LUNGS: Clear to auscultation bilaterally. no respiratory distress ABDOMEN: Soft, positive bowel sounds, non-tender, no organomegaly. SKIN: No rash, no excessive bruising, petechiae, or purpura. NEUROLOGIC: Cranial nerves II-XII intact, alert and oriented x 3, no gross motor deficits EXTREMITIES: no edema, cyanosis or clubbing DS: Data Data Completed and Pending Labs on day of discharge: Labs from last 24 hours 09/02/24 08:59 WBC 5.8 RBC 4.31 Hgb 11.8 L Hct 37.4 MCV 86.8 MCH 27.4 MCHC 31.6 L RDW 15.4 H Plt Count 203 MPV 9.6 Immature Gran % (Auto) 1.0 H Neut % (Auto) 62.1 Lymph % (Auto) 26.6 [place] % (Auto) 9.1 H Eos % (Auto) 0.5 Baso % (Auto) 0.7 Lymph # (Auto) 1.55 [place] # (Auto) 0.5 Eos # (Auto) 0.0 Baso # (Auto) 0.0 Abs Immat Gran (auto) 0.06 H Absolute Neuts (auto) 3.6 Absolute Nucleated RBC 0.000 Nucleated RBC % 0.0 Sodium 136 L Potassium 4.0 Chloride 112 H Carbon Dioxide 20 L Anion Gap 4 BUN 12 Creatinine 0.80 Estim Creat Clear Calc 53 Estimated GFR > 60 Glucose 95 Calcium 9.0 Magnesium 2.2 Total Bilirubin 0.4 AST 23 ALT 17 Alkaline Phosphatase 99 Total Protein 6.0 L Albumin 3.5 Preliminary micro results at discharge 08/29/24 20:35 Blood Culture - Preliminary Blood 08/29/24 20:43 Blood Culture - Preliminary Blood Imaging Radiologist's impression: ITS Impressions Head CT 08/29/24 11:00 IMPRESSION: 1. Chronic encephalomalacia in the left frontal lobe. Old infarcts in the bilateral basal ganglia. 2. Stable mild nonspecific cerebral white matter disease, which likely represents chronic small vessel ischemic disease. 3. Chronic bilateral frontoparietal subdural hematomas with maximum thickness of 5 mm. 4. Unchanged size of the ventricles with shunt catheter in expected position. Abdomen/Pelvis CT 08/29/24 15:23 IMPRESSION: 1. Fluid throughout the nondilated large and small bowel study with nonspecific diarrhea. Correlate clinically for enteritis. 2. Moderate left renal atrophy which could be related to ischemia given the prominent atherosclerotic calcifications, aorta and its major branch vessels as detailed above. 3. Indeterminate 1.2 cm groundglass nodule at the anterolateral segment of the left lower lobe without significant interval change since 11/08/2023. Recommend additional one-year follow-up noncontrast chest CT. Discharge Plan Discharge Attending physician on discharge: Peng Fisher Discharging Clinician: Peng Fisher Anticipated Discharge Date/Time: 09/02/24 12:39 Patient Disposition: NH Intermediate/Asst Living Activity: as tolerated Diet: heart healthy Patient Instructions: Antibiotic Form, Heart Failure (GEN) Patient Language: Wolof Stand Alone Forms: General Discharge Information Follow-up/Referrals: Yeyo Garcia MD [Primary Care Provider] - 1 Week Discharge Medications: New cefdinir 300 mg Capsule 300 mg PO Q12HR Qty: 2 0RF metronidazole 500 mg Tablet 500 mg PO Q8HR Qty: 4 0RF loperamide 2 mg Capsule 2 mg PO PRN PRN (Reason: Diarrhea) Qty: 30 0RF sodium bicarbonate 650 mg Tablet 650 mg PO BID Qty: 60 0RF Continued furosemide 40 mg tablet 40 mg PO DAILY Qty: 30 0RF primidone 50 mg Tablet 50 mg PO DAILY acetaminophen 325 mg Tablet 650 mg PO BID PRN (Reason: pain) topiramate 100 mg tablet 100 mg PO BID ascorbic acid (vitamin C) 500 mg PO DAILY ergocalciferol (vitamin D2) 1,250 mcg PO WEEKLY Rx Instructions: started 07/11/23 fluticasone propion-salmeterol 100-50 mcg/dose blister with device 1 inh INHALATION BID Artificial Tears (cmc) 1 % Drops 1 drp EACH EYE BID PRN (Reason: Dry Eyes) citalopram 10 mg tablet 10 mg PO DAILY Systane Complete 0.6 % drops 1 drp EACH EYE DAILY cetirizine [Allergy Relief (cetirizine)] 10 mg Tablet 10 mg PO DAILY montelukast [Singulair] 10 mg Tablet 10 mg PO DAILY calcium carbonate-vit D3-min 600 mg calcium- 400 unit Tablet 1 tablet PO DAILY omeprazole 20 mg Tablet,Delayed Release (Dr/Ec) 20 mg PO DAILY Combivent Respimat 20-100 mcg/actuation Mist 1 puff INHALATION QID Jardiance 10 mg Tablet 10 mg PO DAILY Qty: 30 0RF metoprolol succinate 50 mg Tablet Extended Release 24 Hr 50 mg PO QAM Qty: 30 0RF sacubitril-valsartan [Entresto] 24-26 mg Tablet 1 tablet PO Q12HR Qty: 60 0RF spironolactone 25 mg Tablet 25 mg PO QAM Qty: 30 0RF polysaccharide iron complex [iFerex 150] 150 mg iron capsule 300 mg PO DAILY albuterol sulfate [Ventolin HFA] 90 mcg/actuation HFA aerosol inhaler 2 puff INHALATION Q6H PRN (Reason: shortness of breath or wheezing) Combivent Respimat 20-100 mcg/actuation mist 1 puff inhalation QID Rx Instructions: space evenly during waking hours Date of admission: 08/30/24 09:36 Primary Care Provider: Yeyo Garcia Admitting Provider: Peng Fisher Attending physician on admission: Peng Fisher Condition: Improved
[2024-09-03 11:28] LABS: Topiramate 9.8 mcg/mL
== END 2024-09-02 15:12 | DRG 872 ==
LOC: ANHED 10:46 → ANHIMU 15:35 → ANH3MEDSUR 08-31 19:22
PROVIDERS: Internal Medicine; Admitting Provider Internal Medicine; Emergency Provider Emergency Medicine; PCP Family Medicine; Visit Provider Internal Medicine
DX: A41.9 Sepsis, unspecified organism (principal); D61.9 Aplastic anemia, unspecified; G91.2 (Idiopathic) normal pressure hydrocephalus; I50.42 Chronic combined systolic (congestive) and diastolic (congestive) heart failure; N17.9 Acute kidney failure, unspecified; R65.20 Severe sepsis without septic shock; E86.1 Hypovolemia; G40.909 Epilepsy, unspecified, not intractable, without status epilepticus; I11.0 Hypertensive heart disease with heart failure; J44.9 Chronic obstructive pulmonary disease, unspecified; K21.9 Gastro-esophageal reflux disease without esophagitis; R32 Unspecified urinary incontinence; R19.7 Diarrhea, unspecified; Z87.820 Personal history of traumatic brain injury; Z79.84 Long term (current) use of oral hypoglycemic drugs; Z87.891 Personal history of nicotine dependence
CPT/HCPCS: 36415; 70450; 74176; 80053; 80184; 80188; 80201; 81001; 83735; 85025; 85610; 85730; 87040; 87045; 87427; 87449; 87493; 87637; 93005; 94640; 96361; 96374; 97161; 97165; 99285; A9270; G0378; J0696; J1644; J1836; J2060; J7030

== ENCOUNTER 2024-09-05 16:58 | Emergency (ER) | payer MEDICARE, MEDICAID, SELFPAY ==
[2024-09-05] VITALS (31 sets, daily range): BP systolic 117–141; BP diastolic 61–76; PULSE 74–89; RESP 14–25; TEMP 36.3; O2SAT 91–100
--- NOTE | ~2024-09-05 | XR_ITS ---
XR chest 1V portable Ordering provider: Lucrecia Nogueira PA-C History: 69 years Female with . weakness, seizure this evening . Comparison: May 20, 2024 FINDINGS: MEDIASTINUM: The cardiac silhouette is slightly enlarged. Congestive asha. LUNGS: No infiltrates, effusions or pneumothorax. Bilateral interstitial changes. OTHER: No free air under the diaphragm. Shunt tube is seen extending from the neck to the abdomen. IMPRESSION: Bilateral interstitial changes which may indicate pneumonitis. Follow-up advised. Reviewed, dictated and finalized at location A. LEMAKER IMPRESSION: Bilateral interstitial changes which may indicate pneumonitis. Follow-up advise dDione
--- NOTE | ~2024-09-05 | CT_ITS ---
CT brain wo con Ordering provider: Lucrecia Nogueira PA-C History: 69 years Female with . seizure . Comparison: August 29, 2024 Technique: CT of the head without contrast. Radiation reduction technique utilized.The dose-length product was 681 mGy-cm. FINDINGS: BRAIN PARENCHYMA AND CSF SPACES: Right frontal shunt tube with the tip near to the foramen of [place]ro. Old lacunar infarct in the right basal ganglia. Minimal widening of the subdural space suggestive of CSF hygroma is unchanged. Left frontal encephalomalacia is unchanged. No midline shift, mass effect o r hemorrhage. The brain parenchyma and CSF spaces are otherwise normal. VISUALIZED PARANASAL SINUSES: Left sphenoid sinus disease. Otherwise, Well aerated. MASTOIDS: Well aerated. BONES: The bones appear intact. Right frontal craniectomy SOFT TISSUES: Visualized nasopharynx is normal. Superficial soft tissues are normal. IMPRESSION: No significantchange from previous examination. No acute hemorrhage or infarct seen. Reviewed, dictated and finalized at location A. LRY SORTER
--- NOTE | 2024-09-05 17:25 | ECG_ITS ---
Test Date: 2024-09-05 17:56:10 Measurements Intervals [place] Rate: 84 P: 25 WV: 142 QRS: 11 QRSD: 93 T: 123 QT: 387 QTc: 460 Interpretive Statements SINUS RHYTHM POSSIBLE LEFT ATRIAL ENLARGEMENT [-0.1mV P WAVE IN V1/V2] LEFT VENTRICULAR HYPERTROPHY AND ST-T CHANGE [VOLTAGE CRITERIA PLUS ST/T ABNORMALITY] Compared to ECG 08/29/2024 11:01:57 NO SIGNIFICANT CHANGES Electronically Signed On 09-09-2024 17:47:40 [employer] by Ran Fuentes M.D.
--- NOTE | 2024-09-05 17:29 | ED_ITS ---
HPI - Seizure General Chief Complaint: Seizure Stated Complaint: seizure Time Seen by Provider: 09/05/24 17:11 Source: patient and EMS Mode of arrival: EMS Limitations: other (patient does not remember incident/post-ictal) History of Present Illness HPI Narrative: Patient presents to the emergency department after a witnessed seizure today. Patient with known history of seizure disorder. Reportedly patient had a witnessed tonic clonic seizure. Patient does not remember incident. Answering questions, but slow to respond. Seizure History: Yes (prior to admission 08/29/24. Hx of seizure disorder, ATAXIA) Related Data Home Medications ?Medication ?Instructions ?Recorded ?Confirmed ?Last Taken ?Type calcium 600 mg (as carbonate)-vit 1 tablet PO DAILY 09/23/22 08/29/24 08/20/24 History D3 10 mcg (400 unit)-minerals tablet cetirizine 10 mg tablet (Allergy 10 mg PO DAILY 09/23/22 08/29/24 08/20/24 History Relief (cetirizine)) citalopram 10 mg tablet 10 mg PO DAILY 09/23/22 08/29/24 08/20/24 History ipratropium 20 mcg-albuterol 100 1 puff inhalation QID 09/23/22 08/29/24 08/20/24 History mcg/actuation mist for inhalation (Combivent Respimat) montelukast 10 mg tablet 10 mg PO DAILY 09/23/22 08/29/24 08/20/24 History (Singulair) omeprazole 20 mg tablet,delayed 20 mg PO DAILY 09/23/22 08/29/24 08/20/24 History release propylene glycol 0.6 % eye drops 1 drp EACH EYE DAILY 09/23/22 08/29/24 08/20/24 History (Systane Complete) acetaminophen 325 mg tablet 650 mg PO BID PRN pain 11/09/23 08/29/24 08/20/24 History ascorbic acid (vitamin C) 500 mg PO DAILY 11/09/23 08/29/24 08/20/24 History ergocalciferol (vitamin D2) 1,250 mcg PO WEEKLY 11/09/23 08/29/24 08/20/24 History primidone 50 mg tablet 50 mg PO DAILY 11/09/23 08/29/24 08/20/24 History topiramate 100 mg tablet 100 mg PO BID 11/09/23 08/29/24 08/20/24 History carboxymethylcellulose sodium 1 % 1 drp EACH EYE BID PRN Dry Eyes 02/11/24 08/29/24 08/20/24 History eye drops (Artificial Tears (carboxymethylcellulose)) fluticasone 100 mcg-salmeterol 50 1 inh inhalation BID 02/11/24 08/29/24 08/20/24 History mcg/dose blistr powdr for inhalation albuterol sulfate 90 mcg/actuation 2 puff inhalation Q6H PRN 08/29/24 08/29/24 Unknown History aerosol inhaler (Ventolin HFA) shortness of breath or wheezing ipratropium 20 mcg-albuterol 100 1 puff inhalation QID 08/29/24 08/29/24 Unknown History mcg/actuation mist for inhalation (Combivent Respimat) polysaccharide iron complex 150 mg 300 mg PO DAILY 08/29/24 08/29/24 Unknown History iron capsule (iFerex 150) Allergies Allergy/AdvReac Type Severity Reaction Status Date / Time No Known Allergies Allergy Verified 08/29/24 17:36 Review of Systems 2 Review of Systems: ROS unobtainable: Yes unobtainable due to mental status FOR[facility], [facility] Past Medical History Medical History (Updated 09/05/24 @ 19:19 by Lucrecia Nogueira PA-C) Combined systolic and diastolic congestive heart failure Echocardiogram May 2024 demonstrated EF of 30-5 to 40%, mildly increased left ventricular wall thickness, normal right ventricular systolic function, severe left atrial enlargement, moderate mitral valve regurgitation, mild tricuspid regurgitation, abnormal diastolic function, moderate pericardial effusion with invagination of the right atrial free wall consistent with increased intrapericardial pressure Colon cancer screening Seizure disorder Gastroesophageal reflux disease Chronic obstructive pulmonary disease Cerebrovascular accident Traumatic brain injury Age 9. Hypertension Idiopathic aplastic anemia Normal pressure hydrocephalus Surgical History Surgical History History of gastrostomy tube placement History of exploratory laparotomy History of tracheostomy as a child Family History Family History Mother Scarring of lung COPD (chronic obstructive pulmonary disease) Hypertension Father Chronic back pain Sibling Ruptured appendix Social History Social History (Updated 08/29/24 @ 19:53 by Rupal Dickerson DO) Social History: Patient reports that she used to smoke about a pack of cigarettes per day but quit many years ago. She used to occasionally drink a moderate amount of alcohol but has not done so in many years. She is residing at [facility] [place]. 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 Code status: Full code. Smoking packs per day: 1 Smoking cigarettes per day: 20.0 Years smoked: 25 Smoking pack-years: 25.00 Smoking status: Former smoker Tobacco type: cigarettes Second hand tobacco smoke exposure: Yes Alcohol intake: never Substance use: never Substance use type: does not use Do You Feel Safe in your Home?: Yes Lack of Transportation: No Lack of Food: Never True Current Housing: I Have Housing Concerned About Future Housing: No Difficulty Paying Gas/Electric Bills: No Difficulty Paying for Meds: No Currently Unemployed: No Education: High School Diploma/GED Difficulty w/ Childcare or Family Care: No Living arrangements: assisted living Spiritual care concerns: No Exam 2 Narrative: GENERAL: Well-appearing, well-nourished, and in no acute distress. HEAD: Normocephalic, atraumatic. EYES: PERRLA and EOMI. ENT: Nares clear, no rhinorrhea or epistaxis. Mucous membranes moist. Oropharynx without tonsillar hypertrophy exudate or other lesions. Bilateral TMs pearly garcía non-bulging NECK: Supple. No adenopathy or masses. CHEST: Clear to auscultation. No respiratory distress. No wheezes rales or rhonchi HEART: Regular rate and rhythm. No murmur heard. Normal peripheral pulses. ABDOMEN: Soft, nontender, nondistended, normal active bowel sounds. EXTREMITIES: Normal range of motion. No edema. Strength equal in bilateral upper and lower extremities (5/5) SKIN: Warm, dry, no rash. NEURO: No focal deficits. Alert and oriented x3. CN II-XII grossly intact PSYCH: Normal mood and affect Course Course Emergency Course: patient updated on her workup and agrees with plan of care. Much more alert, seems to be back to baseline Vital Signs Vital signs: Vital Signs Pulse Rate 88 09/05/24 17:15 Temperature 97.3 F L 09/05/24 17:16 Pulse Rate 89 09/05/24 19:45 Respiratory Rate 25 H 09/05/24 19:45 Blood Pressure 133/72 09/05/24 19:41 Pulse Oximetry 91 09/05/24 19:45 Oxygen Delivery Room Air 09/05/24 17:24 MDM - Seizure MDM Narrative Medical decision making narrative: patient presents to the emergency department after a seizure today. No history of seizure disorder. Postictal upon arrival, she did become more alert and back to her baseline. No focal deficits appreciated. She is afebrile and nontoxic appearing. Her vitals are stable. Cbc metabolic panel without concerning findings. Urine without evidence of infection. Influenza, RSV and COVID screens are negative. Chest x-ray shows possible pneumonitis. patient does not have any respiratory symptoms. CT brain without acute findings. patient updated on her workup and agrees with plan of care. She is to follow up with her neurologist. She was given warnings to return to the ER Differential Diagnosis Differential diagnosis: Likely epileptic seizure and other (dehydration, infection) Lab Data Attestation: I reviewed the patient's lab results. 09/05/24 17:34 09/05/24 17:34 Labs: Lab Results 09/05/24 09/05/24 Range/Units 17:34 18:06 WBC 7.9 (4.5-10.0) K/mm3 RBC 4.49 (4.2-5.4) M/mm3 Hgb 12.4 (12.0-15.0) g/dL Hct 39.8 (37.0-47.0) % MCV 88.6 (80-100) fl MCH 27.6 (26-34) pg MCHC 31.2 L (32-36) g/dl RDW 15.9 H (11.5-14.5) % Plt Count 331 D (150-375) k/mm3 MPV 9.5 (7.4-10.4) fl Immature Gran % (Auto) 2.4 H (0-0.5) % Neut % (Auto) 64.3 (45.5-73.1) % Lymph % (Auto) 26.4 (18.3-44.2) % [place] % (Auto) 6.0 (2.6-8.5) % Eos % (Auto) 0.4 (0-4.4) % Baso % (Auto) 0.5 (0.2-1.2) % Lymph # (Auto) 2.07 (0.9-3.2) K/mm3 [place] # (Auto) 0.5 (0.1-0.6) K/mm3 Eos # (Auto) 0.0 (0-0.3) K/mm3 Baso # (Auto) 0.0 (0.0-0.1) K/mm3 Abs Immat Gran (auto) 0.19 H (0.00-0.031) K/mm3 Absolute Neuts (auto) 5.1 (1.3-6.7) K/mm3 Absolute Nucleated RBC 0.000 (0.0-0.012) K/mm3 Nucleated RBC % 0.0 (0.0-0.2) % Sodium 136 L (137-145) mmol/L Potassium 4.1 (3.4-5.0) mmol/L Chloride 107 (98-107) mmol/L Carbon Dioxide 19 L (22-30) mmol/L Anion Gap 10 (4-12) mmol/L BUN 16 (7-17) mg/dL Creatinine 0.90 (0.7-1.0) mg/dL Estim Creat Clear Calc 48 ml/min Estimated GFR > 60 (59 - ) Glucose 101 (65-110) mg/dL Calcium 9.1 (8.4-10.2) mg/dL Total Bilirubin 0.5 (0.2-1.3) mg/dL AST 31 (14-36) U/L ALT 27 (6-35) U/L Alkaline Phosphatase 107 (38-126) U/L Total Protein 7.0 (6.3-8.2) g/dL Albumin 4.1 (3.5-5.1) g/dL Urine Color Yellow (Yellow) Urine Appearance Clear (Clear) Urine pH 5.5 (5.0-9.0) Ur Specific [place] 1.010 (1.001-1.035) Urine Protein Trace (Negative) mg/dL Urine Glucose (UA) 2+ H (Negative) mg/dL Urine Ketones Negative (Negative) mg/dL Ur Blood (Man) Negative (Negative) Urine Nitrate Negative (Negative) Urine Bilirubin Negative (Negative) Urine Urobilinogen 0.2 (<2.0) mg/dL Leukocyte Esterase Rfl Negative (Negative) MAUREEN/UL Urine RBC 0-2 (0-2) /hpf Urine WBC 0-5 (0-3) /hpf Ur Squamous Epith Cells None seen (Few) /hpf Urine Bacteria None seen /hpf Urine Casts 3-5 Influenza A (RT-PCR) Negative (Negative) Influenza B (RT-PCR) Negative (Negative) RSV (RT-PCR) Negative (Negative) SARS-CoV-2 RNA (RT-PCR) Negative (Negative) Imaging Data Radiologist's impression: ITS Impressions Chest X-Ray 09/05/24 17:54 IMPRESSION: Bilateral interstitial changes which may indicate pneumonitis. Follow-up advised. Head CT 09/05/24 18:00 IMPRESSION: No significantchange from previous examination. No acute hemorrhage or infarct seen. Critical Care Time Critical Care Time Critical Care Time: No Discharge Plan Discharge Clinical Impression: Seizure disorder Patient Disposition: Home, Self-Care Condition: Stable Instructions: Epilepsy (ED) Additional Instructions: Return to the emergency department if you experience fever, chest pain, shortness of breath, abdominal pain with nausea and vomiting, weakness, numbness, or any other symptoms that are concerning to you. Continue your seizure medication as prescribed Follow up with your neurologist Patient Language: Persian Prescriptions: No Action furosemide 40 mg tablet 40 mg PO DAILY Qty: 30 0RF primidone 50 mg Tablet 50 mg PO DAILY acetaminophen 325 mg Tablet 650 mg PO BID PRN (Reason: pain) topiramate 100 mg tablet 100 mg PO BID ascorbic acid (vitamin C) 500 mg PO DAILY ergocalciferol (vitamin D2) 1,250 mcg PO WEEKLY Rx Instructions: started 07/11/23 fluticasone propion-salmeterol 100-50 mcg/dose blister with device 1 inh INHALATION BID Artificial Tears (cmc) 1 % Drops 1 drp EACH EYE BID PRN (Reason: Dry Eyes) citalopram 10 mg tablet 10 mg PO DAILY Systane Complete 0.6 % drops 1 drp EACH EYE DAILY cetirizine [Allergy Relief (cetirizine)] 10 mg Tablet 10 mg PO DAILY montelukast [Singulair] 10 mg Tablet 10 mg PO DAILY calcium carbonate-vit D3-min 600 mg calcium- 400 unit Tablet 1 tablet PO DAILY omeprazole 20 mg Tablet,Delayed Release (Dr/Ec) 20 mg PO DAILY Combivent Respimat 20-100 mcg/actuation Mist 1 puff INHALATION QID Jardiance 10 mg Tablet 10 mg PO DAILY Qty: 30 0RF metoprolol succinate 50 mg Tablet Extended Release 24 Hr 50 mg PO QAM Qty: 30 0RF sacubitril-valsartan [Entresto] 24-26 mg Tablet 1 tablet PO Q12HR Qty: 60 0RF spironolactone 25 mg Tablet 25 mg PO QAM Qty: 30 0RF polysaccharide iron complex [iFerex 150] 150 mg iron capsule 300 mg PO DAILY albuterol sulfate [Ventolin HFA] 90 mcg/actuation HFA aerosol inhaler 2 puff INHALATION Q6H PRN (Reason: shortness of breath or wheezing) Combivent Respimat 20-100 mcg/actuation mist 1 puff inhalation QID Rx Instructions: space evenly during waking hours loperamide 2 mg Capsule 2 mg PO PRN PRN (Reason: Diarrhea) Qty: 30 0RF metronidazole 500 mg Tablet 500 mg PO Q8HR Qty: 4 0RF sodium bicarbonate 650 mg Tablet 650 mg PO BID Qty: 60 0RF cefdinir 300 mg Capsule 300 mg PO Q12HR Qty: 2 0RF Follow-up/Referrals: Yeyo Garcia MD [Primary Care Provider] -
[2024-09-05 17:56] LABS: Basophils Percent Auto 0.5 % (0.2-1.2); Eosinophils Percent Auto 0.4 % (0-4.4); Hematocrit 39.8 % (37.0-47.0); Hemoglobin 12.4 g/dL (12.0-15.0); Immature Granulocyte Absolute 0.19 K/mm3 (0.00-0.031); Immature Granulocyte Percent A 2.4 % (0-0.5); Lymphocytes Absolute Auto 2.07 K/mm3 (0.9-3.2); Lymphocytes Percent Auto 26.4 % (18.3-44.2); Mean Corpuscular HGB Conc 31.2 g/dl (32-36); Mean Corpuscular Hemoglobin 27.6 pg (26-34); Mean Corpuscular Volume 88.6 fl (80-100); Mean Platelet Volume 9.5 fl (7.4-10.4); Monocytes Absolute Auto 0.5 K/mm3 (0.1-0.6); Neutrophils Absolute Auto 5.1 K/mm3 (1.3-6.7); Neutrophils Percent Auto 64.3 % (45.5-73.1); Platelet Count Result 331 k/mm3 (150-375); Red Blood Count 4.49 M/mm3 (4.2-5.4); Red Cell Distribution Width 15.9 % (11.5-14.5); White Blood Count 7.9 K/mm3 (4.5-10.0)
[2024-09-05] MEDS: TOPIRAMATE 100 MG TABLET PO (18:09)
[2024-09-05 18:11] LABS: Alanine Aminotransferase 27 U/L (6-35); Albumin Level 4.1 g/dL (3.5-5.1); Alkaline Phosphatase 107 U/L (38-126); Anion Gap 10 mmol/L (4-12); Aspartate Amino Transferase 31 U/L (14-36); Bilirubin,Total 0.5 mg/dL (0.2-1.3); Blood Urea Nitrogen 16 mg/dL (7-17); Calcium 9.1 mg/dL (8.4-10.2); Carbon Dioxide 19 mmol/L (22-30); Chloride 107 mmol/L (98-107); Estimated CRCL calculation 48 ml/min; Estimated Glomerular Filt Rate > 60; Glucose 101 mg/dL (65-110); Potassium 4.1 mmol/L (3.4-5.0); Sodium 136 mmol/L (137-145)
[2024-09-05 18:30] LABS: Influenza A QL RT-PCR Negative (Negative); Influenza B QL RT-PCR Negative (Negative); RSV RNA, RT-PCR Negative (Negative); SARS-CoV-2 RNA PCR Negative (Negative)
[2024-09-05 18:42] LABS: Add Urine Microscopic? YES; Appearance Urine Clear (Clear); Bacteria Urine None Seen /hpf; Bilirubin Urine Negative (Negative); Blood Urine Negative (Negative); Color Urine Yellow (Yellow); Glucose Urine UA 2+ mg/dL (Negative); Ketones Urine Negative (Negative); Leukocyte Esterase Ur Negative LEU/UL (Negative); Nitrate Urine Negative (Negative); Protein Urine Trace mg/dL (Negative); RBC Urine 0-2 /hpf (0-2); Squamous Epithelial Cell Urine None Seen /hpf (Few); Urobilinogen Urine 0.2 mg/dL (<2.0); WBC Urine 0-5 /hpf (0-3); pH Urine 5.5 (5.0-9.0)
[2024-09-06] VITALS (10 sets, daily range): BP systolic 122–129; BP diastolic 69–74; PULSE 73–80; RESP 13–24; O2SAT 98
--- NOTE | 2024-09-06 01:42 | PC.NURSE ---
This RN called [place] to update Selam GONZALES about pt POC and updated ETA
== END 2024-09-06 02:51 | disposition home or self-care (01) ==
PROVIDERS: Emergency Provider Physician Assistant; PCP Family Medicine
DX: G40.909 Epilepsy, unspecified, not intractable, without status epilepticus (principal); Z20.822 Contact with and (suspected) exposure to COVID-19; I11.0 Hypertensive heart disease with heart failure; I50.9 Heart failure, unspecified; K21.9 Gastro-esophageal reflux disease without esophagitis; D64.9 Anemia, unspecified; J44.9 Chronic obstructive pulmonary disease, unspecified; Z87.820 Personal history of traumatic brain injury
CPT/HCPCS: 36415; 70450; 71045; 80053; 81001; 85025; 87637; 93005; 99284; A9270

== ENCOUNTER 2024-12-30 12:37 | Emergency (ER) | payer MEDICARE, MEDICAID, SELFPAY ==
[2024-12-30] VITALS (24 sets, daily range): BP systolic 103–133; BP diastolic 66–86; PULSE 69–81; RESP 12–19; O2SAT 94–99
--- NOTE | ~2024-12-30 | CT_ITS ---
EXAMINATION: CT brain wo con DATE: 12/30/2024 14:54 INDICATION: Seizure TECHNIQUE: Computed tomography (CT) of the head was performed without intravenous contrast. Sagittal and coronal reconstructions were performed. The mA was adjusted according to patient size. Iterative reconstruction technique was employed. The dose-length product was 681.00 mGy-cm. COMPARISON: head CT dated 09/05/2024 FINDINGS: Again seen is a right frontal ventricular drain with distal tip at the medial aspect of the anterior horn of the right lateral ventricle. Chronic encephalomalacia in the anterior left frontal lobe. Smal l old lacunar infarcts in the right lentiform nucleus and at the posterior limb of the left internal capsule. No acute intracranial hemorrhage or acute infarction. No interval change in chronic bilatera l hypodense frontoparietal subdural hematomas measuring up to 5 mm maximal thickness on both the left and right. There is mild scattered white matter hypoattenuation consistent with chronic small vessel ischemic disease. There is mild ex vacuo dilation of the anterior horn of the left lateral ventricle . Ventricles are otherwise normal and symmetric. No mass/mass effect. The orbits, paranasal sinuses a nd mastoid air cells are normal. IMPRESSION: 1. Stable appearance of chronic encephalomalacia in the left frontal lobe and small old bilateral bas al ganglia lacunar infarcts. No acute intracranial process. 2. 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 3. Unchanged mild scattered mesenteric white matter hypoattenuation consistent with chronic small ves sid ischemic disease. 4. Stable appearance of the ventricles with unchanged right frontal ventricular drainage catheter in expected position. Reviewed, dictated and finalized at location B. IMPRESSION: 1. Stable appearance of chronic encephalomalacia in the left frontal lobe and s mall old bilateral basal ganglia lacunar infarcts. No acute intracranial proces s. 2. 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 3. Unchanged mild scattered mesenteric white matter hypoattenuation consistent with chronic small vessel ischemic disease. 4. Stable appearance of the ventricles with unchanged right frontal ventricular drainage catheter in expected position.
--- NOTE | 2024-12-30 12:45 | ECG_ITS ---
Test Date: 2024-12-30 12:55:03 Measurements Intervals [place] Rate: 79 P: 30 CA: 146 QRS: 17 QRSD: 88 T: 52 QT: 396 QTc: 455 Interpretive Statements SINUS RHYTHM POSSIBLE LEFT ATRIAL ENLARGEMENT LEFT VENTRICULAR HYPERTROPHY WITH ST-T CHANGE NONSPECIFIC ST & T-WAVE ABNORMALITY- ANTEROLAT/INF LEADS BORDERLINE ECG Compared to ECG 09/05/2024 17:56:10 NO SIGNIFICANT CHANGE Electronically Signed On 12-30-2024 13:11:55 CDT by Mansoor Blanchard D.O.
[2024-12-30 13:11] LABS: Basophils Percent Auto 0.5 % (0.2-1.2); Eosinophils Percent Auto 0.1 % (0-4.4); Hematocrit 42.8 % (37.0-47.0); Hemoglobin 13.2 g/dL (12.0-15.0); Immature Granulocyte Absolute 0.05 K/mm3 (0.00-0.031); Immature Granulocyte Percent A 0.6 % (0-0.5); Lymphocytes Absolute Auto 1.82 K/mm3 (0.9-3.2); Lymphocytes Percent Auto 23.3 % (18.3-44.2); Mean Corpuscular HGB Conc 30.8 g/dl (32-36); Mean Corpuscular Hemoglobin 27.8 pg (26-34); Mean Corpuscular Volume 90.3 fl (80-100); Mean Platelet Volume 9.3 fl (7.4-10.4); Monocytes Absolute Auto 0.6 K/mm3 (0.1-0.6); Monocytes Percent Auto 7.8 % (2.6-8.5); Neutrophils Absolute Auto 5.3 K/mm3 (1.3-6.7); Neutrophils Percent Auto 67.7 % (45.5-73.1); Platelet Count Result 271 k/mm3 (150-375); Red Blood Count 4.74 M/mm3 (4.2-5.4); Red Cell Distribution Width 14.4 % (11.5-14.5); White Blood Count 7.8 K/mm3 (4.5-10.0)
[2024-12-30 13:27] LABS: Alanine Aminotransferase 20 U/L (6-35); Albumin Level 4.4 g/dL (3.5-5.1); Alkaline Phosphatase 115 U/L (38-126); Anion Gap 15 mmol/L (4-12); Aspartate Amino Transferase 21 U/L (14-36); Bilirubin,Total 0.3 mg/dL (0.2-1.3); Blood Urea Nitrogen 17 mg/dL (7-17); Calcium 9.2 mg/dL (8.4-10.2); Carbon Dioxide 18 mmol/L (22-30); Chloride 105 mmol/L (98-107); Estimated Glomerular Filt Rate > 60; Glucose 88 mg/dL (65-110); Potassium 4.4 mmol/L (3.4-5.0); Sodium 138 mmol/L (137-145)
[2024-12-30 14:36] LABS: Add Urine Microscopic? YES; Appearance Urine Clear (Clear); Bacteria Urine None Seen /hpf; Bilirubin Urine Negative (Negative); Blood Urine Negative (Negative); Color Urine Yellow (Yellow); Glucose Urine UA 3+ mg/dL (Negative); Ketones Urine Negative (Negative); Leukocyte Esterase Ur Negative LEU/UL (Negative); Need Manual Microscopic Reviewed; Nitrate Urine Negative (Negative); Protein Urine 1+ mg/dL (Negative); RBC Urine 0-2 /hpf (0-2); Specific Grav Ur 1.023 (1.001-1.035); Squamous Epithelial Cell Urine Occasional /hpf (Few); Urobilinogen Urine 0.2 mg/dL (<2.0); WBC Urine 0-5 /hpf (0-3); pH Urine 7.5 (5.0-9.0)
--- NOTE | 2024-12-30 14:36 | ED_ITS ---
HPI - General Adult General Chief complaint: Seizure Stated complaint: Seizure Time Seen by Provider: 12/30/24 13:33 History of Present Illness HPI narrative: 69-year-old female presents to the emergency department for evaluation for a 3 minute seizure. Patient states she only has seizures infrequently. Patient resides at [facility] and is compliant with her medications. Upon arrival emergency department patient is alert oriented baseline. Patient denies rib pain or complaint. Related Data Home Medications ?Medication ?Instructions ?Recorded ?Confirmed ?Last Taken ?Type calcium 600 mg (as carbonate)-vit 1 tablet PO DAILY 09/23/22 10/09/24 08/20/24 History D3 10 mcg (400 unit)-minerals tablet cetirizine 10 mg tablet (Allergy 10 mg PO DAILY 09/23/22 10/09/24 08/20/24 History Relief (cetirizine)) citalopram 10 mg tablet 10 mg PO DAILY 09/23/22 10/09/24 08/20/24 History ipratropium 20 mcg-albuterol 100 1 puff inhalation QID 09/23/22 10/09/24 08/20/24 History mcg/actuation mist for inhalation (Combivent Respimat) montelukast 10 mg tablet 10 mg PO DAILY 09/23/22 10/09/24 08/20/24 History (Singulair) omeprazole 20 mg tablet,delayed 20 mg PO DAILY 09/23/22 10/09/24 08/20/24 History release propylene glycol 0.6 % eye drops 1 drp EACH EYE DAILY 09/23/22 10/09/24 08/20/24 History (Systane Complete) acetaminophen 325 mg tablet 650 mg PO BID PRN pain 11/09/23 10/09/24 08/20/24 History ascorbic acid (vitamin C) 500 mg PO DAILY 11/09/23 10/09/24 08/20/24 History ergocalciferol (vitamin D2) 1,250 mcg PO WEEKLY 11/09/23 10/09/24 08/20/24 History primidone 50 mg tablet 50 mg PO DAILY 11/09/23 10/09/24 08/20/24 History topiramate 100 mg tablet 100 mg PO BID 11/09/23 10/09/24 08/20/24 History carboxymethylcellulose sodium 1 % 1 drp EACH EYE BID PRN Dry Eyes 02/11/24 10/09/24 08/20/24 History eye drops (Artificial Tears (carboxymethylcellulose)) fluticasone 100 mcg-salmeterol 50 1 inh inhalation BID 02/11/24 10/09/24 08/20/24 History mcg/dose blistr powdr for inhalation albuterol sulfate 90 mcg/actuation 2 puff inhalation Q6H PRN 08/29/24 10/09/24 Unknown History aerosol inhaler (Ventolin HFA) shortness of breath or wheezing ipratropium 20 mcg-albuterol 100 1 puff inhalation QID 08/29/24 10/09/24 Unknown History mcg/actuation mist for inhalation (Combivent Respimat) polysaccharide iron complex 150 mg 300 mg PO DAILY 08/29/24 10/09/24 Unknown History iron capsule (iFerex 150) Allergies Allergy/AdvReac Type Severity Reaction Status Date / Time No Known Allergies Allergy Verified 10/09/24 11:21 Review of Systems 2 Review of Systems: All systems reviewed & are unremarkable except as noted in HPI and below PMFSH Past Medical History Medical History Combined systolic and diastolic congestive heart failure Echocardiogram May 2024 demonstrated EF of 30-5 to 40%, mildly increased left ventricular wall thickness, normal right ventricular systolic function, severe left atrial enlargement, moderate mitral valve regurgitation, mild tricuspid regurgitation, abnormal diastolic function, moderate pericardial effusion with invagination of the right atrial free wall consistent with increased intrapericardial pressure Colon cancer screening Seizure disorder Gastroesophageal reflux disease Chronic obstructive pulmonary disease Cerebrovascular accident Traumatic brain injury Age 9. Hypertension Idiopathic aplastic anemia Normal pressure hydrocephalus Surgical History Surgical History History of gastrostomy tube placement History of exploratory laparotomy History of tracheostomy as a child Family History Family History Mother Scarring of lung COPD (chronic obstructive pulmonary disease) Hypertension Father Chronic back pain Sibling Ruptured appendix Social History Social History Social History: Patient reports that she used to smoke about a pack of cigarettes per day but quit many years ago. She used to occasionally drink a moderate amount of alcohol but has not done so in many years. She is residing at [facility]. Healthcare power of data communications technician: Jada Pena, mother. Code status: Full code. Smoking packs per day: 1 Smoking cigarettes per day: 20.0 Years smoked: 25 Smoking pack-years: 25.00 Smoking status: Former smoker Tobacco type: cigarettes Second hand tobacco smoke exposure: Yes Alcohol intake: never Substance use: never Substance use type: does not use Do You Feel Safe in your Home?: Yes Lack of Transportation: No Lack of Food: Never True Current Housing: I Have Housing Concerned About Future Housing: No Difficulty Paying Gas/Electric Bills: No Difficulty Paying for Meds: No Currently Unemployed: No Education: High School Diploma/GED Difficulty w/ Childcare or Family Care: No Living arrangements: assisted living Spiritual care concerns: No Exam 2 Narrative: APPEARANCE: Well appearing, no pain, no distress, well-nourished. HEAD: normocephalic, atraumatic. EYES: PERRLA/EOMI, conjunctivae clear. NOSE: Normal no drainage EARS:TMS clear with good light reflex. THROAT: Pharynx clear, no exudate. NECK: Supple. No adenopathy, no masses. RESPIRATORY: Airway patent, respirations nonlabored. Clear to auscultation bilaterally, no rales, rhonchi, wheezing. CARDIOVASCULAR: Regular rate and rhythm without murmurs rubs or gallops. ABDOMINAL: Soft, nontender, nondistended, normal bowel sounds MUSCULOSKELETAL: Moves all extremities. Strength/ROM intact, No edema, No calf tenderness. NEURO: Alert. Cranial nerves II through XII intact. Good gait. Good coordination SKIN: Warm, dry. Normal Color Course Vital Signs Vital signs: Vital Signs Pulse Rate 75 12/30/24 13:02 Respiratory Rate 13 12/30/24 13:02 Pulse Oximetry 98 12/30/24 13:02 Pulse Rate 75 12/30/24 16:41 Respiratory Rate 19 12/30/24 16:41 Blood Pressure 133/70 12/30/24 16:41 Pulse Oximetry 99 12/30/24 16:41 Medical Decision Making MDM Narrative Medical decision making narrative: 69-year-old female presents emergency department for evaluation for a proximal 3 minute seizure. Patient denies any pain or injury. Patient is back to her normal baseline. Patient is currently afebrile with no leukocytosis and hemoglobin of 13.2. Patient has no significant abnormalities on her CMP patient is negative for infection. Patient was negative for influenza RSV and for COVID. Head CT shows no acute intracranial abnormalities. Patient will be discharged to home to have close outpatient follow-up with her neurologist. Differential Diagnosis Differential Diagnosis: COVID, RSV, and folds, pneumonia, subdural hematoma, subarachnoid hemorrhage, UTI, medication noncompliance Vital Signs Vital Signs: Vital Signs Pulse Rate 75 12/30/24 13:02 Respiratory Rate 13 12/30/24 13:02 Pulse Oximetry 98 12/30/24 13:02 Pulse Rate 75 12/30/24 16:41 Respiratory Rate 19 12/30/24 16:41 Blood Pressure 133/70 12/30/24 16:41 Pulse Oximetry 99 12/30/24 16:41 Lab Data Lab results reviewed: Yes I reviewed the patient's lab results. 12/30/24 13:03 12/30/24 13:03 Labs: Lab Results 12/30/24 12/30/24 12/30/24 Range/Units 13:03 13:56 14:12 WBC 7.8 (4.5-10.0) K/mm3 RBC 4.74 (4.2-5.4) M/mm3 Hgb 13.2 (12.0-15.0) g/dL Hct 42.8 (37.0-47.0) % MCV 90.3 (80-100) fl MCH 27.8 (26-34) pg MCHC 30.8 L (32-36) g/dl RDW 14.4 (11.5-14.5) % Plt Count 271 (150-375) k/mm3 MPV 9.3 (7.4-10.4) fl Immature Gran % (Auto) 0.6 H (0-0.5) % Neut % (Auto) 67.7 (45.5-73.1) % Lymph % (Auto) 23.3 (18.3-44.2) % [place] % (Auto) 7.8 (2.6-8.5) % Eos % (Auto) 0.1 (0-4.4) % Baso % (Auto) 0.5 (0.2-1.2) % Lymph # (Auto) 1.82 (0.9-3.2) K/mm3 [place] # (Auto) 0.6 (0.1-0.6) K/mm3 Eos # (Auto) 0.0 (0-0.3) K/mm3 Baso # (Auto) 0.0 (0.0-0.1) K/mm3 Abs Immat Gran (auto) 0.05 H (0.00-0.031) K/mm3 Absolute Neuts (auto) 5.3 (1.3-6.7) K/mm3 Absolute Nucleated RBC 0.000 (0.0-0.012) K/mm3 Nucleated RBC % 0.0 (0.0-0.2) % Sodium 138 (137-145) mmol/L Potassium 4.4 (3.4-5.0) mmol/L Chloride 105 (98-107) mmol/L Carbon Dioxide 18 L (22-30) mmol/L Anion Gap 15 H (4-12) mmol/L BUN 17 (7-17) mg/dL Creatinine 0.87 (0.7-1.0) mg/dL Estim Creat Clear Calc Not Reportable Estimated GFR > 60 (59 - ) Glucose 88 (65-110) mg/dL Calcium 9.2 (8.4-10.2) mg/dL Total Bilirubin 0.3 (0.2-1.3) mg/dL AST 21 (14-36) U/L ALT 20 (6-35) U/L Alkaline Phosphatase 115 (38-126) U/L Total Protein 7.0 (6.3-8.2) g/dL Albumin 4.4 (3.5-5.1) g/dL Urine Color Yellow (Yellow) Urine Appearance Clear (Clear) Urine pH 7.5 (5.0-9.0) Ur Specific [place] 1.023 (1.001-1.035) Urine Protein 1+ H (Negative) mg/dL Urine Glucose (UA) 3+ H (Negative) mg/dL Urine Ketones Negative (Negative) mg/dL Ur Blood (Man) Negative (Negative) Urine Nitrate Negative (Negative) Urine Bilirubin Negative (Negative) Urine Urobilinogen 0.2 (<2.0) mg/dL Add Ur Microanalysis Reviewed Leukocyte Esterase Rfl Negative (Negative) MAUREEN/UL Urine RBC 0-2 (0-2) /hpf Urine WBC 0-5 (0-3) /hpf Ur Squamous Epith Cells Occasional (Few) /hpf Urine Bacteria None seen /hpf Urine Casts 6-10 Influenza A (RT-PCR) Negative (Negative) Influenza B (RT-PCR) Negative (Negative) RSV (RT-PCR) Negative (Negative) SARS-CoV-2 RNA (RT-PCR) Negative (Negative) Imaging Data Radiologist's impression: Impressions Head CT 12/30/24 14:56 IMPRESSION: 1. Stable appearance of chronic encephalomalacia in the left frontal lobe and small old bilateral basal ganglia lacunar infarcts. No acute intracranial process. 2. 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 3. Unchanged mild scattered mesenteric white matter hypoattenuation consistent with chronic small vessel ischemic disease. 4. Stable appearance of the ventricles with unchanged right frontal ventricular drainage catheter in expected position. Discharge Plan Discharge Clinical Impression: Seizure Patient Disposition: NH Snf/Asst Living Condition: Stable Instructions: Antibiotic Form, Epilepsy (ED) Additional Instructions: Have close follow-up with your neurologist. Have close follow-up with your primary care physician. If you have any worsening symptoms please call or return to the emergency department. Patient Language: Bruneian Prescriptions: No Action primidone 50 mg Tablet 50 mg PO DAILY acetaminophen 325 mg Tablet 650 mg PO BID PRN (Reason: pain) topiramate 100 mg tablet 100 mg PO BID ascorbic acid (vitamin C) 500 mg PO DAILY ergocalciferol (vitamin D2) 1,250 mcg PO WEEKLY Rx Instructions: started 07/11/23 fluticasone propion-salmeterol 100-50 mcg/dose blister with device 1 inh INHALATION BID Artificial Tears (cmc) 1 % Drops 1 drp EACH EYE BID PRN (Reason: Dry Eyes) citalopram 10 mg tablet 10 mg PO DAILY Systane Complete 0.6 % drops 1 drp EACH EYE DAILY cetirizine [Allergy Relief (cetirizine)] 10 mg Tablet 10 mg PO DAILY montelukast [Singulair] 10 mg Tablet 10 mg PO DAILY calcium carbonate-vit D3-min 600 mg calcium- 400 unit Tablet 1 tablet PO DAILY omeprazole 20 mg Tablet,Delayed Release (Dr/Ec) 20 mg PO DAILY Combivent Respimat 20-100 mcg/actuation Mist 1 puff INHALATION QID Jardiance 10 mg Tablet 10 mg PO DAILY Qty: 30 0RF metoprolol succinate 50 mg Tablet Extended Release 24 Hr 50 mg PO QAM Qty: 30 0RF sacubitril-valsartan [Entresto] 24-26 mg Tablet 1 tablet PO Q12HR Qty: 60 0RF spironolactone 25 mg Tablet 25 mg PO QAM Qty: 30 0RF polysaccharide iron complex [iFerex 150] 150 mg iron capsule 300 mg PO DAILY albuterol sulfate [Ventolin HFA] 90 mcg/actuation HFA aerosol inhaler 2 puff INHALATION Q6H PRN (Reason: shortness of breath or wheezing) Combivent Respimat 20-100 mcg/actuation mist 1 puff inhalation QID Rx Instructions: space evenly during waking hours loperamide 2 mg Capsule 2 mg PO PRN PRN (Reason: Diarrhea) Qty: 30 0RF metronidazole 500 mg Tablet 500 mg PO Q8HR Qty: 4 0RF sodium bicarbonate 650 mg Tablet 650 mg PO BID Qty: 60 0RF cefdinir 300 mg Capsule 300 mg PO Q12HR Qty: 2 0RF Follow-up/Referrals: Yeyo Garcia MD [Primary Care Provider] -
[2024-12-30 14:39] LABS: Influenza A QL RT-PCR Negative (Negative); Influenza B QL RT-PCR Negative (Negative); RSV RNA, RT-PCR Negative (Negative); SARS-CoV-2 RNA PCR Negative (Negative)
--- OUTSIDE RECORDS SUMMARY | 2024-12-30 14:49 | XMS_ITS ---
Author Name Auto Generated, Auto Generated Organization [facility] Address [address] [place] [address] Phone [phone] Care Team Providers Care Head Char Filter Tank Tender Name Role Phone EuniceYeyo galvin Joey Unavailable Functional Status No Results Mental Status No Results Allergies and Intolerances Name Onset Date Reaction Severity No Known Allergies (Allergy) SunDec 17 15:34:00 EDT 2020 Encounters Program Name Primary Diagnosis Admission Date/Time Discharge Date/Time [facility] SunJun 17 20:00:00 EDT 2022May 23 08:00:00 EDT 2023 Assisted Living Area [facility] following unspecified cerebrovascular disease SunDec 17 07:30:00 EDT 2020 [facility] SunJun 04 20:00:00 EDT 2023Aug 29 17:00:00 EST 2023 [facility]mediate Care Facility [facility] Sat May 24 08:00:00 EDT 2023Jun 04 06:45:00 EDT 2023 [facility] SunSep 10 19:00:00 EST 2024 Immunizations Name Dates Status TST-PPD intradermal Mon May 26 01:00:00 EDT 2023 Completed TST-PPD intradermal SunJun 02 01:00:00 EDT 2023 Completed TST-PPD intradermal Wed Sep 01:00:00 EDT 2023 Completed TST-PPD intradermal SunJun 04 01:00:00 EDT 2023 Completed influenza, trivalent, adjuvanted Nikki Jun 12 01:0 0:00 EDT 2023 Completed Medications Medication Directions Start Date End Date ipratropium 0.5 mg-albuteroL 3 mg (2.5 mg base)/3 mL nebulization soln 1 vial AMPUL FOR NEBULIZATION (ML) Inhalation 4 Times Daily for 14 Days Indication: cough Nurse administer [facility] Nov 13 01:00:00 EDT [address] [facility] Nov 27 00:59:00 EDT 2024 ipratropium 0.5 mg-albuteroL 3 mg (2.5 mg base)/3 mL nebulization soln 1 vial AMPUL FOR NEBULIZATION (ML) Inhalation 4 Times Daily for 14 Days Indication: coughNurse administer Nikki Oct 09 01:00:00 EST 2024 Nikki Oct 23 00:59:00 EST 2024 Mucus Relief ER 600 mg tablet, extended release 1 TABLET, EXTENDED RELEASE 12 HR Oral PRN 2 Times Daily Indication: cough/congestion SunOct 06 20:00:00 EST 2024 fluticasone 100 mcg-salmeteroL 50 mcg/dose blistr powdr for inhalation 1 PUFF BLISTER, WITH INHALATION DEVICE Inhalation 2 Times Daily Indication: ASTHMA Shake well before using, ALWAYS use the bronchodilator first then the steroid inhaler.Fluticasone-Salmeter ol 5 minutes later.Position inhaler in front of mouth. Resident to inhale deeply when spray is applied or inhale contents of the spacer.Wait 1 minute between administering inhalations.Rinse mouth and expectorate after steroid inhaler use.Rinse applicator (and spacer) after each use. Sat Oct 04 11:02:00 EST 2024 Combivent Respimat 20 mcg-100 mcg/actuation solution for inhalation 1 puff MIST INHALER (GRAM) Inhalation 4 Times Daily Indication: COPD NURSE ADMINISTER X1 X2 X3 X4 SunOct 04 12:17:00 EST 2024 sodium bicarbonate 650 mg tablet 1 tab TABLET Oral 2 Times Daily Indication: Diarrhea / AKF ANNUAL GIVING DIRECTOR Supervision x1 x4 SunSep 08 01:00:00 EST 2024 metoprolol succinate ER 50 mg tablet,extended release 24 hr 1 tablet TABLET, EXTENDED RELEASE 24 HR Oral 1 Time Daily BP and/or Pulse Hold: Systolic Blood Pressure < 110 Hold;Vitals (Diastolic Blood Pressure) < 60 Hold;Vital Signs (Pulse) < 60 Hold;. Indication: HTNCNA supervision x1 SunSep 07 17:08:00 EST 2024 cefdinir 300 mg capsule 1 tab CAPSULE Or al Every 12 Hours for 1 Day Indication: Antibiotic ANNUAL GIVING DIRECTOR X 1 x4 SunSep 03 01:00:00 EST 2024Sep 04 00:59:00 EST 2024 metroNIDAZOLE 500 mg tablet 1 tab TABLET Oral Every 12 Hours for 1 Day Indication: Antibiotic ANNUAL GIVING DIRECTOR X 1 x4 SunSep 03 01:00:00 EST 2024Sep 03 11:57:00 EST 2024 metroNIDAZOLE 500 mg tablet 1 tab TABLET Oral Every 8 Hours for 1 Day Indication: Antibiotic ANNUAL GIVING DIRECTOR X 1 x3 x4 SunSep 03 01:00:00 EST 2024Sep 04 00:59:00 EST 2024 cefdinir 300 mg capsule 2 CAPSULE Oral E very 12 Hours for 1 Day Indication: Antibiotic ANNUAL GIVING DIRECTOR X 1 SunSep 02 21:00:00 EST 2023Sep 03 11:41:00 EST 2024 metroNIDAZOLE 500 mg tablet 2 TABLET Ora l Every 12 Hours for 1 Day Indication: Antibiotic ANNUAL GIVING DIRECTOR X 1 SunSep 02 18:00:00 EST 2023Sep 03 11:41:00 EST 2024 bisacodyL 5 mg tablet,delayed release 4 TABLET, DELAYED RELEASE (ENTERIC COATED) Oral 1 Time Daily for 1 Day Indication: colonoscopy prep Take 4 tabs PO x1 SunAug 20 01:00:00 EST 2023Aug 21 00:59:00 EST 2023 magnesium citrate oral solution 10 ounces SOLUTION, ORAL Oral 1 Time Daily for 1 Day Indication: colonoscopy prep take 10oz bottle of Mag Cit followed by 8oz glass of water SunAug 20 01:00:00 2023Aug 21 00:59:00 EST 2023 polyethylene glycoL 3350 17 gram/dose oral powder 238 ounce POWDER (GRAM) Oral 8 Times Daily for 1 Day Indication: colonoscopy prep drink 8 ounces of Gatorade/MiraLAX mix Q 15 minutes until mixture is gone SunAug 20 01:00:00 2023Aug 21 00:59:00 EST 2023 Paxlovid 300 mg (150 mg x 2)-100 mg tablets in a dose pack 3 tablets TABLET, DOSE PACK Oral 2 Times Daily for 5 Days Indication: COVID ANNUAL GIVING DIRECTOR supervision x1, x4 SunJun 27 01:00:00 EDT 2023Jun 28 08:39:00 EDT 2023 Fluad Triv 2023-(65y up)(PF) 45 mcg (15 mcg x 3)/0.5 mL IM syringe 1 SYRINGE (ML) Intramuscular 1 Time Daily for 1 Day Indication: Vaccine SunJun 12 01:00:00 EDT 2023Jun 13 00:59:00 EDT 2023 furosemide 40 mg tablet 1 tablet TABLET Oral 1 Time Daily Indication: edema ANNUAL GIVING DIRECTOR supervision x1 SunJun 05 01:00:00 EDT 2023Oct 13 04:29:00 EST 2024 acetaminophen 325 mg tablet 2 tablets TA BLET Oral PRN Every 6 Hours Indication: painDo not exceed 3g/day from all APAP sources SunJun 04 15:03:00 EDT 2023Jul 29 13:19:00 EST 2023 furosemide 40 mg tablet 1 tablet TABLET Oral 2 Times Daily Indication: edema ANNUAL GIVING DIRECTOR supervision x1, x3 SunJun 04 01:00:00 EDT 2023Jun 05 16:55:00 EDT 2023 Entresto 24 mg-26 mg tablet 1 tablet TAB LET Oral 2 Times Daily Indication: CHF ANNUAL GIVING DIRECTOR supervision x1, x4 SunJun 04 15:00:00 EDT 2023 Ventolin HFA 90 mcg/actuation aerosol inhaler 2 puffs HFA AEROSOL WITH ADAPTER (GRAM) Inhalation PRN Every 6 Hours Indication: SOB Nurse to administer SunJun 04 15:00:00 EDT 2023 blood pressure monitor kit 1 KIT Other 2 Times Daily for 10 Days Indication: VSCNA to obtain SunJun 04 15:00:00 EDT 2023Jun 14 14:59:00 EDT 2023 fluticasone 100 mcg-salmeteroL 50 mcg/dose blistr powdr for inhalation 1 PUFF BLISTER, WITH INHALATION DEVICE Inhalation 2 Times Daily Indication: asthma *Rinse mouth out after use to avoid oral thrush from developing. SunJun 02 16:00:00 EDT 2023Jun 04 01:00:00 EDT 2023 Ventolin HFA 90 mcg/actuation aerosol inhaler 2 puffs HFA AEROSOL WITH ADAPTER (GRAM) Inhalation Every 6 Hours for 2 Days Indication: PN/SOB SunMay 28 12:32:00 EDT 2023May 28 19:47:00 EDT 2023 Ventolin HFA 90 mcg/actuation aerosol inhaler 2 puffs HFA AEROSOL WITH ADAPTER (GRAM) Inhalation PRN Every 6 Hours Indication: SOB SunMay 28 12:33:00 EDT 2023Jun 04 01:00:00 EDT 2023 Ventolin HFA 90 mcg/actuation aerosol inhaler 2 puffs HFA AEROSOL WITH ADAPTER (GRAM) Inhalation Every 6 Hours for 2 Days Indication: PN/SOB, after two days order will be PRN thereafter. Nikki Sep 26 07:00:00 EDT 2023 [facility] Sep 28 06:59:00 EDT 2023 Systane Complete 0.6 % eye drops 1 DROP DROPS Both Eyes 1 Time Daily Indication: dry eyes [facility] May 26 09:29:00 EDT 2023Jun 04 01:00:00 EDT 2023 fluticasone 100 mcg-salmeteroL 50 mcg/dose blistr powdr for inhalation 1 PUFF BLISTER, WITH INHALATION DEVICE Inhalation 2 Times Daily Indication: asthma [facility] 09:30:00 EDT 2023 [facility] 16:11:00 EDT 2023 Combivent Respimat 20 mcg-100 mcg/actuation solution for inhalation 1 puff MIST INHALER (GRAM) Inhalation 4 Times Daily Indication: COPD [facility] May 26 09:31:00 EDT 2023Jun 04 01:00:00 EDT 2023 oxyCODONE 5 mg tablet 1/2 TABLET TABLET Oral PRN Every 4 Hours Indication: pain SunMay 26 09:31:00 EDT 2023Jun 04 01:00:00 EDT 2023 citalopram 10 mg tablet 1 TABLET TABLET Oral 1 Time Daily Indication: depression [facility] May 26 09:32:00 EDT 2023Jun 04 01:00:00 EDT 2023 Artificial Tears (carboxymethylcellulose) 1 % eye drops 1 DROP DROPS Both Eyes PRN 2 Times Daily Indication: eye irritation SunMay 26 09:32:00 EDT 2023Jun 04 01:00:00 EDT 2023 bisacodyL 5 mg tablet,delayed release 1 TABLET TABLET, DELAYED RELEASE (ENTERIC COATED) Oral PRN 2 Times Daily Indication: constipation SunMay 26 09:33:00 EDT 2023Jun 04 01:00:00 EDT 2023 calcium carbonate 600 mg-vitamin D3 10 mcg (400 unit) tablet 1 TABLET TABLET Oral 1 Time Daily Indication: supplement Sun [facility] 09:33:00 EDT 2023Jun 04 01:00:00 EDT 2023 montelukast 10 mg tablet 1 TABLET TABLET Oral 1 Time Daily Indication: allergies [facility] 09:34:00 EDT 2023Jun 04 01:00:00 EDT 2023 cetirizine 10 mg tablet 10 mg TABLET Ora l 1 Time Daily Indication: allergies [facility] 09:34:00 EDT 2023Jun 04 01:00:00 EDT 2023 Mucus Relief ER 600 mg tablet, extended release 600 mg TABLET, EXTENDED RELEASE 12 HR Oral PRN Every 12 Hours Indication: cough [facility] 09:35:00 EDT 2023Jun 04 01:00:00 EDT 2023 omeprazole 20 mg tablet,delayed release 20 mg (1 TAB) TABLET, DELAYED RELEASE (ENTERIC COATED) Oral 1 Time Daily Indication: GERD [facility] 09:35:00 EDT 2023Jun 04 01:00:00 EDT 2023 Vitamin D2 1,250 mcg (50,000 unit) capsule 1 cap CAPSULE Oral 1 Time Weekly Indication: Vit D deficiency [facility] 09:36:00 EDT 2023Jun 04 01:00:00 EDT 2023 polyethylene glycoL 3350 17 gram oral powder packet 1 PACKET POWDER IN PACKET (EA) Oral PRN 1 Time Daily Indication: constipation [facility] 09:36:00 EDT 2023Jun 04 01:00:00 EDT 2023 Vitamin C 500 mg tablet 1 tablet TABLET Oral 1 Time Daily Indication: supplement [facility] 09:37:00 EDT 2023Jun 04 01:00:00 EDT 2023 primidone 50 mg tablet 1 tab TABLET Oral 1 Time Daily Indication: epilepsy, tremors per John Celeste MD [facility] 09:37:00 EDT 2023Jun 04 01:00:00 EDT 2023 topiramate 100 mg tablet 1 tab TABLET Or al 2 Times Daily Indication: anticonvulsant [facility] 09:37:00 EDT 2023Jun 04 01:00:00 EDT 2023 fluticasone propionate 50 mcg/actuation nasal spray,suspension 1 SPRAY SPRAY, SUSPENSION Intranasal - Both Nostrils PRN 2 Times Daily Indication: NASAL CONGESTION [facility] 09:38:00 EDT 2023Jun 04 01:00:00 EDT 2023 Chloraseptic Sore Throat 6 mg-10 mg lozenges 1 lozenge LOZENGE Oral PRN Every 2 Hours Indication: sore throat [facility] 09:38:00 EDT 2023Jun 04 01:00:00 EDT 2023 benzonatate 200 mg capsule 1 cap CAPSULE Oral PRN Every 8 Hours Indication: cough [facility] 09:39:00 EDT 2023Jun 04 01:00:00 EDT 2023 iFerex 150 150 mg iron capsule 2 CAPS CAPSULE Oral 1 Time Daily Indication: supplement [facility] 09:39:00 EDT 2023Jun 04 01:00:00 EDT 2023 metoprolol succinate ER 50 mg tablet,extended release 24 hr 1 tablet TABLET, EXTENDED RELEASE 24 HR Oral 1 Time Daily Indication: HTN [facility] 09:39:00 EDT 2023Jun 04 01:00:00 EDT 2023 spironolactone 25 mg tablet 1 tablet TAB LET Oral 1 Time Daily Indication: Heart Failure [facility] 09:40:00 EDT 2023Jun 04 01:00:00 EDT 2023 amoxicillin 875 mg-potassium clavulanate 125 mg tablet 1 tablet TABLET Oral 2 Times Daily for 1 Day Indication: pneumonia [facility] 09:40:00 EDT 2023[facility] 09:39:00 ED2023 Jardiance 10 mg tablet 1 tablet TABLET O ral 1 Time Daily Indication: diabetes mellitus [facility] 09:43:00 T 2023Jun 04 01:00:00 ED2023 furosemide 40 mg tablet 1 tablet TABLET Oral 2 Times Daily for 27 Days Indication: edema [facility] 09:43:00 EDT 2023Jun 04 01:00:00 EDT 2023 Entresto 24 mg-26 mg tablet 1 tablet TAB LET Oral 2 Times Daily for 27 Days Indication: CHF [facility] 09:44:00 EDT 2023Jun 04 01:00:00 EDT 2023 methylPREDNISolone 4 mg tablets in a dose pack Day 4 TABLET, DOSE PACK Oral 3 Times Daily for 1 Day Indication: pneumonia 4th Day: Take 1 tablet before breakfast, 1 tablet after lunch and 1 tablet at bedtime, ANNUAL GIVING DIRECTOR supervision x1, x2, x4 . [facility] 06:00:00 EDT 2023 [facility] 05:59:00 EDT 2023 TubersoL 5 tub. unit/0.1 mL intradermal injection solution 0.1 ml VIAL (ML) Intradermal 1 Time Weekly for 2 Weeks Indication: Rule out TB 1st injection on admission, then one week after. Read between 48 and 72 hours [facility] 22 19:30:00 EDT 2023Jun 04 01:00:00 EDT 2023 TubersoL 5 tub. unit/0.1 mL intradermal injection solution Read Results VIAL (ML) Other 1 Time Weekly for 2 Weeks Indication: Rule out TB Read results between 48-72 hours after 1st and 2nd (1 week apart). If positive do chest x-ray. [facility] 19:30:00 EDT 2023Jun 04 01:00:00 EDT 2023 acetaminophen 325 mg tablet 2 tablets TA BLET Oral 2 Times Daily Indication: pain *Do not exceed 3gm/day from all APAP sources. [facility] 19:30:00 EDT 2023Jun 04 01:00:00 EDT 2023 acetaminophen 325 mg tablet 2 tablets TA BLET Oral PRN Every 6 Hours Indication: pain *Do not exceed 3gm/day from all APAP sources. [facility] 19:30:00 EDT 2023Jun 04 01:00:00 EDT 2023 Systane Complete 0.6 % eye drops 1 DROP DROPS Both Eyes 1 Time Daily Indication: dry eyes Sat Sep 21 06:00:00 EDT 2023 Mon Sep 23 09:31:00 EDT 2023 fluticasone 100 mcg-salmeteroL 50 mcg/dose blistr powdr for inhalation 1 PUFF BLISTER, WITH INHALATION DEVICE Inhalation 2 Times Daily Indication: asthma Sat Sep 21 06:00:00 EDT 2023 Mon Sep 23 09:31:00 EDT 2023 Combivent Respimat 20 mcg-100 mcg/actuation solution for inhalation 1 puff MIST INHALER (GRAM) Inhalation 4 Times Daily Indication: COPD Sat Sep 21 06:00:00 EDT 2023 Mon Sep 23 09:32:00 EDT 2023 oxyCODONE 5 mg tablet 1/2 TABLET TABLET Oral PRN Every 4 Hours Indication: pain Sat Sep 21 06:00:00 EDT 2023 Mon Sep 23 09:32:00 EDT 2023 citalopram 10 mg tablet 1 TABLET TABLET Oral 1 Time Daily Indication: depression Sat Sep 21 06:00:00 EDT 2023 Mon Sep 23 09:33:00 EDT 2023 Artificial Tears (carboxymethylcellulose) 1 % eye drops 1 DROP DROPS Both Eyes PRN 2 Times Daily Indication: eye irritation Sat Sep 21 06:00:00 EDT 2023 Mon Sep 23 09:33:00 EDT 2023 bisacodyL 5 mg tablet,delayed release 1 TABLET TABLET, DELAYED RELEASE (ENTERIC COATED) Oral PRN 2 Times Daily Indication: constipation Sat [facility] 21 06:00:00 EDT 2023 Mon Sep 23 09:34:00 EDT 2023 calcium carbonate 600 mg-vitamin D3 10 mcg (400 unit) tablet 1 TABLET TABLET Oral 1 Time Daily Indication: supplement Sat Sep 21 06:00:00 EDT 2023 Mon Sep 23 09:34:00 EDT 2023 montelukast 10 mg tablet 1 TABLET TABLET Oral 1 Time Daily Indication: allergies [facility] 21 06:00:00 EDT 2023 Mon Sep 23 09:34:00 EDT 2023 cetirizine 10 mg tablet 10 mg TABLET Ora l 1 Time Daily Indication: allergies [facility] 21 06:00:00 EDT 2023 Mon Sep 23 09:35:00 EDT 2023 Mucus Relief ER 600 mg tablet, extended release 600 mg TABLET, EXTENDED RELEASE 12 HR Oral PRN Every 12 Hours Indication: cough [facility] 21 06:00:00 EDT 2023 Mon Sep 23 09:36:00 EDT 2023 omeprazole 20 mg tablet,delayed release 20 mg (1 TAB) TABLET, DELAYED RELEASE (ENTERIC COATED) Oral 1 Time Daily Indication: GERD [facility] 21 06:00:00 EDT 2023 Mon Sep 23 09:36:00 EDT 2023 Vitamin D2 1,250 mcg (50,000 unit) capsule 1 cap CAPSULE Oral 1 Time Weekly Indication: Vit D deficiency [facility] 21 06:00:00 EDT 2023 Mon Sep 23 09:36:00 EDT 2023 polyethylene glycoL 3350 17 gram oral powder packet 1 PACKET POWDER IN PACKET (EA) Oral PRN 1 Time Daily Indication: constipation Sat Sep 21 06:00:00 EDT 2023 Mon Sep 23 09:37:00 EDT 2023 Vitamin C 500 mg tablet 1 tablet TABLET Oral 1 Time Daily Indication: supplement Sat Sep 21 06:00:00 EDT 2023 Mon Sep 23 09:37:00 EDT 2023 primidone 50 mg tablet 1 tab TABLET Oral 1 Time Daily Indication: epilepsy, tremors per John Celeste MD [facility] 21 06:00:00 EDT 2023 Mon Sep 23 09:38:00 EDT 2023 acetaminophen 325 mg tablet 2 tablets TA BLET Oral 2 Times Daily Indication: pain Sat Sep 21 06:00:00 EDT 2023 Sun Sep 22 19:39:00 EDT 2023 acetaminophen 325 mg tablet 2 tablets TA BLET Oral PRN Every 6 Hours Indication: pain Sat Sep 21 06:00:00 EDT 2023 Sun Sep 22 19:41:00 EDT 2023 topiramate 100 mg tablet 1 tab TABLET Or al 2 Times Daily Indication: anticonvulsant Sat Sep 21 06:00:00 EDT 2023 Mon Sep 23 09:38:00 EDT 2023 fluticasone propionate 50 mcg/actuation nasal spray,suspension 1 SPRAY SPRAY, SUSPENSION Intranasal - Both Nostrils PRN 2 Times Daily Indication: NASAL CONGESTION Sat Sep 21 06:00:00 EDT 2023 Mon Sep 23 09:38:00 EDT 2023 Chloraseptic Sore Throat 6 mg-10 mg lozenges 1 lozenge LOZENGE Oral PRN Every 2 Hours Indication: sore throat Sat Sep 21 06:00:00 EDT 2023 Mon Sep 23 09:39:00 EDT 2023 benzonatate 200 mg capsule 1 cap CAPSULE Oral PRN Every 8 Hours Indication: cough Sat Sep 21 06:00:00 EDT 2023 Mon Sep 23 09:39:00 EDT 2023 iFerex 150 150 mg iron capsule 2 CAPS CAPSULE Oral 1 Time Daily Indication: supplement Sat Sep 21 06:00:00 EDT 2023 Mon Sep 23 09:40:00 EDT 2023 metoprolol succinate ER 50 mg tablet,extended release 24 hr 1 tablet TABLET, EXTENDED RELEASE 24 HR Oral 1 Time Daily Indication: HTN Sat Sep 21 06:00:00 EDT 2023 Mon Sep 23 09:40:00 EDT 2023 spironolactone 25 mg tablet 1 tablet TAB LET Oral 1 Time Daily Indication: Heart Failure Sat Sep 21 06:00:00 EDT 2023 Mon Sep 23 09:40:00 EDT 2023 amoxicillin 875 mg-potassium clavulanate 125 mg tablet 1 tablet TABLET Oral 2 Times Daily for 4 Days Indication: pneumonia Sat Sep 21 06:00:00 EDT 2023 Mon Sep 23 09:43:00 EDT 2023 azithromycin 250 mg tablet 2 tablets TAB LET Oral 1 Time Daily for 1 Day Indication: pneumonia Sat Sep 21 06:00:00 ED2023 [facility] 05:59:00 ED2023 Jardiance 10 mg tablet 1 tablet TABLET O ral 1 Time Daily Indication: diabetes mellitus [facility] 06:00:00 ED2023 [facility] 09:43:00 ED2023 furosemide 40 mg tablet 1 tablet TABLET Oral 2 Times Daily for 30 Days Indication: edema [facility] 06:00:00 ED2023 [facility] 09:44:00 EDT 2023 Entresto 24 mg-26 mg tablet 1 tablet TAB LET Oral 2 Times Daily for 30 Days Indication: CHF [facility] 06:00:00 EDT 2023 [facility] 09:45:00 EDT 2023 Medrol (Eugenio) 4 mg tablets in a dose pack Day 1 TABLET, DOSE PACK Oral 4 Times Daily for 1 Day Indication: pneumonia PNA 1st Day: Take 2 tablets before breakfast, 1 tablet after lunch and supper and 2 tablets at bedtime. [facility] 06:00:00 2023 [facility] 05:59:00 2023 Medrol (Eugenio) 4 mg tablets in a dose pack Day 2 TABLET, DOSE PACK Oral 4 Times Daily for 1 Day Indication: pneumonia PNA 2nd Day: Take 1 tablet before breakfast, 1 tablet after lunch and supper and 2 tablets at bedtime, ANNUAL GIVING DIRECTOR supervision x1, x2, x3, x4 [facility] 06:00:00 2023 [facility] 05:59:00 2023 Medrol (Eugenio) 4 mg tablets in a dose pack Day 3 TABLET, DOSE PACK Oral 4 Times Daily for 1 Day Indication: pneumonia 3rd Day: Take 1 tablet before breakfast, 1 tablet after lunch and 1 tablet after supper and 1 tablet at bedtime ANNUAL GIVING DIRECTOR supervision x1, x2, x3, x4 . [facility] 06:00:00 2023 [facility] 05:59:00 ED2023 Medrol (Eugenio) 4 mg tablets in a dose pack Day 4 TABLET, DOSE PACK Oral 3 Times Daily for 1 Day Indication: pneumonia 4th Day: Take 1 tablet before breakfast, 1 tablet after lunch and 1 tablet at bedtime, ANNUAL GIVING DIRECTOR supervision x1, x2, x4 . [facility] 06:00:00 ED2023 [facility] 09:50:00 EDT 2023 Medrol (Eugenio) 4 mg tablets in a dose pack Day 5 TABLET, DOSE PACK Oral 2 Times Daily for 1 Day Indication: pneumonia 5th Day: Take 1 tablet before breakfast and 1 tablet at bedtime ANNUAL GIVING DIRECTOR supervision x1, x4 . SunMay 28 06:00:00 EDT 2023u May 29 05:59:00 ED2023 Medrol (Eugenio) 4 mg tablets in a dose pack Day 6 TABLET, DOSE PACK Oral 1 Time Daily for 1 Day Indication: pneumonia 6th Day: Take 1 tablet before breakfast. ANNUAL GIVING DIRECTOR supervision x1 SunMay 28 07:00:00 ED2023 [facility] 18:32:00 ED2023 Medrol (Eugenio) 4 mg tablets in a dose pack Day 6 TABLET, DOSE PACK Oral 1 Time Daily for 1 Day Indication: pneumonia 6th Day: Take 1 tablet before breakfast. Nikki May 29 08:00:00 EDT 2023 [facility] May 30 07:59:00 ED2023 metoprolol succinate ER 50 mg tablet,extended release 24 hr 1 tablet TABLET, EXTENDED RELEASE 24 HR Oral 1 Time Daily Indication: HTNCNA supervision x1 [facility] 01:00:00 ED2023Sep 07 17:09:00 2024 spironolactone 25 mg tablet 1 tablet TAB LET Oral 1 Time Daily Indication: Heart failure ANNUAL GIVING DIRECTOR supervision x1 [facility] 01:00:00 ED2023 amoxicillin 875 mg-potassium clavulanate 125 mg tablet 1 tablet TABLET Oral 2 Times Daily for 4 Days Indication: pneumonia ANNUAL GIVING DIRECTOR supervision x1, x4 [facility] 01:00:00 ED2023 [facility] May 28 00:59:00 ED2023 azithromycin 250 mg tablet 2 tablets TAB LET Oral 1 Time Daily for 1 Day Indication: pneumonia ANNUAL GIVING DIRECTOR supervision x1 [facility] 01:00:00 ED2023 [facility] May 25 00:59:00 EDT 2023 Jardiance 10 mg tablet 1 tablet TABLET O ral 1 Time Daily Indication: DM ANNUAL GIVING DIRECTOR supervision x1 [facility] 01:00:00 ED2023 furosemide 40 mg tablet 1 tablet TABLET Oral 2 Times Daily for 30 Days Indication: edema ANNUAL GIVING DIRECTOR supervision x1, x4 [facility] 01:00:00 ED2023Jun 04 15:36:00 EDT 2023 Entresto 24 mg-26 mg tablet 1 tablet TAB LET Oral 2 Times Daily for 30 Days Indication: CHF ANNUAL GIVING DIRECTOR supervision x1, x4 [facility] 21 01:00:00 EDT 2023Jun 04 15:41:00 EDT 2023 Medrol (Eugenio) 4 mg tablets in a dose pack Day 1 TABLET, DOSE PACK Oral 4 Times Daily for 1 Day Indication: PNA 1st Day: Take 2 tablets before breakfast, 1 tablet after lunch and supper and 2 tablets at bedtime. ANNUAL GIVING DIRECTOR supervision x1, x2, x3, x4 [facility] May 25 01:00:00 2023May 26 00:59:00 EDT 2023 Medrol (Eugenio) 4 mg tablets in a dose pack Day 2 TABLET, DOSE PACK Oral 4 Times Daily for 1 Day Indication: PNA 2nd Day: Take 1 tablet before breakfast, 1 tablet after lunch and supper and 2 tablets at bedtime, ANNUAL GIVING DIRECTOR supervision x1, x2, x3, x4 [facility] May 25 01:00:00 2023May 26 00:59:00 ED2023 Medrol (Eugenio) 4 mg tablets in a dose pack Day 3 TABLET, DOSE PACK Oral 4 Times Daily for 1 Day Indication: PNA 3rd Day: Take 1 tablet before breakfast, 1 tablet after lunch and 1 tablet after supper and 1 tablet at bedtime ANNUAL GIVING DIRECTOR supervision x1, x2, x3, x4 . SunMay 25 01:00:00 T 2023May 26 00:59:00 ED2023 Medrol (Eugenio) 4 mg tablets in a dose pack Day 4 TABLET, DOSE PACK Oral 3 Times Daily for 1 Day Indication: PNA 4th Day: Take 1 tablet before breakfast, 1 tablet after lunch and 1 tablet at bedtime, ANNUAL GIVING DIRECTOR supervision x1, x2, x4 . SunMay 25 01:00:00 2023May 26 00:59:00 ED2023 Medrol (Eugenio) 4 mg tablets in a dose pack Day 5 TABLET, DOSE PACK Oral 2 Times Daily for 1 Day Indication: PNA 5th Day: Take 1 tablet before breakfast and 1 tablet at bedtime ANNUAL GIVING DIRECTOR supervision x1, x4 . SunMay 25 01:00:00 2023May 26 00:59:00 ED2023 Medrol (Eugenio) 4 mg tablets in a dose pack Day 6 TABLET, DOSE PACK Oral 1 Time Daily for 1 Day Indication: PNA 6th Day: Take 1 tablet before breakfast. ANNUAL GIVING DIRECTOR supervision x1 [facility] May 25 01:00:00 2023May 26 00:59:00 EDT 2023 cephALEXin 500 mg capsule 1 capsule CAPS ULE Oral 3 Times Daily for 10 Days Indication: affected shunt insertionCNA supervision x1 x2 x4 SunMay 01 01:00:00 EDT 2023May 11 00:59:00 EDT 2023 Blood Pressure Cuff 1 EACH Other 2 Times Daily Indication: Therapy ANNUAL GIVING DIRECTOR to walk resident w/ walker to dining room before lunch AND dinner. SunMar 07 12:10:00 EDT 2023Jun 05 18:37:00 EDT 2023 magnesium citrate oral solution 10 ounces SOLUTION, ORAL Oral 1 Time Daily for 1 Day Indication: colonoscopy prep take 10oz bottle of Mag Cit followed by 8oz glass of water SunFeb 17 01:00:00 EDT 2023Feb 18 00:59:00 EDT 2023 polyethylene glycoL 3350 17 gram/dose oral powder 238 ounce POWDER (GRAM) Oral 8 Times Daily for 1 Day Indication: colonoscopy prep drink 8 ounces of Gatorade/MiraLAX mix Q 15 minutes until mixture is gone SunFeb 17 19:00:00 EDT 2023Feb 18 18:59:00 EDT 2023 bisacodyL 5 mg tablet,delayed release 4 TABLET, DELAYED RELEASE (ENTERIC COATED) Oral 1 Time Daily for 1 Day Indication: colonoscopy prep Take 4 tabs PO x1 SunFeb 17 01:00:00 EDT 2023Feb 18 00:59:00 EDT 2023 iFerex 150 150 mg iron capsule 2 CAPS CAPSULE Oral 1 Time Daily for 24 Days Indication: supplement ANNUAL GIVING DIRECTOR supervision x4 SunJanuary 20 01:00:00 EDT 2023Feb 13 00:59:00 EDT 2023 iFerex 150 150 mg iron capsule 2 CAP CAPSULE Oral 1 Time Daily for 9 Days Indication: supplement ANNUAL GIVING DIRECTOR supervision x4 SunJanuary 11 01:00:00 EDT 2023January 20 00:59:00 EDT 2023 iFerex 150 150 mg iron capsule 2 CAPS CAPSULE Oral 1 Time Daily Indication: supplement ANNUAL GIVING DIRECTOR supervision x4 SunFeb 19 01:00:00 EDT 2023 OneLAX Magnesium Citrate oral solution 1 bottle SOLUTION, ORAL Oral 1 Time Daily for 1 Day Indication: Bowel Prep take 10oz bottle of magnesium citrate followed by 8oz of water SunFeb 17 01:00:00 EDT 2023Feb 18:59:00 EDT 2023 polyethylene glycoL 3350 17 gram/dose oral powder 8.3 oz POWDER (GRAM) Oral 1 Time Daily for 1 Day Indication: bowel prep drink 8 oz. miralax / Gatorade drink 8oz q15 min until gone. SunFeb 17 01:00:00 EDT 2023Feb 18 00:59:00 EDT 2023 bisacodyL 5 mg tablet,delayed release 4 TABLETS TABLET, DELAYED RELEASE (ENTERIC COATED) Oral 1 Time Daily for 1 Day Indication: BOWEL PREP SunFeb 17 01:00:00 EDT 2023Feb 17 10:54:00 EDT 2023 Blood Pressure Cuff 1 EACH Other 1 Time Daily Indication: Therapy ANNUAL GIVING DIRECTOR to walk resident w/ walker to dining room before lunch. SunDec 06 01:00:00 EDT 2023Mar 07 12:13:00 EDT 2023 azithromycin 250 mg tablet 1 tablet TABL ET Oral 1 Time Daily for 1 Day Indication: Pneumonia ANNUAL GIVING DIRECTOR supervision x 1 SunNov 12 01:00:00 EDT 2023Nov 13 00:59:00 EDT 2023 amoxicillin 875 mg-potassium clavulanate 125 mg tablet 1 tablet TABLET Oral 2 Times Daily for 4 Days Indication: Pneumonia ANNUAL GIVING DIRECTOR supervision x1, x4 SunNov 12 01:00:00 EDT 2023Nov 16 00:59:00 EDT 2023 Mucus Relief ER 600 mg tablet, extended release 600 mg TABLET, EXTENDED RELEASE 12 HR Oral 2 Times Daily for 14 Days Indication: coughCNA Supervision [employer]icated [employer] x1 , Early Evening x4 SunAug 18 01:00:00 EST 2022Sep 01 00:59:00 EST 2022 benzonatate 200 mg capsule 1 cap CAPSULE Oral PRN Every 8 Hours Indication: cough SunAug 17 15:52:00 EST 2022Jul 29 13:19:00 EST 2023 fluticasone propionate 50 mcg/actuation nasal spray,suspension 1 SPRAY SPRAY, SUSPENSION Intranasal - Both Nostrils PRN 2 Times Daily Indication: NASAL CONGESTIONnurse adminRINSE MOUTH WITH WATER AND SPIT AFTER USE SunJul 31 15:00:00 EST 2022Jul 29 13:19:00 EST 2023 Chloraseptic Sore Throat 6 mg-10 mg lozenges 1 lozenge LOZENGE Oral PRN Every 2 Hours Indication: Sore throat SunAug 01 01:00:00 2022 Tue Jul 29 13:19:00 2023 divalproex 500 mg tablet,delayed release 4 TABS TABLET, DELAYED RELEASE (ENTERIC COATED) Oral 1 Time Daily for 14 Days Indication: Antiseizure ANNUAL GIVING DIRECTOR supervision x4 SunJul 21 01:00:00 EST 2022Aug 04 00:59:00 2022 divalproex 500 mg tablet,delayed release 3 tabs TABLET, DELAYED RELEASE (ENTERIC COATED) Oral 1 Time Daily for 7 Days Indication: anticonvulsant 1500mg totalCNA supervision x4 SunAug 04 01:00:00 EST 2022Aug 11 00:59:00 2022 divalproex 500 mg tablet,delayed release 2 tabs TABLET, DELAYED RELEASE (ENTERIC COATED) Oral 1 Time Daily for 7 Days Indication: anticonvulsant 1000mg total ANNUAL GIVING DIRECTOR supervision x4 SunAug 11 01:00:00 2022Aug 18 00:59:00 2022 divalproex 500 mg tablet,delayed release 1 tab TABLET, DELAYED RELEASE (ENTERIC COATED) Oral 1 Time Daily for 7 Days Indication: anticonvulsant 500mg totalCNA supervision x4 SunAug 18 01:00:00 EST 2022Aug 25 00:59:00 2022 topiramate 25 mg tablet 1 tab TABLET Ora l 2 Times Daily for 7 Days Indication: anticonvulsant ANNUAL GIVING DIRECTOR supervision x1 x4 SunJul 21 01:00:00 EST 2022Jul 28 00:59:00 2022 topiramate 50 mg tablet 1 tab TABLET Ora l 2 Times Daily for 7 Days Indication: anticonvulsant ANNUAL GIVING DIRECTOR supervision x1 x4 SunJul 28 01:00:00 EST 2022Aug 04 00:59:00 EST 2022 topiramate 50 mg tablet 1.5 tabs TABLET Oral 2 Times Daily for 7 Days Indication: anticonvulsant 1.5 tabs = 75mg BIDCNA supervision x1 x4 SunAug 04 01:00:00 EST 2022Aug 11 00:59:00 EST 2022 topiramate 100 mg tablet 1 tab TABLET Or al 2 Times Daily Indication: anticonvulsant ANNUAL GIVING DIRECTOR supervision x1 x4 SunAug 11 01:00:00 EST 2022 ProFit Precision Scale misc 1 MISCELLANE OUS Other 2 Times Monthly Indication: Vital signsCNA supervision, ANNUAL GIVING DIRECTOR obtain VS SunJul 11 13:14:00 EST 2022 oxyCODONE 5 mg tablet 5 mg 1/2 TABLET TA BLET Oral PRN Every 4 Hours Indication: PAINnurse admin SunJul 11 13:15:00 EST 2022Jul 29 13:21:00 EST 2023 metoprolol tartrate 25 mg tablet 1/2 TABLET TABLET Oral 2 Times Daily Indication: HYPERTENSION ANNUAL GIVING DIRECTOR supervision x1 x4 SunJul 11 13:16:00 EST 2022May 23 18:50:00 EDT 2023 furosemide 20 mg tablet 1 TABLET TABLET Oral 1 Time Daily Indication: EDEMA ANNUAL GIVING DIRECTOR supervision x1 SunJul 11 13:16:00 EST 2022May 23 18:50:00 EDT 2023 citalopram 10 mg tablet 1 TABLET TABLET Oral 1 Time Daily Indication: DEPRESSION ANNUAL GIVING DIRECTOR supervision x1 SunJul 11 13:17:00 EST 2022 Artificial Tears (carboxymethylcellulose) 1 % eye drops 1 DROP DROPS Both Eyes PRN 2 Times Daily Indication: EYE IRRITATIONnurse admin SunJul 11 13:19:00 EST 2022Jul 29 13:19:00 EST 2023 bisacodyL 5 mg tablet,delayed release 1 TABLET TABLET, DELAYED RELEASE (ENTERIC COATED) Oral PRN 2 Times Daily Indication: CONSTIPATIONnurse admin SunJul 11 13:20:00 EST 2022Jul 29 13:19:00 EST 2023 calcium carbonate 600 mg-vitamin D3 10 mcg (400 unit) tablet 1 TABLET TABLET Oral 1 Time Daily Indication: SUPPLEMENT ANNUAL GIVING DIRECTOR supervision x1 SunJul 11 13:21:00 EST 2022 fluticasone propionate 50 mcg/actuation nasal spray,suspension 1 SPRAY SPRAY, SUSPENSION Intranasal - Both Nostrils PRN 2 Times Daily Indication: NASAL CONGESTIONnurse admin SunJul 11 13:22:00 EST 2022Jul 31 15:29:00 EST 2022 montelukast 10 mg tablet 1 TABLET TABLET Oral 1 Time Daily Indication: ALLERGIESCNA supervision x1 SunJul 11 13:23:00 EST 2022 cetirizine 10 mg tablet 10 mg TABLET Ora l 1 Time Daily Indication: ALLERGIES ANNUAL GIVING DIRECTOR supervision x1 SunJul 11 13:24:00 EST 2022 divalproex 500 mg tablet,delayed release 4 TABS TABLET, DELAYED RELEASE (ENTERIC COATED) Oral 1 Time Daily Indication: Antiseizure ANNUAL GIVING DIRECTOR supervision x4 SunJul 11 13:24:00 EST 2022Jul 21 11:46:00 EST 2022 Mucus Relief ER 600 mg tablet, extended release 600 mg TABLET, EXTENDED RELEASE 12 HR Oral PRN Every 12 Hours Indication: coughnurse admin SunJul 11 13:25:00 EST 2022Jul 29 13:19:00 EST 2023 omeprazole 20 mg tablet,delayed release 20 mg (1 TAB) TABLET, DELAYED RELEASE (ENTERIC COATED) Oral 1 Time Daily Indication: GERD ANNUAL GIVING DIRECTOR supervision x1 SunJul 11 13:26:00 EST 2022 ergocalciferol (vitamin D2) 1,250 mcg (50,000 unit) capsule 1 cap CAPSULE Oral 1 Time Weekly Indication: Vit D deficiency ANNUAL GIVING DIRECTOR supervision x1 SunJul 11 13:27:00 EST 2022 polyethylene glycoL 3350 17 gram oral powder packet 1 PACKET POWDER IN PACKET (EA) Oral PRN 1 Time Daily Indication: CONSTIPATIONnurse admin SunJul 11 13:28:00 EST 2022Jul 29 13:19:00 EST 2023 iFerex 150 150 mg iron capsule 2 CAP CAPSULE Oral 1 Time Daily Indication: supplement ANNUAL GIVING DIRECTOR supervision x4 SunJul 11 13:28:00 EST 2022January 11 16:24:00 EDT 2023 Vitamin C 500 mg tablet 1 tablet TABLET Oral 1 Time Daily Indication: supplementCNA supervision x4 SunJul 11 13:29:00 EST 2022 primidone 50 mg tablet 1 tab TABLET Oral 1 Time Daily Indication: epilepsy / tremors ANNUAL GIVING DIRECTOR supervision x4per John Celeste MD SunJul 11 13:30:00 EST 2022 acetaminophen 325 mg tablet 2 tablets TA BLET Oral 2 Times Daily Indication: painCNA supervision x1 x4 SunJul 11 13:31:00 EST 2022 acetaminophen 325 mg tablet 2 tablets TA BLET Oral PRN 1 Time Daily Indication: painnurse admin SunJul 11 13:32:00 EST 2022Jun 04 15:08:00 EDT 2023 acetaminophen 325 mg tablet 2 tablets TA BLET Oral 2 Times Daily Indication: painCNA to admin x1 x4 SunJul 02 19:00:00 EDT 2022Jul 11 13:32:00 EST 2022 acetaminophen 325 mg tablet 2 tablets TA BLET Oral PRN 1 Time Daily Indication: pain SunJul 02 15:00:00 EDT 2022Jul 11 13:33:00 EST 2022 primidone 50 mg tablet 1 tab TABLET Oral 1 Time Daily Indication: epilepsy / tremors ANNUAL GIVING DIRECTOR x4per John Celeste MD SunJun 12 14:05:00 EDT 2022Jul 11 13:31:00 EST 2022 Tobradex 0.3 %-0.1 % eye drops,suspension 1 gtt SUSPENSION, DROPS(FINAL DOSAGE FORM)(ML) Both Eyes 4 Times Daily for 7 Days Indication: eye infection nurse admin x1 x2 x3 x4 Nikki May 14 01:00:00 EDT [address] [facility] May 21 00:59:00 EDT 2022 polysaccharide iron complex 150 mg iron capsule 2 CAP CAPSULE Oral 1 Time Daily Indication: supplement ANNUAL GIVING DIRECTOR X4 SunFeb 06 15:00:00 EDT 2022Jul 11 13:30:00 EST 2022 Vitamin C 500 mg tablet 1 tablet TABLET Oral 1 Time Daily Indication: supplementcna x4 SunFeb 06 15:00:00 EDT 2022Jul 11 13:31:00 EST 2022 naproxen 500 mg tablet 1 tab TABLET Oral 2 Times Daily for 14 Days Indication: R Hip Pain ANNUAL GIVING DIRECTOR x1 x4 SunJanuary 26 01:00:00 EDT 2022Feb 09 00:59:00 EDT 2022 primidone 50 mg tablet 0.5 tab TABLET Or al 1 Time Daily Indication: epilepsy / tremors ANNUAL GIVING DIRECTOR x4 SunJanuary 23 20:46:00 EDT 2022Jun 12 14:07:00 EDT 2022 polyethylene glycoL 3350 17 gram oral powder packet 1 PACKET POWDER IN PACKET (EA) Oral PRN 1 Time Daily Indication: CONSTIPATION SunJanuary 21 10:18:00 EDT 2022Jul 11 13:29:00 EST 2022 Pneumovax-23 25 mcg/0.5 mL injection syringe 1 syringe SYRINGE (ML) Intramuscular 1 Time Daily for 1 Day Indication: Vaccine Nurse administer Sat Dec 23 01:00:00 EDT 2022 Sat Dec 23 14:33:00 EDT 2022 Pneumovax-23 25 mcg/0.5 mL injection syringe 1 syringe SYRINGE (ML) Intramuscular 1 Time Daily for 1 Day Indication: Vaccine Nurse administer Sun Dec 24 01:00:00 EDT 2022 Mon Dec 25 00:59:00 EDT 2022 ProFit Precision Scale misc 1 MISCELLANE OUS Other 2 Times Monthly Indication: Vital signs SunNov 19 01:00:00 EDT 2022Jul 11 13:16:00 EST 2022 oxyCODONE 5 mg tablet 5 mg 1/2 TABLET TA BLET Oral PRN Every 4 Hours Indication: PAIN SunNov 10 01:00:00 EST 2022Jul 11 13:16:00 EST 2022 polyethylene glycoL 3350 17 gram oral powder packet 1 PACKET POWDER IN PACKET (EA) Oral 1 Time Daily Indication: CONSTIPATION ANNUAL GIVING DIRECTOR X1 SunNov 11 01:00:00 EST 2022January 21 10:19:00 EDT 2022 metoprolol tartrate 25 mg tablet 1/2 TABLET TABLET Oral 2 Times Daily Indication: HYPERTENSION ANNUAL GIVING DIRECTOR X1 X4 SunNov 10 13:00:00 EST 2022Jul 11 13:17:00 EST 2022 furosemide 20 mg tablet 1 TABLET TABLET Oral 1 Time Daily Indication: EDEMA ANNUAL GIVING DIRECTOR X1 SunNov 11 01:00:00 EST 2022Jul 11 13:18:00 EST 2022 Systane Complete 0.6 % eye drops 1 DROP DROPS Both Eyes 1 Time Daily Indication: DRY EYES NURSE ADMINISTER SunNov 11 01:00:00 EST 2022 citalopram 10 mg tablet 1 TABLET TABLET Oral 1 Time Daily Indication: DEPRESSION ANNUAL GIVING DIRECTOR X1 SunNov 11 01:00:00 EST 2022Jul 11 13:18:00 EST 2022 fluticasone 100 mcg-salmeteroL 50 mcg/dose blistr powdr for inhalation 1 PUFF BLISTER, WITH INHALATION DEVICE Inhalation 2 Times Daily Indication: ASTHMA NURSE ADMINISTER SunNov 10 13:00:00 EST 2022Oct 04 11:06:00 EST 2024 Artificial Tears (carboxymethylcellulose) 1 % eye drops 1 DROP DROPS Both Eyes PRN 2 Times Daily Indication: EYE IRRITATION SunNov 10 01:00:00 EST 2022Jul 11 13:21:00 EST 2022 bisacodyL 5 mg tablet,delayed release 1 TABLET TABLET, DELAYED RELEASE (ENTERIC COATED) Oral PRN 2 Times Daily Indication: CONSTIPATION SunNov 10 01:00:00 EST 2022Jul 11 13:22:00 EST 2022 calcium carbonate 600 mg-vitamin D3 10 mcg (400 unit) tablet 1 TABLET TABLET Oral 1 Time Daily Indication: SUPPLEMENT ANNUAL GIVING DIRECTOR X1 SunNov 11 01:00:00 EST 2022Jul 11 13:23:00 EST 2022 fluticasone propionate 50 mcg/actuation nasal spray,suspension 1 SPRAY SPRAY, SUSPENSION Intranasal - Both Nostrils PRN 2 Times Daily Indication: NASAL CONGESTION SunNov 10 01:00:00 EST 2022Jul 11 13:24:00 EST 2022 montelukast 10 mg tablet 1 TABLET TABLET Oral 1 Time Daily Indication: ALLERGIES SunNov 11 01:00:00 EST 2022Jul 11 13:24:00 EST 2022 cetirizine 10 mg tablet 10 mg TABLET Ora l 1 Time Daily Indication: ALLERGIES ANNUAL GIVING DIRECTOR X1 SunNov 11 01:00:00 2022Jul 11 13:25:00 EST 2022 divalproex 500 mg tablet,delayed release 4 TABS TABLET, DELAYED RELEASE (ENTERIC COATED) Oral 1 Time Daily Indication: Antiseizure ANNUAL GIVING DIRECTOR X4 SunNov 10 13:00:00 EST 2022Jul 11 13:26:00 EST 2022 Mucus Relief ER 600 mg tablet, extended release 600 mg TABLET, EXTENDED RELEASE 12 HR Oral PRN Every 12 Hours Indication: cough SunNov 10 01:00:00 EST 2022Jul 11 13:27:00 EST 2022 omeprazole 20 mg tablet,delayed release 20 mg (1 TAB) TABLET, DELAYED RELEASE (ENTERIC COATED) Oral 1 Time Daily Indication: GERD ANNUAL GIVING DIRECTOR X1 SunNov 11 01:00:00 EST 2022Jul 11 13:28:00 EST 2022 polysaccharide iron complex 150 mg iron capsule 1 CAP CAPSULE Oral 1 Time Daily Indication: supplement ANNUAL GIVING DIRECTOR X4 SunNov 10 13:00:00 EST 2022Feb 05 16:07:00 EDT 2022 Combivent Respimat 20 mcg-100 mcg/actuation solution for inhalation 1 puff MIST INHALER (GRAM) Inhalation 4 Times Daily Indication: COPD NURSE ADMINISTER X1 X2 X3 X4 SunNov 10 13:00:00 EST 2022Oct 04 12:18:00 EST 2024 ergocalciferol (vitamin D2) 1,250 mcg (50,000 unit) capsule 1 cap CAPSULE Oral 1 Time Weekly Indication: Vit D deficiency ANNUAL GIVING DIRECTOR X1 SunNov 13 01:00:00 EDT 2022Jul 11 13:28:00 EST 2022 acetaminophen 500 mg tablet 2 TABLETS TA BLET Oral PRN Every 6 Hours Indication: PAIN (2 TABLETS= 1000MG)*DO NOT EXCEED 3GM APAP/DAY FROM ALL SOURCES* SunNov 10 01:00:00 2022Jul 02 14:58:00 EDT 2022 ProFit Precision Scale misc 1 MISCELLANE OUS Other 2 Times Monthly Indication: Vital signs SunOct 23 07:47:00 EST 2022Nov 10 18:21:00 EST 2022 nystatin 100,000 unit/mL oral suspension 6mL SUSPENSION, ORAL (FINAL DOSE FORM) Oral 4 Times Daily for 10 Days Indication: Thrush Sat Oct 07 07:00:00 EST 2022 Tue Oct 14 06:59:00 EST 2022 ergocalciferol (vitamin D2) 1,250 mcg (50,000 unit) capsule 1 cap CAPSULE Oral 1 Time Weekly Indication: Vit D deficiency SunOct 04 16:45:00 EST 2022Nov 10 01:00:00 EST 2022 oxyCODONE 5 mg tablet 1/2 TABLET TABLET Oral PRN Every 4 Hours Indication: PAIN SunSep 29 16:00:00 EST 2022Nov 10 01:00:00 EST 2022 acetaminophen 500 mg tablet 2 TABLETS TA BLET Oral Every 6 Hours Indication: PAIN (2 TABLETS= 1000MG)*DO NOT EXCEED 3GM APAP/DAY FROM ALL SOURCES* SunSep 29 16:00:00 EST 2022Nov 10 01:00:00 EST 2022 polyethylene glycoL 3350 17 gram oral powder packet 1 PACKET POWDER IN PACKET (EA) Oral 1 Time Daily Indication: CONSTIPATION SunSep 29 16:00:00 EST 2022Nov 10 01:00:00 EST 2022 Eliquis 2.5 mg tablet 1 TABLET TABLET Or al Every 12 Hours Indication: AFIB SunSep 29 16:00:00 EST 2022Nov 10 01:00:00 EST 2022 metoprolol tartrate 25 mg tablet 1/2 TABLET TABLET Oral 2 Times Daily Indication: HYPERTENSION SunSep 29 16:00:00 EST 2022Nov 10:00:00 EST 2022 furosemide 20 mg tablet 1 TABLET TABLET Oral 1 Time Daily Indication: EDEMA SunSep 29 16:00:00 EST 2022Nov 10 01:00:00 EST 2022 Systane Complete 0.6 % eye drops 1 DROP DROPS Both Eyes 1 Time Daily Indication: DRY EYES SunSep 29 16:00:00 EST 2022Nov 10 01:00:00 EST 2022 citalopram 10 mg tablet 1 TABLET TABLET Oral 1 Time Daily Indication: DEPRESSION SunSep 29 16:00:00 EST 2022Nov 10 01:00:00 EST 2022 fluticasone 100 mcg-salmeteroL 50 mcg/dose blistr powdr for inhalation 1 PUFF BLISTER, WITH INHALATION DEVICE Inhalation 2 Times Daily Indication: ASTHMA SunSep 29 16:00:00 EST 2022Nov 10:00:00 EST 2022 Artificial Tears (carboxymethylcellulose) 1 % eye drops 1 DROP DROPS Both Eyes PRN 2 Times Daily Indication: EYE IRRITATION SunSep 29 16:00:00 2022Nov 10:00:00 EST 2022 bisacodyL 5 mg tablet,delayed release 1 TABLET TABLET, DELAYED RELEASE (ENTERIC COATED) Oral PRN 2 Times Daily Indication: CONSTIPATION SunSep 29 16:00:00 EST 2022Nov 10:00:00 EST 2022 calcium carbonate 600 mg-vitamin D3 10 mcg (400 unit) tablet 1 TABLET TABLET Oral 1 Time Daily Indication: SUPPLEMENT SunSep 29 16:00:00 EST 2022Nov 10:00:00 EST 2022 fluticasone propionate 50 mcg/actuation nasal spray,suspension 1 SPRAY SPRAY, SUSPENSION Intranasal - Both Nostrils PRN 2 Times Daily Indication: NASAL CONGESTION SunSep 29 16:00:00 EST 2022Nov 10:00:00 EST 2022 montelukast 10 mg tablet 1 TABLET TABLET Oral 1 Time Daily Indication: ALLERGIES SunSep 29 16:00:00 2022Nov 10:00:00 EST 2022 TUBErsoL 5 tub. unit/0.1 mL intradermal injection solution 0.1 ml VIAL (ML) Intradermal 1 Time Weekly for 2 Weeks Indication: TB Test 1st injection on admission, then one week after. Read between 48 and 72 hours SunSep 29 16:00:00 2022Oct 13 15:59:00 EST 2022 TUBErsoL 5 tub. unit/0.1 mL intradermal injection solution Read Results VIAL (ML) Other 1 Time Weekly for 2 Weeks Indication: TB Test Read results between 48-72 hours after 1st and 2nd (1 week apart). If positive do chest x-ray. SunOct 02 01:00:00 EST 2022Oct 16 00:59:00 EST 2022 cetirizine 10 mg tablet 10 mg TABLET Ora l 1 Time Daily Indication: allergies SunSep 29 17:00:00 EST 2022Nov 10 01:00:00 EST 2022 divalproex 500 mg tablet,delayed release 2000 mg TABLET, DELAYED RELEASE (ENTERIC COATED) Oral 1 Time Daily Indication: Antiseizure SunSep 29 17:00:00 EST 2022Sep 29 17:23:00 EST 2022 divalproex 500 mg tablet,delayed release 2000 mg TABLET, DELAYED RELEASE (ENTERIC COATED) Oral 1 Time Daily Indication: Antiseizure SunSep 29 17:00:00 EST 2022Nov 10 01:00:00 EST 2022 Mucus Relief ER 600 mg tablet, extended release 600 mg TABLET, EXTENDED RELEASE 12 HR Oral PRN Every 12 Hours Indication: cough SunSep 29 17:00:00 EST 2022Nov 10 01:00:00 EST 2022 omeprazole 20 mg tablet,delayed release 20 mg TABLET, DELAYED RELEASE (ENTERIC COATED) Oral 1 Time Daily Indication: gerd SunSep 29 17:00:00 EST 2022Nov 10 01:00:00 EST 2022 Poly-Iron 150 mg iron capsule 150 mg CAPSULE Oral 1 Time Daily Indication: supplement SunSep 29 17:00:00 EST 2022Nov 10 01:00:00 EST 2022 Combivent Respimat 20 mcg-100 mcg/actuation solution for inhalation 1 puff MIST INHALER (GRAM) Inhalation 4 Times Daily Indication: inhaler SunSep 29 17:00:00 EST 2022Nov 10 01:00:00 EST 2022 Systane Complete 0.6 % eye drops 1 gtt DROPS Both Eyes 4 Times Daily SunDec 01 20:27:00 EDT 2021Nov 10 18:21:00 EST 2022 loteprednol etabonate 0.5 % eye drops,suspension 1 drop left eye SUSPENSION, DROPS(FINAL DOSAGE FORM)(ML) Left Eye 4 Times Daily for 7 Days 1 drop Left eye Four x daily for 1 week . SunAug 31 07:00:00 EST 2020Sep 07 06:59:00 EST 2021 Pfizer-BioNTUtan COVID-19 Vaccine (PF) 30 mcg/0.3 mL IM suspension(EUA) 0.3 ml VIAL (ML) Intramuscular 1 Time Daily for 1 Day SunJun 15 07:00:00 EDT 2020Jun 16 06:59:00 EDT 2020 Fluad Quad [id number](65yr up)(PF) 60 mcg (15 mcg x 4)/0.5mL IM syringe 1 SYRINGE (ML) Intramuscular 1 Time Daily for 1 Day SunJun 08 01:00:00 EDT 2020Jun 09 00:59:00 EDT 2020 ProFit Precision Scale misc 1 MISCELLANE OUS Other 1 Time Monthly Sun 30 14:00:00 EDT 2020Oct 20 07:50:00 EST 2022 metroNIDAZOLE 0.75 % topical cream 1 applic CREAM (GRAM) Topical 2 Times Daily for 14 Days SunMay 04 01:00:00 EDT 2020May 18 00:59:00 EDT 2020 metroNIDAZOLE 0.75 % topical cream 1 applic CREAM (GRAM) Topical 2 Times Daily for 14 Days SunMar 23 01:00:00 EDT 2020Apr 06 00:59:00 EDT 2020 Systane Complete 0.6 % eye drops 1 gtt DROPS Both Eyes 2 Times Daily SunFeb 09 19:37:00 EDT 2020Dec 01 20:29:00 EDT 2021 Stool Softener 100 mg capsule 1 Oral 2 Times Daily SunJanuary 18 13:00:00 EDT 2020Nov 10 18:21:00 EST 2022 Stool Softener 100 mg capsule 1 Oral 2 Times Daily SunJanuary 15 12:00:00 EDT 2020January 18 13:11:00 EDT 2020 Artificial Tears (carboxymethylcellulose) 1 % eye drops 1 gtt DROPS Both Eyes PRN 2 Times Daily nurse adminDx: keraconjunctivitis SunDec 27 07:00:00 EDT 2020Nov 10 18:21:00 EST 2022 Advair Diskus 100 mcg-50 mcg/dose powder for inhalation 1 puff BLISTER, WITH INHALATION DEVICE Inhalation 2 Times Daily Rinse mouth with water after administration Nurse AdminDx:COPD SunDec 27 07:00:00 EDT 2020Nov 10 18:21:00 EST 2022 citalopram 10 mg tablet 1 tab TABLET Ora l 1 Time Daily ANNUAL GIVING DIRECTOR supervision x1Dx: Major depressive disorder SunDec 27 06:00:00 EDT 2020Nov 10 18:21:00 EST 2022 furosemide 20 mg tablet 1 tablet TABLET Oral 1 Time Daily ANNUAL GIVING DIRECTOR supervision x1Dx: Hypotension SunDec 27 06:00:00 EDT 2020Nov 10 18:21:00 EST 2022 montelukast 10 mg tablet 1 tablet TABLET Oral 1 Time Daily ANNUAL GIVING DIRECTOR supervision x1Dx: Seasonal allergic rhinitis SunDec 27 06:00:00 EDT 2020Nov 10 18:: EST 2022 cetirizine 10 mg tablet 1 tablet TABLET Oral 1 Time Daily ANNUAL GIVING DIRECTOR Supervision x1Dx: Seasonal Allergic Rhinitis SunDec 27 06:00:00 EDT 2020Nov 10: EST 2022 calcium carbonate 600 mg (1,500 mg)-vitamin D3 400 unit tablet 1 tablet TABLET Oral 1 Time Daily ANNUAL GIVING DIRECTOR supervision x1Dx: Cerebrovascular disease SunDec 27 06:00:00 EDT 2020Nov 10:: EST 2022 docusate sodium 100 mg tablet 1 tablet TABLET Oral 2 Times Daily ANNUAL GIVING DIRECTOR Supervision x1,x4Dx:constipation SunDec 27 06:00:00 EDT 2020January 15 12:04:00 EDT 2020 omeprazole 20 mg capsule,delayed release 1 capsule CAPSULE,DELAYED RELEASE (ENTERIC COATED) Oral 1 Time Daily ANNUAL GIVING DIRECTOR Supervision x1Dx: GERD SunDec 27 06:00:00 EDT 2020Nov 10:: EST 2022 iFerex 150 150 mg iron capsule 1 capsule CAPSULE Oral 1 Time Daily ANNUAL GIVING DIRECTOR Supervision x4Dx: Anemia SunDec 27 06:00:00 EDT 2020Nov 10:: EST 2022 Combivent Respimat 20 mcg-100 mcg/actuation solution for inhalation 1 puff MIST INHALER (GRAM) Inhalation 4 Times Daily Nurse AdminDx:COPD SunDec 27 06:00:00 EDT 2020Nov 10 18:: EST 2022 acetaminophen 325 mg tablet 325 mg TABLE T Oral PRN Every 4 Hours As needed for pain. SunDec 27 06:00:00 EDT 2020Nov 10::00 EST 2022 bisacodyL 5 mg tablet,delayed release 1 tablet TABLET, DELAYED RELEASE (ENTERIC COATED) Oral PRN 2 Times Daily Nurse AdminDx: constipation SunDec 27 06:00:00 EDT 2020Nov 10:: EST 2022 loperamide 2 mg capsule 2 tablet CAPSULE Oral PRN (Max 3 Doses) take 2 tabs after 1st loose stool and 1 tab after each loose stool following the first dose. SunDec 27 06:00:00 EDT 2020Nov 10:00 EST 2022 Mucus Relief ER 600 mg tablet, extended release 1 tablet TABLET, EXTENDED RELEASE 12 HR Oral PRN Every 12 Hours Dx: nasal congestion SunDec 27 06:00:00 EDT 2020Nov 10 18:21:00 EST 2022 divalproex 500 mg tablet,delayed release 4 tabs TABLET, DELAYED RELEASE (ENTERIC COATED) Oral 1 Time Daily ANNUAL GIVING DIRECTOR Supervision x4 Dx: Unspecified Convulsions SunDec 27 06:00:00 EDT 2020Nov 10 18:21:00 EST 2022 Flonase 50 mcg/actuation nasal spray,suspension 1 spray SPRAY, SUSPENSION Intranasal PRN (Max 2 Doses) 1 spray both nostrils QD BID PRN SunDec 27 06:00:00 EDT 2020Nov 10 18:21:00 EST 2022 Artificial Tears (carboxymethylcellulose) 1 % eye drops 1 gtt DROPS Both Eyes 2 Times Daily Nurse to adm 1 drop both eyes dx dry eyes SunDec 26 01:00:00 EDT 2020Feb 09 23:50:00 EDT 2020 [place] Twice Daily Relief 0.1 % eye drops 1 drop DROPS Both Eyes 2 Times Daily Nurse to adm 1 drop both eyes dx dry eyes SunDec 22 21:00:00 EDT 2020Dec 26 07:54:00 EDT 2020 Flonase 50 mcg/actuation nasal spray,suspension 1 spray SPRAY, SUSPENSION Intranasal PRN (Max 2 Doses) 1 spray both nostrils QD BID PRN SunDec 21 21:00:00 EDT 2020Dec 27 12:57:00 EDT 2020 TUBErsoL 5 tub. unit/0.1 mL intradermal injection solution 0.1 ml VIAL (ML) Intradermal 1 Time Weekly for 2 Weeks (PPD) 1st injection upon admission. Read between 48 and 72 hours and give 2nd injection 1 week after the 1st if result is negative. If positive result, proceed with chest x-ray to rule out active disease. SunDec 18 01:00:00 EDT 2020January 01 00:59:00 EDT 2020 TUBErsoL 5 tub. unit/0.1 mL intradermal injection solution Read Results VIAL (ML) Other 1 Time Weekly for 2 Weeks Read results between 48-72 hours after 1st and 2nd 1 week apart. If positive do chest x-ray to rule out active disease. SunJanuary 01 01:00:00 EDT 2020January 15 00:59:00 EDT 2020 divalproex 500 mg tablet,delayed release 4 tabs TABLET, DELAYED RELEASE (ENTERIC COATED) Oral 1 Time Daily ANNUAL GIVING DIRECTOR Supervision x4 Dx: Unspecified Convulsions SunDec 18 20:00:00 EDT 2020Dec 27 12:56:00 EDT 2020 Artificial Tears (carboxymethylcellulose) 1 % eye drops 1 gtt DROPS Both Eyes PRN 2 Times Daily nurse adminDx: keraconjunctivitis SunDec 17 04:00:00 EDT 2020Dec 27 12:40:00 EDT 2020 Advair Diskus 100 mcg-50 mcg/dose powder for inhalation 1 puff BLISTER, WITH INHALATION DEVICE Inhalation 2 Times Daily Rinse mouth with water after administration Nurse AdminDx:COPD SunDec 17 04:00:00 EDT 2020Dec 27 12:42:00 EDT 2020 citalopram 10 mg tablet 1 tab TABLET Ora l 1 Time Daily ANNUAL GIVING DIRECTOR supervision x1Dx: Major depressive disorder SunDec 17 04:30:00 EDT 2020Dec 27 12:46:00 EDT 2020 furosemide 20 mg tablet 1 tablet TABLET Oral 1 Time Daily ANNUAL GIVING DIRECTOR supervision x1Dx: Hypotension SunDec 17 04:30:00 EDT 2020Dec 27 12:46:00 EDT 2020 montelukast 10 mg tablet 1 tablet TABLET Oral 1 Time Daily ANNUAL GIVING DIRECTOR supervision x1Dx: Seasonal allergic rhinitis SunDec 17 04:00:00 EDT 2020Dec 27 12:47:00 EDT 2020 ZyrTEC 10 mg tablet 1 tablet TABLET Oral 1 Time Daily ANNUAL GIVING DIRECTOR Supervision x1Dx: Seasonal Allergic Rhinitis SunDec 17 04:30:00 EDT 2020Dec 27 12:48:00 EDT 2020 Calcium 600 + D(3) 600 mg (1,500 mg)-400 unit tablet 1 tablet TABLET Oral 1 Time Daily ANNUAL GIVING DIRECTOR supervision x1Dx: Cerebrovascular disease SunDec 17 04:30:00 EDT 2020Dec 27 12:49:00 EDT 2020 docusate sodium 100 mg tablet 1 tablet TABLET Oral 2 Times Daily ANNUAL GIVING DIRECTOR Supervision x1,x4Dx:constipation SunDec 17 04:30:00 EDT 2020Dec 27 12:50:00 EDT 2020 divalproex 500 mg tablet,delayed release 4 tablets TABLET, DELAYED RELEASE (ENTERIC COATED) Oral 1 Time Daily ANNUAL GIVING DIRECTOR Supervision x4Dx:Convulsions SunDec 17 04:30:00 EDT 2020Dec 18 03:28:00 EDT 2020 omeprazole 20 mg capsule,delayed release 1 capsule CAPSULE,DELAYED RELEASE (ENTERIC COATED) Oral 1 Time Daily ANNUAL GIVING DIRECTOR Supervision x1Dx: GERD SunDec 17 04:30:00 EDT 2020Dec 27 12:50:00 EDT 2020 polysaccharide iron complex 150 mg iron capsule 1 capsule CAPSULE Oral 1 Time Daily ANNUAL GIVING DIRECTOR Supervision x4Dx: Anemia SunDec 17 04:30:00 EDT 2020Dec 27 12:51:00 EDT 2020 Combivent Respimat 20 mcg-100 mcg/actuation solution for inhalation 1 puff MIST INHALER (GRAM) Inhalation 4 Times Daily Nurse AdminDx:COPD SunDec 17 04:00:00 EDT 2020Dec 27 12:52:00 EDT 2020 acetaminophen 325 mg tablet 325 mg TABLE T Oral PRN Every 4 Hours As needed for pain. SunDec 17 01:00:00 EDT 2020Dec 27 12:54:00 EDT 2020 bisacodyL 5 mg tablet,delayed release 1 tablet TABLET, DELAYED RELEASE (ENTERIC COATED) Oral PRN 2 Times Daily Nurse AdminDx: constipation SunDec 17 01:00:00 EDT 2020Dec 27 12:54:00 EDT 2020 loperamide 2 mg capsule 2 tablet CAPSULE Oral PRN take 2 tabs after 1st loose stool and 1 tab after each loose stool following the first dose. SunDec 17 01:00:00 EDT 2020Dec 27 12:55:00 EDT 2020 Mucinex 600 mg tablet, extended release 1 tablet TABLET, EXTENDED RELEASE 12 HR Oral PRN Every 12 Hours Dx: nasal congestion SunDec 17 01:00:00 EDT 2020Dec 27 12:55:00 EDT 2020 Problems Active Concerns * Major depressive disorder, single episode, unspecified* Code: * Start Date: SunDec 17 00:00:00 EDT 2020 * End Date: * Text: * (Idiopathic) normal pressure hydrocephalus* Code: * Start Date: SunDec 17 00:00:00 EDT 2020 * End Date: * Text: * Personal history of traumatic brain injury* Code: * Start Date: SunDec 17 00:00:00 EDT 2020 * End Date: * Text: * Essential (primary) hypertension* Code: * Start Date: SunDec 17 00:00:00 EDT 2020 * End Date: * Text: * Chronic obstructive pulmonary disease, unspecified* Code: * Start Date: SunDec 17 00:00:00 EDT 2020 * End Date: * Text: * Gastro-esophageal reflux disease without esophagitis* Code: * Start Date: SunDec 17 00:00:00 EDT 2020 * End Date: * Text: * Other seasonal allergic rhinitis* Code: * Start Date: SunDec 17 00:00:00 EDT 2020 * End Date: * Text: * Ataxia following unspecified cerebrovascular disease* Code: * Start Date: SunDec 17 00:00:00 EDT 2020 * End Date: * Text: * Idiopathic aplastic anemia* Code: * Start Date: SunDec 17 00:00:00 EDT 2020 * End Date: * Text: * Personal history of nicotine dependence* Code: * Start Date: SunDec 17 00:00:00 EDT 2020 * End Date: * Text: * Slow transit constipation* Code: * Start Date: SunDec 17 00:00:00 EDT 2020 * End Date: * Text: * Other disorders of plasma-protein metabolism, not elsewhere classified* Code: * Start Date: SunDec 17 00:00:00 EDT 2020 * End Date: * Text: * Unspecified urinary incontinence* Code: * Start Date: SunDec 17 00:00:00 EDT 2020 * End Date: * Text: * Unspecified hearing loss, unspecified ear* Code: * Start Date: SunDec 17 00:00:00 EDT 2020 * End Date: * Text: * Other specified forms of tremor* Code: * Start Date: SunDec 17 00:00:00 EDT 2020 * End Date: * Text: * Hyperosmolality and hypernatremia* Code: * Start Date: SunDec 17 00:00:00 EDT 2020 * End Date: * Text: * Presence of other bone and tendon implants* Code: * Start Date: SunSep 29 00:00:00 EST 2022 * End Date: * Text: * Essential tremor* Code: * Start Date: SunSep 29 00:00:00 EST 2022 * End Date: * Text: * Vitamin D deficiency, unspecified* Code: * Start Date: SunOct 04 00:00:00 EST 2022 * End Date: * Text: * Personal history of (healed) traumatic fracture* Code: * Start Date: SunNov 10 00:00:00 EST 2022 * End Date: * Text: * Other specified disorders of brain* Code: * Start Date: SunNov 11 00:00:00 EDT 2023 * End Date: * Text: * equipment [employer] (current) use of opiate analgesic* Code: * Start Date: SunDec 17 00:00:00 EDT 2020 * End Date: * Text: * Hypertensive heart disease with heart failure* Code: * Start Date: SunMay 24 00:00:00 EDT 2023 * End Date: * Text: * prison (current) use of oral hypoglycemic drugs* Code: * Start Date: SunMay 24 00:00:00 EDT 2023 * End Date: * Text: * Localization-related (focal) (partial) symptomatic epilepsy and epileptic syndromes with complex partial seizures, not intractable, without status epilepticus* Code: * Start Date: SunMay 24 00:00:00 EDT 2023 * End Date: * Text: * Diverticulosis of intestine, part unspecified, without perforation or abscess without bleeding* Code: * Start Date: SunMay 24 00:00:00 EDT 2023 * End Date: * Text: * Other hemorrhoids* Code: * Start Date: SunMay 24 00:00:00 EDT 2023 * End Date: * Text: * Benign neoplasm of colon, unspecified* Code: * Start Date: SunMay 24 00:00:00 EDT 2023 * End Date: * Text: * Type 2 diabetes mellitus without complications* Code: * Start Date: SunJun 04 00:00:00 EDT 2023 * End Date: * Text: * Weakness* Code: * Start Date: SunSep 11 00:00:00 EST 2024 * End Date: * Text: * Chronic diastolic (congestive) heart failure* Code: * Start Date: SunJun 04 00:00:00 EDT 2023 * End Date: * Text: * Other specified anxiety disorders* Code: * Start Date: SunOct 08 00:00:00 EST 2024 * End Date: * Text: * Migraine, unspecified, not intractable, without status migrainosus* Code: * Start Date: SunOct 08 00:00:00 EST 2024 * End Date: * Text: * Cognitive communication deficit* Code: * Start Date: SunOct 08 00:00:00 EST 2024 * End Date: * Text: * Presence of cerebrospinal fluid drainage device* Code: * Start Date: SunJun 04 00:00:00 EDT 2023 * End Date: * Text: * Other rosacea* Code: * Start Date: SunJun 04 00:00:00 EDT 2023 * End Date: * Text: Resolved Concerns * Problem Muscle weakness (generalized)* Code: * Start Date: SunFeb 01 00:00:00 EDT 2020 * End Date: SunMay 27 00:00:00 EDT 2023 * Problem Unspecified conjunctivitis* Code: * Start Date: SunDec 17 00:00:00 EDT 2020 * End Date: SunMay 27 00:00:00 EDT 2023 * Problem Unspecified fall, subsequent encounter* Code: * Start Date: SunSep 29 00:00:00 EST 2022 * End Date: SunOct 09 00:00:00 EST 2024 * Problem Other rosacea* Code: * Start Date: SunSep 29 00:00:00 EST 2022 * End Date: SunMay 27 00:00:00 EDT 2023 * Problem Epilepsy, unspecified, not intractable, without status epilepticus* Code: * Start Date: SunSep 29 00:00:00 EST 2022 * End Date: SunMay 27 00:00:00 EDT 2023 * Problem Anemia, unspecified* Code: * Start Date: SunSep 29 00:00:00 EST 2022 * End Date: SunMay 27 00:00:00 EDT 2023 * Problem Weakness* Code: * Start Date: SunSep 29 00:00:00 EST 2022 * End Date: SunMay 27 00:00:00 EDT 2023 * Problem Presence of cerebrospinal fluid drainage device* Code: * Start Date: SunNov 11 00:00:00 EDT 2023 * End Date: SunMay 27 00:00:00 EDT 2023 * Problem Communicating hydrocephalus* Code: * Start Date: SunNov 11 00:00:00 EDT 2023 * End Date: SunMay 27 00:00:00 EDT 2023 * Problem Epilepsy, unspecified, intractable, without status epilepticus* Code: * Start Date: SunNov 11 00:00:00 EDT 2023 * End Date: SunMay 27 00:00:00 EDT 2023 * Problem Pneumonia, unspecified organism* Code: * Start Date: SunNov 11 00:00:00 EDT 2023 * End Date: SunMar 11 00:00:00 EDT 2023 * Problem Sepsis, unspecified organism* Code: * Start Date: SunNov 11 00:00:00 EDT 2023 * End Date: SunMar 11 00:00:00 EDT 2023 * Problem Chronic obstructive pulmonary disease with (acute) lower respiratory infection* Code: * Start Date: SunNov 11 00:00:00 EDT 2023 * End Date: SunMar 11 00:00:00 EDT 2023 * Problem Sepsis, unspecified organism* Code: * Start Date: SunMay 24 00:00:00 EDT 2023 * End Date: SunOct 09 00:00:00 EST 2024 * Problem Acute respiratory failure with hypoxia* Code: * Start Date: SunMay 24 00:00:00 EDT 2023 * End Date: SunOct 09 00:00:00 EST 2024 * Problem Pneumonia, unspecified organism* Code: * Start Date: SunMay 24 00:00:00 EDT 2023 * End Date: SunOct 09 00:00:00 EST 2024 * Problem Heart failure, unspecified* Code: * Start Date: SunMay 24 00:00:00 EDT 2023 * End Date: SunOct 09 00:00:00 EST 2024 * Problem Hypertensive urgency* Code: * Start Date: SunMay 24 00:00:00 EDT 2023 * End Date: SunOct 09 00:00:00 EST 2024 * Problem Hypokalemia* Code: * Start Date: SunMay 24 00:00:00 EDT 2023 * End Date: SunOct 09 00:00:00 EST 2024 * Problem Chronic obstructive pulmonary disease with (acute) lower respiratory infection* Code: * Start Date: SunMay 24 00:00:00 EDT 2023 * End Date: SunOct 09 00:00:00 EST 2024 * Problem Personal history of transient ischemic attack (TIA), and cerebral infarction without residual deficits* Code: * Start Date: SunMay 24 00:00:00 EDT 2023 * End Date: SunMay 27 00:00:00 EDT 2023 * Problem Pleural effusion, not elsewhere classified* Code: * Start Date: SunMay 24 00:00:00 EDT 2023 * End Date: SunOct 09 00:00:00 EST 2024 * Problem Other pericardial effusion (noninflammatory)* Code: * Start Date: SunMay 24 00:00:00 EDT 2023 * End Date: SunOct 09 00:00:00 EST 2024 * Problem Muscle weakness (generalized)* Code: * Start Date: SunJun 05 00:00:00 EDT 2023 * End Date: SunOct 09 00:00:00 EST 2024 * Problem Other fatigue* Code: * Start Date: SunJun 05 00:00:00 EDT 2023 * End Date: SunOct 09 00:00:00 EST 2024 * Problem Unsteadiness on feet* Code: * Start Date: SunJun 05 00:00:00 EDT 2023 * End Date: SunOct 09 00:00:00 EST 2024 Vital Signs Vital Sign Measurement Date Systolic Blood Pressure 147.00 mm[Hg] SunDec 30 08:19:46 EDT 2024 Diastolic Blood Pressure 70.00 mm[Hg] SunDec 30 08:19:46 EDT 2024 Heart Rate 68.00 /min SunDec 30 08:19 :46 EDT 2024 Systolic Blood Pressure 136.00 mm[Hg] SunDec 29 09:19:12 EDT 2024 Diastolic Blood Pressure 66.00 mm[Hg] SunDec 29 09:19:12 EDT 2024 Heart Rate 66.00 /min SunDec 29 09:19 :12 EDT 2024 Systolic Blood Pressure 120.00 mm[Hg] SunDec 28 10:35:41 EDT 2024 Diastolic Blood Pressure 62.00 mm[Hg] SunDec 28 10:35:41 EDT 2024 Heart Rate 72.00 /min SunDec 28 10:35 :41 EDT 2024 Systolic Blood Pressure 141.00 mm[Hg] [facility] Dec 27 09:33:46 EDT 2024 Diastolic Blood Pressure 65.00 mm[Hg] [facility] Dec 27 09:33:46 EDT 2024 Heart Rate 66.00 /min Sat Dec 27 09:33 :46 EDT 2024 Systolic Blood Pressure 130.00 mm[Hg] SunDec 26 12:41:05 EDT 2024 Diastolic Blood Pressure 67.00 mm[Hg] SunDec 26 12:41:05 EDT 2024 Heart Rate 68.00 /min SunDec 26 12:41 :05 EDT 2024 Systolic Blood Pressure 129.00 mm[Hg] [facility] Dec 25 09:43:25 EDT 2024 Diastolic Blood Pressure 68.00 mm[Hg] SunDec 25 09:43:25 EDT 2024 Heart Rate 69.00 /min SunDec 25 09:43 :25 EDT 2024 Systolic Blood Pressure 126.00 mm[Hg] SunDec 24 08:52:34 EDT 2024 Diastolic Blood Pressure 63.00 mm[Hg] SunDec 24 08:52:34 EDT 2024 Heart Rate 67.00 /min SunDec 24 08:52 :34 EDT 2024 Systolic Blood Pressure 131.00 mm[Hg] SunDec 23 08:38:45 EDT 2024 Diastolic Blood Pressure 66.00 mm[Hg] SunDec 23 08:38:45 EDT 2024 Heart Rate 68.00 /min SunDec 23 08:38 :45 EDT 2024 Systolic Blood Pressure 111.00 mm[Hg] SunDec 22 12:25:22 EDT 2024 Diastolic Blood Pressure 70.00 mm[Hg] SunDec 22 12:25:22 EDT 2024 Heart Rate 68.00 /min SunDec 22 12:25 :22 EDT 2024 Systolic Blood Pressure 109.00 mm[Hg] [facility] Dec 21 09:56:22 EDT 2024 Diastolic Blood Pressure 69.00 mm[Hg] [facility] Dec 21 09:56:22 EDT 2024 Heart Rate 69.00 /min [facility] Dec 21 09:56 :22 EDT 2024 Systolic Blood Pressure 121.00 mm[Hg] Sat Dec 20 13:27:30 EDT 2024 Diastolic Blood Pressure 58.00 mm[Hg] Sat Dec 20 13:27:30 EDT 2024 Body weight 138.20 [lb_av] Sat Dec 20 13:27 :30 EDT 2024 Heart Rate 64.00 /min Sat Dec 20 13:27 :30 EDT 2024 Body temperature 97.40 [degF] Sat Apr 19 13:2 7:30 EDT 2024 Respiratory rate 18.00 /min Sat Apr 19 13:2 7:30 EDT 2024 Pulse Oximetry 97.00 % Sat Dec 19 13:27 :30 EDT 2024 Systolic Blood Pressure 131.00 mm[Hg] Sat Apr 19 08:36:08 EDT 2024 Diastolic Blood Pressure 65.00 mm[Hg] Sat Apr 19 08:36:08 EDT 2024 Heart Rate 65.00 /min Sat Dec 19 08:36 :08 EDT 5 Systolic Blood Pressure 133.00 mm[Hg] Sun 18 09:09:48 EDT 2024 Diastolic Blood Pressure 65.00 mm[Hg] Sun 18 09:09:48 EDT 2024 Heart Rate 72.00 /min Sun 18 09:09 :48 EDT 2024 Systolic Blood Pressure 105.00 mm[Hg] [facility] Dec 17 09:03:54 EDT 2024 Diastolic Blood Pressure 75.00 mm[Hg] [facility] Dec 17 09:03:54 EDT 2024 Heart Rate 75.00 /min [facility] Dec 17 09:03 :54 EDT 2024 Systolic Blood Pressure 113.00 mm[Hg] Sun 16 09:04:36 EDT 2024 Diastolic Blood Pressure 58.00 mm[Hg] Sun 16 09:04:36 EDT 2024 Heart Rate 65.00 /min Sun 16 09:04 :36 EDT 2024 Systolic Blood Pressure 135.00 mm[Hg] Sun 15 09:13:31 EDT 2024 Diastolic Blood Pressure 65.00 mm[Hg] Sun 15 09:13:31 EDT 2024 Heart Rate 72.00 /min Sun 15 09:13 :31 EDT 5 Systolic Blood Pressure 158.00 mm[Hg] Sun 14 10:14:58 EDT 2024 Diastolic Blood Pressure 74.00 mm[Hg] SunDec 15 10:14:58 EDT 2024 Heart Rate 74.00 /min SunDec 15 10:14 :58 EDT 2024 Systolic Blood Pressure 128.00 mm[Hg] Sun Apr 09:57:48 EDT 2024 Diastolic Blood Pressure 66.00 mm[Hg] Sun Dec 14 09:57:48 EDT 2024 Heart Rate 71.00 /min Sun Dec 14 09:57 :48 EDT 2024 Systolic Blood Pressure 138.00 mm[Hg] Sat Dec 12 11:14:58 EDT 2024 Diastolic Blood Pressure 68.00 mm[Hg] Sat Dec 13 11:14:58 EDT 2024 Heart Rate 72.00 /min SunDec 13 11:14 :58 EDT 2024 Systolic Blood Pressure 105.00 mm[Hg] SunDec 12 10:03:25 EDT 2024 Diastolic Blood Pressure 55.00 mm[Hg] SunDec 12 10:03:25 EDT 2024 Heart Rate 69.00 /min SunDec 12 10:03 :25 EDT 2024 Systolic Blood Pressure 141.00 mm[Hg] [facility] Dec 11 08:50:38 EDT 2024 Diastolic Blood Pressure 65.00 mm[Hg] [facility] Dec 11 08:50:38 EDT 2024 Heart Rate 65.00 /min SunDec 11 08:50 :38 EDT 2024 Systolic Blood Pressure 139.00 mm[Hg] SunDec 10 08:50:38 EDT 2024 Diastolic Blood Pressure 66.00 mm[Hg] SunDec 10 08:50:38 EDT 2024 Heart Rate 72.00 /min SunDec 10 08:50 :38 EDT 2024 Systolic Blood Pressure 137.00 mm[Hg] SunDec 09 08:44:20 EDT 2024 Diastolic Blood Pressure 66.00 mm[Hg] SunDec 09 08:44:20 EDT 2024 Heart Rate 65.00 /min SunDec 09 08:44 :20 EDT 2024 Systolic Blood Pressure 141.00 mm[Hg] SunDec 08 11:22:42 EDT 2024 Diastolic Blood Pressure 63.00 mm[Hg] SunDec 08 11:22:42 EDT 2024 Heart Rate 74.00 /min SunDec 08 11:22 :42 EDT 2024 Systolic Blood Pressure 136.00 mm[Hg] Sun Dec 07 09:04:37 EDT 2024 Diastolic Blood Pressure 54.00 mm[Hg] Sun Dec 07 09:04:37 EDT 2024 Heart Rate 67.00 /min Sun Dec 07 09:04 :37 EDT 2024 Systolic Blood Pressure 97.00 mm[Hg] Sat Dec 06 12:42:57 EDT 2024 Diastolic Blood Pressure 50.00 mm[Hg] Sat Dec 06 12:42:57 EDT 2024 Body weight 138.40 [lb_av] Sat Dec 06 12:42 :57 EDT 2024 Heart Rate 71.00 /min Sat Dec 06 12:42 :57 EDT 2024 Body temperature 97.70 [degF] [facility] Dec 06 12:4 2:57 EDT 2024 Respiratory rate 18.00 /min Sat Dec 06 12:4 2:57 EDT 2024 Pulse Oximetry 96.00 % [facility] Dec 06 12:42 :57 EDT 2024 Systolic Blood Pressure 145.00 mm[Hg] [facility] Dec 06 08:53:12 EDT 2024 Diastolic Blood Pressure 77.00 mm[Hg] [facility] Dec 06 08:53:12 EDT 2024 Heart Rate 74.00 /min [facility] Dec 06 08:53 :12 EDT 2024 Systolic Blood Pressure 137.00 mm[Hg] SunDec 05 10:43:32 EDT 2024 Diastolic Blood Pressure 66.00 mm[Hg] SunDec 05 10:43:32 EDT 2024 Heart Rate 73.00 /min SunDec 05 10:43 :32 EDT 2024 Systolic Blood Pressure 111.00 mm[Hg] SunDec 04 10:09:46 EDT 2024 Diastolic Blood Pressure 61.00 mm[Hg] SunDec 04 10:09:46 EDT 2024 Heart Rate 70.00 /min SunDec 04 10:09 :46 EDT 2024 Systolic Blood Pressure 125.00 mm[Hg] SunDec 03 10:35:46 EDT 2024 Diastolic Blood Pressure 61.00 mm[Hg] SunDec 03 10:35:46 EDT 2024 Heart Rate 76.00 /min SunDec 03 10:35 :46 EDT 2024 Systolic Blood Pressure 150.00 mm[Hg] SunDec 02 08:30:33 EDT 2024 Diastolic Blood Pressure 69.00 mm[Hg] SunDec 02 08:30:33 EDT 2024 Heart Rate 75.00 /min SunDec 02 08:30 :33 EDT 2024 Systolic Blood Pressure 144.00 mm[Hg] SunDec 01 09:04:42 EDT 2024 Diastolic Blood Pressure 63.00 mm[Hg] SunDec 01 09:04:42 EDT 2024 Heart Rate 74.00 /min SunDec 01 09:04 :42 EDT 2024 Systolic Blood Pressure 134.00 mm[Hg] SunNov 30 08:59:43 EDT 2024 Diastolic Blood Pressure 56.00 mm[Hg] Sun Mar 30 08:59:43 EDT 5 Heart Rate 72.00 /min Sun Mar 30 08:59 :43 EDT 2024 Systolic Blood Pressure 131.00 mm[Hg] Sat Mar 29 09:13:34 EDT 2024 Diastolic Blood Pressure 66.00 mm[Hg] Sat Mar 29 09:13:34 EDT 2024 Heart Rate 69.00 /min Sat Mar 29 09:13 :34 EDT 2024 Systolic Blood Pressure 124.00 mm[Hg] Fri Mar 28 10:46:40 EDT 2024 Diastolic Blood Pressure 60.00 mm[Hg] Fri Mar 28 10:46:40 EDT 2024 Heart Rate 70.00 /min Sun 28 10:46 :40 EDT 2024 Systolic Blood Pressure 128.00 mm[Hg] [facility] Mar 27 08:40:12 EDT 2024 Diastolic Blood Pressure 61.00 mm[Hg] [facility] Nov 27 08:40:12 EDT 5 Heart Rate 71.00 /min SunNov 27 08:40 :12 EDT 2024 Systolic Blood Pressure 120.00 mm[Hg] Sun 26 08:45:24 EDT 2024 Diastolic Blood Pressure 66.00 mm[Hg] SunNov 26 08:45:24 EDT 2024 Heart Rate 73.00 /min SunNov 26 08:45 :24 EDT 2024 Systolic Blood Pressure 121.00 mm[Hg] Sun 25 08:42:56 EDT 2024 Diastolic Blood Pressure 64.00 mm[Hg] SunNov 25 08:42:56 EDT 2024 Heart Rate 81.00 /min SunNov 25 08:42 :56 EDT 2024 Systolic Blood Pressure 125.00 mm[Hg] Sun 24 10:26:27 EDT 2024 Diastolic Blood Pressure 67.00 mm[Hg] Sun 24 10:26:27 EDT 2024 Heart Rate 69.00 /min Sun 24 10:26 :27 EDT 2024 Systolic Blood Pressure 112.00 mm[Hg] Sun Mar 23 12:36:21 EDT 2024 Diastolic Blood Pressure 61.00 mm[Hg] Sun Mar 23 12:36:21 EDT 2024 Heart Rate 73.00 /min Sun Mar 23 12:36 :21 EDT 2024 Systolic Blood Pressure 149.00 mm[Hg] Sat Mar 22 08:29:22 EDT 2025 Diastolic Blood Pressure 73.00 mm[Hg] Sun 22 08:29:22 EDT 5 Heart Rate 79.00 /min Sun 22 08:29 :22 EDT 5 Systolic Blood Pressure 135.00 mm[Hg] Sun 21 11:16:18 EDT 5 Diastolic Blood Pressure 63.00 mm[Hg] Sun 21 11:16:18 EDT 2024 Heart Rate 78.00 /min SunNov 21 11:16 :18 EDT 2024 Systolic Blood Pressure 124.00 mm[Hg] [facility] 20 09:47:23 EDT 2024 Diastolic Blood Pressure 62.00 mm[Hg] Sun 20 09:47:23 EDT 2024 Heart Rate 82.00 /min Sun 20 09:47 :23 EDT 2024 Systolic Blood Pressure 127.00 mm[Hg] Sun 19 09:34:09 EDT 2024 Diastolic Blood Pressure 69.00 mm[Hg] Sun 19 09:34:09 EDT 2024 Systolic Blood Pressure 127.00 mm[Hg] Sun 19 09:34:09 EDT 2024 Diastolic Blood Pressure 69.00 mm[Hg] Sun 19 09:34:09 EDT 2024 Body weight 140.50 [lb_av] Sun 19 09:34 :09 EDT 2024 Heart Rate 65.00 /min Sun 19 09:34 :09 EDT 2024 Heart Rate 65.00 /min Sun 19 09:34 :09 EDT 2024 Body temperature 98.60 [degF] Sun 19 09:3 4:09 EDT 2024 Respiratory rate 16.00 /min Sun 19 09:3 4:09 EDT 2024 Pulse Oximetry 95.00 % Sun 19 09:34 :09 EDT 2024 Systolic Blood Pressure 127.00 mm[Hg] Sun 18 08:29:42 EDT 2024 Diastolic Blood Pressure 70.00 mm[Hg] Sun 18 08:29:42 EDT 2024 Heart Rate 83.00 /min Sun 18 08:29 :42 EDT 2024 Systolic Blood Pressure 139.00 mm[Hg] Sun 17 08:48:08 EDT 2024 Diastolic Blood Pressure 61.00 mm[Hg] Sun 17 08:48:08 EDT 2024 Heart Rate 86.00 /min Mon Mar 17 08:48 :08 EDT 5 Systolic Blood Pressure 112.00 mm[Hg] Sun Mar 16 09:11:03 EDT 2024 Diastolic Blood Pressure 68.00 mm[Hg] Sun Mar 16 09:11:03 EDT 2024 Heart Rate 62.00 /min Sun Mar 16 09:11 :03 EDT 2024 Systolic Blood Pressure 158.00 mm[Hg] Sat Mar 15 09:08:48 EDT 2024 Diastolic Blood Pressure 73.00 mm[Hg] Sat Mar 15 09:08:48 EDT 2024 Heart Rate 88.00 /min Sat Mar 15 09:08 :48 EDT 2024 Systolic Blood Pressure 109.00 mm[Hg] Fri Mar 14 12:02:09 EDT 2024 Diastolic Blood Pressure 53.00 mm[Hg] Sun Mar 14 12:02:09 EDT 2024 Heart Rate 66.00 /min Sun 14 12:02 :09 EDT 2024 Systolic Blood Pressure 120.00 mm[Hg] [facility] Nov 13 08:22:31 EDT 2024 Diastolic Blood Pressure 55.00 mm[Hg] [facility] Nov 13 08:22:31 EDT 5 Heart Rate 65.00 /min Sun 13 08:22 :31 EDT 2024 Systolic Blood Pressure 138.00 mm[Hg] Sun 12 08:22:43 EDT 2024 Diastolic Blood Pressure 66.00 mm[Hg] Sun 12 08:22:43 EDT 2024 Heart Rate 68.00 /min Sun 12 08:22 :43 EDT 2024 Systolic Blood Pressure 127.00 mm[Hg] Sun 11 10:15:56 EDT 2024 Diastolic Blood Pressure 68.00 mm[Hg] Sun 11 10:15:56 EDT 2024 Heart Rate 68.00 /min Sun 11 10:15 :56 EDT 2024 Systolic Blood Pressure 109.00 mm[Hg] Sun 10 12:22:13 EDT 2024 Diastolic Blood Pressure 53.00 mm[Hg] Sun 10 12:22:13 EDT 2024 Heart Rate 74.00 /min Sun 10 12:22 :13 EDT 2024 Systolic Blood Pressure 130.00 mm[Hg] Sun Mar 09 08:54:31 EDT 2024 Diastolic Blood Pressure 61.00 mm[Hg] Sun Mar 08:54:31 EDT 2024 Heart Rate 72.00 /min Sun 09 08:54 :31 EDT 2024 Systolic Blood Pressure 113.00 mm[Hg] Sun 08 11:24:21 EST 2024 Diastolic Blood Pressure 56.00 mm[Hg] Sun 08 11:24:21 EST 2024 Heart Rate 66.00 /min Sun 08 11:24 :21 EST 2024 Systolic Blood Pressure 145.00 mm[Hg] SunNov 07 08:33:39 EST 2024 Diastolic Blood Pressure 72.00 mm[Hg] SunNov 07 08:33:39 EST 2024 Heart Rate 73.00 /min SunNov 07 08:33 :39 EST 2024 Systolic Blood Pressure 118.00 mm[Hg] SunNov 06 09:28:48 EST 2024 Diastolic Blood Pressure 58.00 mm[Hg] SunNov 06 09:28:48 EST 2024 Heart Rate 66.00 /min SunNov 06 09:28 :48 EST 2024 Systolic Blood Pressure 112.00 mm[Hg] SunNov 05 10:11:56 EST 2024 Diastolic Blood Pressure 56.00 mm[Hg] SunNov 05 10:11:56 EST 2024 Systolic Blood Pressure 112.00 mm[Hg] SunNov 05 10:11:56 EST 2024 Diastolic Blood Pressure 56.00 mm[Hg] SunNov 05 10:11:56 EST 2024 Body weight 140.20 [lb_av] SunNov 05 10:11 :56 EST 2024 Heart Rate 76.00 /min SunNov 05 10:11 :56 EST 2024 Heart Rate 76.00 /min SunNov 05 10:11 :56 EST 2024 Body temperature 97.60 [degF] SunNov 05 10:1 1:56 EST 2024 Respiratory rate 20.00 /min SunNov 05 10:1 1:56 EST 2024 Pulse Oximetry 96.00 % SunNov 05 10:11 :56 EST 2024 Systolic Blood Pressure 123.00 mm[Hg] SunNov 04 08:32:52 EST 2024 Diastolic Blood Pressure 61.00 mm[Hg] SunNov 04 08:32:52 EST 2024 Heart Rate 82.00 /min SunNov 04 08:32 :52 EST 2024 Systolic Blood Pressure 135.00 mm[Hg] SunNov 03 08:22:59 EST 2024 Diastolic Blood Pressure 65.00 mm[Hg] SunNov 03 08:22:59 EST 2024 Heart Rate 75.00 /min Mon Nov 03 08:22 :59 EST 2024 Systolic Blood Pressure 127.00 mm[Hg] Sun Mar 08:46:15 EST 2024 Diastolic Blood Pressure 67.00 mm[Hg] Sun Mar 08:46:15 EST 2024 Heart Rate 71.00 /min Sun Mar 08:46 :15 EST 2024 Systolic Blood Pressure 103.00 mm[Hg] Sat Mar 08:52:38 EST 2024 Diastolic Blood Pressure 57.00 mm[Hg] Sat Mar 08:52:38 EST 2024 Heart Rate 57.00 /min Sat Mar 08:52 :38 EST 2024 Systolic Blood Pressure 107.00 mm[Hg] Sunb 11:09:09 EST 2024 Diastolic Blood Pressure 68.00 mm[Hg] Sunb 11:09:09 EST 2024 Heart Rate 83.00 /min Sunb 11:09 :09 EST 2024 Systolic Blood Pressure 159.00 mm[Hg] Sun Feb 08:47:41 EST 2024 Diastolic Blood Pressure 83.00 mm[Hg] Sunb 08:47:41 EST 2024 Heart Rate 85.00 /min Sunb 08:47 :41 EST 2024 Systolic Blood Pressure 124.00 mm[Hg] Sunb 08:34:58 EST 2024 Diastolic Blood Pressure 54.00 mm[Hg] Sunb 08:34:58 EST 2024 Heart Rate 70.00 /min Sunb 08:34 :58 EST 2024 Systolic Blood Pressure 123.00 mm[Hg] Sunb 10:04:45 EST 2024 Diastolic Blood Pressure 54.00 mm[Hg] Sunb 10:04:45 EST 2024 Heart Rate 62.00 /min Sunb 10:04 :45 EST 2024 Systolic Blood Pressure 101.00 mm[Hg] Sunb 09:45:02 EST 2024 Diastolic Blood Pressure 64.00 mm[Hg] Sunb 09:45:02 EST 2024 Heart Rate 68.00 /min Sun Feb 09:45 :02 EST 2024 Systolic Blood Pressure 127.00 mm[Hg] Sun Feb 08:58:04 EST 5 Diastolic Blood Pressure 65.00 mm[Hg] Sun Feb 23 08:58:04 EST 5 Heart Rate 70.00 /min Sun Feb 23 08:58 :04 EST 5 Systolic Blood Pressure 134.00 mm[Hg] Sat Feb 22 10:04:16 EST 5 Diastolic Blood Pressure 67.00 mm[Hg] Sat Feb 22 10:04:16 EST 2025 Heart Rate 64.00 /min Sat Feb 22 10:04 :16 EST 2025 Systolic Blood Pressure 109.00 mm[Hg] Fri Feb 21 12:35:55 EST 2025 Diastolic Blood Pressure 51.00 mm[Hg] Fri Feb 21 12:35:55 EST 2025 Heart Rate 56.00 /min Fri Feb 21 12:35 :55 EST 2025 Systolic Blood Pressure 137.00 mm[Hg] [facility] Feb 20 12:00:18 EST 5 Diastolic Blood Pressure 67.00 mm[Hg] Nikki Feb 20 12:00:18 EST 2025 Heart Rate 72.00 /min Nikki Feb 20 12:00 :18 EST 2025 Systolic Blood Pressure 101.00 mm[Hg] Wed Feb 19 12:31:41 EST 2025 Diastolic Blood Pressure 67.00 mm[Hg] Wed Feb 19 12:31:41 EST 2025 Systolic Blood Pressure 101.00 mm[Hg] Wed Feb 19 12:31:41 EST 2025 Diastolic Blood Pressure 67.00 mm[Hg] Wed Feb 19 12:31:41 EST 2025 Body weight 158.30 [lb_av] Wed Feb 19 12:31 :41 EST 2025 Heart Rate 66.00 /min Wed Feb 19 12:31 :41 EST 2025 Heart Rate 66.00 /min Wed Feb 19 12:31 :41 EST 2025 Body temperature 97.60 [degF] Wed Feb 19 12:3 1:41 EST 5 Respiratory rate 18.00 /min Wed Feb 19 12:3 1:41 EST 5 Pulse Oximetry 93.00 % Wed Feb 19 12:31 :41 EST 5 Systolic Blood Pressure 130.00 mm[Hg] Tue Feb 18 08:40:45 EST 5 Diastolic Blood Pressure 71.00 mm[Hg] Tue Feb 18 08:40:45 EST 5 Heart Rate 83.00 /min Tue Feb 18 08:40 :45 EST 2025 Systolic Blood Pressure 147.00 mm[Hg] Mon Feb 17 09:17:48 EST 2025 Diastolic Blood Pressure 59.00 mm[Hg] Mon Feb 17 09:17:48 EST 5 Heart Rate 56.00 /min Mon Feb 17 09:17 :48 EST 2025 Systolic Blood Pressure 107.00 mm[Hg] Sun Feb 16 11:57:53 EST 2025 Diastolic Blood Pressure 59.00 mm[Hg] Sun Feb 16 11:57:53 EST 2025 Heart Rate 82.00 /min Sun Feb 16 11:57 :53 EST 2025 Systolic Blood Pressure 116.00 mm[Hg] Sat Feb 15 09:27:21 EST 5 Diastolic Blood Pressure 61.00 mm[Hg] Sat Feb 15 09:27:21 EST 2025 Heart Rate 83.00 /min Sat Feb 15 09:27 :21 EST 5 Systolic Blood Pressure 118.00 mm[Hg] Fri Feb 14 11:07:36 EST 5 Diastolic Blood Pressure 61.00 mm[Hg] Fri Feb 14 11:07:36 EST 2025 Heart Rate 86.00 /min Fri Feb 14 11:07 :36 EST 2025 Systolic Blood Pressure 132.00 mm[Hg] [facility] Feb 13 08:26:23 EST 5 Diastolic Blood Pressure 60.00 mm[Hg] [facility] Feb 13 08:26:23 EST 2025 Heart Rate 78.00 /min Nikki Feb 13 08:26 :23 EST 2025 Systolic Blood Pressure 127.00 mm[Hg] Wed Feb 12 08:52:58 EST 2025 Diastolic Blood Pressure 61.00 mm[Hg] Wed Feb 12 08:52:58 EST 2025 Heart Rate 81.00 /min Wed Feb 12 08:52 :58 EST 2025 Systolic Blood Pressure 146.00 mm[Hg] e Feb 11 11:30:48 EST 2025 Diastolic Blood Pressure 68.00 mm[Hg] e Feb 11 11:30:48 EST 2025 Systolic Blood Pressure 146.00 mm[Hg] e Feb 11 11:17:49 EST 2025 Diastolic Blood Pressure 68.00 mm[Hg] e Feb 11 11:17:49 EST 2025 Heart Rate 66.00 /min e Feb 11 11:17 :49 EST 2025 Systolic Blood Pressure 119.00 mm[Hg] Mon Feb 10 13:06:04 EST 2024 Diastolic Blood Pressure 62.00 mm[Hg] Mon Feb 10 13:06:04 EST 2024 Systolic Blood Pressure 119.00 mm[Hg] Mon Feb 10 12:00:06 EST 2024 Diastolic Blood Pressure 62.00 mm[Hg] Mon Feb 10 12:00:06 EST 2024 Heart Rate 89.00 /min Mon Feb 10 12:00 :06 EST 2024 Systolic Blood Pressure 127.00 mm[Hg] Sun Feb 09 12:46:19 EST 2024 Diastolic Blood Pressure 67.00 mm[Hg] Sun Feb 09 12:46:19 EST 2024 Heart Rate 76.00 /min Sun Feb 09 12:46 :19 EST 2024 Systolic Blood Pressure 127.00 mm[Hg] Sun Feb 09 11:22:20 EST 2024 Diastolic Blood Pressure 65.00 mm[Hg] Sun Feb 09 11:22:20 EST 2024 Systolic Blood Pressure 146.00 mm[Hg] Sat Feb 08 08:46:07 EST 2024 Diastolic Blood Pressure 66.00 mm[Hg] Sat Feb 08 08:46:07 EST 2024 Systolic Blood Pressure 146.00 mm[Hg] Sat Feb 08 08:32:26 EST 2024 Diastolic Blood Pressure 66.00 mm[Hg] Sat Feb 08 08:32:26 EST 2024 Heart Rate 81.00 /min Sat Feb 08 08:32 :26 EST 2024 Systolic Blood Pressure 101.00 mm[Hg] Fri Feb 07 12:34:47 EST 2024 Diastolic Blood Pressure 65.00 mm[Hg] Fri Feb 07 12:34:47 EST 2024 Systolic Blood Pressure 101.00 mm[Hg] Sun Feb 07 11:49:01 EST 2024 Diastolic Blood Pressure 65.00 mm[Hg] Sun Feb 07 11:49:01 EST 2024 Heart Rate 60.00 /min Sun Feb 07 11:49 :01 EST 2024 Systolic Blood Pressure 96.00 mm[Hg] [facility] Feb 06 11:46:44 EST 2024 Diastolic Blood Pressure 58.00 mm[Hg] [facility] Feb 06 11:46:44 EST 2024 Systolic Blood Pressure 96.00 mm[Hg] [facility] Feb 06 11:35:36 EST 2024 Diastolic Blood Pressure 58.00 mm[Hg] [facility] Feb 06 11:35:36 EST 2024 Heart Rate 81.00 /min Nikki Feb 06 11:35 :36 EST 2024 Systolic Blood Pressure 107.00 mm[Hg] Sun Feb 05 12:38:30 EST 2024 Diastolic Blood Pressure 58.00 mm[Hg] Sun Feb 05 12:38:30 EST 2024 Body weight 132.00 [lb_av] Sun Feb 05 12:38 :30 EST 2024 Heart Rate 73.00 /min Sun Feb 05 12:38 :30 EST 2024 Body temperature 98.00 [degF] Sun Feb 05 12:3 8:30 EST 2024 Respiratory rate 18.00 /min Sun Feb 05 12:3 8:30 EST 2024 Pulse Oximetry 73.00 % Sun Feb 05 12:38 :30 EST 2024 Systolic Blood Pressure 138.00 mm[Hg] Sun Feb 05 07:58:00 EST 2024 Diastolic Blood Pressure 61.00 mm[Hg] Sun Feb 05 07:58:00 EST 2024 Systolic Blood Pressure 138.00 mm[Hg] Sun Feb 05 07:58:00 EST 2024 Diastolic Blood Pressure 61.00 mm[Hg] Sun Feb 05 07:58:00 EST 2024 Heart Rate 73.00 /min Sun Feb 05 07:58 :00 EST 2024 Systolic Blood Pressure 130.00 mm[Hg] e Feb 04 10:15:52 EST 2024 Diastolic Blood Pressure 63.00 mm[Hg] e Feb 04 10:15:52 EST 2024 Systolic Blood Pressure 130.00 mm[Hg] Sun Feb 04 08:33:02 EST 2024 Diastolic Blood Pressure 63.00 mm[Hg] Sun Feb 04 08:33:02 EST 2024 Heart Rate 80.00 /min Sun Feb 04 08:33 :02 EST 2024 Systolic Blood Pressure 124.00 mm[Hg] Sun Feb 14:31:31 EST 2024 Diastolic Blood Pressure 65.00 mm[Hg] Sun Feb 14:31:31 EST 2024 Systolic Blood Pressure 124.00 mm[Hg] Sun Feb 08:44:32 EST 2024 Diastolic Blood Pressure 65.00 mm[Hg] Sun Feb 08:44:32 EST 2024 Heart Rate 65.00 /min Sunb 08:44 :32 EST 2024 Systolic Blood Pressure 93.00 mm[Hg] [place] b 10:01:48 EST 2024 Diastolic Blood Pressure 59.00 mm[Hg] [place] [facility] b 10:01:48 EST 2024 Systolic Blood Pressure 93.00 mm[Hg] [facility] b 09:23:09 EST 2024 Diastolic Blood Pressure 59.00 mm[Hg] [place] [facility] b 09:23:09 EST 2024 Heart Rate 80.00 /min [facility] b 09:23 :09 EST 2024 Systolic Blood Pressure 128.00 mm[Hg] [facility] b 12:22:36 EST 2024 Diastolic Blood Pressure 67.00 mm[Hg] [facility] b 12:22:36 EST 2024 Systolic Blood Pressure 128.00 mm[Hg] [facility] b 11:25:52 EST 2024 Diastolic Blood Pressure 67.00 mm[Hg] [facility] Oct 04 11:25:52 EST 2024 Heart Rate 88.00 /min [facility] 11:25 :52 EST 2024 Systolic Blood Pressure 127.00 mm[Hg] SunOct 03 12:45:20 EST 2024 Diastolic Blood Pressure 65.00 mm[Hg] SunOct 03 12:45:20 EST 2024 Systolic Blood Pressure 127.00 mm[Hg] SunOct 03 12:06:08 EST 2024 Diastolic Blood Pressure 65.00 mm[Hg] SunOct 03 12:06:08 EST 2024 Heart Rate 98.00 /min SunOct 03 12:06 :08 EST 2024 Systolic Blood Pressure 102.00 mm[Hg] SunOct 02 11:16:26 EST 2024 Diastolic Blood Pressure 64.00 mm[Hg] SunOct 02 11:16:26 EST 2024 Systolic Blood Pressure 102.00 mm[Hg] SunOct 02 09:02:14 EST 2024 Diastolic Blood Pressure 64.00 mm[Hg] SunOct 02 09:02:14 EST 2024 Heart Rate 84.00 /min SunOct 02 09:02 :14 EST 2024 Systolic Blood Pressure 128.00 mm[Hg] SunOct 01 08:44:38 EST 2024 Diastolic Blood Pressure 75.00 mm[Hg] SunOct 01 08:44:38 EST 2024 Heart Rate 88.00 /min SunOct 01 08:44 :38 EST 2024 Systolic Blood Pressure 128.00 mm[Hg] SunOct 01 08:42:40 EST 2024 Diastolic Blood Pressure 75.00 mm[Hg] SunOct 01 08:42:40 EST 2024 Systolic Blood Pressure 109.00 mm[Hg] SunSep 30 13:45:04 EST 2024 Diastolic Blood Pressure 53.00 mm[Hg] SunSep 30 13:45:04 EST 2024 Systolic Blood Pressure 109.00 mm[Hg] SunSep 30 11:26:54 EST 2024 Diastolic Blood Pressure 53.00 mm[Hg] SunSep 30 11:26:54 EST 2024 Heart Rate 85.00 /min SunSep 30 11:26 :54 EST 2024 Systolic Blood Pressure 127.00 mm[Hg] SunSep 29 18:24:42 EST 2024 Diastolic Blood Pressure 60.00 mm[Hg] SunSep 29 18:24:42 EST 2024 Systolic Blood Pressure 127.00 mm[Hg] SunSep 29 12:42:23 EST 2024 Diastolic Blood Pressure 60.00 mm[Hg] SunSep 29 12:42:23 EST 2024 Heart Rate 67.00 /min SunSep 29 12:42 :23 EST 2024 Systolic Blood Pressure 122.00 mm[Hg] SunSep 28 09:10:56 EST 2024 Diastolic Blood Pressure 65.00 mm[Hg] SunSep 28 09:10:56 EST 2024 Heart Rate 79.00 /min SunSep 28 09:10 :56 EST 2024 Systolic Blood Pressure 122.00 mm[Hg] SunSep 28 08:50:17 EST 2024 Diastolic Blood Pressure 64.00 mm[Hg] SunSep 28 08:50:17 EST 2024 Systolic Blood Pressure 125.00 mm[Hg] SunSep 27 11:41:15 EST 2024 Diastolic Blood Pressure 63.00 mm[Hg] SunSep 27 11:41:15 EST 2024 Systolic Blood Pressure 125.00 mm[Hg] SunSep 27 08:47:59 EST 2024 Diastolic Blood Pressure 63.00 mm[Hg] SunSep 27 08:47:59 EST 2024 Heart Rate 70.00 /min SunSep 27 08:47 :59 EST 2024 Systolic Blood Pressure 102.00 mm[Hg] SunSep 26 14:44:50 EST 2024 Diastolic Blood Pressure 59.00 mm[Hg] SunSep 26 14:44:50 EST 2024 Systolic Blood Pressure 102.00 mm[Hg] SunSep 26 14:29:21 EST 2024 Diastolic Blood Pressure 59.00 mm[Hg] SunSep 26 14:29:21 EST 2024 Heart Rate 74.00 /min SunSep 26 14:29 :21 EST 2024 Systolic Blood Pressure 127.00 mm[Hg] SunSep 25 11:13:16 EST 2024 Diastolic Blood Pressure 64.00 mm[Hg] SunSep 25 11:13:16 EST 2024 Systolic Blood Pressure 127.00 mm[Hg] SunSep 25 08:55:28 EST 2024 Diastolic Blood Pressure 64.00 mm[Hg] SunSep 25 08:55:28 EST 2024 Heart Rate 80.00 /min SunSep 25 08:55 :28 EST 2024 Systolic Blood Pressure 114.00 mm[Hg] SunSep 24 10:50:08 EST 2024 Diastolic Blood Pressure 80.00 mm[Hg] SunSep 24 10:50:08 EST 2024 Systolic Blood Pressure 114.00 mm[Hg] SunSep 24 09:59:07 EST 2024 Diastolic Blood Pressure 80.00 mm[Hg] SunSep 24 09:59:07 EST 2024 Heart Rate 87.00 /min SunSep 24 09:59 :07 EST 2024 Systolic Blood Pressure 116.00 mm[Hg] SunSep 23 09:45:30 EST 2024 Diastolic Blood Pressure 53.00 mm[Hg] SunSep 23 09:45:30 EST 2024 Systolic Blood Pressure 116.00 mm[Hg] SunSep 23 08:34:42 EST 2024 Diastolic Blood Pressure 53.00 mm[Hg] SunSep 23 08:34:42 EST 2024 Heart Rate 63.00 /min SunSep 23 08:34 :42 EST 2024 Systolic Blood Pressure 158.00 mm[Hg] SunSep 22 15:02:44 EST 2024 Diastolic Blood Pressure 73.00 mm[Hg] SunSep 22 15:02:44 EST 2024 Systolic Blood Pressure 158.00 mm[Hg] SunSep 22 08:32:22 EST 2024 Diastolic Blood Pressure 73.00 mm[Hg] SunSep 22 08:32:22 EST 2024 Heart Rate 76.00 /min SunSep 22 08:32 :22 EST 2024 Systolic Blood Pressure 115.00 mm[Hg] SunSep 22 04:01:40 EST 2024 Diastolic Blood Pressure 57.00 mm[Hg] SunSep 22 04:01:40 EST 2024 Systolic Blood Pressure 115.00 mm[Hg] SunSep 21 14:07:25 EST 2024 Diastolic Blood Pressure 57.00 mm[Hg] SunSep 21 14:07:25 EST 2024 Body weight 139.50 [lb_av] SunSep 21 14:07 :25 EST 2024 Heart Rate 54.00 /min SunSep 21 14:07 :25 EST 2024 Body temperature 97.60 [degF] SunSep 21 14:0 7:25 EST 2024 Respiratory rate 16.00 /min SunSep 21 14:0 7:25 EST 2024 Pulse Oximetry 55.00 % SunSep 21 14:07 :25 EST 2024 Systolic Blood Pressure 115.00 mm[Hg] SunSep 21 11:08:36 EST 2024 Diastolic Blood Pressure 57.00 mm[Hg] SunSep 21 11:08:36 EST 2024 Heart Rate 59.00 /min SunSep 21 11:08 :36 EST 2024 Systolic Blood Pressure 131.00 mm[Hg] SunSep 20 13:25:38 EST 2024 Diastolic Blood Pressure 63.00 mm[Hg] SunSep 20 13:25:38 EST 2024 Systolic Blood Pressure 131.00 mm[Hg] SunSep 20 11:27:17 EST 2024 Diastolic Blood Pressure 63.00 mm[Hg] SunSep 20 11:27:17 EST 2024 Heart Rate 85.00 /min SunSep 20 11:27 :17 EST 2024 Systolic Blood Pressure 141.00 mm[Hg] SunSep 19 10:13:32 EST 2024 Diastolic Blood Pressure 66.00 mm[Hg] SunSep 19 10:13:32 EST 2024 Systolic Blood Pressure 141.00 mm[Hg] SunSep 19 08:15:04 EST 2024 Diastolic Blood Pressure 66.00 mm[Hg] SunSep 19 08:15:04 EST 2024 Heart Rate 79.00 /min SunSep 19 08:15 :04 EST 2024 Systolic Blood Pressure 134.00 mm[Hg] SunSep 18 08:38:07 EST 2024 Diastolic Blood Pressure 60.00 mm[Hg] SunSep 18 08:38:07 EST 2024 Heart Rate 72.00 /min SunSep 18 08:38 :07 EST 2024 Systolic Blood Pressure 130.00 mm[Hg] SunSep 17 08:21:43 EST 2024 Diastolic Blood Pressure 72.00 mm[Hg] SunSep 17 08:21:43 EST 2024 Heart Rate 88.00 /min SunSep 17 08:21 :43 EST 2024 Systolic Blood Pressure 131.00 mm[Hg] SunSep 16 15:07:35 EST 2024 Diastolic Blood Pressure 72.00 mm[Hg] SunSep 16 15:07:35 EST 2024 Systolic Blood Pressure 126.00 mm[Hg] SunSep 16 09:59:03 EST 2024 Diastolic Blood Pressure 64.00 mm[Hg] SunSep 16 09:59:03 EST 2024 Heart Rate 87.00 /min SunSep 16 09:59 :03 EST 2024 Systolic Blood Pressure 92.00 mm[Hg] SunSep 15 09:28:24 EST 2024 Diastolic Blood Pressure 59.00 mm[Hg] SunSep 15 09:28:24 EST 2024 Systolic Blood Pressure 92.00 mm[Hg] SunSep 15 09:26:38 EST 2024 Diastolic Blood Pressure 59.00 mm[Hg] SunSep 15 09:26:38 EST 2024 Heart Rate 78.00 /min SunSep 15 09:26 :38 EST 2024 Systolic Blood Pressure 122.00 mm[Hg] [facility] Sep 14 09:20:37 EST 2024 Diastolic Blood Pressure 72.00 mm[Hg] [facility] Sep 14 09:20:37 EST 2024 Heart Rate 87.00 /min [facility] Sep 14 09:20 :37 EST 2024 Systolic Blood Pressure 128.00 mm[Hg] SunSep 13 10:37:04 EST 2024 Diastolic Blood Pressure 64.00 mm[Hg] SunSep 13 10:37:04 EST 2024 Systolic Blood Pressure 128.00 mm[Hg] SunSep 13 08:26:05 EST 2024 Diastolic Blood Pressure 64.00 mm[Hg] SunSep 13 08:26:05 EST 2024 Heart Rate 74.00 /min SunSep 13 08:26 :05 EST 2024 Systolic Blood Pressure 131.00 mm[Hg] SunSep 12 14:25:18 EST 2024 Diastolic Blood Pressure 73.00 mm[Hg] SunSep 12 14:25:18 EST 2024 Systolic Blood Pressure 131.00 mm[Hg] SunSep 12 09:36:22 EST 2024 Diastolic Blood Pressure 73.00 mm[Hg] SunSep 12 09:36:22 EST 2024 Heart Rate 79.00 /min SunSep 12 09:36 :22 EST 2024 Systolic Blood Pressure 125.00 mm[Hg] SunSep 11 10:07:33 EST 2024 Diastolic Blood Pressure 66.00 mm[Hg] SunSep 11 10:07:33 EST 2024 Systolic Blood Pressure 125.00 mm[Hg] SunSep 11 09:35:53 EST 2024 Diastolic Blood Pressure 66.00 mm[Hg] SunSep 11 09:35:53 EST 2024 Heart Rate 78.00 /min SunSep 11 09:35 :53 EST 2024 Systolic Blood Pressure 113.00 mm[Hg] SunSep 10 10:01:28 EST 2024 Diastolic Blood Pressure 69.00 mm[Hg] SunSep 10 10:01:28 EST 2024 Systolic Blood Pressure 113.00 mm[Hg] SunSep 10 09:11:43 EST 2024 Diastolic Blood Pressure 69.00 mm[Hg] SunSep 10 09:11:43 EST 2024 Heart Rate 89.00 /min SunSep 10 09:11 :43 EST 2024 Systolic Blood Pressure 122.00 mm[Hg] SunSep 09 08:58:03 EST 2024 Diastolic Blood Pressure 64.00 mm[Hg] SunSep 09 08:58:03 EST 2024 Systolic Blood Pressure 122.00 mm[Hg] SunSep 09 08:46:19 EST 2024 Diastolic Blood Pressure 64.00 mm[Hg] SunSep 09 08:46:19 EST 2024 Heart Rate 78.00 /min SunSep 09 08:46 :19 2024 Systolic Blood Pressure 139.00 mm[Hg] SunSep 08 09:41:25 EST 2024 Diastolic Blood Pressure 71.00 mm[Hg] SunSep 08 09:41:25 EST 2024 Systolic Blood Pressure 139.00 mm[Hg] SunSep 08 08:29:24 EST 2024 Diastolic Blood Pressure 71.00 mm[Hg] SunSep 08 08:29:24 EST 2024 Heart Rate 98.00 /min SunSep 08 08:29 :24 EST 2024 Systolic Blood Pressure 120.00 mm[Hg] SunSep 07 15:35:14 EST 2024 Diastolic Blood Pressure 65.00 mm[Hg] SunSep 07 15:35:14 EST 2024 Body weight 138.40 [lb_av] SunSep 07 15:35 :14 EST 2024 Heart Rate 77.00 /min SunSep 07 15:35 :14 EST 2024 Body temperature 97.90 [degF] [facility] Sep 07 15:3 5:14 2024 Respiratory rate 18.00 /min SunSep 07 15:3 5:14 2024 Pulse Oximetry 97.00 % SunSep 07 15:35 :14 2024 Systolic Blood Pressure 112.00 mm[Hg] [facility] Sep 07 13:47:29 2024 Diastolic Blood Pressure 65.00 mm[Hg] [facility] Sep 07 13:47:29 2024 Systolic Blood Pressure 99.00 mm[Hg] [facility] Sep 06 11:11:38 EST 2024 Diastolic Blood Pressure 56.00 mm[Hg] [facility] Sep 06 11:11:38 EST 2024 Systolic Blood Pressure 88.00 mm[Hg] SunSep 05 14:06:43 2024 Diastolic Blood Pressure 54.00 mm[Hg] SunSep 05 14:06:43 2024 Systolic Blood Pressure 114.00 mm[Hg] [facility] Sep 04 18:30:53 2024 Diastolic Blood Pressure 60.00 mm[Hg] [facility] Sep 04 18:30:53 2024 Systolic Blood Pressure 119.00 mm[Hg] SunAug 21 12:35:50 2023 Diastolic Blood Pressure 60.00 mm[Hg] [facility] Aug 21 12:35:50 2023 Body weight 138.20 [lb_av] SunAug 21 12:35 :50 2023 Heart Rate 67.00 /min SunAug 21 12:35 :50 2023 Body temperature 98.30 [degF] SunAug 21 12:3 5:50 2023 Respiratory rate 18.00 /min SunAug 21 12:3 5:50 2023 Pulse Oximetry 96.00 % SunAug 21 12:35 :50 2023 Body Height 62.00 [in_i] SunAug 13 09:46 :21 2023 Systolic Blood Pressure 124.00 mm[Hg] SunAug 07 10:28:31 2023 Diastolic Blood Pressure 61.00 mm[Hg] SunAug 07 10:28:31 EST 2023 Body weight 137.80 [lb_av] SunAug 07 10:28 :31 2023 Heart Rate 77.00 /min SunAug 07 10:28 :31 2023 Body temperature 97.20 [degF] SunAug 07 10:2 8:31 EST 2023 Respiratory rate 18.00 /min SunAug 07 10:2 8:31 EST 2023 Pulse Oximetry 95.00 % SunAug 07 10:28 :31 EST 2023 Systolic Blood Pressure 134.00 mm[Hg] SunJul 22 11:12:48 EST 2023 Diastolic Blood Pressure 64.00 mm[Hg] SunJul 22 11:12:48 EST 2023 Body weight 133.80 [lb_av] SunJul 22 11:12 :48 EST 2023 Heart Rate 85.00 /min SunJul 22 11:12 :48 EST 2023 Body temperature 98.00 [degF] SunJul 22 11:1 2:48 EST 2023 Respiratory rate 18.00 /min SunJul 22 11:1 2:48 2023 Pulse Oximetry 96.00 % SunJul 22 11:12 :48 2023 Systolic Blood Pressure 119.00 mm[Hg] SunJul 08 11:38:42 EST 2023 Diastolic Blood Pressure 58.00 mm[Hg] SunJul 08 11:38:42 EST 2023 Body weight 133.20 [lb_av] SunJul 08 11:38 :42 EST 2023 Heart Rate 76.00 /min SunJul 08 11:38 :42 EST 2023 Body temperature 97.60 [degF] SunJul 08 11:3 8:42 EST 2023 Respiratory rate 18.00 /min SunJul 08 11:3 8:42 2023 Pulse Oximetry 97.00 % SunJul 08 11:38 :42 EST 2023 Systolic Blood Pressure 115.00 mm[Hg] SunJun 30 20:59:38 EDT 2023 Diastolic Blood Pressure 70.00 mm[Hg] SunJun 30 20:59:38 EDT 2023 Heart Rate 80.00 /min SunJun 30 20:59 :38 EDT 2023 Body temperature 97.80 [degF] SunJun 30 20:5 9:38 EDT 2023 Respiratory rate 18.00 /min SunJun 30 20:5 9:38 ED2023 Pulse Oximetry 95.00 % SunJun 30 20:59 :38 ED2023 Systolic Blood Pressure 116.00 mm[Hg] SunJun 29 18:25:08 ED2023 Diastolic Blood Pressure 69.00 mm[Hg] SunJun 29 18:25:08 EDT 2024 Heart Rate 86.00 /min [facility] Oct 27 18:25 :08 EDT 4 Body temperature 97.50 [degF] [facility] Oct 27 18:2 5:08 EDT 4 Respiratory rate 18.00 /min [facility] 27 18:2 5:08 EDT 2023 Pulse Oximetry 94.00 % [facility] 27 18:25 :08 EDT 4 Systolic Blood Pressure 98.00 mm[Hg] [facility] Oct 27 11:35:36 EDT 4 Diastolic Blood Pressure 48.00 mm[Hg] [facility] 27 11:35:36 EDT 2023 Heart Rate 83.00 /min [facility] 27 11:35 :36 EDT 2023 Body temperature 97.60 [degF] [facility] 27 11:3 5:36 EDT 2023 Respiratory rate 20.00 /min [facility] 27 11:3 5:36 EDT 2023 Pulse Oximetry 93.00 % [facility] 27 11:35 :36 EDT 2023 Systolic Blood Pressure 121.00 mm[Hg] [facility] Oct 26 22:52:12 EDT 2023 Diastolic Blood Pressure 62.00 mm[Hg] [facility] 26 22:52:12 EDT 2023 Heart Rate 83.00 /min [facility] Oct 26 22:52 :12 EDT 2023 Body temperature 97.30 [degF] [facility] Oct 26 22:5 2:12 EDT 2023 Respiratory rate 14.00 /min [facility] Oct 26 22:5 2:12 EDT 2023 Pulse Oximetry 96.00 % [facility] Oct 26 22:52 :12 EDT 4 Systolic Blood Pressure 134.00 mm[Hg] [facility] Oct 26 11:25:02 EDT 2023 Diastolic Blood Pressure 73.00 mm[Hg] [facility] Oct 26 11:25:02 EDT 4 Heart Rate 99.00 /min [facility] Oct 26 11:25 :02 EDT 2023 Body temperature 98.10 [degF] [facility] Oct 26 11:2 5:02 EDT 2023 Respiratory rate 18.00 /min [facility] Oct 26 11:2 5:02 EDT 2023 Pulse Oximetry 95.00 % [facility] Oct 26 11:25 :02 EDT 2023 Systolic Blood Pressure 108.00 mm[Hg] [facility] Oct 25 23:01:59 EDT 2023 Diastolic Blood Pressure 59.00 mm[Hg] [facility] 25 23:01:59 EDT 2023 Heart Rate 87.00 /min Sun 25 23:01 :59 EDT 2023 Body temperature 97.40 [degF] Sun 25 23:0 1:59 EDT 2023 Respiratory rate 18.00 /min Sun 25 23:0 1:59 EDT 2023 Pulse Oximetry 96.00 % Sun 25 23:01 :59 EDT 2023 Systolic Blood Pressure 124.00 mm[Hg] Sun 25 14:45:41 EDT 2023 Diastolic Blood Pressure 68.00 mm[Hg] Sun 25 14:45:41 EDT 2023 Heart Rate 99.00 /min Sun 25 14:45 :41 EDT 2023 Body temperature 97.60 [degF] Sun 25 14:4 5:41 EDT 2023 Respiratory rate 20.00 /min Sun 25 14:4 5:41 EDT 2023 Pulse Oximetry 95.00 % Sun 25 14:45 :41 EDT 2023 Systolic Blood Pressure 127.00 mm[Hg] [facility] Oct 24 22:57:57 EDT 2023 Diastolic Blood Pressure 61.00 mm[Hg] [facility] Oct 24 22:57:57 EDT 2023 Heart Rate 87.00 /min [facility] Oct 24 22:57 :57 EDT 2023 Body temperature 97.60 [degF] [facility] Oct 24 22:5 7:57 EDT 2023 Respiratory rate 18.00 /min [facility] Oct 24 22:5 7:57 EDT 2023 Pulse Oximetry 97.00 % [facility] Oct 24 22:57 :57 EDT 2023 Systolic Blood Pressure 101.00 mm[Hg] [facility] Oct 24 15:28:41 EDT 2023 Diastolic Blood Pressure 57.00 mm[Hg] [facility] Oct 24 15:28:41 EDT 2023 Heart Rate 91.00 /min [facility] Oct 24 15:28 :41 EDT 2023 Body temperature 97.50 [degF] [facility] Oct 24 15:2 8:41 EDT 2023 Respiratory rate 18.00 /min [facility] Oct 24 15:2 8:41 EDT 2023 Pulse Oximetry 94.00 % [facility] Oct 24 15:28 :41 EDT 2023 Systolic Blood Pressure 142.00 mm[Hg] [facility] Oct 24 03:06:26 EDT 2023 Diastolic Blood Pressure 71.00 mm[Hg] [facility] Oct 24 03:06:26 EDT 2023 Heart Rate 100.00 /min [facility] Oct 24 03:06 :26 EDT 4 Body temperature 98.90 [degF] [facility] Oct 24 03:0 6:26 EDT 2023 Respiratory rate 18.00 /min [facility] Oct 24 03:0 6:26 EDT 2023 Pulse Oximetry 97.00 % [facility] 24 03:06 :26 EDT 4 Systolic Blood Pressure 115.00 mm[Hg] Sat Oct 19 09:13:25 EDT 4 Diastolic Blood Pressure 59.00 mm[Hg] [facility] Oct 19 09:13:25 EDT 4 Body weight 134.00 [lb_av] [facility] Oct 19 09:13 :25 EDT 4 Heart Rate 73.00 /min [facility] 19 09:13 :25 EDT 2023 Body temperature 97.50 [degF] [facility] 19 09:1 3:25 EDT 4 Respiratory rate 20.00 /min [facility] 19 09:1 3:25 EDT 2023 Pulse Oximetry 95.00 % [facility] 19 09:13 :25 EDT 2023 Body temperature 97.50 [degF] [facility] [facility] 12:1 5:59 EDT 4 Body temperature 97.90 [degF] [facility] 12 16:1 4:36 EDT 2023 Body temperature 98.10 [degF] [facility] 12 15:5 6:32 EDT 2023 Systolic Blood Pressure 115.00 mm[Hg] [facility] Oct 12 09:57:49 EDT 4 Diastolic Blood Pressure 61.00 mm[Hg] [facility] Oct 12 09:57:49 EDT 4 Heart Rate 85.00 /min [facility] 12 09:57 :49 EDT 4 Body temperature 98.10 [degF] Fri Oct 11 17:1 3:48 EDT 2023 Systolic Blood Pressure 142.00 mm[Hg] Fri Oct 11 16:53:56 EDT 2023 Diastolic Blood Pressure 72.00 mm[Hg] Fri Oct 11 16:53:56 EDT 2023 Heart Rate 97.00 /min Fri [facility] 11 16:53 :56 EDT 2023 Body temperature 97.80 [degF] Fri Oct 11 14:2 9:41 EDT 2023 Systolic Blood Pressure 97.00 mm[Hg] Fri Oct 11 12:59:39 EDT 2023 Diastolic Blood Pressure 50.00 mm[Hg] SunJun 13 12:59:39 EDT 2023 Heart Rate 54.00 /min SunJun 13 12:59 :39 EDT 2023 Body temperature 97.70 [degF] SunJun 13 03:0 4:04 EDT 2023 Systolic Blood Pressure 122.00 mm[Hg] Nikki Jun 10 17:54:23 EDT 2023 Diastolic Blood Pressure 61.00 mm[Hg] Nikki Jun 10 17:54:23 EDT 2023 Heart Rate 57.00 /min Nikki Jun 10 17:54 :23 EDT 2023 Systolic Blood Pressure 111.00 mm[Hg] Nikki Jun 10 11:00:57 EDT 2023 Diastolic Blood Pressure 55.00 mm[Hg] Nikki Jun 10 11:00:57 EDT 2023 Heart Rate 77.00 /min Nikki Jun 12 11:00 :57 EDT 2023 Systolic Blood Pressure 142.00 mm[Hg] SunJun 11 22:54:36 EDT 2023 Diastolic Blood Pressure 69.00 mm[Hg] SunJun 11 22:54:36 EDT 2023 Heart Rate 77.00 /min SunJun 11 22:54 :36 EDT 2023 Systolic Blood Pressure 131.00 mm[Hg] SunJun 11 11:13:06 EDT 2023 Diastolic Blood Pressure 62.00 mm[Hg] SunJun 11 11:13:06 EDT 2023 Heart Rate 85.00 /min SunJun 11 11:13 :06 EDT 2023 Systolic Blood Pressure 0.00 mm[Hg] SunJun 10 21:00:32 EDT 2023 Diastolic Blood Pressure 0.00 mm[Hg] SunJun 10 21:00:32 EDT 2023 Heart Rate 0.00 /min SunJun 10 21:00 :32 EDT 2023 Systolic Blood Pressure 119.00 mm[Hg] SunJun 10 12:44:18 EDT 2023 Diastolic Blood Pressure 54.00 mm[Hg] SunJun 10 12:44:18 EDT 2023 Heart Rate 79.00 /min SunJun 10 12:44 :18 EDT 2023 Systolic Blood Pressure 119.00 mm[Hg] SunJun 09 20:41:42 EDT 2023 Diastolic Blood Pressure 67.00 mm[Hg] SunJun 09 20:41:42 EDT 2023 Heart Rate 67.00 /min Mon Oct 07 20:41 :42 EDT 2023 Systolic Blood Pressure 120.00 mm[Hg] Mon Oct 07 09:48:13 EDT 2023 Diastolic Blood Pressure 65.00 mm[Hg] Mon Oct 07 09:48:13 EDT 2023 Heart Rate 84.00 /min Mon Jun 09 09:48 :13 EDT 2023 Systolic Blood Pressure 100.00 mm[Hg] Sun Oct 06 23:27:34 EDT 2023 Diastolic Blood Pressure 53.00 mm[Hg] Sun Oct 06 23:27:34 EDT 2023 Heart Rate 81.00 /min Sun Oct 06 23:27 :34 EDT 2023 Systolic Blood Pressure 89.00 mm[Hg] Sun Oct 06 12:10:17 EDT 2023 Diastolic Blood Pressure 46.00 mm[Hg] Sun Oct 06 12:10:17 EDT 2023 Heart Rate 72.00 /min Sun Oct 06 12:10 :17 EDT 2023 Systolic Blood Pressure 121.00 mm[Hg] Sat Oct 05 17:31:09 EDT 2023 Diastolic Blood Pressure 64.00 mm[Hg] Sat Oct 05 17:31:09 EDT 2023 Heart Rate 75.00 /min [facility] Oct 05 17:31 :09 EDT 2023 Systolic Blood Pressure 101.00 mm[Hg] Sat Oct 05 12:50:12 EDT 2023 Diastolic Blood Pressure 52.00 mm[Hg] Sat Oct 05 12:50:12 EDT 2023 Systolic Blood Pressure 101.00 mm[Hg] Sat Oct 05 12:50:12 EDT 2023 Diastolic Blood Pressure 52.00 mm[Hg] Sat Oct 05 12:50:12 EDT 2023 Body weight 133.00 [lb_av] Sat Oct 05 12:50 :12 EDT 2023 Heart Rate 76.00 /min Sat Oct 05 12:50 :12 EDT 2023 Heart Rate 76.00 /min Sat Oct 05 12:50 :12 EDT 2023 Body temperature 98.40 [degF] Sat Oct 05 12:5 0:12 EDT 2023 Respiratory rate 20.00 /min Sat Oct 05 12:5 0:12 EDT 2023 Pulse Oximetry 97.00 % Sat Oct 05 12:50 :12 EDT 2023 Systolic Blood Pressure 112.00 mm[Hg] Fri Oct 04 19:58:35 EDT 2023 Diastolic Blood Pressure 73.00 mm[Hg] Fri Oct 04 19:58:35 EDT 2023 Heart Rate 88.00 /min SunJun 06 19:58 :35 EDT 2023 Systolic Blood Pressure 100.00 mm[Hg] SunJun 06 13:30:07 EDT 2023 Diastolic Blood Pressure 56.00 mm[Hg] SunJun 06 13:30:07 EDT 2023 Heart Rate 92.00 /min SunJun 06 13:30 :07 EDT 2023 Systolic Blood Pressure 119.00 mm[Hg] Nikki Jun 05 17:15:24 EDT 2023 Diastolic Blood Pressure 60.00 mm[Hg] Nikki Jun 05 17:15:24 EDT 2023 Heart Rate 77.00 /min Nikki Jun 05 17:15 :24 EDT 2023 Systolic Blood Pressure 109.00 mm[Hg] Nikki Jun 05 12:59:29 EDT 2023 Diastolic Blood Pressure 54.00 mm[Hg] Nikki Jun 05 12:59:29 EDT 2023 Heart Rate 83.00 /min [facility] Jun 05 12:59 :29 EDT 2023 Systolic Blood Pressure 114.00 mm[Hg] SunJun 04 19:56:15 EDT 2023 Diastolic Blood Pressure 55.00 mm[Hg] SunJun 04 19:56:15 EDT 2023 Heart Rate 88.00 /min SunJun 04 19:56 :15 EDT 2023 Systolic Blood Pressure 126.00 mm[Hg] SunJun 04 08:31:40 EDT 2023 Diastolic Blood Pressure 70.00 mm[Hg] SunJun 04 08:31:40 EDT 2023 Heart Rate 78.00 /min SunJun 04 08:31 :40 EDT 2023 Body temperature 97.40 [degF] SunJun 04 08:3 1:40 EDT 2023 Respiratory rate 18.00 /min SunJun 04 08:3 1:40 EDT 2023 Pulse Oximetry 99.00 % SunJun 04 08:31 :40 EDT 2023 Systolic Blood Pressure 92.00 mm[Hg] SunJun 04 01:00:00 EDT 2023 Diastolic Blood Pressure 39.00 mm[Hg] SunJun 04 01:00:00 EDT 2023 Heart Rate 73.00 /min SunJun 04 01:00 :00 EDT 2023 Body weight 137.00 [lb_av] SunJun 04 01:00 :00 EDT 2023 Body temperature 98.10 [degF] SunJun 04 01:0 0:00 EDT 2023 Respiratory rate 20.00 /min SunJun 04 01:0 0:00 EDT 2023 Pulse Oximetry 95.00 % SunJun 04 01:00 :00 EDT 2023 Systolic Blood Pressure 112.00 mm[Hg] SunJun 03 23:11:22 EDT 2023 Diastolic Blood Pressure 55.00 mm[Hg] SunJun 03 23:11:22 EDT 2023 Heart Rate 92.00 /min SunJun 03 23:11 :22 EDT 2023 Body temperature 98.00 [degF] SunJun 03 23:1 1:22 EDT 2023 Respiratory rate 20.00 /min Jun 03 23:1 1:22 EDT 2023 Pulse Oximetry 97.00 % SunJun 03 23:11 :22 EDT 2023 Systolic Blood Pressure 137.00 mm[Hg] Jun 03 12:58:14 EDT 2023 Diastolic Blood Pressure 78.00 mm[Hg] [facility] Jun 03 12:58:14 EDT 2023 Heart Rate 99.00 /min SunJun 03 12:58 :14 EDT 2023 Body temperature 97.40 [degF] Jun 03 12:5 8:14 EDT 2023 Respiratory rate 20.00 /min Jun 03 12:5 8:14 EDT 2023 Pulse Oximetry 96.00 % Jun 03 12:58 :14 EDT 2023 Body weight 136.80 [lb_av] Jun 03 12:57 :15 EDT 2023 Systolic Blood Pressure 115.00 mm[Hg] [facility] Jun 02 23:39:06 EDT 2023 Diastolic Blood Pressure 59.00 mm[Hg] [facility] 23:39:06 EDT 2023 Heart Rate 98.00 /min [facility] 23:39 :06 EDT 2023 Body temperature 98.20 [degF] [facility] 23:3 9:06 EDT 2023 Respiratory rate 18.00 /min [facility] 23:3 9:06 EDT 2023 Pulse Oximetry 95.00 % [facility] 23:39 :06 EDT 2023 Body weight 138.00 [lb_av] [facility] 12:03 :17 EDT 2023 Systolic Blood Pressure 108.00 mm[Hg] [facility] 30 09:44:29 EDT 4 Diastolic Blood Pressure 58.00 mm[Hg] [facility] 30 09:44:29 EDT 2023 Heart Rate 95.00 /min [facility] 30 09:44 :29 EDT 2023 Body temperature 98.20 [degF] [facility] 30 09:4 4:29 EDT 4 Respiratory rate 18.00 /min [facility] 30 09:4 4:29 EDT 2023 Pulse Oximetry 93.00 % [facility] 30 09:44 :29 EDT 2023 Systolic Blood Pressure 142.00 mm[Hg] [facility] 29 21:24:54 EDT 2023 Diastolic Blood Pressure 88.00 mm[Hg] [facility] 29 21:24:54 EDT 2023 Heart Rate 110.00 /min [facility] 21:24 :54 EDT 2023 Body temperature 98.50 [degF] [facility] 21:2 4:54 EDT 2023 Respiratory rate 18.00 /min [facility] 21:2 4:54 EDT 2023 Pulse Oximetry 99.00 % [facility] 21:24 :54 EDT 2023 Body weight 136.60 [lb_av] [facility] 11:12 :17 EDT 2023 Systolic Blood Pressure 116.00 mm[Hg] [facility] 29 08:27:38 EDT 2023 Diastolic Blood Pressure 61.00 mm[Hg] [facility] 08:27:38 EDT 2023 Heart Rate 88.00 /min [facility] 08:27 :38 EDT 2023 Body temperature 98.00 [degF] [facility] 08:2 7:38 EDT 2023 Respiratory rate 20.00 /min [facility] 08:2 7:38 EDT 2023 Pulse Oximetry 94.00 % [facility] 29 08:27 :38 EDT 2023 Systolic Blood Pressure 130.00 mm[Hg] [facility] 28 21:33:31 EDT 2023 Diastolic Blood Pressure 67.00 mm[Hg] [facility] 21:33:31 EDT 2023 Heart Rate 97.00 /min [facility] 28 21:33 :31 EDT 2023 Body temperature 98.30 [degF] [facility] 28 21:3 3:31 EDT 2023 Respiratory rate 18.00 /min [facility] 28 21:3 3:31 EDT 2023 Pulse Oximetry 97.00 % Sat Sep 28 21:33 :31 EDT 4 Systolic Blood Pressure 106.00 mm[Hg] [facility] Sep 28 08:15:43 EDT 4 Diastolic Blood Pressure 57.00 mm[Hg] [facility] Sep 28 08:15:43 EDT 4 Body weight 138.80 [lb_av] [facility] 28 08:15 :43 EDT 4 Heart Rate 83.00 /min [facility] 28 08:15 :43 EDT 4 Body temperature 98.00 [degF] [facility] 28 08:1 5:43 EDT 4 Respiratory rate 18.00 /min [facility] 28 08:1 5:43 EDT 2023 Pulse Oximetry 97.00 % [facility] 28 08:15 :43 EDT 4 Systolic Blood Pressure 124.00 mm[Hg] Fri Sep 27 22:23:12 EDT 2023 Diastolic Blood Pressure 74.00 mm[Hg] [facility] Sep 27 22:23:12 EDT 4 Heart Rate 64.00 /min [facility] Sep 27 22:23 :12 EDT 2023 Body temperature 97.80 [degF] [facility] Sep 27 22:2 3:12 EDT 4 Respiratory rate 18.00 /min [facility] Sep 27 22:2 3:12 EDT 2023 Pulse Oximetry 97.00 % [facility] Sep 27 22:23 :12 EDT 4 Systolic Blood Pressure 102.00 mm[Hg] Fri Sep 27 11:30:15 EDT 2023 Diastolic Blood Pressure 51.00 mm[Hg] Fri Sep 27 11:30:15 EDT 4 Heart Rate 76.00 /min [facility] Sep 27 11:30 :15 EDT 2023 Body temperature 97.50 [degF] [facility] Sep 27 11:3 0:15 EDT 2023 Respiratory rate 20.00 /min [facility] Sep 27 11:3 0:15 EDT 2023 Pulse Oximetry 96.00 % [facility] Sep 27 11:30 :15 EDT 2023 Systolic Blood Pressure 142.00 mm[Hg] Fri Sep 27 00:18:17 EDT 4 Diastolic Blood Pressure 70.00 mm[Hg] Fri Sep 00:18:17 EDT 4 Respiratory rate 20.00 /min Fri Sep 27 00:1 8:17 EDT 2023 Pulse Oximetry 95.00 % Fri Sep 27 00:18 :17 EDT 2023 Heart Rate 84.00 /min [facility] Sep 27 00:18 :17 EDT 2023 Body temperature 97.70 [degF] [facility] 27 00:1 8:17 EDT 2023 Body weight 139.00 [lb_av] [facility] 26 10:24 :28 EDT 2023 Systolic Blood Pressure 133.00 mm[Hg] [facility] 26 10:18:47 EDT 2023 Diastolic Blood Pressure 64.00 mm[Hg] [facility] 26 10:18:47 EDT 2023 Body temperature 98.20 [degF] [facility] 26 10:1 8:47 EDT 2023 Heart Rate 74.00 /min [facility] 26 10:18 :47 EDT 2023 Respiratory rate 18.00 /min [facility] 26 10:1 8:47 EDT 2023 Pulse Oximetry 95.00 % [facility] 26 10:18 :47 EDT 2023 Systolic Blood Pressure 102.00 mm[Hg] [facility] 26 02:07:42 EDT 2023 Diastolic Blood Pressure 54.00 mm[Hg] [facility] 26 02:07:42 EDT 2023 Heart Rate 92.00 /min [facility] 26 02:07 :42 EDT 2023 Body temperature 97.80 [degF] [facility] 26 02:0 7:42 EDT 2023 Respiratory rate 18.00 /min [facility] 26 02:0 7:42 EDT 2023 Pulse Oximetry 94.00 % [facility] 26 02:07 :42 EDT 2023 Body weight 138.60 [lb_av] [facility] 25 10:16 :14 EDT 2023 Systolic Blood Pressure 121.00 mm[Hg] [facility] Sep 25 08:50:24 EDT 2023 Diastolic Blood Pressure 70.00 mm[Hg] [facility] 25 08:50:24 EDT 2023 Heart Rate 87.00 /min [facility] 25 08:50 :24 EDT 2023 Body temperature 98.00 [degF] [facility] Sep 25 08:5 0:24 EDT 2023 Respiratory rate 18.00 /min [facility] 25 08:5 0:24 EDT 2023 Pulse Oximetry 93.00 % [facility] 25 08:50 :24 EDT 2023 Systolic Blood Pressure 140.00 mm[Hg] [facility] Sep 25 00:01:49 EDT 2023 Diastolic Blood Pressure 73.00 mm[Hg] [facility] Sep 25 00:01:49 EDT 2023 Heart Rate 86.00 /min [facility] 00:01 :49 EDT 2023 Body temperature 97.30 [degF] [facility] 00:0 1:49 EDT 2023 Respiratory rate 20.00 /min [facility] 00:0 1:49 EDT 2023 Pulse Oximetry 96.00 % [facility] 00:01 :49 EDT 2023 Body weight 139.80 [lb_av] [facility] 12:37 :51 EDT 2023 Systolic Blood Pressure 115.00 mm[Hg] [facility] 24 09:06:31 EDT 2023 Diastolic Blood Pressure 61.00 mm[Hg] [facility] 24 09:06:31 EDT 2023 Heart Rate 79.00 /min [facility] 24 09:06 :31 EDT 2023 Body temperature 79.00 [degF] [facility] 24 09:0 6:31 EDT 2023 Respiratory rate 18.00 /min [facility] 24 09:0 6:31 EDT 2023 Pulse Oximetry 94.00 % [facility] 24 09:06 :31 EDT 2023 Systolic Blood Pressure 146.00 mm[Hg] [facility] 24 00:16:57 EDT 2023 Diastolic Blood Pressure 66.00 mm[Hg] [facility] 24 00:16:57 EDT 2023 Heart Rate 94.00 /min [facility] 24 00:16 :57 EDT 2023 Body temperature 98.30 [degF] [facility] 24 00:1 6:57 EDT 2023 Respiratory rate 18.00 /min [facility] 24 00:1 6:57 EDT 2023 Pulse Oximetry 94.00 % [facility] 24 00:16 :57 EDT 2023 Body weight 139.00 [lb_av] [facility] 09:22 :04 EDT 2023 Systolic Blood Pressure 130.00 mm[Hg] [facility] 08:55:17 EDT 2023 Diastolic Blood Pressure 57.00 mm[Hg] [facility] 08:55:17 EDT 2023 Heart Rate 79.00 /min [facility] 08:55 :17 EDT 2023 Body temperature 98.40 [degF] [facility] 08:5 5:17 EDT 2023 Respiratory rate 18.00 /min [facility] 08:5 5:17 EDT 2023 Pulse Oximetry 97.00 % Mon Sep 23 08:55 :17 EDT 2023 Systolic Blood Pressure 150.00 mm[Hg] [facility] Sep 22 23:41:01 EDT 2023 Diastolic Blood Pressure 74.00 mm[Hg] [facility] Sep 22 23:41:01 EDT 2023 Heart Rate 86.00 /min [facility] 22 23:41 :01 EDT 2023 Body temperature 98.30 [degF] [facility] 22 23:4 1:01 EDT 2023 Respiratory rate 22.00 /min [facility] 22 23:4 1:01 EDT 2023 Pulse Oximetry 98.00 % [facility] 22 23:41 :01 EDT 2023 Body Height 61.00 [in_i] [facility] 22 19:24 :46 EDT 2023 Body weight 141.00 [lb_av] [facility] 22 13:50 :23 EDT 2023 Systolic Blood Pressure 146.00 mm[Hg] [facility] 22 11:20:07 EDT 2023 Diastolic Blood Pressure 70.00 mm[Hg] [facility] 22 11:20:07 EDT 2023 Heart Rate 85.00 /min [facility] 22 11:20 :07 EDT 2023 Body temperature 97.10 [degF] [facility] 22 11:2 0:07 EDT 2023 Respiratory rate 20.00 /min [facility] 22 11:2 0:07 EDT 2023 Pulse Oximetry 97.00 % [facility] 22 11:20 :07 EDT 2023 Systolic Blood Pressure 149.00 mm[Hg] [facility] 22 00:32:34 EDT 2023 Diastolic Blood Pressure 60.00 mm[Hg] [facility] 22 00:32:34 EDT 2023 Heart Rate 95.00 /min [facility] 22 00:32 :34 EDT 2023 Body temperature 98.20 [degF] [facility] 22 00:3 2:34 EDT 2023 Respiratory rate 20.00 /min [facility] 22 00:3 2:34 EDT 2023 Pulse Oximetry 92.00 % [facility] 22 00:32 :34 EDT 2023 Systolic Blood Pressure 132.00 mm[Hg] [facility] Sep 21 14:05:00 EDT 2023 Diastolic Blood Pressure 71.00 mm[Hg] [facility] Sep 21 14:05:00 EDT 2023 Heart Rate 86.00 /min [facility] Sep 21 14:05 :00 EDT 2023 Body temperature 98.20 [degF] Sat Sep 21 14:0 5:00 EDT 2023 Respiratory rate 18.00 /min Sat Sep 21 14:0 5:00 EDT 2023 Pulse Oximetry 96.00 % [facility] Sep 21 14:05 :00 EDT 2023 Systolic Blood Pressure 133.00 mm[Hg] Fri Sep 20 01:00:00 EDT 2023 Diastolic Blood Pressure 81.00 mm[Hg] Sun Sep 20 01:00:00 EDT 2023 Heart Rate 92.00 /min Fri Sep 20 01:00 :00 EDT 2023 Body weight 138.20 [lb_av] Sun Sep 20 01:00 :00 EDT 2023 Body temperature 98.40 [degF] Fri Sep 20 01:0 0:00 EDT 2023 Respiratory rate 20.00 /min Fri Sep 20 01:0 0:00 EDT 2023 Pulse Oximetry 93.00 % Sun Sep 20 01:00 :00 EDT 2023 Systolic Blood Pressure 152.00 mm[Hg] [facility] Sep 05 14:15:21 EDT 2023 Diastolic Blood Pressure 75.00 mm[Hg] [facility] Sep 05 14:15:21 EDT 2023 Body weight 137.80 [lb_av] [facility] Sep 05 14:15 :21 EDT 2023 Heart Rate 94.00 /min [facility] Sep 05 14:15 :21 EDT 2023 Body temperature 97.60 [degF] [facility] Sep 05 14:1 5:21 EDT 2023 Respiratory rate 18.00 /min [facility] Sep 05 14:1 5:21 EDT 2023 Pulse Oximetry 96.00 % [facility] 05 14:15 :21 EDT 2023 Systolic Blood Pressure 137.00 mm[Hg] SunApr 21 10:53:39 EDT 2023 Diastolic Blood Pressure 87.00 mm[Hg] SunApr 21 10:53:39 EDT 2023 Body weight 139.60 [lb_av] SunApr 21 10:53 :39 EDT 2023 Heart Rate 86.00 /min SunApr 21 10:53 :39 EDT 2023 Body temperature 98.80 [degF] SunApr 21 10:5 3:39 EDT 2023 Respiratory rate 20.00 /min SunApr 21 10:5 3:39 EDT 2023 Pulse Oximetry 98.00 % SunApr 21 10:53 :39 EDT 2023 Systolic Blood Pressure 145.00 mm[Hg] SunApr 07 14:32:31 EDT 2023 Diastolic Blood Pressure 77.00 mm[Hg] SunApr 07 14:32:31 EDT 2023 Body weight 141.40 [lb_av] SunApr 07 14:32 :31 EDT 2023 Heart Rate 85.00 /min SunApr 07 14:32 :31 EDT 2023 Body temperature 98.60 [degF] SunApr 07 14:3 2:31 EDT 2023 Respiratory rate 20.00 /min SunApr 07 14:3 2:31 EDT 2023 Pulse Oximetry 97.00 % SunApr 07 14:32 :31 EDT 2023 Systolic Blood Pressure 116.00 mm[Hg] SunMar 21 12:13:32 EDT 2023 Diastolic Blood Pressure 59.00 mm[Hg] SunMar 21 12:13:32 EDT 2023 Body weight 144.00 [lb_av] SunMar 21 12:13 :32 EDT 2023 Heart Rate 72.00 /min SunMar 21 12:13 :32 EDT 2023 Body temperature 97.50 [degF] SunMar 21 12:1 3:32 EDT 2023 Respiratory rate 18.00 /min SunMar 21 12:1 3:32 EDT 2023 Pulse Oximetry 93.00 % SunMar 21 12:13 :32 EDT 2023 Systolic Blood Pressure 138.00 mm[Hg] SunMar 07 13:10:33 EDT 2023 Diastolic Blood Pressure 68.00 mm[Hg] SunMar 07 13:10:33 EDT 2023 Body weight 143.60 [lb_av] SunMar 07 13:10 :33 EDT 2023 Heart Rate 67.00 /min SunMar 07 13:10 :33 EDT 2023 Body temperature 97.60 [degF] SunMar 07 13:1 0:33 EDT 2023 Respiratory rate 18.00 /min SunMar 07 13:1 0:33 EDT 2023 Pulse Oximetry 97.00 % SunMar 07 13:10 :33 EDT 2023 Systolic Blood Pressure 133.00 mm[Hg] SunFeb 19 10:07:39 EDT 2023 Diastolic Blood Pressure 64.00 mm[Hg] SunFeb 19 10:07:39 EDT 2023 Body weight 141.60 [lb_av] SunFeb 19 10:07 :39 EDT 2023 Heart Rate 65.00 /min SunFeb 19 10:07 :39 EDT 2023 Body temperature 97.90 [degF] SunFeb 19 10:0 7:39 EDT 2023 Respiratory rate 18.00 /min SunFeb 19 10:0 7:39 EDT 2023 Pulse Oximetry 99.00 % SunFeb 19 10:07 :39 EDT 2023 Systolic Blood Pressure 133.00 mm[Hg] SunFeb 05 11:06:40 EDT 2023 Diastolic Blood Pressure 64.00 mm[Hg] SunFeb 05 11:06:40 EDT 2023 Body weight 141.60 [lb_av] SunFeb 05 11:06 :40 EDT 2023 Heart Rate 79.00 /min SunFeb 05 11:06 :40 EDT 2023 Body temperature 98.20 [degF] SunFeb 05 11:0 6:40 EDT 2023 Respiratory rate 18.00 /min SunFeb 05 11:0 6:40 EDT 2023 Pulse Oximetry 96.00 % SunFeb 05 11:06 :40 EDT 2023 Systolic Blood Pressure 140.00 mm[Hg] SunJanuary 19 09:53:30 EDT 2023 Diastolic Blood Pressure 66.00 mm[Hg] SunJanuary 19 09:53:30 EDT 2023 Body weight 142.00 [lb_av] SunJanuary 19 09:53 :30 EDT 2023 Heart Rate 70.00 /min SunJanuary 19 09:53 :30 EDT 2023 Body temperature 98.50 [degF] SunJanuary 19 09:5 3:30 EDT 2023 Respiratory rate 18.00 /min SunJanuary 19 09:5 3:30 EDT 2023 Pulse Oximetry 96.00 % SunJanuary 19 09:53 :30 EDT 2023 Systolic Blood Pressure 158.00 mm[Hg] SunJanuary 05 13:44:34 EDT 2023 Diastolic Blood Pressure 78.00 mm[Hg] SunJanuary 05 13:44:34 EDT 2023 Body weight 140.60 [lb_av] SunJanuary 05 13:44 :34 EDT 2023 Heart Rate 88.00 /min SunJanuary 05 13:44 :34 EDT 2023 Body temperature 97.60 [degF] SunJanuary 05 13:4 4:34 EDT 2023 Respiratory rate 18.00 /min SunJanuary 05 13:4 4:34 EDT 2023 Pulse Oximetry 95.00 % SunJanuary 05 13:44 :34 EDT 2023 Reason for Referral Past Medical History Resolved Concerns * Problem Other symptoms and signs involving cognitive functions and awareness* Code: * Start Date: SunDec 17 00:00:00 EDT 2020 * End Date: SunNov 12 00:00:00 EDT 2023 * Problem Acute atopic conjunctivitis, bilateral* Code: * Start Date: SunDec 17 00:00:00 EDT 2020 * End Date: SunNov 21 00:00:00 EDT 2021 * Problem Unspecified convulsions* Code: * Start Date: SunDec 17 00:00:00 EDT 2020 * End Date: SunOct 05 00:00:00 EST 2022 * Problem Localized edema* Code: * Start Date: SunDec 17 00:00:00 EDT 2020 * End Date: SunDec 17 00:00:00 EDT 2020 * Problem Iron deficiency anemia, unspecified* Code: * Start Date: SunDec 17 00:00:00 EDT 2020 * End Date: SunNov 21 00:00:00 EDT 2021 * Problem Muscle weakness (generalized)* Code: * Start Date: SunFeb 01 00:00:00 EDT 2020 * End Date: SunMay 27 00:00:00 EDT 2023 * Problem Other rosacea* Code: * Start Date: SunDec 17 00:00:00 EDT 2020 * End Date: SunMar 17 00:00:00 EDT 2021 * Problem Unspecified conjunctivitis* Code: * Start Date: SunDec 17 00:00:00 EDT 2020 * End Date: SunMay 27 00:00:00 EDT 2023 * Problem Iron deficiency* Code: * Start Date: SunDec 17 00:00:00 EDT 2020 * End Date: SunFeb 23 00:00:00 EDT 2021 * Problem Hypo-osmolality and hyponatremia* Code: * Start Date: SunDec 17 00:00:00 EDT 2020 * End Date: SunJul 13 00:00:00 EST 2021 * Problem Hyperkalemia* Code: * Start Date: SunDec 17 00:00:00 EDT 2020 * End Date: SunNov 12 00:00:00 EDT 2023 * Problem Unspecified blepharitis unspecified eye, unspecified eyelid* Code: * Start Date: SunDec 17 00:00:00 EDT 2020 * End Date: SunJul 13 00:00:00 EST 2021 * Problem Abnormality of albumin* Code: * Start Date: SunDec 17 00:00:00 EDT 2020 * End Date: SunJul 13 00:00:00 EST 2021 * Problem Displaced intertrochanteric fracture of right femur, subsequent encounter for closed fracture with routine healing* Code: * Start Date: SunSep 29 00:00:00 EST 2022 * End Date: SunDec 14 00:00:00 EDT 2022 * Problem Unspecified fall, subsequent encounter* Code: * Start Date: SunSep 29 00:00:00 EST 2022 * End Date: SunOct 09 00:00:00 EST 2024 * Problem Other rosacea* Code: * Start Date: SunSep 29 00:00:00 EST 2022 * End Date: SunMay 27 00:00:00 EDT 2023 * Problem Epilepsy, unspecified, not intractable, without status epilepticus* Code: * Start Date: SunSep 29 00:00:00 EST 2022 * End Date: SunMay 27 00:00:00 EDT 2023 * Problem Anemia, unspecified* Code: * Start Date: SunSep 29 00:00:00 EST 2022 * End Date: SunMay 27 00:00:00 EDT 2023 * Problem Candidal stomatitis* Code: * Start Date: SunSep 29 00:00:00 EST 2022 * End Date: SunNov 01 00:00:00 EST 2022 * Problem Weakness* Code: * Start Date: SunSep 29 00:00:00 EST 2022 * End Date: SunMay 27 00:00:00 EDT 2023 * Problem Trochanteric bursitis, right hip* Code: * Start Date: SunNov 10 00:00:00 EST 2022 * End Date: SunNov 12 00:00:00 EDT 2023 * Problem Displaced intertrochanteric fracture of right femur, subsequent encounter for closed fracture with routine healing* Code: * Start Date: SunApr 16 00:00:00 EDT 2022 * End Date: SunNov 12 00:00:00 EDT 2023 * Problem Acute cough* Code: * Start Date: SunJun 04 00:00:00 EDT 2022 * End Date: SunJul 02 00:00:00 EDT 2022 * Problem Other abnormalities of gait and mobility* Code: * Start Date: SunJun 18 00:00:00 EDT 2022 * End Date: SunNov 12 00:00:00 EDT 2023 * Problem Other specified cough* Code: * Start Date: SunAug 17 00:00:00 EST 2022 * End Date: SunNov 12 00:00:00 EDT 2023 * Problem Unsteadiness on feet* Code: * Start Date: SunSep 13 00:00:00 EST 2023 * End Date: SunNov 12 00:00:00 EDT 2023 * Problem Presence of cerebrospinal fluid drainage device* Code: * Start Date: SunNov 11 00:00:00 EDT 2023 * End Date: SunMay 27 00:00:00 EDT 2023 * Problem Communicating hydrocephalus* Code: * Start Date: SunNov 11 00:00:00 EDT 2023 * End Date: SunMay 27 00:00:00 EDT 2023 * Problem Epilepsy, unspecified, intractable, without status epilepticus* Code: * Start Date: SunNov 11 00:00:00 EDT 2023 * End Date: SunMay 27 00:00:00 EDT 2023 * Problem Pneumonia, unspecified organism* Code: * Start Date: SunNov 11 00:00:00 EDT 2023 * End Date: SunMar 11 00:00:00 EDT 2023 * Problem Sepsis, unspecified organism* Code: * Start Date: SunNov 11 00:00:00 EDT 2023 * End Date: SunMar 11 00:00:00 EDT 2023 * Problem Other bursitis of hip, right hip* Code: * Start Date: SunNov 11 00:00:00 EDT 2023 * End Date: SunNov 20 00:00:00 EDT 2023 * Problem Chronic obstructive pulmonary disease with (acute) lower respiratory infection* Code: * Start Date: SunNov 11 00:00:00 EDT 2023 * End Date: SunMar 11 00:00:00 EDT 2023
--- OUTSIDE RECORDS SUMMARY | 2024-12-30 14:49 | XMS_ITS | Encounter Summary ---
Author Organization [facility] Address [address] [place] [address] Care Team Providers Care Hog Ringer Name Role Phone Unavailable Primary Care Provider Unavailabl e Encounter Details Date Type Department Care Team (Late st Contact Info) Description 02/06/2018 Lab Requisition [facility] [address] [place] [id number] Blane Blanco MD [address] [place] [address] Social History Tobacco Use Types Packs/Day Years Used Date Smoking Tobacco: Never Assessed Comments Unknown Sex and Gender Information Value Date Recorded Sex Assigned at Not on file Legal Sex Female 11:47 AM CDT Gender Identity Not on file Sexual Orientation Not on file documented as of this encounter Plan of Treatment Not on file documented as of this encounter Procedures Procedure Name Priority Date/Time Associated Diagnosis Comments DERMATOPATHOLOGY Routine 02/05/2018 12:0 0 AM CDT documented in this encounter Results * DERMATOPATHOLOGY (02/05/2018 12:00 AM CDT) Case Report Dermatopathology Report Case: [id number] Authorizing Provider: Blane Blanco MD Collected: 02/05/2018 12:00 AM Pathologist: Alfredo Guevara MD Received: 02/06/2018 12:31 PM Specimen: Skin, right cheek 8 5:23 PM CDT DERMATOPATHOLOGY LABORATORY Final Diagnosis Specimen A. SKIN, right cheek: SQUAMOUS CELL CARCINOMA IN SITU, PRESENT AT THE BASE OF THE SPECIMEN (D04.39) OVERLYING CUTANEOUS HORN (L85.8) (see microscopic description and comment) 8 5:23 PM CDT DERMATOPATHOLOGY LABORATORY Clinical History R/O cut horn, SCC, SCCIS. Check margins. 5:23 PM T DERMATOPATHOLOGY LABORATORY Gross Description Specimen A: Received is one formalin filled container labeled with the patient's name and designated right cheek. The specimen consists of a shave biopsy measuring [id number], the margin is inked green, bisected. An additional piece of skin measuring [id number] is also submitted in cassette 1. Jar 0. 5:23 PM CDT DERMATOPATHOLOGY LABORATORY Microscopic Description Specimen A. SKIN, right cheek: The epidermis shows parakeratosis, full thickness disorderly maturation of keratinocytes, mitoses at different levels, and dyskeratotic cells. The lesion extends to the base of the biopsy. COMMENT: An invasive squamous cell carcinoma cannot be ruled out. There is a column of marked compact hyperkeratosis. 5:23 PM T DERMATOPATHOLOGY LABORATORY Disclaimer An external and internal positive and negative controls are appropriate for the histochemical, immunohistochemical and immunofluorescence stain(s) in this case (if any), except where stated explicitly. The performance characteristics of the stain(s) cited in this report were developed and its performance characteristic determined by the Dermatopathology Laboratory at [facility]. These tests need not be, and therefore are not, approved by the [place] Food and Drug Administration. The tests are used for clinical purposes. Billing Codes Specimen Charges Stain Charges 23973 1 5:23 PM CDT DERMATOPATHOLOGY LABORATORY Embedded Images 5:23 PM CDT DERMATOPATHOLOGY LABORATORY Pathology/Cytolog y TISSUE SPECIMEN FROM SKIN / Unknown 02/05/2018 02/06/2018 12:31 PM CDT us Blane Blanco MD LAB - PATHOLOGY/CYTOLOGY ORD ERABLES Final Result DERMATOPATHOLOGY LABORATORY [facility] - Department of Dermatology [address] [place] [address], [facility] [phone] documented in this encounter Visit Diagnoses Not on filedocumented in this encounter
--- OUTSIDE RECORDS SUMMARY | 2024-12-30 14:49 | XMS_ITS | Clinical Summary ---
Author Organization [facility] Address [address] [place] [address] Care Team Providers Care Icer Hand Name Role Phone Unavailable Primary Care Provider Unavailabl e Source Comments [facility],non-owned Affiliates and Associated Physician Practices is amultiple site organization consisting of ambulatory clinics and hospital sitesin [place], [place], [place] and [place]. This disclosure is being madepursuant to the Care Everywhere program and may not contain all information available regarding this patient. Last updated 18.[facility] Social History Tobacco Use Types Packs/Day Years Used Date Smoking Tobacco: Never Assessed Comments Unknown Sex and Gender Information Value Date Recorded Sex Assigned at Not on file Legal Sex Female 11:47 AM CDT Gender Identity Not on file Sexual Orientation Not on file Plan of Treatment Health Maintenance Due Date Last Done Comments BONE DENSITY TESTING 1955 COLOGUARD (AGES 45-75) - COL ON CA SCREENING 1957 COLON MONITORING 1957 COLONOSCOPY - COLON CA SCREENING 1957 CT COLONOGRAPHY - COLON CA SCREENING 1957 Colorectal Cancer Screening 1957 FIT - COLON CA SCREENING 1957 FLEX SIG - COLON CA SCREENING 1957 LIPID TESTING 1957 MAMMOGRAM 1957 MEDICARE AWV 12 MONTHS 1957 HEPATITIS C SCREENING 06/20/1975 DTAP/TDAP/TD VACCINES (1 - Tdap) 1976 PNEUMOCOCCAL VACCINE 50+ (1 of 1 - PCV) 2007 ZOSTER VACCINE (1 of 2) 2007 COVID-19 VACCINE ( - 2023-2 5 season) 2024 DEPRESSION SCREENING 09/03/2024 INFLUENZA VACCINE (Season Ended) 2025 Respiratory Syncytial Virus (RSV) Vaccine Pt: or over 60 yrs (1 - 1-dose 75+ series) 2032 HEPATITIS B VACCINE Aged Out No longe r eligible based on patient's age to complete this topic HIB VACCINE Aged Out No longer eligi ble based on patient's age to complete this topic HPV VACCINE Aged Out No longer eligi ble based on patient's age to complete this topic MENINGOCOCCAL (Group B) VACC INE SHARED DECISION-MAKING Aged Out No longer eligibl e based on patient's age to complete this topic MENINGOCOCCAL GROUPS A/C/Y/W VACCINE Aged Out No longer eligible b ased on patient's age to complete this topic Insurance MEDICARE [place]ICA[place] - [place] SELF PAY NO INSURANCE Member Subscriber Plan / Payer (Ef fective for All Dates) Name:Alena Harden Member ID:Not on file Relation to Subscriber:Not on file Name:ALENA HARDEN Subscriber ID:Not on file (Home) Address: [address] [place] [address] Payer ID:Not on file Group ID:Not on file Type:Self Pay Address: [place], [place] * Guarantor: ALENA HARDEN Account Type Relation to Patient Date of Phone Billing Address Personal/Family [address] [place] [address] MEDICARE MEDICAID - [place] * Guarantor: ALENA HARDEN Account Type Relation to Patient Date of Phone Billing Address Personal/Family [address] [place] [address] * Guarantor: ALENA HARDEN Account Type Relation to Patient Date of Phone Billing Address Personal/Family [address] [place] [address]
--- OUTSIDE RECORDS SUMMARY | 2024-12-30 14:49 | XMS_ITS | Referral Summary ---
Author Organization [facility] Address [address] [place] [address] Care Team Providers Care Senior Backup Administrator Name Role Phone Yeyo Garcia MD Primary Care Provider Encounters Date Type Department Care Team Description 12/23/2024 Telephone [facility] Epilepsy [address] [place] [phone] John Celeste MD PhD 12/23/2024 Telephone [facility] Epilepsy [address] 6th [place] [address] [place] [phone] John Celeste MD PhD Medical Records Request 12/15/2024 4:00 PM CDT Office Visit [facility] Epilepsy [address]th [place] [phone] John Celeste MD PhD Epilepsy posttraumatic (HCC) (Primary Dx) from Last 3 Months Allergies No known active allergies Medications citalopram (CeleXA) 10 mg tablet Take 1 tablet (10 mg total) by mouth daily Active montelukast (SINGULAIR) 10 mg tablet Take 1 tablet (10 mg total) by mouth nightly 01/07/20 23 Active propylene glycoL 0.6 % drops Systane Complete 0.6 % eye drops Active calcium carbonate-kaye min D3 1,500 mg (600 mg elemental)-800 unit tablet,chewabl e calcium carb 600 mg(1,500 mg)-vit D3 400 unit-minerals chewable tablet Take by oral route. 11/18/19 15 Active omeprazole (PriLOSEC) 20 mg capsule omeprazole 20 mg capsule,delay ed release Active Combivent Respimat 20-100 mcg/actuation inhaler Inhale 1 puff 4 (four) times a day 01/16/20 23 Active fluticasone propionate (FLONASE) 50 mcg/actuation nasal spray Administer 1 spray into each nostril daily 01/30/20 23 Active tobramycin-dex AMETHasone (TOBRADEX) ophthalmic solution 05/16/20 23 Active metoprolol XL (TOPROL-XL) 50 mg extended release tablet Take 1 tablet (50 mg total) by mouth daily 05/23/20 24 Active spironolactone (ALDACTONE) 25 mg tablet Take 1 tablet (25 mg total) by mouth daily 05/23/20 24 Active Entresto 24-26 mg tablet Take 1 tablet by mouth 2 (two) times a day 05/23/20 24 Active Ventolin HFA 90 mcg/actuation inhaler 06/04/20 24 Active Jardiance 10 mg tablet Take 1 tablet (10 mg total) by mouth daily 05/23/20 24 Active topiramate (TOPAMAX) 100 mg tablet Take 1 tablet (100 mg total) by mouth 2 (two) times a day 180 tablet 3 12/16/19 25 026 Active primidone (MYSOLINE) 50 mg tabletIndicati ons:Essential Tremor Take 1 tablet (50 mg total) by mouth nightly 90 tablet 3 12/16/19 25 026 Active oxyCODONE (ROXICODONE) 5 mg immediate release tablet Take 0.5 tablets (2.5 mg total) by mouth as needed 025 Discontinued Advair Diskus 100-50 mcg/dose diskus inhaler Inhale 1 puff 2 (two) times a day 12/17/19 23 025 Discontinued bisacodyl EC (DULCOLAX EC) 5 mg EC tablet Take 1 tablet (5 mg total) by mouth daily as needed 06/05/20 13 025 Discontinued primidone (MYSOLINE) 50 mg tabletIndicati ons:Essential Tremor Take 1 tablet (50 mg total) by mouth nightly 90 tablet 3 04/01/20 24 025 Discontinued(Re order) topiramate (TOPAMAX) 100 mg tablet Take 1 tablet (100 mg total) by mouth 2 (two) times a day 180 tablet 3 04/01/20 24 025 Discontinued(Re order) furosemide (LASIX) 40 mg tablet Take 1 tablet (40 mg total) by mouth daily 05/23/20 025 Discontinued Active Problems Problem Noted Date Diagnosed Date Tremor 07/04/2023 Assessment & Plan (07/04/2023 12:00 PM CDT): She had a predominantly action and postural tremor with very little resting tremor present for at least the pat 5 years and worsening in intensity and duration with a background of TBI with hydrocephalus s/p NON GARMENT SEWING MACHINE OPERATOR shunting and epilepsy treated with divalproex DR. She was adamant that she did not have the tremor as a child but she may be a poor historian but her friend corroborated that the tremor was more recent. She had taken divalproex for a long time to treat her seizures and her levels were in the therapeutic range. A head CT demonstrated the hydrocephalus as well as left frontal lesion s/p NON GARMENT SEWING MACHINE OPERATOR shunting. On examination she had ataxia right worse than left with tremor left worse than right. Her ambulation was very difficult and not independent (she had a hip fracture in September but had been wheel chair bound). She had left exotropia but with intact eye movements. The most likely cause of her tremor was the drug exposure to divalproex. It is possible that this is an essential tremor. Further with the degree of ataxia it is also possible that she has an underlying ataxia syndrome with tremor such as FXTAS or the premutation or that she has decompensated cerebellar injury from her TBI. At this time I will discuss with Dr. Celeste a taper of divalproex or transition to another agent for her seizures that will be less tremorogenic. Interestingly, primidone which she is taking a low dose of could treat both seizure and tremor. I would like her to be reevaluated by an CARD SERVICES SPECIALIST in 6 months, hopefully she has tapered off divalproex by that time. She may not need to continue to see us if she has dramatic improvement in tremor and ataxia following cessation of divalproex. 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 Immunizations Immunization Administration Dates Next Due Influenza, Trivalent, Preservative Free, Intramu scular 09/09/2013 Social History Tobacco Use Types Packs/Day Years Used Date Smoking Tobacco: Former Tobacco Cessation:Counseling Given: Not Answered Comments Unknown Sex and Gender Information Value Date Recorded Sex Assigned at Not on file 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 Gender Identity Not on file Sexual Orientation Not on file Last Filed Vital Signs Vital Sign Reading Time Taken Comments Blood Pressure 147/70 12/15/2024 3:50 PM CDT Pulse 65 12/15/2024 3:50 PM CDT Temperature - - Respiratory Rate - - Oxygen Saturation 97% 06/09/2024 12: 01 PM CDT Inhaled Oxygen Concentration - - Weight 63.5 kg (140 lb) 12/15/2024 3:50 PM CDT Height 149.9 cm (4' 11 ) 12/15/2024 3:5 0 PM CDT Measured in clinic Body Mass Index 28.28 12/15/2024 3:50 PM CDT Plan of Treatment Not on file Insurance MEDICARE IDPA MEDICARE IDPA Care Teams Senior Backup Administrator Relationship Specialty Start Date End Date Yeyo Garcia MD PCP - General Family Medicine 06/20/23
--- OUTSIDE RECORDS SUMMARY | 2024-12-30 14:49 | XMS_ITS | Clinical Summary ---
Author Organization [facility] Address [address] [place] [address] Care Team Providers Care Foundation Stage Teacher Name Role Phone Yeyo Garcia MD Primary Care Provider [phone] Allergies No known active allergies Medications citalopram [...] (40 mg total) by mouth daily 05/23/20 24 025 Discontinued Active Problems Problem Noted Date Diagnosed Date Tremor 07/04/2023 Assessment & Plan (07/04/2023 12:00 PM CDT): She had a predominantly action and postural tremor with very little resting tremor present for at least the pat 5 years and worsening in intensity and duration with a background of TBI with hydrocephalus s/p INTERN ARCHITECT shunting and epilepsy treated with divalproex . She was adamant that she did not have the tremor as a child but she may be a poor historian but her friend corroborated that the tremor was more recent. She had taken divalproex for a long time to treat her seizures and her levels were in the therapeutic range. A head CT demonstrated the hydrocephalus as well as left frontal lesion s/p INTERN ARCHITECT shunting. 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 Encounters Date Type Department Care Team Description 12/23/2024 Telephone [facility] Epilepsy [address] [place] [address] [place] [address] John Celeste MD PhD 12/23/2024 Telephone [facility] Epilepsy [address] [place] [address] [place] [phone] John Celeste MD PhD Medical Records Request 12/15/2024 4:00 PM CDT Office Visit [facility] Epilepsy [address] [place] [address] [place] [address] John Celeste MD PhD Epilepsy posttraumatic (HCC) (Primary Dx) from Last 3 Months Immunizations Immunization Administration Dates Next Due Influenza, Trivalent, Preservative Free, Intramu scular 09/09/2013 Surgical History Surgery Date Site/Laterality Comments TRACHEOSTOMY TUBE PLACEMENT Tracheostomy - (Added by Conv) TONSILLECTOMY Tonsillectomy - (Added by Conv) VENTRICULOATRIAL SHUNT Ventricular Shunt - (Added by Conv) Medical History Medical History Date Comments History of urinary tract infection Urinary Tract Infection - (Added by Conv) Communicating hydrocephalus (HCC) Communicating hydrocephalus - (Added by Conv) Gastric ulcer without hemorr ronnie or perforation Gastric ulcer - (Added by Conv) Family History Medical History Relation Name Comments Tremor Neg Hx Social History Tobacco Use Types Packs/Day Years Used Date Smoking Tobacco: Former Tobacco Cessation:Counseling Given: Not Answered Comments Unknown Sex and Gender Information Value Date Recorded Sex Assigned at Not on file 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 Gender Identity Not on file Sexual Orientation Not on file Obstetrics History Last Filed Vital Signs Vital Sign Reading [...] 12/15/2024 3:50 PM CDT Plan of Treatment Health Maintenance Due Date Last Done Comments Breast Cancer Screening-Mammogram 1955 Colon Cancer Screening-Colonoscopy 1957 Fall Risk Assessment 1957 Hepatitis C Screening 1957 Osteoporosis Screening-Bone Density Scan 1957 DTaP/Tdap/Td Vaccine (1 - Tdap) 1968 Hepatitis B Screening 1975 Pneumococcal vaccine 65+ (1 of 1 - PCV) 2007 Zoster Vaccine (1 of 2) 2007 Well Visit 65+ 2022 Covid-19 Vaccine (5 - 2023-2 5 season) 2024 01/18/2022, 06/15/2021, 09/27/2020, Additional history exists Depression Screening 07/04/2024 07/04/2023 Influenza Vaccine Completed 06/12/2024, 09/09/2013 Insurance MEDICARE [facility] Address: [facility] [address] [place] [address] [facility] MEDICARE [facility] Address: [address] [address] [place] [address] [facility] Care Teams Foundation Stage Teacher Relationship Specialty Start Date End Date Yeyo Garcia MD PCP - General Family Medicine 06/20/23
--- NOTE | 2024-12-30 16:49 | PC.NURSE ---
REPORT CALLED TO [facility], ALL QUESTIONS ANSWERED.
== END 2024-12-30 16:50 ==
PROVIDERS: Emergency Provider Emergency Medicine; PCP Family Medicine
DX: G40.909 Epilepsy, unspecified, not intractable, without status epilepticus (principal); Z20.822 Contact with and (suspected) exposure to COVID-19; K21.9 Gastro-esophageal reflux disease without esophagitis; J44.9 Chronic obstructive pulmonary disease, unspecified; Z86.73 Personal history of transient ischemic attack (TIA), and cerebral infarction without residual deficits; I11.0 Hypertensive heart disease with heart failure; I50.9 Heart failure, unspecified
CPT/HCPCS: 36415; 70450; 80053; 81001; 85025; 87637; 93005; 99284

== ENCOUNTER 2025-02-16 13:02 | Outpatient (CLI) | payer MEDICARE, MEDICAID, SELFPAY ==
--- NOTE | ~2025-02-16 | CT_ITS ---
CT Scan of the Chest without Contrast: Clinical Indication: Cough Technique: Contiguous sections were acquired throughout the chest without intravenous contrast. Dose reduction technique was used on this scan by utilizing automated exposure control and iterative recon struction technique. The dose-length product (DLP) was 133.66 mGy-cm. COMPARISON: 05/20/2024 Findings: There is no evidence of any significant mediastinal, hilar or axillary lymphadenopathy. The mediastin al soft tissues appear normal. There is no evidence of pleural or pericardial effusion. There is subtle, minimal residual groundglass opacity in the peripheral right upper lobe (axial image 36). There is an additional focal groundglass nodular opacity in the left lower lobe (axial image 56 ). Additional groundglass nodule present in the left upper lobe (axial image 39). There is right basi lar and lingular curvilinear scarring or atelectasis. Images through the upper abdomen reveal relatively atrophic left kidney, unchanged. Impression: Several focal subtle groundglass nodule/opacities, as above, nonspecific. Groundglass pulmonary disea se is markedly improved as compared to prior exam and findings could reflect postinflammatory change or minimal pneumonitis. Bibasilar scarring or atelectasis, as above. Reviewed, dictated and finalized at location M. Impression: Several focal subtle groundglass nodule/opacities, as above, nonspecific. Groun dglass pulmonary disease is markedly improved as compared to prior exam and fin dings could reflect postinflammatory change or minimal pneumonitis. Bibasilar scarring or atelectasis, as above.
--- OUTSIDE RECORDS SUMMARY | 2025-02-16 13:58 | XMS_ITS | Referral Summary ---
Author Organization [facility] Address [address] [place] [address] Care Team Providers Care Temporary Help Agency Referral Clerk Name Role Phone Yeyo Garcia MD Primary Care Provider Encounters Date Type Department Care Team Description 02/12/2025 Telephone [facility] Epilepsy [address] [facility] Advanced Medicine [address]th [place] [address] John Celeste MD PhD Seizures (02/11/25) 12/23/2024 Telephone [facility] Epilepsy [address] [facility] Medicine 6th [place] [address] [place] [address] John Celeste MD PhD 12/23/2024 Telephone [facility] Epilepsy [address] [facility] Medicine 6th [place] [address] John Celeste MD PhD Medical Records Request 12/15/2024 4:00 PM CDT Office Visit [facility] Epilepsy [address] [facility] Medicine 6th [place] [address] [place] [address] John Celeste MD PhD Epilepsy posttraumatic (HCC) (Primary Dx) from Last 3 Months Allergies No known active allergies Medications citalopram (CeleXA) 10 mg tablet Take 1 tablet (10 mg total) by mouth daily Active montelukast (SINGULAIR) 10 mg tablet Take 1 tablet (10 mg total) by mouth nightly 3 Active propylene glycoL 0.6 % drops Systane Complete 0.6 % eye drops Active calcium carbonate-vitam in D3 1,500 mg (600 mg elemental)-800 unit tablet,chewable calcium carb 600 mg(1,500 mg)-vit D3 400 unit-minerals chewable tablet Take by oral route. 5 Active omeprazole (PriLOSEC) 20 mg capsule omeprazole 20 mg capsule,delayed release Active Combivent Respimat 20-100 mcg/actuation inhaler Inhale 1 puff 4 (four) times a day 3 Active fluticasone propionate (FLONASE) 50 mcg/actuation nasal spray Administer 1 spray into each nostril daily 3 Active tobramycin-dexA METHasone (TOBRADEX) ophthalmic solution 3 Active metoprolol XL (TOPROL-XL) 50 mg extended release tablet Take 1 tablet (50 mg total) by mouth daily 4 Active spironolactone (ALDACTONE) 25 mg tablet Take 1 tablet (25 mg total) by mouth daily 4 Active Entresto 24-26 mg tablet Take 1 tablet by mouth 2 (two) times a day 4 Active Ventolin HFA 90 mcg/actuation inhaler 4 Active Jardiance 10 mg tablet Take 1 tablet (10 mg total) by mouth daily 4 Active topiramate (TOPAMAX) 100 mg tablet Take 1 tablet (100 mg total) by mouth 2 (two) times a day 180 tablet 3 5 12/16/19 26 Active primidone (MYSOLINE) 50 mg tabletIndicatio ns:Essential Tremor Take 1 tablet (50 mg total) by mouth nightly 90 tablet 3 5 12/16/19 26 Active Active Problems Problem Noted Date Diagnosed Date Tremor 07/04/2023 Assessment & Plan (07/04/2023 12:00 PM CDT): She had a predominantly action and postural tremor with very little resting tremor present for at least the pat 5 years and worsening in intensity and duration with a background of TBI with hydrocephalus s/p NEWSPAPER CORRESPONDENT shunting and epilepsy treated with divalproex She was adamant that she did not have the tremor as a child but she may be a poor historian but her friend corroborated that the tremor was more recent. She had taken divalproex for a long time to treat her seizures and her levels were in the therapeutic range. A head CT demonstrated the hydrocephalus as well as left frontal lesion s/p NEWSPAPER CORRESPONDENT shunting. 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
--- OUTSIDE RECORDS SUMMARY | 2025-02-16 13:58 | XMS_ITS | Clinical Summary ---
Author Organization [facility] Address [address] [place] [address] Care Team Providers Care Senior Software Analyst Name Role Phone Unavailable Primary Care Provider Unavailabl e Source Comments [facility],non-owned Affiliates and Associated Physician Practices is amultiple site organization consisting of ambulatory clinics and hospital sitesin [place], [place], [place] and [place]. This disclosure is being madepursuant to the Care Everywhere program and may not contain all information available regarding this patient. Last updated 18.[facility] Social History Tobacco Use Types Packs/Day Years [...] file (Home) Address: [address] [place] [address] Payer ID:Not on file Group ID:Not on file Type:Self Pay Address: [place], [place] * Guarantor: ALENA HARDEN Account Type Relation to Patient Date of Phone Billing Address Personal/Family [address] [place] [address] MEDICARE MEDICAID - [place] * Guarantor: ALENA HARDEN Account Type Relation to Patient Date of Phone Billing Address Personal/Family [address] [place] [employer] [place] [place] [address] * Guarantor: ALENA HARDEN Account Type Relation to Patient Date of Phone Billing Address Personal/Family [address] [place] [employer] [place] [place] [address]
--- OUTSIDE RECORDS SUMMARY | 2025-02-16 13:58 | XMS_ITS | Encounter Summary ---
Author Organization [facility] Address [address] [facility] [place] [address] Care Team Providers Care Environmental Services Coordinator Name Role Phone Unavailable Primary Care Provider Unavailabl e Encounter Details Date Type Department Care Team (Late st Contact Info) Description 02/06/[address] [facility] Care DermPath Lab [address] [place] [id number] Blane Blanco MD [address] [place] [address] Social History Tobacco Use Types [...] AM CDT) Case Report Dermatopathology Report Case: [id number] Authorizing Provider: Blane Blanco MD Collected: 02/05/2018 12:00 AM Pathologist: Alfredo Guevara MD Received: 02/06/2018 12:31 PM Specimen: Skin, right cheek 8 5:23 PM CDT DERMATOPATHOLOGY LABORATORY Final Diagnosis Specimen A. SKIN, right cheek: SQUAMOUS CELL CARCINOMA IN SITU, PRESENT AT THE BASE OF THE SPECIMEN (D04.39) OVERLYING CUTANEOUS HORN (L85.8) (see microscopic description and comment) 8 5:23 PM CDT DERMATOPATHOLOGY LABORATORY at 1723 CDT Clinical History R/O cut horn, SCC, SCCIS. Check margins. 5:23 PM CDT DERMATOPATHOLOGY LABORATORY Gross Description Specimen A: Received is one formalin filled container labeled with the patient's name and designated right cheek. The specimen consists of a shave biopsy measuring [id number], the margin is inked green, bisected. An additional piece of skin measuring [id number] is also submitted in cassette 1. Jar [...] column of marked compact hyperkeratosis. 5:23 PM CDT DERMATOPATHOLOGY LABORATORY Disclaimer An external and internal positive and negative controls are appropriate for the histochemical, immunohistochemical and immunofluorescence stain(s) in this case (if any), except where stated explicitly. The performance characteristics of the stain(s) cited in this report were developed and its performance characteristic determined by the Dermatopathology Laboratory at [facility]. These tests need not be, and therefore are not, approved by the [place] Food and Drug Administration. The tests are used for clinical purposes. Billing Codes Specimen Charges Stain Charges 64988 1 5:23 PM CDT DERMATOPATHOLOGY LABORATORY Embedded Images 5:23 PM CDT DERMATOPATHOLOGY LABORATORY Pathology/Cytolog y TISSUE SPECIMEN FROM SKIN / Unknown 02/05/2018 02/06/2018 12:31 PM CDT us Blane Blanco MD LAB - PATHOLOGY/CYTOLOGY ORD ERABLES Final Result DERMATOPATHOLOGY LABORATORY [facility] - Department of Dermatology [address], [address]th [place] [address], [facility] [phone] documented in this encounter Visit Diagnoses Not on filedocumented in this encounter
--- OUTSIDE RECORDS SUMMARY | 2025-02-16 13:58 | XMS_ITS | Clinical Summary ---
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 [...] as well as left frontal lesion s/p RN DIGESTIVE shunting. On examination she had ataxia right [...] like her to be reevaluated by an CIRCUIT BOARD DRAFTER in 6 months, hopefully she has tapered [...] Type Department Care Team Description 02/12/[address] Advanced Medicine [address]th [place] [address] [place] [address] John Celeste MD PhD Seizures (02/11/25) 12/23/2024 Telephone [facility] Epilepsy [address] [place] [address] Advanced Medicine 6th [place] [address] [place] [address] John Celeste MD PhD 12/23/[address] Medicine 6th [place] [address] [place] [address] John Celeste MD PhD Medical Records Request 12/15/2024 4:00 PM CDT Office Visit [facility] Epilepsy [address] [place] [address] Advanced Medicine 6th [place] [address] [place] [address] John Celeste MD PhD Epilepsy posttraumatic (HCC) (Primary Dx) from Last 3 Months Immunizations Immunization Administration Dates Next Due Influenza, Trivalent, Preservative Free, Intramu scular 09/09/2013 Surgical History Surgery Date Site/Laterality Comments TRACHEOSTOMY TUBE PLACEMENT Tracheostomy - (Added by TW Conv) TONSILLECTOMY Tonsillectomy - (Added by TW Conv) VENTRICULOATRIAL SHUNT Ventricular Shunt - (Added by TW Conv) Medical History Medical History Date Comments History of urinary tract infection Urinary Tract Infection - (Added by TW Conv) Communicating hydrocephalus (HCC) Communicating hydrocephalus - (Added by TW Conv) Gastric ulcer without hemorr ronnie or perforation Gastric ulcer - (Added by TW Conv) Family History Medical History Relation Name Comments Tremor Neg Hx Social History Tobacco Use Types Packs/Day Years Used Date Smoking Tobacco: Former Tobacco Cessation:Counseling Given: Not Answered Comments Unknown Sex and Gender Information Value Date Recorded Sex Assigned at Not on file 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
== END 2025-02-16 13:03 | disposition home or self-care (01) ==
PROVIDERS: PCP Nurse Practitioner Family; Visit Provider Nurse Practitioner Family
DX: R05.3 Chronic cough (principal); R91.8 Other nonspecific abnormal finding of lung field
CPT/HCPCS: 71250